=== PATIENT | male | born 1960 | race American Indian/Alaskan Native ===

== ENCOUNTER 2020-09-05 16:24 | Observation (INO) | payer BC ==
--- NOTE | 2020-09-05 17:44 | Event Note ---
ED Screening Note ED Screening Note: SOB, chest tightness, subjective fever, chills, generalized body aches began today no N/V/D, leg swelling no sick contacts no travel works at [employer] PMHx none no allergies to meds on exam rhythm sounds irregular, ordered EKG This initial assessment/diagnostic orders/clinical plan/treatment(s) is/are sub ject to change based on patients health status, clinical progression and re- assessment by fellow clinical providers in the ED. Further treatment and workup at subsequent clinical providers discretion. Patient/guardian urged not to elope from the ED as their condition may be serious if not clinically assessed and managed. Initial orders include: labs, EKG, CXR
[2020-09-05] MEDS ORDERED: HEPARIN 10,000 UNITS/10 ML VIAL IV ONE (18:08)
[2020-09-05] MEDS ORDERED: dilTIAZem 25 MG/5 ML INJ IV ONE (18:08)
[2020-09-05] MEDS ORDERED: HEPARIN 10,000 UNITS/10 ML VIAL IV PRN (18:08)
--- NOTE | 2020-09-05 18:12 | Emergency Department Report ---
HPI - General Chief Complaint: Dyspnea/Respdistress Time Seen by Provider: 09/05/20 17:42 - HPI HPI: Room 43 The patient is a 60-year-old male present with a chief complaint of chest tightness. Patient states he awakened this morning with tightness in his chest and feeling dizzy. Patient states he had shortness of breath associated with his chest tightness and became diaphoretic. Patient denies nausea or vomiting. Patient states for the past couple days he has had a cough has been productive of clear sputum. Patient currently gives his chest tightness a score of 4/10. ED Past Medical Hx - Past Medical History Previous Medical History?: No - Surgical History Past Surgical History?: No - Social History Smoking Status: Never Smoker Substance Use Type: None ED Review of Systems ROS: Stated complaint: COVID SYMPTOMS Other details as noted in HPI Physical Exam - Physical Exam Vital Signs: Vital Signs 09/05/20 17:20 Temperature 98.4 F Pulse Rate 75 Respiratory 20 Rate Blood Pressure 134/101 O2 Sat by Pulse 96 Oximetry ED Course Vital Signs 09/05/20 17:20 Temperature 98.4 F Pulse Rate 75 Respiratory 20 Rate Blood Pressure 134/101 O2 Sat by Pulse 96 Oximetry - Consultations Consultation #1: 09/05/20 17:57 EKG sent to and discussed with Dr. Deleon- recommends calling code STEMI ED Medical Decision Making - Lab Data Result diagrams: 09/05/20 18:16 09/05/20 17:48 - EKG Data -: EKG Interpreted by Me Rate: tachycardia - EKG Data When compared to previous EKG there are: previous EKG unavailable Interpretation: acute MT, other (A. fib with RVR 129 bpm) - Differential Diagnosis ACS, A. fib with RVR, pericarditis, GERD Critical care attestation.: If time is entered above; I have spent that time in minutes in the direct care of this critically ill patient, excluding procedure time. ED Disposition Clinical Impression: STEMI (ST elevation myocardial infarction) Disposition: -09 OP ADMIT IP TO THIS HOSP Is pt being admited?: Yes Does the pt Need Aspirin: Yes Condition: Fair Referrals: PRIMARY CARE, [Primary Care Provider] - 3-5 Days Time of Disposition: 19:02 (Hospitalist notified (Dr. Krishnamurthy))
[2020-09-05] MEDS ORDERED: HEPARIN 10,000 UNITS/10 ML VIAL ONE (18:20)
[2020-09-05] MEDS ORDERED: HEPARIN/NS 5000 UNIT/500ML 1,000 ML IR ONE (18:20)
[2020-09-05] MEDS ORDERED: NITROGLYCERIN SYRINGE 3 ML ONE (18:21)
[2020-09-05] MEDS ORDERED: LIDOCAINE (2%) 20 MG/1 ML VIAL 20 ML MDV INFILTRATI ONE (18:21)
[2020-09-05] MEDS ORDERED: VERAPAMIL 5 MG/2 ML INJ ONE (18:21)
[2020-09-05] MEDS ORDERED: MIDAZOLAM 2 MG/2 ML INJ ONE (18:22)
[2020-09-05 18:25] LABS: Alanine Aminotransferase 32 units/L (7-56); Albumin 4.5 g/dL (3.9-5); BUN/Creatinine Ratio 17; Blood Urea Nitrogen 17 mg/dL (9-20); Calcium 9.6 mg/dL (8.4-10.2); Hemolysis Index 30
[2020-09-05 18:27] LABS: Hematocrit 49.3 % (35.5-45.6); Hemoglobin 16.2 gm/dl (11.8-15.2)
--- NOTE | 2020-09-05 18:28 | XRay Report ---
CHEST 1 VIEW 09/05/2020 5:23 PM INDICATION / CLINICAL INFORMATION: chest tightness. COMPARISON: None available. FINDINGS: SUPPORT DEVICES: None. HEART / MEDIASTINUM: No significant abnormality. LUNGS / PLEURA: No significant pulmonary or pleural abnormality. No pneumothorax. ADDITIONAL FINDINGS: No significant additional findings. IMPRESSION: 1. No acute findings. Signer Name: Alvaro Patel MD Signed: 09/05/2020 6:24 PM Workstation Name: [id number]
[2020-09-05 18:39] LABS: Basophils % (Auto) 0.4 % (0.0-1.8); Eosinophils # (Auto) 0.1 K/mm3 (0.0-0.4); Eosinophils % (Auto) 0.7 % (0.0-4.3); Hematocrit 50.5 % (35.5-45.6); Hemoglobin 16.6 gm/dl (11.8-15.2); Lymphocytes # (Auto) 1.2 K/mm3 (1.2-5.4); Mean Corpuscular HGB Conc 33 % (32-34); Mean Corpuscular Volume 97 fl (84-94); Monocytes # (Auto) 0.6 K/mm3 (0.0-0.8); Monocytes % (Auto) 5.3 % (0.0-7.3); Platelet Count 151 K/mm3 (140-440); Red Blood Count 5.21 M/mm3 (3.65-5.03); Red Cell Distribution Width 14.3 % (13.2-15.2)
[2020-09-05 18:43] LABS: INR 1.07 (0.87-1.13)
[2020-09-05] MEDS ORDERED: SODIUM CHLORIDE 0.9% 500 ML 500 ML ONE (18:43)
[2020-09-05 18:45] LABS: Partial Thromboplastin Time 25.4 Sec. (24.2-36.6)
[2020-09-05 18:49] LABS: INR 1.06 (0.87-1.13)
[2020-09-05 18:50] LABS: Partial Thromboplastin Time 26.5 Sec. (24.2-36.6)
[2020-09-05] MEDS: fentaNYL 100 MCG/2 ML INJ ONE ×2 (18:50→18:52)
[2020-09-05] MEDS ORDERED: HEPARIN/ 0.45% NACL DRIP 25,000 UNIT/500 ML BAG IV SCH (19:00)
[2020-09-05] MEDS ORDERED: ACETAMINOPHEN 325 MG TAB PO PRN (19:36)
[2020-09-05] MEDS ORDERED: ONDANSETRON 4 MG/2 ML INJ IV PRN (19:36)
--- NOTE | 2020-09-05 19:43 | Consultation ---
HISTORY OF PRESENT ILLNESS: The patient is a 60-year-old gentleman who never saw a physician for last 30-40 years, started having anterior chest pain associated with shortness of breath and palpitations since this AM. He was evaluated in the Emergency Room and was noted to have ST elevations, was taken to the catheterization laboratory on an emergency basis and was noted to have normal coronary anatomy with moderate LV dysfunction, ejection fraction 35-40%, diagnosed as dilated cardiomyopathy with new-onset atrial fibrillation. PAST MEDICAL HISTORY: The patient's past medical history is essentially unremarkable and did not see any physician in a long time. MEDICATIONS: He does not take any medications. No history of hypertension or diabetes mellitus, pulmonary, or renal problems. The patient denies any previous hospitalizations or surgeries. SOCIAL HISTORY: He smokes 1 pack in 3-4 days. No history of drug abuse. The patient drinks 4-12 cans of beer a day for a long time. ALLERGIES: None known. 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 No previous cardiac history of chest pain or shortness of breath. No history of irregular heartbeat. No history of strokes or seizures. No history of pulmonary emboli or DVT. No history of unusual headaches. No fever, no coughing. However, he did have shortness of breath, chest pain since this morning. No leg swelling. No change in the bowel habits, no urinary symptoms. Denied any liver problems or pancreas problems in the past. No history of diabetes mellitus or asthma. PHYSICAL EXAMINATION: VITAL SIGNS: Blood pressure is 150/100, pulse of 120, irregular. HEENT: Conjunctivae pink. Sclerae anicteric. NECK: Supple, no JVD. HEART: Irregular, no significant murmurs. LUNGS: Clear. ABDOMEN: Benign. EXTREMITIES: Without edema. NEUROLOGIC: Alert, oriented x 3. FINAL IMPRESSION: 1. Dilated cardiomyopathy, probably related to alcohol use. Presently, ejection fraction 35-40%, newly diagnosed. 2. Atrial fibrillation, new onset with mildly increased ventricular rate, may be related to underlying cardiomyopathy and alcohol use. 3. Probable hypertension noted on present admission. No previous history. At this time, the patient denies any previous medical history or surgeries. Findings were explained to the patient. At this time, I explained to him most likely his problems may be related to alcohol use. Encouraged him to quit smoking. Presently, we will start him on anticoagulation with apixaban in addition to give him beta-dallin to control his blood pressure and heart rate. We will monitor him in telemetry. Presently, the patient is asymptomatic. No untoward complications were noted on cardiac catheterization performed using a radial access. The patient understands. The patient is single, lives by himself. JOB# [id number] CONNOR/DANIELLE BOYLE
[2020-09-05] MEDS ORDERED: HYDROcodone/ACETAMINOPHEN 5-325 MG TAB PO PRN (19:55)
[2020-09-05] MEDS ORDERED: traMADol 50 MG TAB PO PRN (19:55)
--- NOTE | 2020-09-05 19:55 | Cardiac Catherization Report ---
INDICATION FOR PROCEDURE: The patient is a 60-year-old -[place] gentleman who woke up this morning with anterior chest pain and since that time, the pain is not getting better. Subsequently, he had some shortness of breath and palpitations. He was evaluated in the Emergency Room and noted to have atrial fibrillation with rapid ventricular response and ST elevations in the inferior lateral leads consistent with inferior injury. Considering this pain is since this morning, the patient continues to have chest pain, hence was brought to the catheterization laboratory on an emergency basis as a part of the STEMI protocol. DESCRIPTION OF PROCEDURE: The patient was brought to the catheterization laboratory and was prepared in a standard fashion. He was sedated with IV Versed and fentanyl. The right wrist area was thoroughly cleansed with Betadine solution and sterile drapes were applied and local anesthesia was given. The patient subsequently using a 20-gauge needle, the right radial artery access was obtained. A 5-[place]i slender sheath was introduced. This is followed by angiography of the left coronary artery, right coronary artery and left ventriculogram done in PALMER projection using power injector using 6-[place]i multipurpose catheter. At the end of the procedure, catheter and sheath were removed and hemostasis was achieved with application of radial band. The patient tolerated the procedure well. The patient was evaluated for moderate sedation on an emergency basis. The patient was given IV Versed and fentanyl. Subsequently, was monitored throughout the procedure with EKG monitoring, pulse oximetry, and hemodynamic monitoring. The patient tolerated the sedation well. At the end of the procedure, the patient is breathing normally, communicating normally and no focal deficits noted. Patient's moderate sedation started at 18:51 hours and ended at 19:04 hours. The patient was transferred to the recovery area in stable condition. Throughout the procedure, the patient is in atrial fibrillation with controlled rate to mildly increased ventricular rate around 120 beats per minute. EKG at the end of the procedure showed persistent atrial fibrillation at a rate of 83 beats per minute; however, persistent ST elevations in the lateral precordial leads, may represent early repolarization. The patient is not having any chest pain at the end of the procedure. Following findings were noted. HEMODYNAMICS: 1. Opening aortic pressure 154/100. Left ventricular pressure 154/25. No gradient across the aortic valve. Estimated ejection fraction 35-40. 2. Left ventriculogram done in PALMER projection showed mildly dilated left ventricle with mild diffuse hypokinesis. EF was found to be around 35-40%. No significant mitral regurgitation noted. 3. Right coronary artery dominant vessel arises normally from right coronary cusp, but angiographically smooth and normal. 4. Left coronary artery arises normally from left coronary cusp. Left main, which is very short, LAD, which curves around the apex and its branches, circumflex artery and its multiple branches are angiographically smooth and normal. FINAL IMPRESSION: 1. Mildly dilated left ventricle with mild diffuse hypokinesis, ejection fraction in the range of 35-40%. No mitral regurgitation. Elevated end diastolic pressure of 25 mmHg noted. 2. Normal coronary anatomy with RCA being dominant vessel. 3. The patient has underlying atrial fibrillation, which is newly diagnosed. The patient's diagnosis appears to be cardiomyopathy with associated ST-T changes, this ST changes may be representing early repolarization. At this time, the patient will be admitted to the telemetry unit. Will be given IV heparin overnight. He will be started on anticoagulation with Eliquis in addition to adding beta dallin to control of the heart rate. The patient at the end of the procedure is stable without any chest pain, hemodynamically stable. JOB# [id number] CONNOR/DANIELLE BOYLE
--- NOTE | 2020-09-05 22:12 | History and Physical Report ---
History of Present Illness Date of examination: 09/05/20 Date of admission: 09/05/20 19:36 Chief complaint: Chest pain since a.m. History of present illness: The patient is a 60-year-old male present with a chief complaint of chest tightness. Patient states he awakened this morning with tightness in his chest and feeling dizzy. Patient states he had shortness of breath associated with his chest tightness and became diaphoretic. Patient denies nausea or vomiting. Patient states for the past couple days he has had a cough has been productive of clear sputum. Patient currently gives his chest tightness a score of 4/10. Patient is EKG was consistent with STEMI. Code STEMI was called. And patient was taken to [facility]. - Past Medical History Previous Medical History?: No - Surgical History Past Surgical History?: No - Social History Smoking Status: Never Smoker Substance Use Type: None Review of Systems ROS: Constitutional no weight loss or weight gain no fever or chills HEENT no sore throat no post nasal drip no diplopia Neck no neck stiffness no lymph gland enlargement Chest and lungs no shortness of breath cough or wheezing CVS acute onset of chest pain. GI no nausea no vomiting no diarrhea Genitourinary system no dysuria no flank pain Musculoskeletal system no muscle pains no joint pains CATH LAB no syncope no seizures Skin no rash no itching Psychiatric no depression no homicidal or suicidal tendencies Hematologic no lymphedema or bruising Endocrine no polydipsia no polyuria no cold intolerance no heat intolerance Medications and Allergies Allergies Allergy/AdvReac Type Severity Reaction Status Date / Time No Known Allergies Allergy Unverified 09/05/20 18:09 Active Meds: Active Medications Acetaminophen (Acetaminophen 325 Mg Tab) 650 mg PO Q4H PRN PRN Reason: Pain MILD(1-3)/Fever >100.5/VORA Hydrocodone Bitart/Acetaminophen (Hydrocodone/Acetaminophen 5-325 Mg Tab) 1 each PO Q4H PRN PRN Reason: Pain, Moderate (4-6) Apixaban (Apixaban 5 Mg Tab) 5 mg PO Q12HR JENNA; Protocol Heparin Sodium (Porcine) (Heparin 10,000 Units/10 Ml Vial) 3,400 unit 40 unit/kg (3400 unit) IV Q6H PRN PRN Reason: Anti-Xa Assay<0.1 units/ml Heparin Sodium/Sodium Chloride (Heparin/ 0.45% Nacl-25,000 Unit/500 Ml) 25,000 unit in 500 mls @ 20 mls/hr IV TITRATE JENNA; Protocol Metoprolol Tartrate (Metoprolol Tartrate 50 Mg Tab) 50 mg PO BID JENNA Stop: 09/15/20 21:59 Ondansetron HCl (Ondansetron 4 Mg/2 Ml Inj) 4 mg IV Q8H PRN PRN Reason: Nausea And Vomiting Sodium Chloride (Sodium Chloride 0.9% 10 Ml Flush Syringe) 10 ml IV BID JENNA Sodium Chloride (Sodium Chloride 0.9% 10 Ml Flush Syringe) 10 ml IV PRN PRN PRN Reason: LINE FLUSH Tramadol HCl (Tramadol 50 Mg Tab) 50 mg PO Q4H PRN PRN Reason: Pain, Mild (1-3) Exam - Constitutional Vitals: Temp Pulse Resp BP Pulse Ox 97.6 F 75 13 119/83 96 09/05/20 19:15 09/05/20 21:30 09/05/20 21:30 09/05/20 21:30 09/05/20 21:30 General appearance: Present: no acute distress, well-nourished - EENT Eyes: Present: PERRL ENT: hearing intact, clear oral mucosa - Neck Neck: Present: supple, normal ROM - Respiratory Respiratory effort: normal Respiratory: bilateral: CTA - Cardiovascular Heart rate: 78 Rhythm: regular Heart Sounds: Present: S1 & S2. Absent: rub, click - Extremities Extremities: pulses symmetrical, No edema Peripheral Pulses: within normal limits - Abdominal General gastrointestinal: Present: soft, non-tender, non-distended, normal bowel sounds Male genitourinary: Present: normal - Integumentary Integumentary: Present: clear, warm, dry - Musculoskeletal Musculoskeletal: gait normal, strength equal bilaterally - Psychiatric Psychiatric: appropriate mood/affect, intact judgment & insight - Neurologic Neurologic: CNII-XII intact, moves all extremities HEART Score - HEART Score History: Moderately suspicious EKG: Significant ST-depression Age: 45-65 Risk factors: No known risk factors Troponin: Troponin T 0.015 ng/mL (0.00-0.029) 09/05/20 17:48 - Critical Actions Critical Actions: 4-6 pts:12-16.6% risk of adverse cardiac event. Should be admitted Results - Labs CBC & Chem 7: 09/05/20 18:16 09/05/20 17:48 Labs: Laboratory Last Values WBC 11.6 K/mm3 (4.5-11.0) H 09/05/20 17:48 RBC 5.21 M/mm3 (3.65-5.03) H 09/05/20 17:48 Hgb 16.2 gm/dl (11.8-15.2) H 09/05/20 18:16 Hct 49.3 % (35.5-45.6) H 09/05/20 18:16 MCV 97 fl (84-94) H 09/05/20 17:48 MCH 32 pg (28-32) 09/05/20 17:48 MCHC 33 % (32-34) 09/05/20 17:48 RDW 14.3 % (13.2-15.2) 09/05/20 17:48 Plt Count 144 K/mm3 (140-440) 09/05/20 18:16 Lymph % (Auto) 10.0 % (13.4-35.0) L 09/05/20 17:48 Nash % (Auto) 5.3 % (0.0-7.3) 09/05/20 17:48 Eos % (Auto) 0.7 % (0.0-4.3) 09/05/20 17:48 Baso % (Auto) 0.4 % (0.0-1.8) 09/05/20 17:48 Lymph # (Auto) 1.2 K/mm3 (1.2-5.4) 09/05/20 17:48 Nash # (Auto) 0.6 K/mm3 (0.0-0.8) 09/05/20 17:48 Eos # (Auto) 0.1 K/mm3 (0.0-0.4) 09/05/20 17:48 Baso # (Auto) 0.0 K/mm3 (0.0-0.1) 09/05/20 17:48 Seg Neutrophils % 83.6 % (40.0-70.0) H 09/05/20 17:48 Seg Neutrophils # 9.7 K/mm3 (1.8-7.7) H 09/05/20 17:48 PT 13.7 Sec. (12.2-14.9) 09/05/20 18:16 INR 1.07 (0.87-1.13) 09/05/20 18:16 APTT 25.4 Sec. (24.2-36.6) 09/05/20 18:16 Sodium 140 mmol/L (137-145) 09/05/20 17:48 Potassium 4.4 mmol/L (3.6-5.0) 09/05/20 17:48 Chloride 103.3 mmol/L (98-107) 09/05/20 17:48 Carbon Dioxide 25 mmol/L (22-30) 09/05/20 17:48 Anion Gap 16 mmol/L 09/05/20 17:48 BUN 17 mg/dL (9-20) 09/05/20 17:48 Creatinine 1.0 mg/dL (0.8-1.3) 09/05/20 17:48 Estimated GFR > 60 ml/min 09/05/20 17:48 BUN/Creatinine Ratio 17 % 09/05/20 17:48 Glucose 129 mg/dL (75-100) H 09/05/20 17:48 Calcium 9.6 mg/dL (8.4-10.2) 09/05/20 17:48 Total Bilirubin 0.50 mg/dL (0.1-1.2) 09/05/20 17:48 AST 24 units/L (5-40) 09/05/20 17:48 ALT 32 units/L (7-56) 09/05/20 17:48 Alkaline Phosphatase 81 units/L (35-129) 09/05/20 17:48 Troponin T 0.015 ng/mL (0.00-0.029) 09/05/20 17:48 NT-Pro-B Natriuret Pep 629.4 pg/mL (0-900) 09/05/20 17:48 Total Protein 7.0 g/dL (6.3-8.2) 09/05/20 17:48 Albumin 4.5 g/dL (3.9-5) 09/05/20 17:48 Albumin/Globulin Ratio 1.8 % 09/05/20 17:48 Short CBC 09/05/20 09/05/20 Range/Units 17:48 18:16 WBC 11.6 H (4.5-11.0) K/mm3 Hgb 16.6 H 16.2 H (11.8-15.2) gm/dl Hct 50.5 H 49.3 H (35.5-45.6) % Plt Count 151 144 (140-440) K/mm3 BMP 09/05/20 17:48 Sodium 140 Potassium 4.4 Chloride 103.3 Carbon Dioxide 25 BUN 17 Creatinine 1.0 Glucose 129 H Calcium 9.6 Cardiac Enzymes 09/05/20 Range/Units 17:48 Troponin T 0.015 (0.00-0.029) ng/mL Liver Function 09/05/20 Range/Units 17:48 Total Bilirubin 0.50 (0.1-1.2) mg/dL AST 24 (5-40) units/L ALT 32 (7-56) units/L Alkaline Phosphatase 81 (35-129) units/L Albumin 4.5 (3.9-5) g/dL - Imaging and Cardiology EKG: report reviewed (EKG consistent with STEMI.) Pelayo/IV: IV Catheter Type [Right INT / Saline Lock Forearm] IV Catheter Type [Left Forearm Peripheral IV ] Assessment and Plan Advance Directives: Yes (Full code) - Patient Problems (1) STEMI (ST elevation myocardial infarction) Current Visit: Yes Status: Acute Plan to address problem: Patient had cardiac cath which showed normal coronaries. Patient initiated on IV heparin. And heparin. Will defer to cardiology regarding discharge tomorrow. (2) Hyperlipidemia Current Visit: Yes Status: Chronic Qualifiers: Hyperlipidemia type: unspecified Qualified Code(s): E78.5 - Hyperlipidemia, unspecified Plan to address problem: On statins. (3) DVT prophylaxis Current Visit: Yes Status: Acute Plan to address problem: On heparin and GI prophylaxis
[2020-09-05] MEDS: APIXABAN 5 MG TAB PO SCH (22:43)
[2020-09-05] MEDS: METOPROLOL TARTRATE 50 MG TAB PO SCH (22:43)
[2020-09-06] MEDS: METOPROLOL TARTRATE 50 MG TAB PO SCH ×2 (10:42→21:05)
[2020-09-06] MEDS: APIXABAN 5 MG TAB PO SCH ×2 (10:42→21:04)
--- NOTE | 2020-09-06 11:24 | Progress Note ---
Assessment and Plan s/p LHC via RRA overnight which showed normal coronaries, EF 35-40%. Pt feeling better today. tele reviewed - in AFib HR 100s, 5 beat run NSVT noted this AM, pt asymptomatic. Cont lopressor and titrate as tolerated. Cont Eliquis. Initiate losartan. Await tte. Cont to observe overnight with likely d/c in AM. Cessation of ETOH and tobacco use strongly encouraged. The patient has been seen in conjunction with Dr. Deleon who agrees with the assessment and plan of care. - Patient Problems (1) New onset atrial fibrillation Current Visit: Yes Status: Acute (2) Abnormal ECG Current Visit: Yes Status: Acute (3) Nonischemic cardiomyopathy Current Visit: Yes Status: Chronic (4) Normal coronary arteries Current Visit: Yes Status: Chronic (5) HTN (hypertension) Current Visit: Yes Status: Chronic (6) Alcohol abuse Current Visit: Yes Status: Chronic (7) Tobacco use Current Visit: Yes Status: Chronic Subjective Date of service: 09/06/20 Principal diagnosis: AFib RVR Interval history: pt sitting up at bedside, feeling better today. tele reviewed - in AFib HR 100s, 5 beat run NSVT noted this AM, pt asymptomatic. Objective Last Vital Signs Temp 97.4 F L 09/06/20 04:00 Pulse 68 09/06/20 10:32 Resp 18 09/06/20 04:00 BP 123/95 09/06/20 04:00 Pulse Ox 97 09/06/20 04:00 - Physical Examination General: No Apparent Distress HEENT: Positive: PERRL, Normocephaly, Mucus Membranes Moist Neck: Positive: neck supple, trachea midline Cardiac: Positive: irregularly irregular, S1/S2 Lungs: Positive: Decreased Breath Sounds Neuro: Positive: Grossly Intact Abdomen: Negative: Tender Skin: Negative: Rash Incision: Cardiac Cath Site (RRA c/d/i, no bleeding or hematoma) Musculoskeletal: No Pain Extremities: Absent: edema - Labs and Meds Cardiac Enzymes 09/05/20 Range/Units 17:48 AST 24 (5-40) units/L Coagulation 09/05/20 09/05/20 Range/Units 17:48 18:16 PT 13.6 13.7 (12.2-14.9) Sec. INR 1.06 1.07 (0.87-1.13) APTT 26.5 25.4 (24.2-36.6) Sec. CBC 09/05/20 09/05/20 Range/Units 17:48 18:16 WBC 11.6 H (4.5-11.0) K/mm3 RBC 5.21 H (3.65-5.03) M/mm3 Hgb 16.6 H 16.2 H (11.8-15.2) gm/dl Hct 50.5 H 49.3 H (35.5-45.6) % Plt Count 151 144 (140-440) K/mm3 Lymph # (Auto) 1.2 (1.2-5.4) K/mm3 [place] # (Auto) 0.6 (0.0-0.8) K/mm3 Eos # (Auto) 0.1 (0.0-0.4) K/mm3 Baso # (Auto) 0.0 (0.0-0.1) K/mm3 Comprehensive Metabolic Panel 09/05/20 Range/Units 17:48 Sodium 140 (137-145) mmol/L Potassium 4.4 (3.6-5.0) mmol/L Chloride 103.3 (98-107) mmol/L Carbon Dioxide 25 (22-30) mmol/L BUN 17 (9-20) mg/dL Creatinine 1.0 (0.8-1.3) mg/dL Glucose 129 H (75-100) mg/dL Calcium 9.6 (8.4-10.2) mg/dL AST 24 (5-40) units/L ALT 32 (7-56) units/L Alkaline Phosphatase 81 (35-129) units/L Total Protein 7.0 (6.3-8.2) g/dL Albumin 4.5 (3.9-5) g/dL - Imaging and Cardiology EKG: report reviewed, image reviewed Echo: pending Cardiac cath: report reviewed - Telemetry EKG Rhythm: Atrial Fibrillation
[2020-09-06] MEDS: LOSARTAN 25 MG TAB PO SCH (11:47)
--- NOTE | 2020-09-06 14:35 | Progress Note ---
Assessment and Plan Assessment and plan: STEMI -Presented with chest tightness and was taken to the [facility] -Cardiology consulted, appreciate recommendations -09/05 CXR shows no acute findings -09/05 TTE shows global left ventricular systolic function is moderately decreased, estimated ejection fraction 35 to 40%, abnormal left ventricular santos tolic function observed, moderate mitral valve regurgitation, RVSP calculated at 37 mmHg with a mildly dilated right ventricle -09/05 left heart cath shows moderate at the left ventricle with mild diffuse hypokinesis, ejection fraction in the range of 35 to 40%, no mitral valve regurgitation, elevated end-diastolic pressure of 25 mmHg, normal coronary anatomy and underlying atrial fibrillation -09/05 K 4.4 -Patient is having runs of V. tach 09/06 -09/04 heparin drip which has been discontinued -09/05 Eliquis, ARB, BB initiated by cardiology, titrate as needed Hyperlipidemia -Continue home statins DVT prophylaxis -Systolic anticoagulation with Eliquis -GI prophylaxis History Interval history: This is a 52-year-old male with no past medical history who presents to the emergency department on 09/05 with chest tightness, dizziness, diaphoresis and shortness of breath. ECG findings in the ED was consistent with a STEMI and patient was taken to the [facility]. Cardiology has been consulted. Today the patient is s/p LHC and a TTE. Patient noted to be in atrial fibrillation and was on heparin drip at the time my examination. No acute events reported overnight and the patient denies chest pain, difficulty in breathing, dizziness or diaphoresis. Per cardiology possible discharge tomorrow. Hospitalist Physical - Constitutional Vitals: Temp Pulse Resp BP Pulse Ox 97.4 F L 68 18 123/95 97 09/06/20 04:00 09/06/20 10:32 09/06/20 04:00 09/06/20 04:00 09/06/20 04:00 General appearance: Present: no acute distress, well-nourished - EENT Eyes: Present: PERRL, EOM intact ENT: hearing intact, clear oral mucosa, dentition normal - Neck Neck: Present: supple, normal ROM - Respiratory Respiratory effort: normal Respiratory: bilateral: CTA - Cardiovascular Rhythm: regular Heart Sounds: Present: S1 & S2. Absent: systolic murmur, diastolic murmur - Extremities Extremities: no ischemia, pulses intact, pulses symmetrical, No edema (Juvenal called), normal temperature, normal color, Full ROM Peripheral Pulses: within normal limits - Abdominal General gastrointestinal: soft, non-tender, non-distended, normal bowel sounds - Integumentary Integumentary: Present: clear, warm, dry - Psychiatric Psychiatric: appropriate mood/affect, cooperative - Neurologic Neurologic: CNII-XII intact, no focal deficits, moves all extremities - Allied Health Allied health notes reviewed: nursing HEART Score - HEART Score EKG: Significant ST-depression Age: 45-65 Risk factors: No known risk factors Troponin: Troponin T 0.015 ng/mL (0.00-0.029) 09/05/20 17:48 - Critical Actions Critical Actions: 4-6 pts:12-16.6% risk of adverse cardiac event. Should be admitted Results - Labs CBC & Chem 7: 09/05/20 18:16 09/05/20 17:48 Labs: Laboratory Last Values WBC 11.6 K/mm3 (4.5-11.0) H 09/05/20 17:48 RBC 5.21 M/mm3 (3.65-5.03) H 09/05/20 17:48 Hgb 16.2 gm/dl (11.8-15.2) H 09/05/20 18:16 Hct 49.3 % (35.5-45.6) H 09/05/20 18:16 MCV 97 fl (84-94) H 09/05/20 17:48 MCH 32 pg (28-32) 09/05/20 17:48 MCHC 33 % (32-34) 09/05/20 17:48 RDW 14.3 % (13.2-15.2) 09/05/20 17:48 Plt Count 144 K/mm3 (140-440) 09/05/20 18:16 Lymph % (Auto) 10.0 % (13.4-35.0) L 09/05/20 17:48 [place] % (Auto) 5.3 % (0.0-7.3) 09/05/20 17:48 Eos % (Auto) 0.7 % (0.0-4.3) 09/05/20 17:48 Baso % (Auto) 0.4 % (0.0-1.8) 09/05/20 17:48 Lymph # (Auto) 1.2 K/mm3 (1.2-5.4) 09/05/20 17:48 [place] # (Auto) 0.6 K/mm3 (0.0-0.8) 09/05/20 17:48 Eos # (Auto) 0.1 K/mm3 (0.0-0.4) 09/05/20 17:48 Baso # (Auto) 0.0 K/mm3 (0.0-0.1) 09/05/20 17:48 Seg Neutrophils % 83.6 % (40.0-70.0) H 09/05/20 17:48 Seg Neutrophils # 9.7 K/mm3 (1.8-7.7) H 09/05/20 17:48 PT 13.7 Sec. (12.2-14.9) 09/05/20 18:16 INR 1.07 (0.87-1.13) 09/05/20 18:16 APTT 25.4 Sec. (24.2-36.6) 09/05/20 18:16 Heparin Anti-Xa Level 1.30 U.I./ml (0.3-0.7) H 09/06/20 08:00 Sodium 140 mmol/L (137-145) 09/05/20 17:48 Potassium 4.4 mmol/L (3.6-5.0) 09/05/20 17:48 Chloride 103.3 mmol/L (98-107) 09/05/20 17:48 Carbon Dioxide 25 mmol/L (22-30) 09/05/20 17:48 Anion Gap 16 mmol/L 09/05/20 17:48 BUN 17 mg/dL (9-20) 09/05/20 17:48 Creatinine 1.0 mg/dL (0.8-1.3) 09/05/20 17:48 Estimated GFR > 60 ml/min 09/05/20 17:48 BUN/Creatinine Ratio 17 % 09/05/20 17:48 Glucose 129 mg/dL (75-100) H 09/05/20 17:48 Calcium 9.6 mg/dL (8.4-10.2) 09/05/20 17:48 Total Bilirubin 0.50 mg/dL (0.1-1.2) 09/05/20 17:48 AST 24 units/L (5-40) 09/05/20 17:48 ALT 32 units/L (7-56) 09/05/20 17:48 Alkaline Phosphatase 81 units/L (35-129) 09/05/20 17:48 Troponin T 0.015 ng/mL (0.00-0.029) 09/05/20 17:48 NT-Pro-B Natriuret Pep 629.4 pg/mL (0-900) 09/05/20 17:48 Total Protein 7.0 g/dL (6.3-8.2) 09/05/20 17:48 Albumin 4.5 g/dL (3.9-5) 09/05/20 17:48 Albumin/Globulin Ratio 1.8 % 09/05/20 17:48 - Diagnostic Impressions Diagnostic Impressions: Echocardiogram 09/05/20 19:54 Transthoracic Echocardiogram Indication: A-fib BP: 123/95 HR: 66 Conclusions *Global left ventricular systolic function is moderately decreased. *The estimated ejection fraction is 35-40%. *Abnormal left ventricular diastolic function is observed.(Indeterminate) *The left atrial chamber size is normal. *There is moderate mitral regurgitation. *The right ventricular systolic pressure is calculated at 37 mmHg. *The right ventricle is mildly dilated. Findings Left Ventricle: The left ventricular chamber size is normal. Global left ventricular systolic function is moderately decreased. The estimated ejection fraction is 35-40%. Abnormal left ventricular diastolic function is observed.(Indeterminate) Left Atrium: The left atrial chamber size is normal. Right Ventricle: The right ventricle is mildly dilated. The right ventricular global systolic function is mildly reduced. Right Atrium: The right atrium is mildly dilated. Aortic Valve: The aortic valve structure is normal. There is no evidence of aortic regurgitation. Mitral Valve: The mitral valve leaflets are mildly thickened. There is moderate mitral regurgitation. Tricuspid Valve: The tricuspid valve leaflets are normal. There is moderate tricuspid regurgitation. The right ventricular systolic pressure is calculated at 37 mmHg. Pulmonic Valve: The pulmonic valve appears normal. There is trace pulmonic regurgitation. Pericardium: There is no pericardial effusion. Aorta: The aorta appears normal. Venous: The inferior vena cava appears normal. Measurements Chambers 2D Name Value Normal Range IVSd (2D) 0.87 cm (0.6 - 1.1) LVPWd (2D) 0.8 cm (0.6 - 1.1) LVIDd (2D) 5.17 cm (3.7 - 5.6) LVIDs (2D) 4.19 cm (2 - 3.8) LV FS (2D) 18.95 % - Ao root diameter (2D) 3.11 cm (2 - 3.7) Volumes/Mass Name Value Normal Range LA ESV SP 4CH (A/L) 31.52 ml - LA ESV SP 2CH (A/L) 56.52 ml - LA ESV BP (A/L) 43.09 ml - LA ESV BP (A/L) index 20.92 ml/m2 - LA ESV SP 4CH (MOD) 28.12 ml - LA ESV SP 2CH (MOD) 55.75 ml - LA ESV BP (MOD) 40.3 ml - LA ESV BP (MOD) index 19.56 ml/m2 - Diastolic/Systolic Function Name Value Normal Range MV E-wave Vmax 1.04 m/sec - MV deceleration time 155.27 msec - Aortic Valve Name Value Normal Range AV Vmax 0.93 m/sec - AV VTI 14.82 cm - AV peak gradient 3.44 mmHg - AV mean gradient 1.8 mmHg - LVOT diameter 2 cm - LVOT Vmax 0.72 m/sec - LVOT VTI 11.24 cm - LVOT peak gradient 2.69 mmHg - LVOT mean gradient 1.5 mmHg - SV LVOT 35.26 ml - KYLE (continuity Vmax) 2.43 cm2 - KYLE (continuity VTI) 2.38 cm2 - Mitral Valve Name Value Normal Range MR Vmax 4.88 m/sec - MR VTI 139.71 cm - Tricuspid Valve Name Value Normal Range TR Vmax 2.94 m/sec - TR peak gradient 34 mmHg - RAP 3 mmHg - RVSP 37 mmHg - IVC diameter 1.92 cm (1.2 - 2.3) Pulmonic Valve/Qp:Qs Name Value Normal Range ID end-diastolic Vmax 1.44 m/sec - PV acceleration time 95.15 msec - Pelayo/IV: Voiding Method Urinal IV Catheter Type [Right INT / Saline Lock Forearm] IV Catheter Type [Left Forearm Peripheral IV ] Active Medications - Current Medications Current Medications: Generic Name Dose Route Start Last Admin Trade Name Freq PRN Reason Stop Dose Admin Acetaminophen 650 mg 09/05/20 19:36 Acetaminophen 325 Mg Tab PO Q4H PRN Pain MILD(1-3)/Fever >100.5/VORA Hydrocodone Bitart/Acetaminophen 1 each 09/05/20 19:55 Hydrocodone/Acetaminophen 5-325 Mg Tab PO Q4H PRN Pain, Moderate (4-6) Apixaban 5 mg 09/05/20 22:00 09/06/20 10:42 Apixaban 5 Mg Tab PO 5 mg Q12HR JENNA Administration Protocol Losartan Potassium 12.5 mg 09/06/20 12:00 Losartan 25 Mg Tab PO QDAY JENNA Metoprolol Tartrate 50 mg 09/05/20 22:00 09/06/20 10:42 Metoprolol Tartrate 50 Mg Tab PO 09/15/20 21:59 50 mg BID JENNA Administration Ondansetron HCl 4 mg 09/05/20 19:36 Ondansetron 4 Mg/2 Ml Inj IV Q8H PRN Nausea And Vomiting Sodium Chloride 10 ml 09/05/20 22:00 09/06/20 10:43 Sodium Chloride 0.9% 10 Ml Flush Syringe IV 10 ml BID JENNA Administration Sodium Chloride 10 ml 09/05/20 19:36 Sodium Chloride 0.9% 10 Ml Flush Syringe IV PRN PRN LINE FLUSH Tramadol HCl 50 mg 09/05/20 19:55 Tramadol 50 Mg Tab PO Q4H PRN Pain, Mild (1-3)
[2020-09-07 05:48] LABS: Hematocrit 47.3 % (35.5-45.6); Hemoglobin 15.4 gm/dl (11.8-15.2); Mean Corpuscular HGB Conc 33 % (32-34); Mean Corpuscular Volume 98 fl (84-94); Platelet Count 134 K/mm3 (140-440); Red Blood Count 4.85 M/mm3 (3.65-5.03); Red Cell Distribution Width 14.4 % (13.2-15.2)
[2020-09-07 06:03] LABS: BUN/Creatinine Ratio 18; Blood Urea Nitrogen 18 mg/dL (9-20); Calcium 8.1 mg/dL (8.4-10.2); Hemolysis Index 2
[2020-09-07 06:19] LABS: Chol/HDL Ratio 4.32 %; HDL Cholesterol 43 mg/dL (40-59); LDL Cholesterol,Direct 140 mg/dL (50-130)
[2020-09-07] MEDS: METOPROLOL TARTRATE 50 MG TAB PO SCH (10:28)
[2020-09-07] MEDS: LOSARTAN 25 MG TAB PO SCH (10:29)
[2020-09-07] MEDS: APIXABAN 5 MG TAB PO SCH (10:29)
--- NOTE | 2020-09-07 11:14 | Progress Note ---
Assessment and Plan tte reviewed - EF 35-40%, mod MR, mildly dilated RV, RVSP 37mmHg. tele reviewed - in AFib HR 100s, 5-6 beat runs NSVT noted and 2 - 2.6 sec pauses noted overnight, pt asymptomatic. Currently stable cardiac status. Pt may discharge home on present cardiac management, including lopressor, losartan, Eliquis. Cessation of ETOH and tobacco use strongly encouraged. Follow up in our [place] office with Dr. Deleon on 09/21/2020 @ 12:00PM. The patient has been seen in conjunction with Dr. Deleon who agrees with the assessment and plan of care. - Patient Problems (1) New onset atrial fibrillation Status: Acute (2) Abnormal ECG Status: Acute (3) Nonischemic cardiomyopathy Status: Chronic (4) Normal coronary arteries Status: Chronic (5) HTN (hypertension) Status: Chronic (6) Alcohol abuse Status: Chronic (7) Tobacco use Status: Chronic (8) NSVT (nonsustained ventricular tachycardia) Status: Acute Subjective Date of service: 09/07/20 Principal diagnosis: AFib RVR Interval history: pt resting in bed, no current complaints. tele reviewed - in AFib HR 100s, 5-6 beat runs NSVT noted and 2 - 2.6 sec pauses noted overnight, pt asymptomatic. Objective Last Vital Signs Temp 98.2 F 09/07/20 08:40 Pulse 64 09/07/20 08:40 Resp 16 09/07/20 08:40 BP 123/67 09/07/20 08:40 Pulse Ox 94 09/07/20 08:40 - Physical Examination General: No Apparent Distress HEENT: Positive: PERRL, Normocephaly, Mucus Membranes Moist Neck: Positive: neck supple, trachea midline Cardiac: Positive: irregularly irregular, S1/S2 Lungs: Positive: Decreased Breath Sounds Neuro: Positive: Grossly Intact Abdomen: Negative: Tender Skin: Negative: Rash Incision: Cardiac Cath Site (RRA c/d/i, no bleeding or hematoma) Musculoskeletal: No Pain Extremities: Absent: edema - Labs and Meds Lipids 09/07/20 Range/Units 05:24 Triglycerides 114 (2-149) mg/dL Cholesterol 186 (50-199) mg/dL HDL Cholesterol 43 (40-59) mg/dL Cholesterol/HDL Ratio 4.32 % CBC 09/07/20 Range/Units 05:24 WBC 6.3 (4.5-11.0) K/mm3 RBC 4.85 (3.65-5.03) M/mm3 Hgb 15.4 H (11.8-15.2) gm/dl Hct 47.3 H (35.5-45.6) % Plt Count 134 L (140-440) K/mm3 Comprehensive Metabolic Panel 09/07/20 Range/Units 05:24 Sodium 138 (137-145) mmol/L Potassium 4.4 (3.6-5.0) mmol/L Chloride 104.0 (98-107) mmol/L Carbon Dioxide 25 (22-30) mmol/L BUN 18 (9-20) mg/dL Creatinine 1.0 (0.8-1.3) mg/dL Glucose 111 H (75-100) mg/dL Calcium 8.1 L D (8.4-10.2) mg/dL - Imaging and Cardiology EKG: report reviewed, image reviewed Echo: report reviewed Cardiac cath: report reviewed (08/2020: normal coronaries, EF 35-40%) - Telemetry EKG Rhythm: Atrial Fibrillation
[2020-09-07] MEDS ORDERED: MAGNESIUM SULFATE 1 GM in SODIUM CHLORIDE 0.9% 50 ML IV ONE (12:14)
[2020-09-07 12:17] VITALS: BP 120/67
--- NOTE | 2020-09-07 13:34 | Discharge Summary ---
Providers - Providers Date of Admission: 09/05/20 19:36 Date of discharge: 09/07/20 Attending physician: PEDRO LUJAN 09/05/20 19:55 Consult to Cardiac Rehabilitation [CONS] Routine Reason For Exam: Cardiac Rehab Evaluation Primary care physician: [employer] Hospitalization Condition: Stable Hospital course: This is a 52-year-old male with no past medical history who presents to the emergency department on 09/05 with chest tightness, dizziness, diaphoresis and shortness of breath. ECG findings in the ED was consistent with a STEMI and patient was taken to the [facility]. Cardiology has been consulted. While inpatient he received a left heart cath and a transthoracic echocardiogram. Patient noted to be in atrial fibrillatin. Patient will need to continue current cardiac regimen and anticoagulation with Eliquis. Patient will need to follow-up with his primary care physician and cardiology within 1 to 2 weeks of discharge. Nonischemic Cardiomyopathy with normal coronary arteries/STEMI on ECG -Presented with chest tightness and was taken to the [facility] -Cardiology consulted, appreciate recommendations -09/05 CXR shows no acute findings -09/05 TTE shows global left ventricular systolic function is moderately decreased, estimated ejection fraction 35 to 40%, abnormal left ventricular diastolic function observed, moderate mitral valve regurgitation, RVSP calculated at 37 mmHg with a mildly dilated right ventricle -09/05 left heart cath shows moderate at the left ventricle with mild diffuse hypokinesis, ejection fraction in the range of 35 to 40%, no mitral valve regurgitation, elevated end-diastolic pressure of 25 mmHg, normal coronary anatomy and underlying atrial fibrillation -09/05 K 4.4 -Patient had runs of V. tach 09/06 na don 09/07 -S/p heparin drip -Continue current cardiac regimen -Follow-up with cardiology within 1 to 2 weeks of discharge Atrial fibrillation -Continue current rate control medications -Follow-up with cardiology within 1 to 2 weeks of discharge -Continue Eliquis for DVT/CVA prophylaxis Hyperlipidemia -Continue home statins DVT/CVA prophylaxis -Systemic anticoagulation with Eliquis Disposition: DC-01 TO HOME OR SELFCARE Time spent for discharge: 35 Core Measure Documentation - Palliative Care Palliative Care/ Comfort Measures: Not Applicable - Core Measures Any of the following diagnoses?: acute CT - Acute CT Discharge Requirements Aspirin at discharge: No Reason for no aspirin on DC: Patient refusal VLADISLAV/ARB for LVSD if EF <40%: Yes Beta dallin at discharge: Yes Statin for LDL = or >100 mg/dl on DC: Not Applicable Exam - Constitutional Vitals: Temp Pulse Resp BP Pulse Ox 98.0 F 64 18 120/67 96 09/07/20 12:14 09/07/20 12:14 09/07/20 12:14 09/07/20 12:14 09/07/20 12:14 General appearance: Present: no acute distress - EENT Eyes: Present: PERRL, EOM intact ENT: hearing intact, clear oral mucosa - Neck Neck: Present: normal ROM - Respiratory Respiratory effort: normal Respiratory: bilateral: CTA - Cardiovascular Rhythm: regular Heart Sounds: Present: S1 & S2. Absent: systolic murmur, diastolic murmur - Extremities Extremities: no ischemia, pulses intact, pulses symmetrical, No edema, normal temperature, normal color, Full ROM - Abdominal General gastrointestinal: Present: soft, non-tender, non-distended, normal bowel sounds - Integumentary Integumentary: Present: clear, warm, dry - Musculoskeletal Musculoskeletal: strength equal bilaterally - Psychiatric Psychiatric: appropriate mood/affect, cooperative - Neurologic Neurologic: CNII-XII intact, no focal deficits, moves all extremities - Allied Health Allied health notes reviewed: nursing Plan Activity: advance as tolerated Diet: low fat, low cholesterol, low salt Special Instructions: record daily BP diary, smoking cessation Additional Instructions: Present to nearest emergency department or contact your primary care physician next week if you experience worsening symptoms. You will need to follow-up with your primary care physician and community service technician within 1 to 2 weeks of discharge. Follow up with: PHILLIP STOUT MD [Primary Care Provider] - 3-5 Days SANDY HILL MD [Staff Physician] - 7 Days Forms: Work/School Excuse Out Patient, Work/School Release Form Prescriptions: Losartan [Cozaar] 12.5 mg PO QDAY #30 tablet Apixaban [Eliquis] 5 mg PO Q12HR #60 tablet Metoprolol [Lopressor TAB] 50 mg PO BID #60 tablet traMADoL [Ultram 50 MG tab] 50 mg PO Q6HR PRN #14 tablet PRN Reason: Pain, Mild (1-3)
== END 2020-09-07 16:26 | disposition home or self-care (01) ==
LOC: ED 16:24 → 4A 19:36
PROVIDERS: ADMIT Internal Medicine; ATTEND Hospitalist
DX: I21.3 ST elevation (STEMI) myocardial infarction of unspecified site (principal); E78.5 Hyperlipidemia, unspecified; I42.0 Dilated cardiomyopathy; I48.91 Unspecified atrial fibrillation; I42.8 Other cardiomyopathies; I10 Essential (primary) hypertension; R94.31 Abnormal electrocardiogram [ECG] [EKG]; F17.210 Nicotine dependence, cigarettes, uncomplicated
CPT/HCPCS: 36415; 71045; 80048; 80053; 80061; 83735; 83880; 84484; 85014; 85018; 85025; 85027; 85049; 85520; 85610; 85730; 93005; 93306; 93458; 96365; 96366; 96375; 96376; 99285; 99406; C1894; G0378; J1644; J2250; J3010; J7040; Q9967

== ENCOUNTER 2021-12-13 18:55 | Inpatient (IN) | payer BC, OTHER ==
[2021-12-13] MEDS ORDERED: dilTIAZem 25 MG/5 ML INJ IV ONE (23:00)
--- NOTE | 2021-12-13 23:02 | Emergency Department Report ---
ED General Adult HPI - General Chief complaint: Dyspnea/Respdistress Stated complaint: HEART LEGS SWOLLEN Time Seen by Provider: 12/13/21 22:55 Source: patient, RN notes reviewed, old records reviewed Mode of arrival: Ambulatory Limitations: Physical Limitation - History of Present Illness Initial comments: The patient is a 61-year-old gentleman. This patient has a history of nonischemic cardiomyopathy, EF 35 to 40%, A. fib, hyperlipidemia, history of paroxysmal V. tach. The patient presents to the ER today with a complaint of lower extremity swel ling, shortness of breath and heart racing. Symptoms have been going on for about 2 weeks. He reports partial compliance with his outpatient medications. He states that he came to the ER today because family members noticed that his legs were very swollen. He endorses tightness in his legs and abdomen from swelling. He denies bleeding rectally or through emesis. -: Gradual Location: left, right, lower extremity Consistency: constant Improves with: none Worsens with: movement, other (Palpation) - Related Data Previous Rx's Medication Instructions Recorded Last Taken Type Acetaminophen [Acetaminophen TAB] 650 mg PO Q4H PRN tablet 09/07/20 Unknown Rx Apixaban [Eliquis] 5 mg PO Q12HR #60 tablet 09/07/20 Unknown Rx Losartan [Cozaar] 12.5 mg PO QDAY #30 tablet 09/07/20 Unknown Rx Metoprolol [Lopressor TAB] 50 mg PO BID #60 tablet 09/07/20 Unknown Rx traMADoL [Ultram 50 MG tab] 50 mg PO Q6HR PRN #14 tablet 09/07/20 Unknown Rx Allergies Allergy/AdvReac Type Severity Reaction Status Date / Time pollen extracts Allergy Unknown Verified 12/13/21 21:07 ED Review of Systems ROS: Stated complaint: HEART LEGS SWOLLEN Other details as noted in HPI Constitutional: malaise. denies: fever Eyes: denies: eye discharge ENT: congestion Respiratory: shortness of breath, SOB with exertion, SOB at rest Cardiovascular: palpitations, dyspnea on exertion, orthopnea, edema. denies: chest pain Gastrointestinal: denies: nausea, vomiting, hematemesis, melena, hematochezia Musculoskeletal: arthralgia, myalgia Neurological: weakness Hematological/Lymphatic: denies: easy bleeding ED Past Medical Hx - Past Medical History Previous Medical History?: Yes Hx Congestive Heart Failure: Yes Hx Diabetes: No Hx Asthma: No Hx COPD: No Additional medical history: afib - Surgical History Past Surgical History?: No - Social History Smoking Status: Current Every Day Smoker Substance Use Type: None - Medications Home Medications: Home Medications Medication Instructions Recorded Confirmed Last Taken Type Acetaminophen [Acetaminophen TAB] 650 mg PO Q4H PRN tablet 09/07/20 Unknown Rx Apixaban [Eliquis] 5 mg PO Q12HR #60 tablet 09/07/20 Unknown Rx Losartan [Cozaar] 12.5 mg PO QDAY #30 tablet 09/07/20 Unknown Rx Metoprolol [Lopressor TAB] 50 mg PO BID #60 tablet 09/07/20 Unknown Rx traMADoL [Ultram 50 MG tab] 50 mg PO Q6HR PRN #14 tablet 09/07/20 Unknown Rx ED Physical Exam - General Limitations: Physical Limitation General appearance: alert, anxious, in distress, obese - Head Head exam: Present: atraumatic, normocephalic - Eye Eye exam: Present: normal appearance, EOMI. Absent: nystagmus - ENT ENT exam: Present: normal exam, normal orophraynx, mucous membranes moist, normal external ear exam - Neck Neck exam: Present: normal inspection, full ROM. Absent: tenderness - Respiratory Respiratory exam: Present: respiratory distress, rales - Cardiovascular Cardiovascular Exam: Present: tachycardia, irregular rhythm, JVD. Absent: systolic murmur, diastolic murmur, rubs, gallop - GI/Abdominal GI/Abdominal exam: Present: soft. Absent: distended, tenderness, guarding, rebound, rigid, pulsatile mass - Rectal Rectal exam: Present: deferred - Extremities Exam Extremities exam: Present: normal inspection, full ROM, pedal edema (3-4+ edema in the bilateral lower extremities.), other (2+ pulses noted in the bilateral upper and lower extremities. There is no palpable cord. negative Homans sign. Muscular compartments are soft. The pelvis is stable.). Absent: calf tenderness - Back Exam Back exam: Present: normal inspection. Absent: tenderness, CVA tenderness (R), CVA tenderness (L), paraspinal tenderness, vertebral tenderness - Neurological Exam Neurological exam: Present: alert, oriented X3, other (No facial droop. Tongue midline. Extraocular movements intact bilaterally. Facial sensation intact to light touch in V1, V2, V3 distribution bilaterally. 5 and a 5 strength in 4 extremities. Sensation intact to light touch in 4 extremities.). Absent: motor sensory deficit - Psychiatric Psychiatric exam: Present: anxious - Skin Skin exam: Present: warm, dry, intact, normal color. Absent: rash ED Course Vital Signs 12/13/21 12/13/21 12/13/21 21:03 23:43 23:50 Temperature 98.5 F Pulse Rate 53 L 160 H 147 H Respiratory 18 11 L Rate Blood Pressure 136/98 Blood Pressure 87/57 [Left] O2 Sat by Pulse 95 98 Oximetry 12/14/21 12/14/21 00:00 00:22 Temperature Pulse Rate 127 H 128 H Respiratory 23 Rate Blood Pressure Blood Pressure [Left] O2 Sat by Pulse 98 Oximetry - Reevaluation(s) Reevaluation #1: 12/13/21 23:55 Differential diagnosis, including not limited to: A. fib with RVR, decompensated congestive heart failure, electrolyte derangement Assessment and plan: 61-year-old gentleman presenting with physical exam evidence of decompensated congestive heart failure, manifest by JVD, lower extremity edema, crackles and rales, also in A. fib with RVR. 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 Start diltiazem. Initiate Lasix. Obtain appropriate laboratory studies. Chest x-ray consistent with congestive heart failure. Patient requires admission. Patient is agreeable to the plan of care. Reassess after laboratory studies have resulted. If patient requires initiation of diltiazem drip, will require admission to the ICU. Nursing team currently to administer 20 mg of diltiazem. Patient awake, alert, oriented, protecting airway at this time. He is not hy potensive at this time Reevaluation #2: 12/13/21 23:57 Patient received 20 mg of diltiazem, nursing team reports that heart rate went down to 120s, now in the 150s. We will initiate diltiazem drip. We will discussed with critical care to arrange admission to the intensive care unit. Admit to the hospital team once laboratory studies have resulted 12/14/21 01:05 Dr Cedrick Caballero to admit to [facility] Dr Mckinley to follow from critical care ED Medical Decision Making - Lab Data Result diagrams: 12/13/21 23:28 12/13/21 23:28 Vital Signs 12/13/21 12/13/21 21:03 23:43 Temperature 98.5 F Pulse Rate 53 L 160 H Respiratory 18 Rate Blood Pressure 136/98 Blood Pressure 87/57 [Left] O2 Sat by Pulse 95 Oximetry Lab Results 12/13/21 Range/Units 23:28 [place] % (Auto) 10.1 H (0.0-7.3) % Eos % (Auto) 2.7 (0.0-4.3) % [place] # (Auto) 0.9 H (0.0-0.8) K/mm3 Eos # (Auto) 0.2 (0.0-0.4) K/mm3 Baso # (Auto) 0.1 (0.0-0.1) K/mm3 Seg Neutrophils % 71.2 H (40.0-70.0) % Seg Neutrophils # 6.2 (1.8-7.7) K/mm3 Lab Results 12/13/21 12/13/21 12/13/21 Range/Units 23:28 23:28 23:28 WBC 8.7 (4.5-11.0) K/mm3 RBC 4.61 (3.65-5.03) M/mm3 Hgb 13.3 (11.8-15.2) gm/dl Hct 42.8 (35.5-45.6) % MCV 93 (84-94) fl MCH 29 (28-32) pg MCHC 31 L (32-34) % RDW 17.9 H (13.2-15.2) % Plt Count 198 (140-440) K/mm3 Lymph % (Auto) 14.8 (13.4-35.0) % [place] % (Auto) 10.1 H (0.0-7.3) % Eos % (Auto) 2.7 (0.0-4.3) % Baso % (Auto) 1.2 (0.0-1.8) % Lymph # (Auto) 1.3 (1.2-5.4) K/mm3 [place] # (Auto) 0.9 H (0.0-0.8) K/mm3 Eos # (Auto) 0.2 (0.0-0.4) K/mm3 Baso # (Auto) 0.1 (0.0-0.1) K/mm3 Seg Neutrophils % 71.2 H (40.0-70.0) % Seg Neutrophils # 6.2 (1.8-7.7) K/mm3 PT 16.8 H (12.2-14.9) Sec. INR 1.22 H (0.87-1.13) APTT 30.1 (24.2-36.6) Sec. Estimated GFR > 60 ml/min BUN/Creatinine Ratio 20 % Troponin T (0.00-0.029) ng/mL Albumin/Globulin Ratio 1.4 % 12/13/21 Range/Units 23:28 WBC (4.5-11.0) K/mm3 RBC (3.65-5.03) M/mm3 Hgb (11.8-15.2) gm/dl Hct (35.5-45.6) % MCV (84-94) fl MCH (28-32) pg MCHC (32-34) % RDW (13.2-15.2) % Plt Count (140-440) K/mm3 Lymph % (Auto) (13.4-35.0) % [place] % (Auto) (0.0-7.3) % Eos % (Auto) (0.0-4.3) % Baso % (Auto) (0.0-1.8) % Lymph # (Auto) (1.2-5.4) K/mm3 [place] # (Auto) (0.0-0.8) K/mm3 Eos # (Auto) (0.0-0.4) K/mm3 Baso # (Auto) (0.0-0.1) K/mm3 Seg Neutrophils % (40.0-70.0) % Seg Neutrophils # (1.8-7.7) K/mm3 PT (12.2-14.9) Sec. INR (0.87-1.13) APTT (24.2-36.6) Sec. Estimated GFR ml/min BUN/Creatinine Ratio % Troponin T < 0.010 (0.00-0.029) ng/mL Albumin/Globulin Ratio % Lab Results 12/13/21 12/13/21 12/13/21 Range/Units 23:28 23:28 23:28 WBC 8.7 (4.5-11.0) K/mm3 RBC 4.61 (3.65-5.03) M/mm3 Hgb 13.3 (11.8-15.2) gm/dl Hct 42.8 (35.5-45.6) % MCV 93 (84-94) fl MCH 29 (28-32) pg MCHC 31 L (32-34) % RDW 17.9 H (13.2-15.2) % Plt Count 198 (140-440) K/mm3 Lymph % (Auto) 14.8 (13.4-35.0) % [place] % (Auto) 10.1 H (0.0-7.3) % Eos % (Auto) 2.7 (0.0-4.3) % Baso % (Auto) 1.2 (0.0-1.8) % Lymph # (Auto) 1.3 (1.2-5.4) K/mm3 [place] # (Auto) 0.9 H (0.0-0.8) K/mm3 Eos # (Auto) 0.2 (0.0-0.4) K/mm3 Baso # (Auto) 0.1 (0.0-0.1) K/mm3 Seg Neutrophils % 71.2 H (40.0-70.0) % Seg Neutrophils # 6.2 (1.8-7.7) K/mm3 PT (12.2-14.9) Sec. INR (0.87-1.13) APTT (24.2-36.6) Sec. Sodium 140 (137-145) mmol/L Potassium 4.3 (3.6-5.0) mmol/L Chloride 102.0 (98-107) mmol/L Carbon Dioxide 25 (22-30) mmol/L Anion Gap 17 mmol/L BUN 20 (9-20) mg/dL Creatinine 1.0 (0.8-1.3) mg/dL Estimated GFR > 60 ml/min BUN/Creatinine Ratio 20 % Glucose 108 H (75-100) mg/dL Calcium 8.5 (8.4-10.2) mg/dL Magnesium 1.80 (1.7-2.3) mg/dL Total Bilirubin 1.20 (0.1-1.2) mg/dL AST 24 (5-40) units/L ALT 22 (7-56) units/L Alkaline Phosphatase 243 H (35-129) units/L Troponin T (0.00-0.029) ng/mL NT-Pro-B Natriuret Pep 1387 H (0-900) pg/mL Total Protein 6.6 (6.3-8.2) g/dL Albumin 3.8 L (3.9-5) g/dL Albumin/Globulin Ratio 1.4 % TSH 8.070 H (0.270-4.200) mlU/mL 12/13/21 12/13/21 Range/Units 23:28 23:28 WBC (4.5-11.0) K/mm3 RBC (3.65-5.03) M/mm3 Hgb (11.8-15.2) gm/dl Hct (35.5-45.6) % MCV (84-94) fl MCH (28-32) pg MCHC (32-34) % RDW (13.2-15.2) % Plt Count (140-440) K/mm3 Lymph % (Auto) (13.4-35.0) % [place] % (Auto) (0.0-7.3) % Eos % (Auto) (0.0-4.3) % Baso % (Auto) (0.0-1.8) % Lymph # (Auto) (1.2-5.4) K/mm3 [place] # (Auto) (0.0-0.8) K/mm3 Eos # (Auto) (0.0-0.4) K/mm3 Baso # (Auto) (0.0-0.1) K/mm3 Seg Neutrophils % (40.0-70.0) % Seg Neutrophils # (1.8-7.7) K/mm3 PT 16.8 H (12.2-14.9) Sec. INR 1.22 H (0.87-1.13) APTT 30.1 (24.2-36.6) Sec. Sodium (137-145) mmol/L Potassium (3.6-5.0) mmol/L Chloride (98-107) mmol/L Carbon Dioxide (22-30) mmol/L Anion Gap mmol/L BUN (9-20) mg/dL Creatinine (0.8-1.3) mg/dL Estimated GFR ml/min BUN/Creatinine Ratio % Glucose (75-100) mg/dL Calcium (8.4-10.2) mg/dL Magnesium (1.7-2.3) mg/dL Total Bilirubin (0.1-1.2) mg/dL AST (5-40) units/L ALT (7-56) units/L Alkaline Phosphatase (35-129) units/L Troponin T < 0.010 (0.00-0.029) ng/mL NT-Pro-B Natriuret Pep (0-900) pg/mL Total Protein (6.3-8.2) g/dL Albumin (3.9-5) g/dL Albumin/Globulin Ratio % TSH (0.270-4.200) mlU/mL - EKG Data -: EKG Interpreted by Me Rate: tachycardia - EKG Data 12/13/21 23:52 The EKG is interpreted by myself at 23: 25 A. fib, RVR, rate 136 bpm. Normal axis, QTC 4 3 5 ms, motion artifact, Q waves noted in the inferior leads. Left ventricular hypertrophy. Abnormal EKG. Not a STEMI. - Radiology Data Radiology results: pending, report reviewed, image reviewed CHEST 1 VIEW 12/13/2021 11:09 PM INDICATION / CLINICAL INFORMATION: Dyspnea. COMPARISON: One view of the chest from 09/05/2020. FINDINGS: SUPPORT DEVICES: None. HEART / MEDIASTINUM: Normal size of the cardiac silhouette with central vascular congestion. LUNGS / PLEURA: There are generalized bilateral interstitial opacities. No significant pleural effusion. No pneumothorax. ADDITIONAL FINDINGS: No significant additional findings. IMPRESSION: 1. Central vascular congestion with probable bilateral atelectasis/edema. Signer Name: Armando Lim MD Signed: 12/13/2021 10:39 PM Workstation Name: [id number] Critical Care Time: Yes Critical care time in (mins) excluding proc time.: 35 Critical care attestation.: If time is entered above; I have spent that time in minutes in the direct care of this critically ill patient, excluding procedure time. ED Disposition Clinical Impression: Acute CHF, Atrial fibrillation with RVR Disposition: ADMITTED INPATIENT Is pt being admited?: Yes Does the pt Need Aspirin: No Condition: Serious Referrals: PRIMARY CARE, [Primary Care Provider] - 3-5 Days
[2021-12-13 23:41] LABS: Basophils # (Auto) 0.1 K/mm3 (0.0-0.1); Basophils % (Auto) 1.2 % (0.0-1.8); Eosinophils # (Auto) 0.2 K/mm3 (0.0-0.4); Eosinophils % (Auto) 2.7 % (0.0-4.3); Hematocrit 42.8 % (35.5-45.6); Hemoglobin 13.3 gm/dl (11.8-15.2); Lymphocytes # (Auto) 1.3 K/mm3 (1.2-5.4); Lymphocytes % (Auto) 14.8 % (13.4-35.0); Mean Corpuscular HGB Conc 31 % (32-34); Mean Corpuscular Volume 93 fl (84-94); Monocytes # (Auto) 0.9 K/mm3 (0.0-0.8); Monocytes % (Auto) 10.1 % (0.0-7.3); Platelet Count 198 K/mm3 (140-440); Red Blood Count 4.61 M/mm3 (3.65-5.03); Red Cell Distribution Width 17.9 % (13.2-15.2)
--- NOTE | 2021-12-13 23:44 | XRay Report ---
CHEST 1 VIEW 12/13/2021 11:09 PM INDICATION / CLINICAL INFORMATION: Dyspnea. COMPARISON: One view of the chest from 09/05/2020. FINDINGS: SUPPORT DEVICES: None. HEART / MEDIASTINUM: Normal size of the cardiac silhouette with central vascular congestion. LUNGS / PLEURA: There are generalized bilateral interstitial opacities. No significant pleural effusi on. No pneumothorax. ADDITIONAL FINDINGS: No significant additional findings. IMPRESSION: 1. Central vascular congestion with probable bilateral atelectasis/edema. Signer Name: Armando Lim MD Signed: 12/13/2021 11:39 PM Workstation Name: [id number]
[2021-12-13] MEDS ORDERED: FUROSEMIDE 40 MG/4 ML INJ IV ONE (23:51)
[2021-12-13 23:55] LABS: INR 1.22 (0.87-1.13)
[2021-12-13 23:56] LABS: Partial Thromboplastin Time 30.1 Sec. (24.2-36.6)
[2021-12-14 00:07] LABS: Alanine Aminotransferase 22 units/L (7-56); Albumin 3.8 g/dL (3.9-5); BUN/Creatinine Ratio 20; Blood Urea Nitrogen 20 mg/dL (9-20); Calcium 8.5 mg/dL (8.4-10.2); Hemolysis Index 20
[2021-12-14] MEDS: dilTIAZem/D5W 100 MG/100 ML BAG IV SCH ×2 (00:22→08:01)
[2021-12-14] MEDS ORDERED: ONDANSETRON 4 MG/2 ML INJ IV PRN (01:23)
[2021-12-14] MEDS ORDERED: ACETAMINOPHEN 325 MG TAB PO PRN (01:23)
[2021-12-14] MEDS ORDERED: MAGNESIUM HYDROXIDE (MOM) ORAL LIQD UDC PO PRN (01:23)
[2021-12-14] MEDS ORDERED: MORPHINE 4 MG/1 ML INJ IV PRN (01:23)
--- NOTE | 2021-12-14 01:44 | History and Physical Report ---
History of Present Illness Date of examination: 12/14/21 Date of admission: 12/14/2021 Chief complaint: Shortness of Breath Lower extremity swelling History of present illness: 61-year-old male with known history of nonischemic cardiomyopathy with EF of 35 to 40%, atrial fibrillation, dyslipidemia, presenting to the emergency room today complaining of shortness of breath and bilateral lower extremity swelling. Symptoms has been ongoing for the past 2 weeks. Patient admits that he has not been quite compliant with his medications. Denies any chest pain, no nausea or vomiting, no abdominal pain. Denies any headache or dizziness denies any diaphoresis. Patient denies any fever or chills, no hematuria or dysuria. Work-up in the emergency room today, significant findings on the labs that of BNP of 1387. Chest x-ray shows central vascular congestion with probable bilateral atelectasis/edema. EKG shows atrial fibrillation with RVR. Patient has been started on Cardizem drip. Past History Past Medical History: atrial fib, heart failure Social history: smoking (Current daily smoker) Family history: no significant family history Medications and Allergies Allergies Allergy/AdvReac Type Severity Reaction Status Date / Time pollen extracts Allergy Unknown Verified 12/13/21 21:07 Home Medications Medication Instructions Recorded Confirmed Last Taken Type Acetaminophen [Acetaminophen TAB] 650 mg PO Q4H PRN tablet 09/07/20 Unknown Rx Apixaban [Eliquis] 5 mg PO Q12HR #60 tablet 09/07/20 Unknown Rx Losartan [Cozaar] 12.5 mg PO QDAY #30 tablet 09/07/20 Unknown Rx Metoprolol [Lopressor TAB] 50 mg PO BID #60 tablet 09/07/20 Unknown Rx traMADoL [Ultram 50 MG tab] 50 mg PO Q6HR PRN #14 tablet 09/07/20 Unknown Rx Active Meds: Active Medications Acetaminophen (Acetaminophen 325 Mg Tab) 650 mg PO Q6H PRN PRN Reason: Pain MILD(1-3)/Fever >100.5/VORA Furosemide (Furosemide 40 Mg/4 Ml Inj) 40 mg IV BID@0600,1800 JENNA Diltiazem HCl (Cardizem/D5w 100mg/100ml) 100 mg in 100 mls @ 5 mls/hr IV TITR JENNA; Protocol Last Admin: 12/14/21 00:22 Dose: 5 mg/hr, 5 mls/hr Magnesium Hydroxide (Magnesium Hydroxide (Mom) Oral Liqd Udc) 30 ml PO Q4H PRN PRN Reason: Constipation Morphine Sulfate (Morphine 2 Mg/1 Ml Inj) 2 mg IV Q4H PRN PRN Reason: Pain, Moderate (4-6) Morphine Sulfate (Morphine 4 Mg/1 Ml Inj) 4 mg IV Q4H PRN PRN Reason: Pain , Severe (7-10) Ondansetron HCl (Ondansetron 4 Mg/2 Ml Inj) 4 mg IV Q8H PRN PRN Reason: Nausea And Vomiting Sodium Chloride (Sodium Chloride 0.9% 10 Ml Flush Syringe) 10 ml IV BID JENNA Sodium Chloride (Sodium Chloride 0.9% 10 Ml Flush Syringe) 10 ml IV PRN PRN PRN Reason: LINE FLUSH Review of Systems Constitutional: no fever, no chills Ears, nose, mouth and throat: no nasal congestion, no sore throat Cardiovascular: palpitations, rapid/irregular heart beat, edema (Lower extremities), no chest pain, no orthopnea Respiratory: shortness of breath, no cough, no wheezing Gastrointestinal: no abdominal pain, no nausea, no vomiting, no diarrhea Genitourinary Male: no dysuria, no hematuria, no flank pain Musculoskeletal: no neck pain, no low back pain Integumentary: no rash, no pruritis Neurological: no headaches, no confusion Psychiatric: no anxiety, no depression Endocrine: no polyphagia, no polydipsia, no polyuria Exam - Constitutional Vitals: Temp Pulse Resp BP Pulse Ox 98.5 F 128 H 23 136/98 98 12/13/21 21:03 12/14/21 00:22 12/14/21 00:00 12/13/21 23:43 12/14/21 00:00 General appearance: Present: no acute distress, well-nourished - EENT Eyes: Present: PERRL, EOM intact. Absent: scleral icterus, conjunctival injection ENT: hearing intact, clear oral mucosa, dentition normal - Neck Neck: Present: supple, normal ROM - Respiratory Respiratory effort: normal Respiratory: bilateral: rales - Cardiovascular Rhythm: irregularly irregular Heart Sounds: Present: S1 & S2. Absent: gallop, systolic murmur, diastolic murmur, rub, click - Extremities Extremities: no ischemia, pulses intact, pulses symmetrical, normal temperature, normal color, Full ROM Extremity abnormal: edema (3+ bilateral lower extremity edema) Peripheral Pulses: within normal limits - Abdominal General gastrointestinal: Present: soft, non-tender, non-distended, normal bowel sounds. Absent: mass - Integumentary Integumentary: Present: clear, warm, dry, rash (Hyperpigmented rash in the inguinal and scrotal region), normal turgor - Musculoskeletal Musculoskeletal: strength equal bilaterally - Psychiatric Psychiatric: appropriate mood/affect, intact judgment & insight, memory intact, cooperative - Neurologic Neurologic: CNII-XII intact, no focal deficits, moves all extremities HEART Score - HEART Score Troponin: Troponin T < 0.010 ng/mL (0.00-0.029) 12/13/21 23: Results - Labs CBC & Chem 7: 12/13/21 23:28 12/13/21 23: Labs: Abnormal lab results 12/13/21 12/13/21 12/13/21 Range/Units 23:28 23:28 23:28 MCHC 31 L (32-34) % RDW 17.9 H (13.2-15.2) % [place] % (Auto) 10.1 H (0.0-7.3) % [place] # (Auto) 0.9 H (0.0-0.8) K/mm3 Seg Neutrophils % 71.2 H (40.0-70.0) % PT (12.2-14.9) Sec. INR (0.87-1.13) Glucose 108 H (75-100) mg/dL Alkaline Phosphatase 243 H (35-129) units/L NT-Pro-B Natriuret Pep 1387 H (0-900) pg/mL Albumin 3.8 L (3.9-5) g/dL TSH 8.070 H (0.270-4.200) mlU/mL 12/13/21 Range/Units 23:28 MCHC (32-34) % RDW (13.2-15.2) % [place] % (Auto) (0.0-7.3) % [place] # (Auto) (0.0-0.8) K/mm3 Seg Neutrophils % (40.0-70.0) % PT 16.8 H (12.2-14.9) Sec. INR 1.22 H (0.87-1.13) Glucose (75-100) mg/dL Alkaline Phosphatase (35-129) units/L NT-Pro-B Natriuret Pep (0-900) pg/mL Albumin (3.9-5) g/dL TSH (0.270-4.200) mlU/mL Assessment and Plan - Patient Problems (1) Atrial fibrillation with RVR Current Visit: Yes Status: Acute Plan to address problem: Patient has known history of atrial fibrillation. He has not been quite compliant with his medications. Currently placed on Cardizem drip. We will observe closely in the intensive care unit. (2) HTN (hypertension) Current Visit: No Status: Chronic Plan to address problem: We will resume routine home medications and monitor vital signs closely. (3) Hyperlipidemia Current Visit: No Status: Chronic Qualifiers: Hyperlipidemia type: unspecified Qualified Code(s): E78.5 - Hyperlipidemia, unspecified Plan to address problem: Will resume routine home medications and monitor lipid profile. (4) Tobacco use Current Visit: No Status: Chronic Plan to address problem: Counseled on quitting tobacco abuse. Will offer nicotine patch as needed. (5) DVT prophylaxis Current Visit: No Status: Acute Plan to address problem: Patient on anticoagulation with Eliquis. (6) Full code status Current Visit: Yes Status: Acute Plan to address problem: Patient is full code.
[2021-12-14] MEDS: FUROSEMIDE 40 MG/4 ML INJ IV SCH ×2 (06:35→17:15)
[2021-12-14] MEDS ORDERED: MAGNESIUM SULFATE 2 GM/50 ML BAG IV ONE (09:00)
[2021-12-14] MEDS: LOSARTAN 25 MG TAB PO SCH (09:10)
[2021-12-14] MEDS: APIXABAN 5 MG TAB PO SCH ×2 (09:11→21:28)
[2021-12-14] MEDS: PANTOPRAZOLE 40 MG TAB PO SCH (09:11)
[2021-12-14] MEDS ORDERED: METOPROLOL TARTRATE 50 MG TAB PO SCH (10:00)
[2021-12-14] MEDS ORDERED: FAMOTIDINE 20 MG TAB PO SCH (10:00)
[2021-12-14] MEDS ORDERED: NON-FORMULARY EACH (Apixaban 5 MG Tablet) PO SCH (10:00)
--- NOTE | 2021-12-14 12:51 | Consultation ---
History of Present Illness Consult date: 12/14/21 Requesting physician: STEPH MOSES Reason for consult: other (Atrial Fibrillation with RVR) History of present illness: PULMONARY/CCM CONSULT NOTE (Full dictation # [id number]) Please see dictated notes for full details Past History Past Medical History: atrial fib, heart failure Social history: smoking (Current daily smoker) Family history: no significant family history Medications and Allergies Allergies Allergy/AdvReac Type Severity Reaction Status Date / Time pollen extracts Allergy Unknown Verified 12/13/21 21:07 Home Medications Medication Instructions Recorded Confirmed Last Taken Type Apixaban [Eliquis] 5 mg PO Q12HR #60 tablet 09/07/20 12/14/21 12/13/21 Rx Metoprolol [Lopressor TAB] 50 mg PO BID #60 tablet 09/07/20 12/14/21 12/13/21 Rx Furosemide [Lasix] 40 mg PO QDAC 12/14/21 12/14/21 12/13/21 History Losartan Potassium 25 mg PO QDAY 12/14/21 12/14/21 12/13/21 History Metoprolol Xl [Metoprolol 100 mg PO QDAY 12/14/21 12/14/21 12/13/21 History SUCCINATE ER TAB] Pantoprazole Sodium 40 mg PO QDAY 12/14/21 12/14/21 12/13/21 History Active Meds: Active Medications Acetaminophen (Acetaminophen 325 Mg Tab) 650 mg PO Q6H PRN PRN Reason: Pain MILD(1-3)/Fever >100.5/VORA Apixaban (Apixaban 5 Mg Tab) 5 mg PO Q12HR [facility] Last Admin: 12/14/21 09:11 Dose: 5 mg Furosemide (Furosemide 40 Mg/4 Ml Inj) 40 mg IV BID@0600,1800 [facility] Last Admin: 12/14/21 06:35 Dose: 40 mg Diltiazem HCl (Cardizem/D5w 100mg/100ml) 100 mg in 100 mls @ 5 mls/hr IV TITR JENNA; Protocol Last Admin: 12/14/21 08:01 Dose: 15 mg/hr, 15 mls/hr Losartan Potassium (Losartan 25 Mg Tab) 12.5 mg PO QDAY [facility] Last Admin: 12/14/21 09:10 Dose: 12.5 mg Magnesium Hydroxide (Magnesium Hydroxide (Mom) Oral Liqd Udc) 30 ml PO Q4H PRN PRN Reason: Constipation Metoprolol Tartrate (Metoprolol Tartrate 50 Mg Tab) 50 mg PO BID [facility] Last Admin: 12/14/21 09:11 Dose: 50 mg Morphine Sulfate (Morphine 2 Mg/1 Ml Inj) 2 mg IV Q4H PRN PRN Reason: Pain, Moderate (4-6) Morphine Sulfate (Morphine 4 Mg/1 Ml Inj) 4 mg IV Q4H PRN PRN Reason: Pain , Severe (7-10) Last Admin: 12/14/21 03:37 Dose: 4 mg Ondansetron HCl (Ondansetron 4 Mg/2 Ml Inj) 4 mg IV Q8H PRN PRN Reason: Nausea And Vomiting Last Admin: 12/14/21 11:51 Dose: 4 mg Pantoprazole Sodium (Pantoprazole 40 Mg Tab) 40 mg PO QDAC [facility] Last Admin: 12/14/21 09:11 Dose: 40 mg Senna (Sennosides 8.6 Mg Tab) 17.2 mg PO QHS [facility] Sodium Chloride (Sodium Chloride 0.9% 10 Ml Flush Syringe) 10 ml IV BID [facility] Last Admin: 12/14/21 09:11 Dose: 10 ml Sodium Chloride (Sodium Chloride 0.9% 10 Ml Flush Syringe) 10 ml IV PRN PRN PRN Reason: LINE FLUSH Physical Examination Vital signs: Vital Signs Temp Pulse Resp BP Pulse Ox 98.5 F 53 L 18 87/57 95 12/13/21 21:03 12/13/21 21:03 12/13/21 21:03 12/13/21 21:03 12/13/21 21:03 Results - Laboratory Findings CBC and BMP: 12/13/21 23:28 12/13/21 23:28 PT/INR, D-dimer PT 16.8 Sec. (12.2-14.9) H 12/13/21 23:28 INR 1.22 (0.87-1.13) H 12/13/21 23:28 Abnormal lab findings: Abnormal Labs 12/13/21 12/13/21 12/13/21 23:28 23:28 23:28 MCHC 31 L RDW 17.9 H [place] % (Auto) 10.1 H [place] # (Auto) 0.9 H Seg Neutrophils % 71.2 H PT INR Glucose 108 H Alkaline Phosphatase 243 H NT-Pro-B Natriuret Pep 1387 H Albumin 3.8 L TSH 8.070 H 12/13/21 23:28 MCHC RDW [place] % (Auto) [place] # (Auto) Seg Neutrophils % PT 16.8 H INR 1.22 H Glucose Alkaline Phosphatase NT-Pro-B Natriuret Pep Albumin TSH
--- NOTE | 2021-12-14 13:03 | Consultation ---
History of Present Illness Consult date: 12/14/21 Consult reason: atrial fibrillation, congestive heart failure History of present illness: This patient is a 61-year-old man who has a history of chronic atrial fibrillation and a nonischemic cardiomyopathy. Records in this hospital showed that he underwent a cardiac catheterization about a year ago, reported with no significant coronary artery disease, and a moderate severity cardiomyopathy with systolic ejection fraction 35 to 40%. His usual outpatient follow-up is with a manager printing at [facility]. He is apparently on rate control management of his atrial fibrillation with oral anticoagulation on Eliquis. He states that at 1 time several months ago, a DC cardioversion was discussed but was not done. My review of his ECGs from the chart dating back to August 2020 all show a persistent atrial fibrillation. He presents to the hospital at this time with increasing lower extremity edema and shortness of breath. He states that he has been very compliant with his medical therapy, but still add salt to his food. There is no chest pain, no palpitations and no syncope. Work-up so far in the hospital, EKG was atrial fibrillation with rapid rate in the 130s on his presentation. He was placed on Cardizem and rate control today is improved. Chest x-ray showed a mild cardiomegaly, and very mild interstitial edema. Laboratory exam showed negative troponin levels, but mild increase in TSH of 8.2. Past History Past Medical History: atrial fib, heart failure Social history: smoking (Current daily smoker) Family history: no significant family history Medications and Allergies Allergies Allergy/AdvReac Type Severity Reaction Status Date / Time pollen extracts Allergy Unknown Verified 12/13/21 21:07 Home Medications Medication Instructions Recorded Confirmed Last Taken Type Apixaban [Eliquis] 5 mg PO Q12HR #60 tablet 09/07/20 12/14/21 12/13/21 Rx Metoprolol [Lopressor TAB] 50 mg PO BID #60 tablet 09/07/20 12/14/21 12/13/21 Rx Furosemide [Lasix] 40 mg PO QDAC 12/14/21 12/14/21 12/13/21 History Losartan Potassium 25 mg PO QDAY 12/14/21 12/14/21 12/13/21 History Metoprolol Xl [Metoprolol 100 mg PO QDAY 12/14/21 12/14/21 12/13/21 History SUCCINATE ER TAB] Pantoprazole Sodium 40 mg PO QDAY 12/14/21 12/14/21 12/13/21 History Active Meds: Active Medications Acetaminophen (Acetaminophen 325 Mg Tab) 650 mg PO Q6H PRN PRN Reason: Pain MILD(1-3)/Fever >100.5/VORA Apixaban (Apixaban 5 Mg Tab) 5 mg PO Q12HR [facility] Last Admin: 12/14/21 09:11 Dose: 5 mg Furosemide (Furosemide 40 Mg/4 Ml Inj) 40 mg IV BID@0600,1800 [facility] Last Admin: 12/14/21 06:35 Dose: 40 mg Diltiazem HCl (Cardizem/D5w 100mg/100ml) 100 mg in 100 mls @ 5 mls/hr IV TITR [facility]; Protocol Last Admin: 12/14/21 08:01 Dose: 15 mg/hr, 15 mls/hr Losartan Potassium (Losartan 25 Mg Tab) 12.5 mg PO QDAY [facility] Last Admin: 12/14/21 09:10 Dose: 12.5 mg Magnesium Hydroxide (Magnesium Hydroxide (Mom) Oral Liqd Udc) 30 ml PO Q4H PRN PRN Reason: Constipation Metoprolol Tartrate (Metoprolol Tartrate 50 Mg Tab) 50 mg PO BID [facility] Last Admin: 12/14/21 09:11 Dose: 50 mg Morphine Sulfate (Morphine 2 Mg/1 Ml Inj) 2 mg IV Q4H PRN PRN Reason: Pain, Moderate (4-6) Morphine Sulfate (Morphine 4 Mg/1 Ml Inj) 4 mg IV Q4H PRN PRN Reason: Pain , Severe (7-10) Last Admin: 12/14/21 03:37 Dose: 4 mg Ondansetron HCl (Ondansetron 4 Mg/2 Ml Inj) 4 mg IV Q8H PRN PRN Reason: Nausea And Vomiting Last Admin: 12/14/21 11:51 Dose: 4 mg Pantoprazole Sodium (Pantoprazole 40 Mg Tab) 40 mg PO QDAC [facility] Last Admin: 12/14/21 09:11 Dose: 40 mg Senna (Sennosides 8.6 Mg Tab) 17.2 mg PO QHS [facility] Sodium Chloride (Sodium Chloride 0.9% 10 Ml Flush Syringe) 10 ml IV BID [facility] Last Admin: 12/14/21 09:11 Dose: 10 ml Sodium Chloride (Sodium Chloride 0.9% 10 Ml Flush Syringe) 10 ml IV PRN PRN PRN Reason: LINE FLUSH Review of Systems Cardiovascular: orthopnea, palpitations, rapid/irregular heart beat, edema, shortness of breath, no chest pain, no syncope, no lightheadedness Physical Examination Vital Signs Temp Pulse Resp BP Pulse Ox 98.5 F 53 L 18 87/57 95 12/13/21 21:03 12/13/21 21:03 12/13/21 21:03 12/13/21 21:03 12/13/21 21:03 General appearance: no acute distress HEENT: Positive: PERRL Neck: Positive: neck supple Cardiac: Positive: irregularly irregular Lungs: Positive: Decreased Breath Sounds Neuro: Positive: Grossly Intact Abdomen: Positive: Soft Male genitourinary: Positive: deferred Skin: Positive: Clear Extremities: Present: +2 Edema Results 12/13/21 23:28 12/13/21 23:28 Cardiac Enzymes 12/13/21 Range/Units 23:28 AST 24 (5-40) units/L Coagulation 12/13/21 Range/Units 23:28 PT 16.8 H (12.2-14.9) Sec. INR 1.22 H (0.87-1.13) APTT 30.1 (24.2-36.6) Sec. CBC 12/13/21 Range/Units 23:28 WBC 8.7 (4.5-11.0) K/mm3 RBC 4.61 (3.65-5.03) M/mm3 Hgb 13.3 (11.8-15.2) gm/dl Hct 42.8 (35.5-45.6) % Plt Count 198 (140-440) K/mm3 Lymph # (Auto) 1.3 (1.2-5.4) K/mm3 [place] # (Auto) 0.9 H (0.0-0.8) K/mm3 Eos # (Auto) 0.2 (0.0-0.4) K/mm3 Baso # (Auto) 0.1 (0.0-0.1) K/mm3 Comprehensive Metabolic Panel 12/13/21 Range/Units 23:28 Sodium 140 (137-145) mmol/L Potassium 4.3 (3.6-5.0) mmol/L Chloride 102.0 (98-107) mmol/L Carbon Dioxide 25 (22-30) mmol/L BUN 20 (9-20) mg/dL Creatinine 1.0 (0.8-1.3) mg/dL Glucose 108 H (75-100) mg/dL Calcium 8.5 (8.4-10.2) mg/dL AST 24 (5-40) units/L ALT 22 (7-56) units/L Alkaline Phosphatase 243 H (35-129) units/L Total Protein 6.6 (6.3-8.2) g/dL Albumin 3.8 L (3.9-5) g/dL EKG interpretations - Telemetry EKG Rhythm: Atrial Fibrillation (With rapid ventricular rate) Assessment and Plan - Patient Problems (1) Acute on chronic systolic heart failure Current Visit: Yes Status: Acute Plan to address problem: Patient presents with acute on chronic exacerbation of heart failure, manifested by shortness of breath, mild interstitial edema and 2-3+ bilateral lower extremity edema. We will optimize heart failure therapy including intravenous diuretics. An echocardiogram has been ordered for left ventricular function shaw ssessment. (2) Chronic atrial fibrillation Current Visit: Yes Status: Acute Plan to address problem: Patient has chronic atrial fibrillation, on rate control therapy and oral anticoagulation with Eliquis. We will continue rate management while in hospital, and defer to the patient's primary outpatient manager printing for future strategies including possible rhythm control.
--- NOTE | 2021-12-14 14:48 | Event Note ---
Date: 12/14/21 This is a 61-year-old male with known past medical history of HF, nonischemic cardiomyopathy EF of 35 to 40%, paroxysmal atrial fibrillation, and dyslipidemia admitted for CHF exacerbation and Atrial fibrilation with RVR required Cardizem gtt. Patient seen and examined at the bedside. Fully AAO, on 2L NC, still complaining of dyspnea with exertion and bilateral extremity pain. BLE noted with 3+ pitting edema, with palpable pulses, and warm to touch. Will check BLE doppler to r/o DVT. Patient remains in AFib on the monitor, rate improved HR in the 70 to 100s. Cardizem gtt is off. Cardiology is following, appreciate recommendations. Continue IV Lasix, IV dig, BB, and Eliquis. 2D Echo pending. Continue fluid restriction, strick I&Os, and daily weight. Plan of care discussed with patient at the bedside. He verbalized understanding of the info provided and agreed to current plan of care. [facility] is also following, appreciate recommendations. Possible transfer to lamine floor later on today if patient remains stable.
[2021-12-14] MEDS ORDERED: DIGOXIN 0.5 MG/2 ML INJ IV SCH (15:00)
[2021-12-14] MEDS: METOPROLOL TARTRATE 50 MG TAB PO SCH ×2 (15:25→21:05)
--- NOTE | 2021-12-14 16:37 | Vascular Lab Report ---
DUPLEX DOPPLER LOWER EXTREMITY VEINS, BILATERAL INDICATION / CLINICAL INFORMATION: Swelling and pain. TECHNIQUE: Duplex doppler imaging was performed through the veins of both lower extremities using thelma ous compression and other maneuvers. COMPARISON: None available. FINDINGS: RIGHT COMMON FEMORAL VEIN: Negative. RIGHT FEMORAL VEIN: Negative. RIGHT POPLITEAL VEIN: Negative. RIGHT CALF VEINS: Negative. LEFT COMMON FEMORAL VEIN: Negative. LEFT FEMORAL VEIN: Negative. LEFT POPLITEAL VEIN: Negative. LEFT CALF VEINS: Negative. ADDITIONAL FINDINGS: None. IMPRESSION: 1. No sonographic evidence for DVT in either lower extremity. Signer Name: Seymour Boykin MD Signed: 12/14/2021 4:33 PM Workstation Name: [id number]
[2021-12-14] MEDS: MILRINONE-D5W 20 MG/100 ML 20 MG/100 ML BAG IV SCH (18:19)
[2021-12-14] MEDS: SENNOSIDES 8.6 MG TAB PO SCH (21:32)
[2021-12-15] MEDS: MILRINONE-D5W 20 MG/100 ML 20 MG/100 ML BAG IV SCH ×2 (02:50→21:51)
[2021-12-15] MEDS: MORPHINE 2 MG/1 ML INJ IV PRN ×2 (04:56→08:33)
[2021-12-15] MEDS: FUROSEMIDE 40 MG/4 ML INJ IV SCH (05:00)
[2021-12-15 05:09] LABS: Basophils % (Auto) 0.2 % (0.0-1.8); Eosinophils % (Auto) 0.1 % (0.0-4.3); Hematocrit 37.9 % (35.5-45.6); Hemoglobin 12.1 gm/dl (11.8-15.2); Lymphocytes # (Auto) 0.8 K/mm3 (1.2-5.4); Lymphocytes % (Auto) 8.6 % (13.4-35.0); Mean Corpuscular HGB Conc 32 % (32-34); Mean Corpuscular Volume 92 fl (84-94); Platelet Count 196 K/mm3 (140-440); Red Blood Count 4.14 M/mm3 (3.65-5.03); Red Cell Distribution Width 17.4 % (13.2-15.2)
[2021-12-15 05:18] LABS: Calcium 8.7 mg/dL (8.4-10.2)
[2021-12-15] MEDS: METOPROLOL TARTRATE 50 MG TAB PO SCH ×3 (05:32→21:50)
--- NOTE | 2021-12-15 05:57 | Consultation ---
DATE OF CONSULTATION: 12/14/2021 PULMONARY CRITICAL CARE CONSULT NOTE CONSULTING PHYSICIAN: Dr. Harsha Momin. REASON FOR CONSULTATION: Atrial fibrillation with rapid ventricular response. CHIEF COMPLAINT AND HISTORY OF PRESENT ILLNESS: As follows. The patient is a now 61-year-old obese male with past medical history significant for a diagnosis of a nonischemic cardiomyopathy with an ejection fraction of 35-40%, but also atrial fibrillation, who presented to the Emergency Room complaining of shortness of breath and bilateral lower extremity swelling that had been going on for about a couple of weeks. He did admit to noncompliance with his medications at home. He had denied chest pains, nausea, vomiting, abdominal pain at presentation. He denied headache or dizziness in the Emergency Room, but tells me today that he is indeed a little dizzy. He was just getting off the bedside commode at that time. He denied any fevers or chills. He denied palpitations. He denied any cough or expectoration. He denied any gross or streaky hemoptysis. In the Emergency Room, he was found to have an elevated BNP, but also found to be in atrial fibrillation with a rapid ventricular response. He was started on a Cardizem drip and ICU admission was requested. When I stopped by to see him, he was just got back in bed, still a little bit winded, felt a little lightheaded. He denied any syncopal episodes prior to coming to the hospital. He admits to a 10+ pack year tobacco smoking history and continues to smoke. He denies any sick contacts, any recent long distance travel. That really is as much of the history of presentation as I have. PAST MEDICAL HISTORY: Atrial fibrillation, cardiomyopathy. He is obese. History of hyperlipidemia. PAST SURGICAL HISTORY: Unknown. MEDICATIONS: He was on at the time I stopped by to see him, according to the medication administration record included the following: Tylenol 650 mg p.o. q. 6 hours p.r.n. mild pain or fevers, Eliquis 5 mg p.o. q. 12 hours, digoxin 0.25 mg IV q. 6 hours for 2 doses, digoxin 0.125 mg p.o. daily, Lasix 40 mg IV b.i.d., Cozaar 12.5 mg p.o. daily, metoprolol 50 mg p.o. q. 8 hours, morphine sulfate 2 mg IV q. 4 hours p.r.n. moderate pain and 4 mg IV q. 4 hours p.r.n. severe pain, Zofran 4 mg IV q. 8 hours p.r.n. nausea and vomiting, Protonix 40 mg p.o. daily, Senokot 17.2 mg p.o. at bedtime. The patient had been on a Cardizem drip at 15 mg per hour. ALLERGIES: POLLEN EXTRACT. Nature of this allergy is unknown. DIET: Obese gentleman, acute weight loss or gain history is unknown. FAMILY AND SOCIAL HISTORY: Lives in the community, has a 10+ pack year tobacco smoking history, continues to smoke. FAMILY HISTORY: Otherwise, noncontributory. REVIEW OF SYSTEMS: No loss of consciousness. No new onset seizures. No new onset focal weakness. He did have increased shortness of breath. He denied palpitations. Denied gross hematochezia or melena. Denies gross hematuria or dysuria. He denied heat or cold intolerance. Denies polyuria or polydipsia. A complete 13-system review of system was obtained. Pertinent positives and/or negatives as in body of history above, otherwise noncontributory. PHYSICAL EXAMINATION: VITAL SIGNS: Since he has been afebrile, presentation temperature 98.5 degrees Fahrenheit, pulse was 53 and then went up to 160, respiratory rate 18, blood pressure 87/57, O2 sats were 95%, inspired oxygen concentration at that time was not recorded. When I stopped by to see him, O2 sats were 100% on 2 liters nasal cannula. GENERAL: He is a middle-aged obese male. Normocephalic, atraumatic. Talking to me in full sentences, but with mildly increased respiratory effort at rest. HEAD, EYES, EARS, NOSE AND THROAT: Anicteric. No conjunctival erythema. Oropharynx was moist. NECK: No gross jugular venous distention, no thyromegaly. Grossly, there were no palpable lymph nodes in the supraclavicular or submandibular lymph node chains. LUNGS: Auscultation of both lung wells revealed scant right lower lobe rales, otherwise good bilateral air movement. No wheezing. HEART: Sounds 1 and 2 are heard at the time of my evaluation, regular rate and rhythm, rate of around 80 at that time. ABDOMEN: Soft, full, protuberant. Bowel sounds are positive, nontender, no palpable hepatosplenomegaly. EXTREMITIES: Without overt digital clubbing or cyanosis. He has 2+ bipedal pitting edema. Pedal pulses are 2+ bilaterally. NEUROLOGIC: Pupils are equal, round, about 4 mm, reactive to light. Extraocular muscle movements are intact. He moves all 4 extremities spontaneously. SKIN: Normal turgor without overt cellulitis. He had a perineal rash and an upper inner thigh rash that he said he has had for months to maybe years. No overt cellulitis that I could see. Please see the wound care nurses' notes and registered nurse's notes for full description of his skin. PSYCHIATRIC: Mood was normal. Affect was somewhat flat. He did have intact judgment and insight at the time I saw him. LABORATORY DATA: From my review, white cell count 8700, hemoglobin 13.3, hematocrit 42.8, platelet count 198. No manual differential. INR 1.22. Serum sodium 140, potassium 4.3, chloride 102, bicarbonate 25, BUN 20, creatinine 1.0, glucose 108. Liver function tests essentially within normal limits. TSH elevated at 8.07. No microbiology studies to date. Chest x-ray shows gross cardiomegaly with increased interstitial edema consistent with mild pulmonary edema compared to a chest x-ray from 09/05/2020. These changes are worse. ASSESSMENT: 1. Atrial fibrillation with rapid ventricular response. 2. Acute congestive heart failure exacerbation. 3. Acute pulmonary edema. 4. Acute hypoxemic respiratory failure. 5. History of hypertension. 6. Hyperlipidemia. 7. Tobacco use disorder. 8. Medication noncompliance. 9. Obesity. 10. Elevated serum TSH, possible hypothyroidism. PLAN: I do agree with current interventions to include the Cardizem drip that is, however, just about to be stopped. Then, he will be continued on his digoxin, metoprolol, and otherwise, I will defer to the wheel of fortune dealer for rate control. He is also appropriately, fully anticoagulated. I have stressed the importance of medication compliance to him and tobacco use cessation. I do also agree with diuretics. I will keep an eye on the electrolytes and correct as necessary. Supplemental oxygen will be weaned to keep sats greater than or equal to about 90% and should improve as the pulmonary edema improves. Noninvasive ventilation therapy will be offered on a p.r.n. basis for increased work of breathing/shortness of breath and wheezing. He will benefit from an outpatient Sleep Clinic evaluation. Otherwise, he is appropriately on GI prophylaxis. He is fully anticoagulated. Flu and pneumonia vaccination will be addressed per protocol. Again, tobacco abstinence has been strongly counseled. Thank you very much for the consult. We will follow along and make further recommendations as picture progresses/becomes clearer. He is critically ill on this time on life-sustaining interventions including the vasoactive medications/diltiazem drip and at high risk of from cardiopulmonary system decompensation. At this time, I spent about 35-40 minutes of critical care time without overlap and excluding any procedural time that may be necessary. I should mention he needs an endocrinology workup post discharge. TID: [id number] RECEIPT: [id number] FAVIOLA/DIPESH
[2021-12-15] MEDS ORDERED: SODIUM CHLORIDE 0.9% 500 ML 500 ML IV SCH (08:00)
[2021-12-15] MEDS: PANTOPRAZOLE 40 MG TAB PO SCH (08:33)
--- NOTE | 2021-12-15 08:57 | Progress Note ---
Assessment and Plan - Patient Problems (1) Acute on chronic systolic heart failure Current Visit: Yes Status: Acute Plan to address problem: Patient presents with acute on chronic exacerbation of heart failure, manifested by shortness of breath, mild interstitial edema and 2-3+ bilateral lower extremity edema. We will optimize heart failure therapy including intravenous diuretics. Echocardiogram shows a severe cardiomyopathy, left ventricular ejection fraction less than 20%. We have started a trial of intravenous milrinone, and will continue guideline directed oral medical therapy as tolerated. We will order LifeVest predischarge as a bridge to eventual ICD in the outpatient setting. (2) Chronic atrial fibrillation Current Visit: Yes Status: Acute Plan to address problem: Patient has chronic atrial fibrillation, on rate control therapy and oral anticoagulation with Eliquis. Rate control management is complicated by the presence of intermittent pauses, suggesting underlying conduction system disease. We will order LifeVest on this presentation, to be worn in the outpatient as a bridge to eventual ICD. Subjective Date of service: 12/15/21 Principal diagnosis: Congestive heart failure, atrial fibrillation Interval history: Patient feels better today, no new cardiac complaints. On cafeteria monitor, he has atrial fibrillation, suboptimal rate control but intermittently has short AV pauses. Echocardiogram showed a severe cardiomyopathy, with left ventricular ejection fraction less than 20%. Objective Vital Signs Temp Pulse Pulse Pulse Resp Resp BP 12/15/21 07:15 97 H 12 85/65 12/15/21 07:00 132 H 13 88/56 12/15/21 06:45 97 H 11 L 84/54 12/15/21 06:31 129 H 11 L 90/60 12/15/21 06:15 115 H 16 96/61 12/15/21 06:01 110 H 18 92/72 12/15/21 05:45 126 H 12 92/72 12/15/21 05:32 125 H 93/72 12/15/21 05:31 108 H 15 94/64 12/15/21 05:26 14 12/15/21 05:15 118 H 12 94/64 12/15/21 05:01 106 H 17 99/80 12/15/21 04:56 16 12/15/21 04:45 122 H 14 104/86 12/15/21 04:41 94 H 12/15/21 04:31 110 H 15 104/86 12/15/21 04:15 114 H 12 94/68 12/15/21 04:00 124 H 14 94/68 12/15/21 03:45 109 H 15 90/64 12/15/21 03:31 118 H 14 90/64 12/15/21 03:15 110 H 15 86/64 12/15/21 03:10 107 H 12/15/21 03:01 107 H 15 86/64 12/15/21 02:45 111 H 22 84/63 12/15/21 02:31 121 H 11 L 84/63 12/15/21 02:15 100 H 13 104/52 12/15/21 02:00 98 H 20 104/52 12/15/21 01:45 123 H 13 100/64 12/15/21 01:31 93 H 12 100/64 12/15/21 01:15 115 H 15 103/74 12/15/21 01:12 96 H 12/15/21 01:01 96 H 23 103/74 12/15/21 00:45 118 H 21 105/82 12/15/21 00:30 107 H 98 H 12 105/82 12/15/21 00:15 88 14 81/56 12/15/21 00:01 117 H 12 88/47 12/14/21 23:45 89 13 87/63 12/14/21 23:31 117 H 14 87/63 12/14/21 23:15 122 H 13 99/75 12/14/21 23:03 94 H 14 99/75 12/14/21 23:01 93 H 13 99/75 12/14/21 23:00 96.9 F L 93 H 62 14 12/14/21 22:45 73 16 101/59 12/14/21 22:31 68 11 L 101/59 12/14/21 22:15 75 14 75/47 12/14/21 22:01 67 13 88/62 12/14/21 21:45 60 13 88/62 12/14/21 21:31 60 16 81/57 12/14/21 21:15 72 15 81/57 12/14/21 21:05 96.0 F L 61 86/60 12/14/21 21:00 65 17 18 75/49 12/14/21 20:45 62 16 102/85 12/14/21 20:36 64 18 102/85 12/14/21 20:31 68 18 86/56 12/14/21 20:28 62 18 86/56 12/14/21 20:15 59 L 12 53/23 12/14/21 20:05 57 L 18 86/56 12/14/21 20:01 63 19 95/64 12/14/21 19:45 61 12 95/64 12/14/21 19:30 69 17 88/69 12/14/21 19:15 68 14 88/68 12/14/21 19:05 20 12/14/21 19:00 63 65 57 L 12 108/66 12/14/21 18:45 72 14 118/73 12/14/21 18:31 68 15 118/73 12/14/21 18:15 72 12 114/83 12/14/21 18:00 67 17 114/83 12/14/21 17:45 72 17 116/90 12/14/21 17:31 79 12 116/90 12/14/21 17:18 98.2 F 12/14/21 17:15 79 13 119/74 12/14/21 17:01 78 11 L 122/97 12/14/21 16:45 93 H 8 L 115/81 12/14/21 16:31 73 16 112/81 12/14/21 16:15 77 14 112/81 12/14/21 16:01 78 14 112/81 12/14/21 16:00 59 L 65 14 12/14/21 15:45 68 12 105/84 12/14/21 15:30 73 17 105/84 12/14/21 15:25 75 106/64 12/14/21 15:15 68 24 88/60 12/14/21 15:01 69 13 98/65 12/14/21 14:45 85 16 107/85 12/14/21 14:31 87 16 107/85 12/14/21 14:15 90 20 111/87 12/14/21 14:01 80 14 111/87 12/14/21 13:45 81 15 122/77 12/14/21 13:31 75 16 122/77 12/14/21 13:15 85 17 98/75 12/14/21 13:01 79 15 98/75 12/14/21 12:45 94 H 14 104/72 12/14/21 12:30 101 H 13 104/72 12/14/21 12:15 96 H 12 104/86 12/14/21 12:01 101 H 14 74/49 12/14/21 12:00 140 H 12/14/21 11:52 111 H 16 12/14/21 11:49 98.1 F 12/14/21 11:01 82 20 99/81 12/14/21 10:00 108 H 10 L 112/79 12/14/21 09:11 131 H 122/91 12/14/21 09:10 131 H 122/91 12/14/21 09:00 115 H 18 122/91 Pulse Ox 12/15/21 07:15 12/15/21 07:00 12/15/21 06:45 12/15/21 06:31 12/15/21 06:15 12/15/21 06:01 12/15/21 05:45 12/15/21 05:32 12/15/21 05:31 12/15/21 05:26 12/15/21 05:15 12/15/21 05:01 12/15/21 04:56 12/15/21 04:45 12/15/21 04:41 99 12/15/21 04:31 12/15/21 04:15 12/15/21 04:00 12/15/21 03:45 12/15/21 03:31 12/15/21 03:15 12/15/21 03:10 99 12/15/21 03:01 12/15/21 02:45 12/15/21 02:31 12/15/21 02:15 12/15/21 02:00 99 12/15/21 01:45 12/15/21 01:31 12/15/21 01:15 12/15/21 01:12 99 12/15/21 01:01 12/15/21 00:45 12/15/21 00:30 96 12/15/21 00:15 12/15/21 00:01 12/14/21 23:45 12/14/21 23:31 12/14/21 23:15 12/14/21 23:03 12/14/21 23:01 12/14/21 23:00 99 12/14/21 22:45 12/14/21 22:31 12/14/21 22:15 12/14/21 22:01 12/14/21 21:45 12/14/21 21:31 12/14/21 21:15 12/14/21 21:05 12/14/21 21:00 12/14/21 20:45 12/14/21 20:36 99 12/14/21 20:31 12/14/21 20:28 99 12/14/21 20:15 12/14/21 20:05 99 12/14/21 20:01 12/14/21 19:45 12/14/21 19:30 12/14/21 19:15 12/14/21 19:05 12/14/21 19:00 99 12/14/21 18:45 12/14/21 18:31 84 12/14/21 18:15 12/14/21 18:00 75 L 12/14/21 17:45 12/14/21 17:31 37 L 12/14/21 17:18 12/14/21 17:15 12/14/21 17:01 89 12/14/21 16:45 12/14/21 16:31 12/14/21 16:15 12/14/21 16:01 12/14/21 16:00 98 12/14/21 15:45 12/14/21 15:30 96 12/14/21 15:25 12/14/21 15:15 12/14/21 15:01 58 L 12/14/21 14:45 78 L 12/14/21 14:31 83 L 12/14/21 14:15 79 L 12/14/21 14:01 12/14/21 13:45 91 12/14/21 13:31 85 12/14/21 13:15 77 L 12/14/21 13:01 12/14/21 12:45 12/14/21 12:30 12/14/21 12:15 77 L 12/14/21 12:01 89 12/14/21 12:00 12/14/21 11:52 95 12/14/21 11:49 12/14/21 11:01 12/14/21 10:00 94 12/14/21 09:11 12/14/21 09:10 12/14/21 09:00 86 - Physical Examination General: No Apparent Distress HEENT: Positive: PERRL Neck: Positive: neck supple Cardiac: Positive: irregularly irregular Lungs: Positive: Decreased Breath Sounds Neuro: Positive: Grossly Intact Abdomen: Positive: Soft Skin: Positive: Clear Extremities: Present: +2 Edema - Labs and Meds CBC 12/15/21 Range/Units 03:59 WBC 9.9 (4.5-11.0) K/mm3 RBC 4.14 (3.65-5.03) M/mm3 Hgb 12.1 (11.8-15.2) gm/dl Hct 37.9 (35.5-45.6) % Plt Count 196 (140-440) K/mm3 Lymph # (Auto) 0.8 L (1.2-5.4) K/mm3 [place] # (Auto) 1.0 H (0.0-0.8) K/mm3 Eos # (Auto) 0.0 (0.0-0.4) K/mm3 Baso # (Auto) 0.0 (0.0-0.1) K/mm3 Comprehensive Metabolic Panel 12/15/21 Range/Units 03:59 Sodium 135 L (137-145) mmol/L Potassium 4.9 (3.6-5.0) mmol/L Chloride 96.5 L (98-107) mmol/L Carbon Dioxide 24 (22-30) mmol/L BUN 34 H (9-20) mg/dL Creatinine 2.0 H D (0.8-1.3) mg/dL Glucose 126 H (75-100) mg/dL Calcium 8.7 (8.4-10.2) mg/dL
[2021-12-15] MEDS: LOSARTAN 25 MG TAB PO SCH ×2 (09:23→09:30)
[2021-12-15] MEDS: APIXABAN 5 MG TAB PO SCH ×2 (09:26→21:50)
[2021-12-15] MEDS ORDERED: DIGOXIN 0.25 MG TAB PO SCH (10:00)
[2021-12-15] MEDS: SPIRONOLACTONE 25 MG TAB PO SCH (10:04)
--- NOTE | 2021-12-15 10:10 | Progress Note ---
Assessment and Plan Assessment and plan: This is a 61-year-old male with known past medical history of HF, nonischemic cardiomyopathy EF of 35 to 40%, paroxysmal atrial fibrillation, and dyslipidemia admitted for CHF exacerbation and Atrial fibrilation with RVR required Cardizem gtt. Hospital Course to Date: 12/15: Patient seen and examined at the bedside. Fully AAO, on 2L NC, still complaining of dyspnea with exertion and bilateral extremity pain. BLE noted with 3+ pitting edema, with palpable pulses, and warm to touch. Will check BLE doppler to r/o DVT. Patient remains in AFib on the monitor, rate improved HR in the 70 to 100s. Cardizem gtt is off. Cardiology is following, appreciate recommendations. Continue IV Lasix, IV dig, BB, and Eliquis. 2D Echo pending. Continue fluid restriction, strick I&Os, and daily weight. Plan of care discussed with patient at the bedside. He verbalized understanding of the info provided and agreed to current plan of care. [facility] is also following, appreciate recommendations. Possible transfer to [facility] floor later on today if patient remains stable. 12/16: Stable on 2L NC, denied any pain nor any discomfort this am. Patient is Hypotensive and back in Afib with RVR this am, HR in the 110-130s. Patient is now on Milrinone gtt per Cardio. Renal function had also worsen most likely due to IV diuretic, IV lasix discontinued and 500ml of IVF bolus given. Meds adjustment per cardiology and plan to hold milrinone gtt for hypotension. Nephrology was also consulted. Transfer to the floor once a bed is available. Assessment and Plan #Atrial Fibrillation with RVR #CHF Exacerbation - Presented with SOB and BLE edema/swelling - Was found in AFIB with RVR in the ED, s/p Cardizem gtt - Patient admit noncompliance with meds - BNP of 1387 - Chest x-ray shows central vascular congestion with probable bilateral atelectasis/edema - S/p IV Lasix- hold this am due to worsen renal function - Cardiology consulted, appreciated recommendations - 2D echo noted with severe, 4-chambers dilated cardiomyopathy. EF 15 to 20% - Milrinone gtt initiated overnight per Cardio - Patient tachycardic and hypotensived this am - On BB. Plan to hold milrinone gtt, meds adjustment per Cardio - BLE doppler negative for DVT - Continue home Eliquis - Continue O2 supplementation wean as tolerated for SPO2 above 92% - CCM consulted, appreciate recommendations #Acute Kidney Injury(ANA LAURA) Vasomotor Nephropathy - most likely due to IV diuretic - Renal function jump from 1.0-->2.0 - IV Lasix held, 500cc IVF bolus challenge - Nephrology consulted - Strict intake and output - Avoid nephrotoxic medications; Renally dose medications - Monitor and replace electrolytes as needed #HTN (Hypertension) - Hypotensive this am, improved post IVF bolus challenge - Parameters added to current antihypertensives - Continue blood pressure monitor per protocol - Maintain MAP above 65 #Hyperlipidemia - Will resume routine home medications and monitor lipid profile. #Tobacco Dependence - Smoking Cessation education provided, patient verbalized understand of the info provided - Will offer nicotine patch as needed. #GI/DVT prophylaxis - PPI- Protonix - On AC- Eliquis - SCDs to bilateral lower extremities while in bed The high probability of a clinically significant, sudden or life threatening de terioration of the [multiple] system(s) required my full and direct attention, intervention and personal management. The aggregate critical care time was [60] minutes. This time is in addition to time spent performing reported procedures but includes the following: [x] Data Review and interpretation [x] Patient assessment and monitoring of vital signs [x] Documentation [x] Medication orders and management Disposition Plan: Transfer to the floor Total Time Spent with Patient (Minutes): 60 History Interval history: Patient seen and examined at the bedside. Up in the chair this am, remains on 2L NC SPO2 at 99%. Patient voiced that he is feeling a lot better this am, denied any pain nor any discomfort this am, no SOB. Milrinone was initiated overnight per Cardio. Hypotensive and tachycardic this am, AFIb on the monitor, HR ib the 110s-130s. Per RN, plan is to hold milrinone gtt per Cardio. Hospitalist Physical - Constitutional Vitals: Temp Pulse Resp BP Pulse Ox 96.9 F L 104 H 12 91/60 99 12/14/21 23:00 12/15/21 10:04 12/15/21 07:15 12/15/21 10:04 12/15/21 04:41 General appearance: Present: no acute distress, well-nourished, obese - EENT Eyes: Present: PERRL, EOM intact ENT: hearing intact - Neck Neck: Present: normal ROM - Respiratory Respiratory effort: normal Respiratory: bilateral: diminished - Cardiovascular Rhythm: irregularly irregular Heart Sounds: Present: S1 & S2 - Extremities Extremities: no ischemia, pulses intact, pulses symmetrical Extremity abnormal: edema - Peripheral Assessment Bilateral Lower Extremity Edema Type: Pitting Edema Degree: 2+ Capillary Refill: < 3 seconds Skin Temperature: Warm Peripheral Pulses: within normal limits - Abdominal General gastrointestinal: soft, non-distended, normal bowel sounds - Integumentary Integumentary: Present: warm, dry - Psychiatric Psychiatric: appropriate mood/affect, cooperative - Neurologic Neurologic: CNII-XII intact, moves all extremities - Allied Health Allied health notes reviewed: nursing, case management HEART Score - HEART Score Troponin: Troponin T < 0.010 ng/mL (0.00-0.029) 12/13/21 23:28 Results - Labs CBC & Chem 7: 12/15/21 03:59 12/15/21 03:59 Labs: Laboratory Last Values WBC 9.9 K/mm3 (4.5-11.0) 12/15/21 03:59 RBC 4.14 M/mm3 (3.65-5.03) 12/15/21 03:59 Hgb 12.1 gm/dl (11.8-15.2) 12/15/21 03:59 Hct 37.9 % (35.5-45.6) 12/15/21 03:59 MCV 92 fl (84-94) 12/15/21 03:59 MCH 29 pg (28-32) 12/15/21 03:59 MCHC 32 % (32-34) 12/15/21 03:59 RDW 17.4 % (13.2-15.2) H 12/15/21 03:59 Plt Count 196 K/mm3 (140-440) 12/15/21 03:59 Lymph % (Auto) 8.6 % (13.4-35.0) L 12/15/21 03:59 Ballard % (Auto) 10.0 % (0.0-7.3) H 12/15/21 03:59 Eos % (Auto) 0.1 % (0.0-4.3) 12/15/21 03:59 Baso % (Auto) 0.2 % (0.0-1.8) 12/15/21 03:59 Lymph # (Auto) 0.8 K/mm3 (1.2-5.4) L 12/15/21 03:59 Ballard # (Auto) 1.0 K/mm3 (0.0-0.8) H 12/15/21 03:59 Eos # (Auto) 0.0 K/mm3 (0.0-0.4) 12/15/21 03:59 Baso # (Auto) 0.0 K/mm3 (0.0-0.1) 12/15/21 03:59 Seg Neutrophils % 81.1 % (40.0-70.0) H 12/15/21 03:59 Seg Neutrophils # 8.0 K/mm3 (1.8-7.7) H 12/15/21 03:59 PT 16.8 Sec. (12.2-14.9) H 12/13/21 23:28 INR 1.22 (0.87-1.13) H 12/13/21 23:28 APTT 30.1 Sec. (24.2-36.6) 12/13/21 23:28 Sodium 135 mmol/L (137-145) L 12/15/21 03:59 Potassium 4.9 mmol/L (3.6-5.0) 12/15/21 03:59 Chloride 96.5 mmol/L (98-107) L 12/15/21 03:59 Carbon Dioxide 24 mmol/L (22-30) 12/15/21 03:59 Anion Gap 19 mmol/L 12/15/21 03:59 BUN 34 mg/dL (9-20) H 12/15/21 03:59 Creatinine 2.0 mg/dL (0.8-1.3) H D 12/15/21 03:59 Estimated GFR 42 ml/min 12/15/21 03:59 BUN/Creatinine Ratio 17 % 12/15/21 03:59 Glucose 126 mg/dL (75-100) H 12/15/21 03:59 POC Glucose 115 mg/dL (70-105) H 12/14/21 15:34 Calcium 8.7 mg/dL (8.4-10.2) 12/15/21 03:59 Phosphorus 5.30 mg/dL (2.5-4.5) H 12/15/21 03:59 Magnesium 2.30 mg/dL (1.7-2.3) 12/15/21 03:59 Total Bilirubin 1.20 mg/dL (0.1-1.2) 12/13/21 23:28 AST 24 units/L (5-40) 12/13/21 23:28 ALT 22 units/L (7-56) 12/13/21 23:28 Alkaline Phosphatase 243 units/L (35-129) H 12/13/21 23:28 Troponin T < 0.010 ng/mL (0.00-0.029) 12/13/21 23:28 NT-Pro-B Natriuret Pep 1387 pg/mL (0-900) H 12/13/21 23:28 Total Protein 6.6 g/dL (6.3-8.2) 12/13/21 23:28 Albumin 3.8 g/dL (3.9-5) L 12/13/21 23:28 Albumin/Globulin Ratio 1.4 % 12/13/21 23:28 TSH 8.070 mlU/mL (0.270-4.200) H 12/13/21 23:28 Pelayo/IV: Voiding Method Urinal Active Medications - Current Medications Current Medications: Generic Name Dose Route Start Last Admin Trade Name Freq PRN Reason Stop Dose Admin Acetaminophen 650 mg 12/14/21 01:23 Acetaminophen 325 Mg Tab PO Q6H PRN Pain MILD(1-3)/Fever >100.5/VORA Apixaban 5 mg 12/14/21 10:00 12/15/21 09:26 Apixaban 5 Mg Tab PO 5 mg Q12HR JENNA Administration Furosemide 20 mg 12/15/21 18:00 Furosemide 20 Mg/2 Ml Inj IV 0600,1800 JENNA Milrinone Lactate/Dextrose 20 mg in 100 mls @ 11.003 mls/hr 12/14/21 18:00 12/15/21 08:55 Milrinone-D5w 20 Mg/100 Ml IV 12/17/21 17:59 0 mcg/kg/min DIRECT JENNA 0 mls/hr Infusion Protocol 0.375 MCG/KG/MIN Losartan Potassium 12.5 mg 12/14/21 10:00 12/15/21 09:30 Losartan 25 Mg Tab PO Not Given QDAY JENNA Magnesium Hydroxide 30 ml 12/14/21 01:23 Magnesium Hydroxide (Mom) Oral Liqd Udc PO Q4H PRN Constipation Metoprolol Tartrate 50 mg 12/14/21 15:00 12/15/21 05:32 Metoprolol Tartrate 50 Mg Tab PO 50 mg Q8HR JENNA Administration Morphine Sulfate 2 mg 12/14/21 01:23 12/15/21 08:33 Morphine 2 Mg/1 Ml Inj IV 2 mg Q4H PRN Administration Pain, Moderate (4-6) Morphine Sulfate 4 mg 12/14/21 01:23 12/14/21 03:37 Morphine 4 Mg/1 Ml Inj IV 4 mg Q4H PRN Administration Pain , Severe (7-10) Ondansetron HCl 4 mg 12/14/21 01:23 12/14/21 11:51 Ondansetron 4 Mg/2 Ml Inj IV 4 mg Q8H PRN Administration Nausea And Vomiting Pantoprazole Sodium 40 mg 12/14/21 09:00 12/15/21 08:33 Pantoprazole 40 Mg Tab PO 40 mg QDAC JENNA Administration Senna 17.2 mg 12/14/21 22:00 12/14/21 21:32 Sennosides 8.6 Mg Tab PO 17.2 mg QHS JENNA Administration Sodium Chloride 10 ml 12/14/21 10:00 12/15/21 10:08 Sodium Chloride 0.9% 10 Ml Flush Syringe IV 10 ml BID JENNA Administration Sodium Chloride 10 ml 12/14/21 01:23 Sodium Chloride 0.9% 10 Ml Flush Syringe IV PRN PRN LINE FLUSH Spironolactone 25 mg 12/15/21 10:00 12/15/21 10:04 Spironolactone 25 Mg Tab PO 25 mg QDAY JENNA Administration Nutrition/Malnutrition Assess - Dietary Evaluation Nutrition/Malnutrition Findings: Nutrition Notes Start: 12/14/21 11:56 Freq: Status: Active Protocol: Document 12/14/21 11:56 CORNELIO (Rec: 12/14/21 12:16 CORNELIO [id number]) Nutrition Notes Need for Assessment 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 Current Diet Cardiac Diet (since B 12/14). Labs/Tests 12/13: Glu 108. Pertinent Medications 12/14: Nutritionally unremarkable. Height 6 ft 1 in Weight 97.8 kg [place] Body Weight (kg) 83.63 BMI 28.4 Intake Prior to Admission Good Weight change and time frame Pt denies having loss body weight [employer]. Weight Status Overweight Subjective/Other Information RD consult for skin risk assessment and Nutrition Education. No reports available on Pt's PO intake of meals at the time , will assess at F/U. Pt is on Nasal Cannula, O2 saturation @ 95%, according to Physical Assessment History notes. Pt shows no signs of concern for skin risk at the time, according to Physical Assessment History notes. Pt still in critical condition , not a candidate for Nutrition Education at the time, will assess feasibility on F/U. Pt has missing teeth, according to Physical Assessment History notes. Pt presents Bilateral LE Pitting Edema 4+, according to Physical Assessment History notes. Percent of energy/protein needs met: Prescribed Cardiac Diet provides for energy/protein needs (2,230 Kcal/85 g) during LOS. Burn Absent Trauma Absent GI Symptoms Nausea Food Allergy Yes Skin Integrity/Comment Assessment WNL. Minimum of two criteria No #1 Nutrition Diagnosis No nutrition diagnosis at this time Comments: Will assess Pt's PO intake of meals and feasibility for nutrition education at F/U. Is patient on ventilator? No Is Patient Ambulatory and/or Out of Bed Yes REE-([facility]-ambulatory/OOB) [ 2400.944 [id number]] Kcal/Kg value to use for calculation 23 Approximate Energy Requirements Using 2249 kcal/Kg Calculation Used for Recommendations Kcal/kg Additional Notes Protein: 0.8-1 g/Kg IBW; 67-84 g/day. Fluids: 1 ml/Kcal, or as per MD. Nutrition Intervention Change Diet Order: Continue Cardiac Diet. Follow-Up By: 12/21/21 Additional Comments Nutrition education will be provided on F/U, if feasible. Continue monitoring food tolerance, %PO intake of meals , and BM.
--- NOTE | 2021-12-15 12:14 | Consultation ---
History of Present Illness - Reason for Consult Consult date: 12/15/21 acute renal failure - History of Present Illness The patient is a 61 YO male with known history of HTN, HLD, Nonischemic car diomyopathy with EF 35 to 40% and Atrial fibrillation who presented to [facility] ED 12/13/21 with complaining of shortness of breath and bilateral lower extremity swelling for 2 weeks duration. Denies any chest pain, nausea, vomiting, diarreha, abdominal pain, headache, dizziness, diaphoresis, fever, chills, no hematuria or dysuria. Patient admits non-compliant with his medications. Chest x-ray showed central vascular congestion with probable bilateral atelectasis/edema. EKG showed atrial fibrillation with RVR. Patient has been started on Cardizem drip and admitted to ICU. BP has been low. Creatinine level increased to 2. Nephrology consulted for further evaluation and treatment of ANA LAURA. Past History Past Medical History: atrial fib, heart failure, hypertension Social history: smoking (Current daily smoker) Family history: no significant family history Medications and Allergies Allergies Allergy/AdvReac Type Severity Reaction Status Date / Time pollen extracts Allergy Unknown Verified 12/13/21 21:07 Home Medications Medication Instructions Recorded Confirmed Last Taken Type Apixaban [Eliquis] 5 mg PO Q12HR #60 tablet 09/07/20 12/14/21 12/13/21 Rx Metoprolol [Lopressor TAB] 50 mg PO BID #60 tablet 09/07/20 12/14/21 12/13/21 Rx Furosemide [Lasix] 40 mg PO QDAC 12/14/21 12/14/21 12/13/21 History Losartan Potassium 25 mg PO QDAY 12/14/21 12/14/21 12/13/21 History Metoprolol Xl [Metoprolol 100 mg PO QDAY 12/14/21 12/14/21 12/13/21 History SUCCINATE ER TAB] Pantoprazole Sodium 40 mg PO QDAY 12/14/21 12/14/21 12/13/21 History Active Meds: Active Medications Acetaminophen (Acetaminophen 325 Mg Tab) 650 mg PO Q6H PRN PRN Reason: Pain MILD(1-3)/Fever >100.5/VORA Apixaban (Apixaban 5 Mg Tab) 5 mg PO Q12HR JENNA Last Admin: 12/15/21 09:26 Dose: 5 mg Furosemide (Furosemide 20 Mg/2 Ml Inj) 20 mg IV 0600,1800 [facility] Milrinone Lactate/Dextrose (Milrinone-D5w 20 Mg/100 Ml) 20 mg in 100 mls @ 11.003 mls/hr IV DIRECT JENNA; Protocol Stop: 12/17/21 17:59 Last Infusion: 12/15/21 08:55 Dose: 0 mcg/kg/min, 0 mls/hr Losartan Potassium (Losartan 25 Mg Tab) 12.5 mg PO QDAY [facility] Last Admin: 12/15/21 09:30 Dose: Not Given Magnesium Hydroxide (Magnesium Hydroxide (Mom) Oral Liqd Udc) 30 ml PO Q4H PRN PRN Reason: Constipation Metoprolol Tartrate (Metoprolol Tartrate 50 Mg Tab) 50 mg PO Q8HR [facility] Last Admin: 12/15/21 05:32 Dose: 50 mg Morphine Sulfate (Morphine 2 Mg/1 Ml Inj) 2 mg IV Q4H PRN PRN Reason: Pain, Moderate (4-6) Last Admin: 12/15/21 08:33 Dose: 2 mg Morphine Sulfate (Morphine 4 Mg/1 Ml Inj) 4 mg IV Q4H PRN PRN Reason: Pain , Severe (7-10) Last Admin: 12/14/21 03:37 Dose: 4 mg Ondansetron HCl (Ondansetron 4 Mg/2 Ml Inj) 4 mg IV Q8H PRN PRN Reason: Nausea And Vomiting Last Admin: 12/14/21 11:51 Dose: 4 mg Pantoprazole Sodium (Pantoprazole 40 Mg Tab) 40 mg PO QDAC [facility] Last Admin: 12/15/21 08:33 Dose: 40 mg Senna (Sennosides 8.6 Mg Tab) 17.2 mg PO QHS [facility] Last Admin: 12/14/21 21:32 Dose: 17.2 mg Sodium Chloride (Sodium Chloride 0.9% 10 Ml Flush Syringe) 10 ml IV BID [facility] Last Admin: 12/15/21 10:08 Dose: 10 ml Sodium Chloride (Sodium Chloride 0.9% 10 Ml Flush Syringe) 10 ml IV PRN PRN PRN Reason: LINE FLUSH Spironolactone (Spironolactone 25 Mg Tab) 25 mg PO QDAY [facility] Last Admin: 12/15/21 10:04 Dose: 25 mg Review of Systems All systems: negative Exam - Vital Signs Vital signs: Vital Signs Temp Pulse Resp BP Pulse Ox 98.5 F 53 L 18 87/57 95 12/13/21 21:03 12/13/21 21:03 12/13/21 21:03 12/13/21 21:03 12/13/21 21:03 Results - Lab Results 12/15/21 03:59 12/15/21 03:59 Most recent lab results Calcium 8.7 mg/dL (8.4-10.2) 12/15/21 03:59 Phosphorus 5.30 mg/dL (2.5-4.5) H 12/15/21 03:59 Magnesium 2.30 mg/dL (1.7-2.3) 12/15/21 03:59 Assessment and Plan 1. Acute kidney injury: Vasomotor ANA LAURA superimposed on CKD in the setting of decompensated CHF / hypotension / A.fib with RVR. Low FeNa. ATN. Monitor renal function. Avoid nephrotoxic agents. Meds dosage based on GFR. 2. FEN: Volume overload, diuretics as BP allows, monitor. Monitor lytes and volume status. 3. Decompensated HFrEF, POA: EF 10-15%. Beta blockers. Milrinone. Followed by Cards. Monitor. 4. A.fib with RVR: Metoprolol and Eliquis. Continue to monitor. 5. Hypotension: Monitor BP. Need better compliance. Subjective: Patient was seen and examined at the chairside. Examination: General appearance: well-developed, appears stated age, no distress HEENT: atraumatic, NARA Neck: trachea midline Respiratory: ctab Heart: S1S2, irregular, no murmur Abdomen: soft, bowel sounds heard, NT Integumentary: discoloration / rash over both groin area Neurologic: AO, able to move extremities Ext: 2+ LE edema
--- NOTE | 2021-12-15 15:44 | Progress Note ---
Assessment and Plan Atrial fibrillation with rapid ventricular response Acute congestive heart failure exacerbation Acute pulmonary edema Acute hypoxemic respiratory failure Hypertension Hyperlipidemia Tobacco use disorder Medication noncompliance Obesity Elevated serum TSH - hold lasix due to ANA LAURA - low dose Milrinone (0.125 mics/kg/min) - nephrology consult placed - gentle hydration with IVNS @ 75 mls/hr X 500 mls more re: hypotension - conservative volume management thereafter - may need inotropic support re: ? cardiorenal syndrome - repeat BMP in am - continue rate control with metoprolol - aldactone added - continue telemetry monitoring - transfer to [facility] for continued close observation - prn NIV for SOB / increased work of breathing - continue to wean supplemental oxygen to keep O2 sats > 90% - bronchodilators (ODALYS) with pulm hygiene per RT - avoid nephrotoxins, renally dose all medications - mobility protocols to prevent pressure ulcers - PT/OT as tolerated - Wound care per RN/WCT - continue accuchecks with glycemic control per SSI (While critically ill target blood glucose of 140-180 mg/dL; avoid hypoglycemia) - tobacco abstinence counseled at the bedside - home oxygen evaluation at discharge - GI & VTE prophylaxis - Flu & pneumovax per protocol - Pulmonary out patient follow up for PFTs and optimization of respiratory status - continue other care per attending / other consultants - prn analgesia per pain score ... re-evaluate in am & prn CONDITION: CRITICAL PROGNOSIS: GUARDED CODE STATUS: FULL CODE The high probability of a clinically significant, sudden or life-threatening deterioration of the [respiratory, cardiovascular & renal] system(s) required my full and direct attention, intervention and personal management. The aggregate critical care time was [33] minutes without overlap. Time includes spent on; [x] Data Review and interpretation [x] Patient assessment and monitoring of vital signs [x] Documentation [x] Medication orders and management Subjective Date of service: 12/15/21 Principal diagnosis: A-fib with RVR; AE-CHF; Pulm edema; AHRF; HTN; Hyperlipid emia; Obesity Interval history: Patient is seen today for: A-fib with RVR; AE-CHF; Pulm edema; AHRF; HTN; Hyperlipidemia; Obesity Seen and examined at bedside; 24hour events reviewed; nursing and respiratory care staff consulted; no adverse overnight events reported to me; went back into A-fib with RVR overnight; denies chest pains or palpitations now; hypotensive now despite 500 ml's IVNS bolus; now with ANA LAURA; runs of V-tach noted earlier Objective Vital Signs - 12hr 12/15/21 12/15/21 12/15/21 03:45 04:00 04:15 Pulse Rate 109 H 124 H 114 H Pulse Rate [ From Monitor] Respiratory 15 14 12 Rate Blood Pressure 90/64 94/68 94/68 O2 Sat by Pulse Oximetry 12/15/21 12/15/21 12/15/21 04:31 04:41 04:45 Pulse Rate 110 H 94 H 122 H Pulse Rate [ From Monitor] Respiratory 15 14 Rate Blood Pressure 104/86 104/86 O2 Sat by Pulse 99 Oximetry 12/15/21 12/15/21 12/15/21 04:56 05:01 05:15 Pulse Rate 106 H 118 H Pulse Rate [ From Monitor] Respiratory 16 17 12 Rate Blood Pressure 99/80 94/64 O2 Sat by Pulse Oximetry 12/15/21 12/15/21 12/15/21 05:26 05:31 05:32 Pulse Rate 108 H 125 H Pulse Rate [ From Monitor] Respiratory 14 15 Rate Blood Pressure 94/64 93/72 O2 Sat by Pulse Oximetry 12/15/21 12/15/21 12/15/21 05:45 06:01 06:15 Pulse Rate 126 H 110 H 115 H Pulse Rate [ From Monitor] Respiratory 12 18 16 Rate Blood Pressure 92/72 92/72 96/61 O2 Sat by Pulse Oximetry 12/15/21 12/15/21 12/15/21 06:31 06:45 07:00 Pulse Rate 129 H 97 H 132 H Pulse Rate [ From Monitor] Respiratory 11 L 11 L 13 Rate Blood Pressure 90/60 84/54 88/56 O2 Sat by Pulse Oximetry 12/15/21 12/15/21 12/15/21 07:15 07:30 07:46 Pulse Rate 97 H 114 H 110 H Pulse Rate [ From Monitor] Respiratory 12 16 14 Rate Blood Pressure 85/65 85/65 85/65 O2 Sat by Pulse Oximetry 12/15/21 12/15/21 12/15/21 08:00 08:16 08:30 Pulse Rate 125 H 115 H 135 H Pulse Rate [ 125 H From Monitor] Respiratory 11 L 11 L 19 Rate Blood Pressure 104/86 93/66 98/74 O2 Sat by Pulse 99 Oximetry 12/15/21 12/15/21 12/15/21 08:46 09:00 09:16 Pulse Rate 91 H 120 H 96 H Pulse Rate [ From Monitor] Respiratory 19 12 9 L Rate Blood Pressure 89/66 98/60 98/60 O2 Sat by Pulse Oximetry 12/15/21 12/15/21 12/15/21 09:30 09:45 10:00 Pulse Rate 106 H 92 H 133 H Pulse Rate [ From Monitor] Respiratory 10 L 9 L 11 L Rate Blood Pressure 76/51 84/62 91/60 O2 Sat by Pulse Oximetry 12/15/21 10:04 Pulse Rate 104 H Pulse Rate [ From Monitor] Respiratory Rate Blood Pressure 91/60 O2 Sat by Pulse Oximetry Constitutional: no acute distress Eyes: non-icteric ENT: oropharynx moist Neck: supple, no lymphadenopathy, no JVD Effort: mildly labored Ascultation: Bilateral: rhonchi Percussion: Bilateral: not dull Cardiovascular: regular rate and rhythm Gastrointestinal: normoactive bowel sounds, soft, non-tender, non-distended (pr otuberant) Integumentary: normal Extremities: no cyanosis, no edema, pulses normal, no ischemia or petechiae Neurologic: non-focal exam, pupils equal and round, CN II-XII normal, motor strength normal and Psychiatric: mood appropriate, affect normal CBC and BMP: 12/15/21 03:59 12/15/21 03:59 ABG, PT/INR, D-dimer: PT/INR, D-dimer PT 16.8 Sec. (12.2-14.9) H 12/13/21 23:28 INR 1.22 (0.87-1.13) H 12/13/21 23:28 Abnormal lab findings: Abnormal Labs 12/13/21 12/13/21 12/13/21 23:28 23:28 23:28 MCHC 31 L RDW 17.9 H Lymph % (Auto) Gage % (Auto) 10.1 H Lymph # (Auto) Gage # (Auto) 0.9 H Seg Neutrophils % 71.2 H Seg Neutrophils # PT INR Sodium Chloride BUN Creatinine Glucose 108 H POC Glucose Phosphorus Alkaline Phosphatase 243 H NT-Pro-B Natriuret Pep 1387 H Albumin 3.8 L TSH 8.070 H 12/13/21 12/14/21 12/15/21 23:28 15:34 03:59 MCHC RDW 17.4 H Lymph % (Auto) 8.6 L Gage % (Auto) 10.0 H Lymph # (Auto) 0.8 L Gage # (Auto) 1.0 H Seg Neutrophils % 81.1 H Seg Neutrophils # 8.0 H PT 16.8 H INR 1.22 H Sodium Chloride BUN Creatinine Glucose POC Glucose 115 H Phosphorus Alkaline Phosphatase NT-Pro-B Natriuret Pep Albumin TSH 12/15/21 03:59 MCHC RDW Lymph % (Auto) Gage % (Auto) Lymph # (Auto) Gage # (Auto) Seg Neutrophils % Seg Neutrophils # PT INR Sodium 135 L Chloride 96.5 L BUN 34 H Creatinine 2.0 H D Glucose 126 H POC Glucose Phosphorus 5.30 H Alkaline Phosphatase NT-Pro-B Natriuret Pep Albumin TSH Allied health notes reviewed: nursing
[2021-12-15] MEDS ORDERED: SODIUM CHLORIDE 0.9% 1000 ML 500 ML IV SCH (17:00)
--- NOTE | 2021-12-15 17:04 | Electrocardiograph Report ---
[facility] Test Date: 2021-12-13 Test Time: 23:25:46 Pat Name: GIO RODRIGUEZ Department: Room: A266 Gender: M Manager Of Business: Irina MELTON : 1960 Requested By: STEPH MOSES Order Number: [id number] Reading MD: Pipe Ferrell Measurements Intervals [place] Rate: 136 P: 0 VA: 166 QRS: 5 QRSD: 71 T: QT: 290 QTc: 435 Interpretive Statements Rapid atrial fibrillation Consider left ventricular hypertrophy Inferior infarct, old Nonspecific T abnormalities, lateral leads No previous ECG available for comparison Electronically Signed On 12-15-2021 17:03:56 EDT by Pipe Ferrell
[2021-12-15] MEDS ORDERED: FUROSEMIDE 20 MG/2 ML INJ IV SCH (18:00)
[2021-12-15 19:40] LABS: Creatinine,Urine 139.2 mg/dL (0.1-20.0)
[2021-12-15 19:41] LABS: Bilirubin,Urine NEG (Negative); Blood,Urine NEG (Negative); Color,Urine Yellow (Yellow); Hyaline Casts,Urine 9 /LPF; Mucus,Urine FEW /HPF; Protein,Urine <15 mg/dL mg/dL (Negative)
[2021-12-15] MEDS: SENNOSIDES 8.6 MG TAB PO SCH (21:50)
--- NOTE | 2021-12-16 02:12 | Progress Note ---
Assessment and Plan - Patient Problems (1) Atrial fibrillation with RVR Current Visit: Yes Status: Acute Plan to address problem: Patient has known history of atrial fibrillation. He has not been quite compliant with his medications. Currently placed on Cardizem drip. We will observe closely in the intensive care unit. (2) HTN (hypertension) Current Visit: No Status: Chronic Plan to address problem: We will resume routine home medications and monitor vital signs closely. (3) Hyperlipidemia Current Visit: No Status: Chronic Qualifiers: Hyperlipidemia type: unspecified Qualified Code(s): E78.5 - Hyperlipidemia, unspecified Plan to address problem: Will resume routine home medications and monitor lipid profile. (4) Tobacco use Current Visit: No Status: Chronic Plan to address problem: Counseled on quitting tobacco abuse. Will offer nicotine patch as needed. (5) DVT prophylaxis Current Visit: No Status: Acute Plan to address problem: Patient on anticoagulation with Eliquis. (6) Full code status Current Visit: Yes Status: Acute Plan to address problem: Patient is full code. Subjective Date of service: 12/15/21 Principal diagnosis: A-fib with RVR; AE-CHF; Pulm edema; AHRF; HTN; Hyperlipidemia; Obesity Interval history: 61-year-old male with known history of nonischemic cardiomyopathy with EF of 35 to 40%, atrial fibrillation, dyslipidemia, presenting to the emergency room today complaining of shortness of breath and bilateral lower extremity swelling. Symptoms has been ongoing for the past 2 weeks. Patient admits that he has not been quite compliant with his medications. Denies any chest pain, no nausea or vomiting, no abdominal pain. Denies any headache or dizziness denies any diaphoresis. Patient denies any fever or chills, no hematuria or dysuria. Work-up in the emergency room today, significant findings on the labs that of BNP of 1387. Chest x-ray shows central vascular congestion with probable bilateral atelectasis/edema. EKG shows atrial fibrillation with RVR. Patient has been started on Cardizem drip. Objective - Constitutional Vitals: Vital Signs - 12hr 12/15/21 12/15/21 12/15/21 14:16 14:30 14:46 Temperature Pulse Rate 131 H 140 H 114 H Pulse Rate [ From Monitor] Respiratory 21 22 15 Rate Blood Pressure O2 Sat by Pulse 96 94 95 Oximetry 12/15/21 12/15/21 12/15/21 15:00 15:16 15:30 Temperature Pulse Rate 115 H 119 H 140 H Pulse Rate [ From Monitor] Respiratory 15 13 16 Rate Blood Pressure 71/36 71/36 O2 Sat by Pulse 97 96 100 Oximetry 12/15/21 12/15/21 12/15/21 15:46 15:57 16:00 Temperature Pulse Rate 141 H 100 H 133 H Pulse Rate [ 118 H From Monitor] Respiratory 14 11 L Rate Blood Pressure 71/36 88/48 88/68 O2 Sat by Pulse 96 99 Oximetry 12/15/21 12/15/21 12/15/21 16:16 16:30 16:46 Temperature Pulse Rate 124 H 138 H 147 H Pulse Rate [ From Monitor] Respiratory 18 18 22 Rate Blood Pressure 92/68 92/68 92/68 O2 Sat by Pulse 97 100 97 Oximetry 12/15/21 12/15/21 12/15/21 17:00 17:16 17:30 Temperature Pulse Rate 125 H 108 H 129 H Pulse Rate [ From Monitor] Respiratory 31 H 29 H 34 H Rate Blood Pressure 92/68 101/72 101/72 O2 Sat by Pulse 96 99 99 Oximetry 12/15/21 12/15/21 12/15/21 17:46 18:00 18:16 Temperature Pulse Rate 161 H 124 H 139 H Pulse Rate [ From Monitor] Respiratory 34 H 18 18 Rate Blood Pressure 101/72 101/72 88/64 O2 Sat by Pulse 85 97 93 Oximetry 12/15/21 12/15/21 12/15/21 18:30 18:46 19:00 Temperature Pulse Rate 131 H 163 H 127 H Pulse Rate [ From Monitor] Respiratory 19 26 H 18 Rate Blood Pressure 88/64 88/64 100/75 O2 Sat by Pulse 95 94 94 Oximetry 12/15/21 12/15/21 12/15/21 19:16 19:30 19:46 Temperature Pulse Rate 143 H 150 H 118 H Pulse Rate [ From Monitor] Respiratory 30 H 37 H 15 Rate Blood Pressure 100/75 100/75 100/75 O2 Sat by Pulse 98 98 98 Oximetry 12/15/21 12/15/21 12/15/21 20:00 20:16 20:30 Temperature 97.4 F L Pulse Rate 120 H 115 H 111 H Pulse Rate [ 144 H From Monitor] Respiratory 11 L 18 14 Rate Blood Pressure 100/75 106/77 106/77 O2 Sat by Pulse 96 92 Oximetry 12/15/21 12/15/21 12/15/21 20:46 21:00 21:16 Temperature Pulse Rate 136 H 147 H 138 H Pulse Rate [ From Monitor] Respiratory 14 15 15 Rate Blood Pressure 106/77 106/77 114/84 O2 Sat by Pulse 94 96 96 Oximetry 12/15/21 12/15/21 12/15/21 21:30 21:46 21:50 Temperature Pulse Rate 147 H 157 H 140 H Pulse Rate [ From Monitor] Respiratory 45 H 46 H Rate Blood Pressure 114/84 114/84 114/84 O2 Sat by Pulse 98 94 Oximetry 12/15/21 12/15/21 12/15/21 22:00 22:16 22:30 Temperature Pulse Rate 117 H Pulse Rate [ From Monitor] Respiratory 17 11 L Rate Blood Pressure 114/84 101/71 101/71 O2 Sat by Pulse 95 96 99 Oximetry 12/15/21 12/15/21 12/16/21 22:46 23:00 00:00 Temperature 97.2 F L Pulse Rate Pulse Rate [ From Monitor] Respiratory Rate Blood Pressure 101/71 101/71 O2 Sat by Pulse 98 92 Oximetry General appearance: Present: no acute distress, well-nourished - EENT Eyes: PERRL, EOM intact ENT: hearing intact, clear oral mucosa Ears: bilateral: normal - Neck Neck: supple, normal ROM - Respiratory Respiratory effort: normal Respiratory: bilateral: CTA - Breasts Breasts: normal - Cardiovascular Rhythm: regular Heart Sounds: Present: S1 & S2. Absent: gallop, rub Extremities: pulses intact, No edema, normal color, Full ROM - Gastrointestinal General gastrointestinal: Present: soft, non-tender, non-distended, normal bowel sounds - Genitourinary Male genitourinary: normal - Integumentary Integumentary: clear, warm, dry - Musculoskeletal Musculoskeletal: 1, strength equal bilaterally - Neurologic Neurologic: moves all extremities - Psychiatric Psychiatric: memory intact, appropriate mood/affect, intact judgment & insight - Labs CBC & Chem 7: 12/15/21 03:59 12/15/21 03:59 Labs: Abnormal lab results 12/15/21 12/15/21 12/15/21 Range/Units 03:59 03:59 17:03 RDW 17.4 H (13.2-15.2) % Lymph % (Auto) 8.6 L (13.4-35.0) % [place] % (Auto) 10.0 H (0.0-7.3) % Lymph # (Auto) 0.8 L (1.2-5.4) K/mm3 [place] # (Auto) 1.0 H (0.0-0.8) K/mm3 Seg Neutrophils % 81.1 H (40.0-70.0) % Seg Neutrophils # 8.0 H (1.8-7.7) K/mm3 Sodium 135 L (137-145) mmol/L Chloride 96.5 L (98-107) mmol/L BUN 34 H (9-20) mg/dL Creatinine 2.0 H D (0.8-1.3) mg/dL Glucose 126 H (75-100) mg/dL Phosphorus 5.30 H (2.5-4.5) mg/dL Urine Creatinine 139.2 H (0.1-20.0) mg/dL HEART Score - HEART Score Troponin: Troponin T < 0.010 ng/mL (0.00-0.029) 12/13/21 23:28
[2021-12-16] MEDS: METOPROLOL TARTRATE 50 MG TAB PO SCH ×2 (05:31→14:58)
[2021-12-16 06:14] LABS: BUN/Creatinine Ratio 26; Blood Urea Nitrogen 36 mg/dL (9-20); Calcium 8.2 mg/dL (8.4-10.2); Hemolysis Index 6
[2021-12-16] MEDS: PANTOPRAZOLE 40 MG TAB PO SCH (08:36)
[2021-12-16] MEDS: SPIRONOLACTONE 25 MG TAB PO SCH (09:51)
[2021-12-16] MEDS: APIXABAN 5 MG TAB PO SCH ×2 (09:51→21:41)
--- NOTE | 2021-12-16 11:36 | Progress Note ---
Assessment and Plan ANA LAURA - F/u BUN/Cr on diuretics Pulm Edema/CHF - Improving per pt. F/u per Cardiology Hypotension - On Milrinone & Metoprolol, defer Mx to Cardiology Subjective Date of service: 12/16/21 Principal diagnosis: A-fib with RVR; AE-CHF; Pulm edema; AHRF; HTN; Hyperlipidemia; Obesity Objective - Vital Signs Vital signs: Vital Signs - 12hr 12/15/21 12/16/21 12/16/21 23:46 00:00 00:16 Temperature 97.2 F L Pulse Rate 108 H 124 H 131 H Pulse Rate [ 120 H From Monitor] Respiratory 19 19 19 Rate Blood Pressure 114/56 114/56 99/78 O2 Sat by Pulse 98 96 93 Oximetry 12/16/21 12/16/21 12/16/21 00:30 00:46 01:00 Temperature Pulse Rate 125 H Pulse Rate [ From Monitor] Respiratory 14 Rate Blood Pressure 99/78 99/78 110/79 O2 Sat by Pulse 95 95 95 Oximetry 12/16/21 12/16/21 12/16/21 01:16 01:30 01:46 Temperature Pulse Rate 129 H Pulse Rate [ From Monitor] Respiratory 24 Rate Blood Pressure 110/79 110/79 110/79 O2 Sat by Pulse 95 98 99 Oximetry 12/16/21 12/16/21 12/16/21 02:00 02:16 02:30 Temperature Pulse Rate Pulse Rate [ From Monitor] Respiratory Rate Blood Pressure 110/79 90/66 90/66 O2 Sat by Pulse 98 99 96 Oximetry 12/16/21 12/16/21 12/16/21 02:46 03:00 03:16 Temperature Pulse Rate 139 H Pulse Rate [ From Monitor] Respiratory 19 Rate Blood Pressure 90/66 90/66 127/99 O2 Sat by Pulse 96 92 95 Oximetry 12/16/21 12/16/21 12/16/21 03:30 03:46 03:59 Temperature 97.5 F L Pulse Rate 142 H 135 H Pulse Rate [ From Monitor] Respiratory 16 14 Rate Blood Pressure 127/99 127/99 O2 Sat by Pulse 96 96 Oximetry 12/16/21 12/16/21 12/16/21 04:00 04:16 04:30 Temperature Pulse Rate 122 H 126 H 157 H Pulse Rate [ 136 H From Monitor] Respiratory 15 17 14 Rate Blood Pressure 127/99 97/65 97/65 O2 Sat by Pulse 95 95 100 Oximetry 12/16/21 12/16/21 12/16/21 04:46 05:00 05:16 Temperature Pulse Rate 161 H 169 H Pulse Rate [ From Monitor] Respiratory 14 23 Rate Blood Pressure 97/65 97/65 110/69 O2 Sat by Pulse 95 94 94 Oximetry 12/16/21 12/16/21 12/16/21 05:30 05:46 06:00 Temperature Pulse Rate 115 H 132 H 174 H Pulse Rate [ From Monitor] Respiratory 16 9 L 12 Rate Blood Pressure 110/69 110/69 110/69 O2 Sat by Pulse 98 98 95 Oximetry 12/16/21 12/16/21 12/16/21 06:16 06:30 06:46 Temperature Pulse Rate 119 H 162 H 145 H Pulse Rate [ From Monitor] Respiratory 13 16 14 Rate Blood Pressure 110/69 110/69 110/69 O2 Sat by Pulse 94 89 97 Oximetry 12/16/21 12/16/21 12/16/21 07:00 07:16 07:30 Temperature Pulse Rate 131 H 154 H 140 H Pulse Rate [ From Monitor] Respiratory 20 20 19 Rate Blood Pressure 97/67 97/67 97/67 O2 Sat by Pulse 93 96 95 Oximetry 12/16/21 12/16/21 12/16/21 07:46 08:00 08:16 Temperature Pulse Rate 145 H 136 H 139 H Pulse Rate [ 124 H From Monitor] Respiratory 13 17 21 Rate Blood Pressure 97/67 93/73 93/73 O2 Sat by Pulse 96 95 98 Oximetry 12/16/21 12/16/21 12/16/21 08:30 08:46 09:00 Temperature Pulse Rate 156 H 131 H 128 H Pulse Rate [ From Monitor] Respiratory 18 16 12 Rate Blood Pressure 93/73 93/73 93/73 O2 Sat by Pulse 99 97 97 Oximetry 12/16/21 12/16/21 12/16/21 09:16 09:30 09:46 Temperature Pulse Rate 120 H 134 H 152 H Pulse Rate [ From Monitor] Respiratory 15 16 17 Rate Blood Pressure 107/83 107/83 107/83 O2 Sat by Pulse 99 96 99 Oximetry 12/16/21 09:51 Temperature Pulse Rate 127 H Pulse Rate [ From Monitor] Respiratory Rate Blood Pressure 107/83 O2 Sat by Pulse Oximetry - General Appearance General appearance: other (Awake & responsive) EENT: PERRL, mucous membranes moist Neck: supple Respiratory: Present: Rales Cardiology: regular, S1S2, other (Edema LEs) Gastrointestinal: normal Neurologic: no focal deficit - Lab 12/15/21 03:59 12/16/21 05:21 Most recent lab results Calcium 8.2 mg/dL (8.4-10.2) L 12/16/21 05:21 Phosphorus 5.30 mg/dL (2.5-4.5) H 12/15/21 03:59 Magnesium 2.30 mg/dL (1.7-2.3) 12/15/21 03:59 Urine Creatinine 139.2 mg/dL (0.1-20.0) H 12/15/21 17:03 Urine Sodium 44 mmol/L 12/15/21 17:03 Medications & Allergies - Medications Allergies/Adverse Reactions: Allergies pollen extracts Allergy (Verified 12/13/21 21:07) Unknown Home Medications: Home Medications Medication Instructions Recorded Confirmed Last Taken Type Apixaban [Eliquis] 5 mg PO Q12HR #60 tablet 09/07/20 12/14/21 12/13/21 Rx Metoprolol [Lopressor TAB] 50 mg PO BID #60 tablet 09/07/20 12/14/21 12/13/21 Rx Furosemide [Lasix] 40 mg PO QDAC 12/14/21 12/14/21 12/13/21 History Losartan Potassium 25 mg PO QDAY 12/14/21 12/14/21 12/13/21 History Metoprolol Xl [Metoprolol 100 mg PO QDAY 12/14/21 12/14/21 12/13/21 History SUCCINATE ER TAB] Pantoprazole Sodium 40 mg PO QDAY 12/14/21 12/14/21 12/13/21 History Active Medications: Generic Name Dose Route Start Last Admin Trade Name Freq PRN Reason Stop Dose Admin Acetaminophen 650 mg 12/14/21 01:23 Acetaminophen 325 Mg Tab PO Q6H PRN Pain MILD(1-3)/Fever >100.5/VORA Apixaban 5 mg 12/14/21 10:00 12/16/21 09:51 Apixaban 5 Mg Tab PO 5 mg Q12HR JENAN Administration Milrinone Lactate/Dextrose 20 mg in 100 mls @ 3.668 mls/hr 12/14/21 18:00 12/16/21 03:47 Milrinone-D5w 20 Mg/100 Ml IV 12/17/21 17:59 0.125 mcg/kg/min DIRECT JENNA 3.668 mls/hr Infusion Protocol 0.125 MCG/KG/MIN Magnesium Hydroxide 30 ml 12/14/21 01:23 Magnesium Hydroxide (Mom) Oral Liqd Udc PO Q4H PRN Constipation Metoprolol Tartrate 50 mg 12/14/21 15:00 12/16/21 05:31 Metoprolol Tartrate 50 Mg Tab PO Not Given Q8HR JENNA Morphine Sulfate 2 mg 12/14/21 01:23 12/15/21 08:33 Morphine 2 Mg/1 Ml Inj IV 2 mg Q4H PRN Administration Pain, Moderate (4-6) Morphine Sulfate 4 mg 12/14/21 01:23 12/14/21 03:37 Morphine 4 Mg/1 Ml Inj IV 4 mg Q4H PRN Administration Pain , Severe (7-10) Ondansetron HCl 4 mg 12/14/21 01:23 12/14/21 11:51 Ondansetron 4 Mg/2 Ml Inj IV 4 mg Q8H PRN Administration Nausea And Vomiting Pantoprazole Sodium 40 mg 12/14/21 09:00 12/16/21 08:36 Pantoprazole 40 Mg Tab PO 40 mg QDAC JENNA Administration Senna 17.2 mg 12/14/21 22:00 12/15/21 21:50 Sennosides 8.6 Mg Tab PO 17.2 mg QHS JENNA Administration Sodium Chloride 10 ml 12/14/21 10:00 12/16/21 09:52 Sodium Chloride 0.9% 10 Ml Flush Syringe IV 10 ml BID JENNA Administration Sodium Chloride 10 ml 12/14/21 01:23 Sodium Chloride 0.9% 10 Ml Flush Syringe IV PRN PRN LINE FLUSH Spironolactone 25 mg 12/15/21 10:00 12/16/21 09:51 Spironolactone 25 Mg Tab PO 25 mg QDAY JENNA Administration
--- NOTE | 2021-12-16 13:02 | Progress Note ---
Assessment and Plan - Patient Problems (1) Atrial fibrillation with RVR Current Visit: Yes Status: Acute Plan to address problem: Patient has known history of atrial fibrillation. He has not been quite compliant with his medications. Patient transferred to [facility] On metoprolol and Eliquis (2) HTN (hypertension) Current Visit: No Status: Chronic Plan to address problem: We will resume routine home medications and monitor vital signs closely. (3) Acute exacerbation of CHF Current Visit: No Status: Chronic LV ejection fraction of 20% On diuretics and Aldactone Patient initiated on milrinone drip (4) Tobacco use Current Visit: No Status: Chronic Plan to address problem: Counseled on quitting tobacco abuse. Will offer nicotine patch as needed. (5) DVT prophylaxis Current Visit: No Status: Acute Plan to address problem: Patient on anticoagulation with Eliquis. (6) Full code status Current Visit: Yes Status: Acute Plan to address problem: Patient is full code. Subjective Date of service: 12/16/21 Principal diagnosis: A-fib with RVR; AE-CHF; Pulm edema; AHRF; HTN; Hyperlipidemia; Obesity Interval history: 61-year-old male with known history of nonischemic cardiomyopathy with EF of 35 to 40%, atrial fibrillation, dyslipidemia, presenting to the emergency room today complaining of shortness of breath and bilateral lower extremity swelling. Symptoms has been ongoing for the past 2 weeks. Patient admits that he has not been quite compliant with his medications. Denies any chest pain, no nausea or vomiting, no abdominal pain. Denies any headache or dizziness denies any diaphoresis. Patient denies any fever or chills, no hematuria or dysuria. Work-up in the emergency room today, significant findings on the labs that of BNP of 1387. Chest x-ray shows central vascular congestion with probable bilateral atelectasis/edema. EKG shows atrial fibrillation with RVR. 12/15: Patient seen and examined at the bedside. Fully AAO, on 2L NC, still complaining of dyspnea with exertion and bilateral extremity pain. BLE noted with 3+ pitting edema, with palpable pulses, and warm to touch. Will check BLE doppler to r/o DVT. Patient remains in AFib on the monitor, rate improved HR in the 70 to 100s. Cardizem gtt is off. Cardiology is following, appreciate recommendations. Continue IV Lasix, IV dig, BB, and Eliquis. 2D Echo pending. Continue fluid restriction, strick I&Os, and daily weight. Plan of care discussed with patient at the bedside. He verbalized understanding of the info provided and agreed to current plan of care. [facility] is also following, appreciate recommendations. Possible transfer to [facility] floor later on today if patient remains stable. 12/16: Stable on 2L NC, denied any pain nor any discomfort this am. Patient is Hypotensive and back in Afib with RVR this am, HR in the 110-130s. Patient is now on Milrinone gtt per Cardio. Renal function had also worsen most likely due to IV diuretic, IV lasix discontinued and 500ml of IVF bolus given. Meds adjustment per cardiology and milrinone gtt for hypotension. Nephrology was also consulted. Transfer to the floor once a bed is available. Objective - Constitutional Vitals: Vital Signs - 12hr 12/16/21 12/16/21 12/16/21 01:16 01:30 01:46 Temperature Pulse Rate 129 H Pulse Rate [ From Monitor] Respiratory 24 Rate Blood Pressure 110/79 110/79 110/79 O2 Sat by Pulse 95 98 99 Oximetry 12/16/21 12/16/21 12/16/21 02:00 02:16 02:30 Temperature Pulse Rate Pulse Rate [ From Monitor] Respiratory Rate Blood Pressure 110/79 90/66 90/66 O2 Sat by Pulse 98 99 96 Oximetry 12/16/21 12/16/21 12/16/21 02:46 03:00 03:16 Temperature Pulse Rate 139 H Pulse Rate [ From Monitor] Respiratory 19 Rate Blood Pressure 90/66 90/66 127/99 O2 Sat by Pulse 96 92 95 Oximetry 12/16/21 12/16/21 12/16/21 03:30 03:46 03:59 Temperature 97.5 F L Pulse Rate 142 H 135 H Pulse Rate [ From Monitor] Respiratory 16 14 Rate Blood Pressure 127/99 127/99 O2 Sat by Pulse 96 96 Oximetry 12/16/21 12/16/21 12/16/21 04:00 04:16 04:30 Temperature Pulse Rate 122 H 126 H 157 H Pulse Rate [ 136 H From Monitor] Respiratory 15 17 14 Rate Blood Pressure 127/99 97/65 97/65 O2 Sat by Pulse 95 95 100 Oximetry 12/16/21 12/16/21 12/16/21 04:46 05:00 05:16 Temperature Pulse Rate 161 H 169 H Pulse Rate [ From Monitor] Respiratory 14 23 Rate Blood Pressure 97/65 97/65 110/69 O2 Sat by Pulse 95 94 94 Oximetry 12/16/21 12/16/21 12/16/21 05:30 05:46 06:00 Temperature Pulse Rate 115 H 132 H 174 H Pulse Rate [ From Monitor] Respiratory 16 9 L 12 Rate Blood Pressure 110/69 110/69 110/69 O2 Sat by Pulse 98 98 95 Oximetry 12/16/21 12/16/21 12/16/21 06:16 06:30 06:46 Temperature Pulse Rate 119 H 162 H 145 H Pulse Rate [ From Monitor] Respiratory 13 16 14 Rate Blood Pressure 110/69 110/69 110/69 O2 Sat by Pulse 94 89 97 Oximetry 12/16/21 12/16/21 12/16/21 07:00 07:16 07:30 Temperature Pulse Rate 131 H 154 H 140 H Pulse Rate [ From Monitor] Respiratory 20 20 19 Rate Blood Pressure 97/67 97/67 97/67 O2 Sat by Pulse 93 96 95 Oximetry 12/16/21 12/16/21 12/16/21 07:46 08:00 08:16 Temperature Pulse Rate 145 H 136 H 139 H Pulse Rate [ 124 H From Monitor] Respiratory 13 17 21 Rate Blood Pressure 97/67 93/73 93/73 O2 Sat by Pulse 96 95 98 Oximetry 12/16/21 12/16/21 12/16/21 08:30 08:46 09:00 Temperature Pulse Rate 156 H 131 H 128 H Pulse Rate [ From Monitor] Respiratory 18 16 12 Rate Blood Pressure 93/73 93/73 93/73 O2 Sat by Pulse 99 97 97 Oximetry 12/16/21 12/16/21 12/16/21 09:16 09:30 09:46 Temperature Pulse Rate 120 H 134 H 152 H Pulse Rate [ From Monitor] Respiratory 15 16 17 Rate Blood Pressure 107/83 107/83 107/83 O2 Sat by Pulse 99 96 99 Oximetry 12/16/21 09:51 Temperature Pulse Rate 127 H Pulse Rate [ From Monitor] Respiratory Rate Blood Pressure 107/83 O2 Sat by Pulse Oximetry General appearance: Present: no acute distress, well-nourished - EENT Eyes: PERRL, EOM intact ENT: hearing intact, clear oral mucosa Ears: bilateral: normal - Neck Neck: supple, normal ROM - Respiratory Respiratory effort: normal Respiratory: bilateral: CTA, rales (Scattered) - Breasts Breasts: normal - Cardiovascular Heart rate: 80 Rhythm: irregularly irregular Heart Sounds: Present: S1 & S2. Absent: gallop, rub Extremities: pulses intact, No edema, normal color, Full ROM - Gastrointestinal General gastrointestinal: Present: soft, non-tender, non-distended, normal bowel sounds - Genitourinary Male genitourinary: normal - Integumentary Integumentary: clear, warm, dry - Musculoskeletal Musculoskeletal: 1, strength equal bilaterally - Neurologic Neurologic: moves all extremities - Psychiatric Psychiatric: memory intact, appropriate mood/affect, intact judgment & insight - Labs CBC & Chem 7: 12/18/21 04:53 12/18/21 04:53 Labs: Abnormal lab results 12/15/21 12/16/21 Range/Units 17:03 05:21 Sodium 136 L (137-145) mmol/L BUN 36 H (9-20) mg/dL Creatinine 1.4 H (0.8-1.3) mg/dL Glucose 106 H (75-100) mg/dL Calcium 8.2 L (8.4-10.2) mg/dL Urine Creatinine 139.2 H (0.1-20.0) mg/dL HEART Score - HEART Score Troponin: Troponin T < 0.010 ng/mL (0.00-0.029) 12/13/21 23:28
--- NOTE | 2021-12-16 15:32 | Progress Note ---
Assessment and Plan 61-year-old male with known history of nonischemic cardiomyopathy with EF of 35 to 40%, atrial fibrillation, dyslipidemia, presenting to the emergency room today complaining of shortness of breath and bilateral lower extremity swelling. Symptoms has been ongoing for the past 2 weeks. Patient admits that he has not been quite compliant with his medications. Denies any chest pain, no nausea or vomiting, no abdominal pain. Denies any he adache or dizziness denies any diaphoresis. Patient denies any fever or chills, no hematuria or dysuria. Patient has history of smoking. patient is current smoker. Work-up in the emergency room , significant findings on the labs that of BNP of 1387. Chest x-ray shows central vascular congestion with probable bilateral atelectasis/edema. EKG shows atrial fibrillation with RVR. Patient has been started on Cardizem drip. Patient sleeping at this time. Patient is on 2 litres O2. O2 saturation 99%. No acute respiratory distress. Patient afebrile. No leukocytosis. Blood pressure 107/80, Pulse 137/103, pulse 130, respirations 16. Chest xray 12/13/21 reported Central vascular congestion with probable bilateral atelectasis/edema. Venous doppler studies of lower legs 12/14/21 reported No sonographic evidence for DVT in either lower extremity. Patient is presently on Apixaban, Protonix and Milrinone drip,Metoprolol and spiranolactone. Patient was seen in IMCU. I spent critical care time of 40 minutes, reviewing the chart, examine the patient, review chest xray, venous doppler studies of legs, Review labs,talking to nursing and respiratory therapy staff and work up plan of treatment. - Patient Problems (1) Acute on chronic systolic heart failure Current Visit: Yes Status: Acute Plan to address problem: Patient is on Mirinone drip, metaprolol and spiranolactone, Apixaban. Management as per cardiology. (2) Atrial fibrillation with RVR Current Visit: Yes Status: Acute Plan to address problem: Patient is on Apixaban. Management as per cardiology. (3) NSVT (nonsustained ventricular tachycardia) Current Visit: No Status: Acute Plan to address problem: Management as per cardiology. (4) Alcohol abuse Current Visit: No Status: Chronic Plan to address problem: Management as per primary care. (5) HTN (hypertension) Current Visit: No Status: Chronic Plan to address problem: Management as per primary care. (6) Tobacco use Current Visit: No Status: Chronic Plan to address problem: When patient wakes up, when more alert, vocational counselor him to stop smoking. Subjective Date of service: 12/16/21 Principal diagnosis: A-fib with RVR; AE-CHF; Pulm edema; AHRF; HTN; Hyperlipidemia; Obesity Interval history: 61-year-old male with known history of nonischemic cardiomyopathy with EF of 35 to 40%, atrial fibrillation, dyslipidemia, presenting to the emergency room today complaining of shortness of breath and bilateral lower extremity swelling. Symptoms has been ongoing for the past 2 weeks. Patient admits that he has not been quite compliant with his medications. Denies any chest pain, no nausea or vomiting, no abdominal pain. Denies any headache or dizziness denies any diaphoresis. Patient denies any fever or chills, no hematuria or dysuria. Patient has history of smoking. patient is current smoker. Work-up in the emergency room , significant findings on the labs that of BNP of 1387. Chest x-ray shows central vascular congestion with probable bilateral atelectasis/edema. EKG shows atrial fibrillation with RVR. Patient has been started on Cardizem drip. Patient sleeping at this time. Patient is on 2 litres O2. O2 saturation 99%. No acute respiratory distress. Patient afebrile. No leukocytosis. Blood pressure 107/80, Pulse 137/103, pulse 130, respirations 16. Chest xray 12/13/21 reported Central vascular congestion with probable bilateral atelectasis/edema. Venous doppler studies of lower legs 12/14/21 reported No sonographic evidence for DVT in either lower extremity. Patient is presently on Apixaban, Protonix and Milrinone drip,Metoprolol and spiranolactone. Objective Vital Signs - 12hr 12/16/21 12/16/21 12/16/21 03:30 03:46 03:59 Temperature 97.5 F L Pulse Rate 142 H 135 H Pulse Rate [ From Monitor] Respiratory 16 14 Rate Blood Pressure 127/99 127/99 O2 Sat by Pulse 96 96 Oximetry 12/16/21 12/16/21 12/16/21 04:00 04:16 04:30 Temperature Pulse Rate 122 H 126 H 157 H Pulse Rate [ 136 H From Monitor] Respiratory 15 17 14 Rate Blood Pressure 127/99 97/65 97/65 O2 Sat by Pulse 95 95 100 Oximetry 12/16/21 12/16/21 12/16/21 04:46 05:00 05:16 Temperature Pulse Rate 161 H 169 H Pulse Rate [ From Monitor] Respiratory 14 23 Rate Blood Pressure 97/65 97/65 110/69 O2 Sat by Pulse 95 94 94 Oximetry 12/16/21 12/16/21 12/16/21 05:30 05:46 06:00 Temperature Pulse Rate 115 H 132 H 174 H Pulse Rate [ From Monitor] Respiratory 16 9 L 12 Rate Blood Pressure 110/69 110/69 110/69 O2 Sat by Pulse 98 98 95 Oximetry 12/16/21 12/16/21 12/16/21 06:16 06:30 06:46 Temperature Pulse Rate 119 H 162 H 145 H Pulse Rate [ From Monitor] Respiratory 13 16 14 Rate Blood Pressure 110/69 110/69 110/69 O2 Sat by Pulse 94 89 97 Oximetry 12/16/21 12/16/21 12/16/21 07:00 07:16 07:30 Temperature Pulse Rate 131 H 154 H 140 H Pulse Rate [ From Monitor] Respiratory 20 20 19 Rate Blood Pressure 97/67 97/67 97/67 O2 Sat by Pulse 93 96 95 Oximetry 12/16/21 12/16/21 12/16/21 07:46 08:00 08:16 Temperature Pulse Rate 145 H 136 H 139 H Pulse Rate [ 124 H From Monitor] Respiratory 13 17 21 Rate Blood Pressure 97/67 93/73 93/73 O2 Sat by Pulse 96 95 98 Oximetry 12/16/21 12/16/21 12/16/21 08:30 08:46 09:00 Temperature Pulse Rate 156 H 131 H 128 H Pulse Rate [ From Monitor] Respiratory 18 16 12 Rate Blood Pressure 93/73 93/73 93/73 O2 Sat by Pulse 99 97 97 Oximetry 12/16/21 12/16/21 12/16/21 09:16 09:30 09:46 Temperature Pulse Rate 120 H 134 H 152 H Pulse Rate [ From Monitor] Respiratory 15 16 17 Rate Blood Pressure 107/83 107/83 107/83 O2 Sat by Pulse 99 96 99 Oximetry 12/16/21 12/16/21 12/16/21 09:51 12:00 14:58 Temperature Pulse Rate 127 H 143 H 145 H Pulse Rate [ 143 H From Monitor] Respiratory 18 Rate Blood Pressure 107/83 107/80 O2 Sat by Pulse 99 Oximetry Constitutional: no acute distress, asleep Eyes: non-icteric ENT: oropharynx moist Neck: supple, no lymphadenopathy, no JVD Effort: mildly labored Ascultation: Bilateral: rales Percussion: Bilateral: not dull Cardiovascular: irregular rhythm Gastrointestinal: normoactive bowel sounds, soft, non-tender, non-distended (protuberant) Integumentary: normal Extremities: no cyanosis, no edema, no ischemia or petechiae Neurologic: non-focal exam, pupils equal and round, CN II-XII normal Psychiatric: other (Patient sleeping at this time.) CBC and BMP: 12/15/21 03:59 12/16/21 05:21 ABG, PT/INR, D-dimer: PT/INR, D-dimer PT 16.8 Sec. (12.2-14.9) H 12/13/21 23:28 INR 1.22 (0.87-1.13) H 12/13/21 23:28 Abnormal lab findings: Abnormal Labs 12/13/21 12/13/21 12/13/21 23:28 23:28 23:28 MCHC 31 L RDW 17.9 H Lymph % (Auto) Hancock % (Auto) 10.1 H Lymph # (Auto) [place] # (Auto) 0.9 H Seg Neutrophils % 71.2 H Seg Neutrophils # PT INR Sodium Chloride BUN Creatinine Glucose 108 H POC Glucose Calcium Phosphorus Alkaline Phosphatase 243 H NT-Pro-B Natriuret Pep 1387 H Albumin 3.8 L TSH 8.070 H Urine Creatinine 12/13/21 12/14/21 12/15/21 23:28 15:34 03:59 MCHC RDW 17.4 H Lymph % (Auto) 8.6 L Hancock % (Auto) 10.0 H Lymph # (Auto) 0.8 L [place]ancock # (Auto) 1.0 H Seg Neutrophils % 81.1 H Seg Neutrophils # 8.0 H PT 16.8 H INR 1.22 H Sodium Chloride BUN Creatinine Glucose POC Glucose 115 H Calcium Phosphorus Alkaline Phosphatase NT-Pro-B Natriuret Pep Albumin TSH Urine Creatinine 12/15/21 12/15/21 12/16/21 03:59 17:03 05:21 MCHC RDW Lymph % (Auto) Hancock % (Auto) Lymph # (Auto) Hancock # (Auto) Seg Neutrophils % Seg Neutrophils # PT INR Sodium 135 L 136 L Chloride 96.5 L BUN 34 H 36 H Creatinine 2.0 H D 1.4 H Glucose 126 H 106 H POC Glucose Calcium 8.2 L Phosphorus 5.30 H Alkaline Phosphatase NT-Pro-B Natriuret Pep Albumin TSH Urine Creatinine 139.2 H Chest x-ray: report reviewed, image reviewed Prior PFT's, U/S of legs: report reviewed, image reviewed Additional Studies: DUPLEX DOPPLER LOWER EXTREMITY VEINS, BILATERAL 12/14/21 INDICATION / CLINICAL INFORMATION: Swelling and pain. TECHNIQUE: Duplex doppler imaging was performed through the veins of both lower extremities using venous compression and other maneuvers. COMPARISON: None available. FINDINGS: RIGHT COMMON FEMORAL VEIN: Negative. RIGHT FEMORAL VEIN: Negative. RIGHT POPLITEAL VEIN: Negative. RIGHT CALF VEINS: Negative. LEFT COMMON FEMORAL VEIN: Negative. LEFT FEMORAL VEIN: Negative. LEFT POPLITEAL VEIN: Negative. LEFT CALF VEINS: Negative. ADDITIONAL FINDINGS: None. IMPRESSION: 1. No sonographic evidence for DVT in either lower extremity. CHEST 1 VIEW 12/13/2021 11:09 PM INDICATION / CLINICAL INFORMATION: Dyspnea. COMPARISON: One view of the chest from 09/05/2020. FINDINGS: SUPPORT DEVICES: None. HEART / MEDIASTINUM: Normal size of the cardiac silhouette with central vascular congestion. LUNGS / PLEURA: There are generalized bilateral interstitial opacities. No significant pleural effusion. No pneumothorax. ADDITIONAL FINDINGS: No significant additional findings. IMPRESSION: 1. Central vascular congestion with probable bilateral atelectasis/edema. Allied health notes reviewed: nursing
[2021-12-16] MEDS: MILRINONE-D5W 20 MG/100 ML 20 MG/100 ML BAG IV SCH (16:10)
[2021-12-16] MEDS: SENNOSIDES 8.6 MG TAB PO SCH (21:41)
[2021-12-17] MEDS: METOPROLOL TARTRATE 50 MG TAB PO SCH ×4 (01:16→21:20)
--- NOTE | 2021-12-17 06:53 | Progress Note ---
Assessment and Plan - Patient Problems (1) Atrial fibrillation with RVR Current Visit: Yes Status: Acute Plan to address problem: Patient has known history of atrial fibrillation. He has not been quite compliant with his medications. On Eliquis and metoprolol. LifeVest requested For discharge after medications optimized (2) Acute exacerbation of CHF Current Visit: No Status: Chronic Plan to address problem: We will resume routine home medications and monitor vital signs closely LV ejection fraction of 20% Diuresis and Aldactone. GDMT (3) ANA LAURA Nephrology consulted (4) HTN on Metoprolol (5) DVT prophylaxis Current Visit: No Status: Acute Plan to address problem: Patient on anticoagulation with Eliquis. (6) Full code status Current Visit: Yes Status: Acute Plan to address problem: Patient is full code. Subjective Date of service: 12/17/21 Principal diagnosis: A-fib with RVR; AE-CHF; Pulm edema; AHRF; HTN; Hyperlipidemia; Obesity Interval history: 61-year-old male with known history of nonischemic cardiomyopathy with EF of 35 to 40%, atrial fibrillation, dyslipidemia, presenting to the emergency room today complaining of shortness of breath and bilateral lower extremity swelling. Symptoms has been ongoing for the past 2 weeks. Patient admits that he has not been quite compliant with his medications. Denies any chest pain, no nausea or vomiting, no abdominal pain. Denies any headache or dizziness denies any diaphoresis. Patient denies any fever or chills, no hematuria or dysuria. Work-up in the emergency room today, significant findings on the labs that of BNP of 1387. Chest x-ray shows central vascular congestion with probable bilateral atelectasis/edema. EKG shows atrial fibrillation with RVR. Patient has been started on Cardizem drip. 12/15: Patient seen and examined at the bedside. Fully AAO, on 2L NC, still complaining of dyspnea with exertion and bilateral extremity pain. BLE noted with 3+ pitting edema, with palpable pulses, and warm to touch. Will check BLE doppler to r/o DVT. Patient remains in AFib on the monitor, rate improved HR in the 70 to 100s. Cardizem gtt is off. Cardiology is following, appreciate recommendations. Continue IV Lasix, IV dig, BB, and Eliquis. 2D Echo pending. Continue fluid restriction, strick I&Os, and daily weight. Plan of care discussed with patient at the bedside. He verbalized understanding of the info provided and agreed to current plan of care. [facility] is also following, appreciate recommendations. Possible transfer to [facility] floor later on today if patient remains stable. 12/16: Stable on 2L NC, denied any pain nor any discomfort this am. Patient is Hypotensive and back in Afib with RVR this am, HR in the 110-130s. Patient is now on Milrinone gtt per Cardio. Renal function had also worsen most likely due to IV diuretic, IV lasix discontinued and 500ml of IVF bolus given. Meds adjustment per cardiology and milrinone gtt for hypotension. Nephrology was also consulted. Transfer to the floor once a bed is available. 12/17/2021 Patient waiting for LifeVest On milrinone drip Nephrology and cardiology consults appreciated LifeVest. Discharge to eventual ICD placement as outpatient Left ventricular ejection fraction of 20% Objective - Constitutional Vitals: Vital Signs - 12hr 12/16/21 12/16/21 12/16/21 19:00 19:16 19:30 Temperature Pulse Rate 148 H 137 H 116 H Pulse Rate [ From Monitor] Respiratory 17 13 13 Rate Blood Pressure 180/157 116/82 116/82 O2 Sat by Pulse 97 97 97 Oximetry 12/16/21 12/16/21 12/16/21 19:35 19:46 20:00 Temperature Pulse Rate 125 H 133 H 141 H Pulse Rate [ 118 H From Monitor] Respiratory 20 29 H Rate Blood Pressure 116/82 116/82 O2 Sat by Pulse 96 98 Oximetry 12/16/21 12/16/21 12/16/21 20:16 20:30 20:46 Temperature Pulse Rate 123 H 155 H 126 H Pulse Rate [ From Monitor] Respiratory 15 20 13 Rate Blood Pressure 92/65 92/65 92/65 O2 Sat by Pulse 85 97 95 Oximetry 12/16/21 12/16/21 12/16/21 21:00 21:16 21:30 Temperature Pulse Rate 148 H 120 H 130 H Pulse Rate [ From Monitor] Respiratory 16 22 16 Rate Blood Pressure 92/65 95/57 95/57 O2 Sat by Pulse 100 94 97 Oximetry 12/16/21 12/16/21 12/16/21 21:46 22:00 22:16 Temperature Pulse Rate 138 H 172 H 147 H Pulse Rate [ From Monitor] Respiratory 14 15 29 H Rate Blood Pressure 95/57 95/57 105/77 O2 Sat by Pulse 98 99 84 Oximetry 12/16/21 12/16/21 12/16/21 22:30 22:46 23:00 Temperature Pulse Rate 131 H 153 H 108 H Pulse Rate [ From Monitor] Respiratory 14 13 12 Rate Blood Pressure 105/77 105/77 105/77 O2 Sat by Pulse 98 99 97 Oximetry 12/16/21 12/16/21 12/16/21 23:16 23:30 23:36 Temperature Pulse Rate 120 H 139 H 149 H Pulse Rate [ From Monitor] Respiratory 19 17 17 Rate Blood Pressure 77/60 89/60 89/60 O2 Sat by Pulse 94 96 96 Oximetry 12/16/21 12/17/21 12/17/21 23:46 00:00 00:16 Temperature 98.6 F Pulse Rate 121 H 147 H 158 H Pulse Rate [ 118 H From Monitor] Respiratory 18 17 14 Rate Blood Pressure 89/60 106/86 106/86 O2 Sat by Pulse 96 97 89 Oximetry 12/17/21 12/17/21 12/17/21 00:30 00:46 01:00 Temperature Pulse Rate 143 H Pulse Rate [ From Monitor] Respiratory 12 Rate Blood Pressure 106/86 106/86 113/89 O2 Sat by Pulse 93 100 100 Oximetry 12/17/21 12/17/21 12/17/21 01:16 01:30 01:46 Temperature Pulse Rate 143 H 157 H 141 H Pulse Rate [ From Monitor] Respiratory 19 14 16 Rate Blood Pressure 113/89 113/89 113/89 O2 Sat by Pulse 94 98 98 Oximetry 12/17/21 12/17/21 12/17/21 02:00 02:16 02:30 Temperature Pulse Rate 143 H 161 H 150 H Pulse Rate [ From Monitor] Respiratory 19 13 22 Rate Blood Pressure 113/89 113/89 105/80 O2 Sat by Pulse 97 98 99 Oximetry 12/17/21 12/17/21 12/17/21 02:46 03:00 03:16 Temperature Pulse Rate 136 H 134 H 134 H Pulse Rate [ From Monitor] Respiratory 15 22 11 L Rate Blood Pressure 105/80 105/80 105/80 O2 Sat by Pulse 96 100 94 Oximetry 12/17/21 12/17/21 12/17/21 03:30 03:46 04:00 Temperature 97.8 F Pulse Rate 149 H 124 H 132 H Pulse Rate [ 114 H From Monitor] Respiratory 17 9 L 17 Rate Blood Pressure 109/85 109/85 109/85 O2 Sat by Pulse 86 95 96 Oximetry 12/17/21 12/17/21 12/17/21 04:16 04:30 04:46 Temperature Pulse Rate 121 H 127 H 126 H Pulse Rate [ From Monitor] Respiratory 11 L 17 17 Rate Blood Pressure 108/87 108/87 108/87 O2 Sat by Pulse 91 98 92 Oximetry 12/17/21 12/17/21 12/17/21 05:00 05:16 05:30 Temperature Pulse Rate 157 H 156 H Pulse Rate [ From Monitor] Respiratory 17 15 23 Rate Blood Pressure 108/87 98/77 98/77 O2 Sat by Pulse 91 83 L Oximetry 12/17/21 12/17/21 12/17/21 05:41 05:46 06:00 Temperature Pulse Rate 130 H 124 H 127 H Pulse Rate [ From Monitor] Respiratory 21 13 Rate Blood Pressure 98/77 98/77 98/77 O2 Sat by Pulse 95 98 Oximetry 12/17/21 12/17/21 06:16 06:30 Temperature Pulse Rate 143 H 126 H Pulse Rate [ From Monitor] Respiratory 13 11 L Rate Blood Pressure 139/108 139/108 O2 Sat by Pulse 99 96 Oximetry General appearance: Present: no acute distress, well-nourished - EENT Eyes: PERRL, EOM intact ENT: hearing intact, clear oral mucosa Ears: bilateral: normal - Neck Neck: supple, normal ROM - Respiratory Respiratory effort: normal Respiratory: bilateral: CTA - Breasts Breasts: normal - Cardiovascular Heart rate: 78 Rhythm: regular Heart Sounds: Present: S1 & S2. Absent: gallop, rub Extremities: pulses intact, No edema, normal color, Full ROM - Gastrointestinal General gastrointestinal: Present: soft, non-tender, non-distended, normal bowel sounds - Genitourinary Male genitourinary: normal - Integumentary Integumentary: clear, warm, dry - Musculoskeletal Musculoskeletal: 1, strength equal bilaterally - Neurologic Neurologic: moves all extremities - Psychiatric Psychiatric: memory intact, appropriate mood/affect, intact judgment & insight - Labs CBC & Chem 7: 12/18/21 04:53 12/18/21 04:53 HEART Score - HEART Score Troponin: Troponin T < 0.010 ng/mL (0.00-0.029) 12/13/21 23:28
[2021-12-17] MEDS: PANTOPRAZOLE 40 MG TAB PO SCH (08:43)
[2021-12-17] MEDS: APIXABAN 5 MG TAB PO SCH ×2 (09:53→21:20)
[2021-12-17] MEDS: SPIRONOLACTONE 25 MG TAB PO SCH (09:53)
--- NOTE | 2021-12-17 12:46 | Progress Note ---
Assessment and Plan ANA LAURA - F/u BUN/Cr, am labs pending Pulm Edema/CHF - Clinically improved. Diuretics as BP allows Hypotension - On Milrinone & Metoprolol, defer Mx to Cardiology Subjective Date of service: 12/17/21 Principal diagnosis: A-fib with RVR; AE-CHF; Pulm edema; AHRF; HTN; Hyperlipidemia; Obesity Objective - Vital Signs Vital signs: Vital Signs - 12hr 12/17/21 12/17/21 12/17/21 00:46 01:00 01:16 Temperature Pulse Rate 143 H 143 H Pulse Rate [ From Monitor] Respiratory 12 19 Rate Blood Pressure 106/86 113/89 113/89 O2 Sat by Pulse 100 100 94 Oximetry 12/17/21 12/17/21 12/17/21 01:30 01:46 02:00 Temperature Pulse Rate 157 H 141 H 143 H Pulse Rate [ From Monitor] Respiratory 14 16 19 Rate Blood Pressure 113/89 113/89 113/89 O2 Sat by Pulse 98 98 97 Oximetry 12/17/21 12/17/21 12/17/21 02:16 02:30 02:46 Temperature Pulse Rate 161 H 150 H 136 H Pulse Rate [ From Monitor] Respiratory 13 22 15 Rate Blood Pressure 113/89 105/80 105/80 O2 Sat by Pulse 98 99 96 Oximetry 12/17/21 12/17/21 12/17/21 03:00 03:16 03:30 Temperature Pulse Rate 134 H 134 H 149 H Pulse Rate [ From Monitor] Respiratory 22 11 L 17 Rate Blood Pressure 105/80 105/80 109/85 O2 Sat by Pulse 100 94 86 Oximetry 12/17/21 12/17/21 12/17/21 03:46 04:00 04:16 Temperature 97.8 F Pulse Rate 124 H 132 H 121 H Pulse Rate [ 114 H From Monitor] Respiratory 9 L 17 11 L Rate Blood Pressure 109/85 109/85 108/87 O2 Sat by Pulse 95 96 91 Oximetry 12/17/21 12/17/21 12/17/21 04:30 04:46 05:00 Temperature Pulse Rate 127 H 126 H 157 H Pulse Rate [ From Monitor] Respiratory 17 17 17 Rate Blood Pressure 108/87 108/87 108/87 O2 Sat by Pulse 98 92 91 Oximetry 12/17/21 12/17/21 12/17/21 05:16 05:30 05:41 Temperature Pulse Rate 156 H 130 H Pulse Rate [ From Monitor] Respiratory 15 23 Rate Blood Pressure 98/77 98/77 98/77 O2 Sat by Pulse 83 L Oximetry 12/17/21 12/17/21 12/17/21 05:46 06:00 06:16 Temperature Pulse Rate 124 H 127 H 143 H Pulse Rate [ From Monitor] Respiratory 21 13 13 Rate Blood Pressure 98/77 98/77 139/108 O2 Sat by Pulse 95 98 99 Oximetry 12/17/21 12/17/21 12/17/21 06:30 06:46 07:00 Temperature Pulse Rate 126 H 133 H 135 H Pulse Rate [ From Monitor] Respiratory 11 L 12 16 Rate Blood Pressure 139/108 139/108 139/108 O2 Sat by Pulse 96 97 90 Oximetry 12/17/21 12/17/21 12/17/21 07:15 07:16 07:30 Temperature 97.6 F Pulse Rate 98 H 96 H Pulse Rate [ From Monitor] Respiratory 16 11 L Rate Blood Pressure 130/83 130/83 O2 Sat by Pulse 94 99 Oximetry 12/17/21 12/17/21 12/17/21 07:46 08:00 08:16 Temperature Pulse Rate 110 H 113 H 147 H Pulse Rate [ 112 H From Monitor] Respiratory 18 Rate Blood Pressure 130/83 126/78 126/78 O2 Sat by Pulse 99 99 91 Oximetry 12/17/21 12/17/21 12/17/21 08:30 08:46 09:00 Temperature Pulse Rate 126 H 126 H 136 H Pulse Rate [ From Monitor] Respiratory Rate Blood Pressure 126/78 126/78 126/78 O2 Sat by Pulse 90 89 100 Oximetry 12/17/21 12/17/21 12/17/21 09:16 09:30 09:46 Temperature Pulse Rate 162 H 122 H 125 H Pulse Rate [ From Monitor] Respiratory Rate Blood Pressure 126/78 126/78 126/78 O2 Sat by Pulse 89 95 98 Oximetry 12/17/21 12/17/21 12/17/21 09:53 10:00 10:16 Temperature Pulse Rate 142 H 149 H 132 H Pulse Rate [ From Monitor] Respiratory Rate Blood Pressure 126/78 126/78 126/78 O2 Sat by Pulse Oximetry 12/17/21 11:41 Temperature 98.3 F Pulse Rate Pulse Rate [ From Monitor] Respiratory Rate Blood Pressure O2 Sat by Pulse Oximetry - General Appearance General appearance: other (Awake & responsive) EENT: PERRL Neck: supple Respiratory: Present: Other (Good air entry) Cardiology: regular, S1S2, other (+LE Edema) Gastrointestinal: normal Neurologic: alert and oriented x3 - Lab 12/15/21 03:59 12/16/21 05:21 Most recent lab results Calcium 8.2 mg/dL (8.4-10.2) L 12/16/21 05:21 Phosphorus 5.30 mg/dL (2.5-4.5) H 12/15/21 03:59 Magnesium 2.30 mg/dL (1.7-2.3) 12/15/21 03:59 Urine Creatinine 139.2 mg/dL (0.1-20.0) H 12/15/21 17:03 Urine Sodium 44 mmol/L 12/15/21 17:03 Medications & Allergies - Medications Allergies/Adverse Reactions: Allergies pollen extracts Allergy (Verified 12/13/21 21:07) Unknown Home Medications: Home Medications Medication Instructions Recorded Confirmed Last Taken Type Apixaban [Eliquis] 5 mg PO Q12HR #60 tablet 09/07/20 12/14/21 12/13/21 Rx Metoprolol [Lopressor TAB] 50 mg PO BID #60 tablet 09/07/20 12/14/21 12/13/21 Rx Furosemide [Lasix] 40 mg PO QDAC 12/14/21 12/14/21 12/13/21 History Losartan Potassium 25 mg PO QDAY 12/14/21 12/14/21 12/13/21 History Metoprolol Xl [Metoprolol 100 mg PO QDAY 12/14/21 12/14/21 12/13/21 History SUCCINATE ER TAB] Pantoprazole Sodium 40 mg PO QDAY 12/14/21 12/14/21 12/13/21 History Active Medications: Generic Name Dose Route Start Last Admin Trade Name Freq PRN Reason Stop Dose Admin Acetaminophen 650 mg 12/14/21 01:23 Acetaminophen 325 Mg Tab PO Q6H PRN Pain MILD(1-3)/Fever >100.5/VORA Apixaban 5 mg 12/14/21 10:00 12/17/21 09:53 Apixaban 5 Mg Tab PO 5 mg Q12HR JENNA Administration Milrinone Lactate/Dextrose 20 mg in 100 mls @ 3.668 mls/hr 12/14/21 18:00 12/16/21 16:10 Milrinone-D5w 20 Mg/100 Ml IV 12/17/21 17:59 0.125 mcg/kg/min DIRECT JENNA 3.668 mls/hr Administration Protocol 0.125 MCG/KG/MIN Magnesium Hydroxide 30 ml 12/14/21 01:23 Magnesium Hydroxide (Mom) Oral Liqd Udc PO Q4H PRN Constipation Metoprolol Tartrate 50 mg 12/14/21 15:00 12/17/21 05:41 Metoprolol Tartrate 50 Mg Tab PO 50 mg Q8HR JENNA Administration Morphine Sulfate 2 mg 12/14/21 01:23 12/15/21 08:33 Morphine 2 Mg/1 Ml Inj IV 2 mg Q4H PRN Administration Pain, Moderate (4-6) Morphine Sulfate 4 mg 12/14/21 01:23 12/14/21 03:37 Morphine 4 Mg/1 Ml Inj IV 4 mg Q4H PRN Administration Pain , Severe (7-10) Ondansetron HCl 4 mg 12/14/21 01:23 12/14/21 11:51 Ondansetron 4 Mg/2 Ml Inj IV 4 mg Q8H PRN Administration Nausea And Vomiting Pantoprazole Sodium 40 mg 12/14/21 09:00 12/17/21 08:43 Pantoprazole 40 Mg Tab PO 40 mg QDAC JENNA Administration Senna 17.2 mg 12/14/21 22:00 12/16/21 21:41 Sennosides 8.6 Mg Tab PO 17.2 mg QHS JENNA Administration Sodium Chloride 10 ml 12/14/21 10:00 12/17/21 09:53 Sodium Chloride 0.9% 10 Ml Flush Syringe IV 10 ml BID JENNA Administration Sodium Chloride 10 ml 12/14/21 01:23 Sodium Chloride 0.9% 10 Ml Flush Syringe IV PRN PRN LINE FLUSH Spironolactone 25 mg 12/15/21 10:00 12/17/21 09:53 Spironolactone 25 Mg Tab PO 25 mg QDAY JENNA Administration
--- NOTE | 2021-12-17 14:49 | Progress Note ---
Assessment and Plan 61-year-old male with known history of nonischemic cardiomyopathy with EF of 35 to 40%, atrial fibrillation, dyslipidemia, presenting to the emergency room today complaining of shortness of breath and bilateral lower extremity swelling. Symptoms has been ongoing for the past 2 weeks. Patient admits that he has not been quite compliant with his medications. Denies any chest pain, no nausea or vomiting, no abdominal pain. Denies any he adache or dizziness denies any diaphoresis. Patient denies any fever or chills, no hematuria or dysuria. Patient has history of smoking. patient is current smoker. Work-up in the emergency room , significant findings on the labs that of BNP of 1387. Chest x-ray shows central vascular congestion with probable bilateral atelectasis/edema. EKG shows atrial fibrillation with RVR. Patient has been started on Cardizem drip. Patient awake. Patient is on room air. O2 saturation 99%. No acute respiratory distress. Denies chest pain, shortness of breath or cough. Patient afebrile. No leukocytosis. Blood pressure 107/80, Pulse 126/78, pulse 134, respirations 13. Chest xray 12/13/21 reported Central vascular congestion with probable bilateral atelectasis/edema. Venous doppler studies of lower legs 12/14/21 reported No sonographic evidence for DVT in either lower extremity. Patient is presently on Apixaban, Protonix,Metoprolol and spiranolactone. Patient was seen in IMCU. I spent critical care time of 35 minutes, reviewing the chart, examine the patient, review chest xray, venous doppler studies of legs, Review labs,talking to nursing and respiratory therapy staff and work up plan of treatment. - Patient Problems (1) Acute on chronic systolic heart failure Current Visit: Yes Status: Acute Plan to address problem: Patient is on metaprolol and spiranolactone, Apixaban. Management as per cardiology. (2) Atrial fibrillation with RVR Current Visit: Yes Status: Acute Plan to address problem: Patient is on Apixaban. Management as per cardiology. (3) NSVT (nonsustained ventricular tachycardia) Current Visit: No Status: Acute Plan to address problem: Management as per cardiology. (4) Alcohol abuse Current Visit: No Status: Chronic Plan to address problem: Management as per primary care. (5) HTN (hypertension) Current Visit: No Status: Chronic Plan to address problem: Management as per primary care. (6) Tobacco use Current Visit: No Status: Chronic Plan to address problem: counseled to stop smoking. Subjective Date of service: 12/17/21 Principal diagnosis: A-fib with RVR; AE-CHF; Pulm edema; AHRF; HTN; Hyperlipide jem; Obesity Interval history: 61-year-old male with known history of nonischemic cardiomyopathy with EF of 35 to 40%, atrial fibrillation, dyslipidemia, presenting to the emergency room today complaining of shortness of breath and bilateral lower extremity swelling. Symptoms has been ongoing for the past 2 weeks. Patient admits that he has not been quite compliant with his medications. Denies any chest pain, no nausea or vomiting, no abdominal pain. Denies any headache or dizziness denies any diaphoresis. Patient denies any fever or chills, no hematuria or dysuria. Patient has history of smoking. patient is current smoker. Work-up in the emergency room , significant findings on the labs that of BNP of 1387. Chest x-ray shows central vascular congestion with probable bilateral atelectasis/edema. EKG shows atrial fibrillation with RVR. Patient has been started on Cardizem drip. Patient awake. Patient is on room air. O2 saturation 99%. No acute respiratory distress. Denies chest pain, shortness of breath or cough. Patient afebrile. No leukocytosis. Blood pressure 107/80, Pulse 126/78, pulse 134, respirations 13. Chest xray 12/13/21 reported Central vascular congestion with probable bilateral atelectasis/edema. Venous doppler studies of lower legs 12/14/21 reported No sonographic evidence for DVT in either lower extremity. Patient is presently on Apixaban, Protonix,Metoprolol and spiranolactone. Objective Vital Signs - 12hr 12/17/21 12/17/21 12/17/21 03:00 03:16 03:30 Temperature Pulse Rate 134 H 134 H 149 H Pulse Rate [ From Monitor] Respiratory 22 11 L 17 Rate Blood Pressure 105/80 105/80 109/85 O2 Sat by Pulse 100 94 86 Oximetry 12/17/21 12/17/21 12/17/21 03:46 04:00 04:16 Temperature 97.8 F Pulse Rate 124 H 132 H 121 H Pulse Rate [ 114 H From Monitor] Respiratory 9 L 17 11 L Rate Blood Pressure 109/85 109/85 108/87 O2 Sat by Pulse 95 96 91 Oximetry 12/17/21 12/17/21 12/17/21 04:30 04:46 05:00 Temperature Pulse Rate 127 H 126 H 157 H Pulse Rate [ From Monitor] Respiratory 17 17 17 Rate Blood Pressure 108/87 108/87 108/87 O2 Sat by Pulse 98 92 91 Oximetry 12/17/21 12/17/21 12/17/21 05:16 05:30 05:41 Temperature Pulse Rate 156 H 130 H Pulse Rate [ From Monitor] Respiratory 15 23 Rate Blood Pressure 98/77 98/77 98/77 O2 Sat by Pulse 83 L Oximetry 12/17/21 12/17/21 12/17/21 05:46 06:00 06:16 Temperature Pulse Rate 124 H 127 H 143 H Pulse Rate [ From Monitor] Respiratory 21 13 13 Rate Blood Pressure 98/77 98/77 139/108 O2 Sat by Pulse 95 98 99 Oximetry 12/17/21 12/17/21 12/17/21 06:30 06:46 07:00 Temperature Pulse Rate 126 H 133 H 135 H Pulse Rate [ From Monitor] Respiratory 11 L 12 16 Rate Blood Pressure 139/108 139/108 139/108 O2 Sat by Pulse 96 97 90 Oximetry 12/17/21 12/17/21 12/17/21 07:15 07:16 07:30 Temperature 97.6 F Pulse Rate 98 H 96 H Pulse Rate [ From Monitor] Respiratory 16 11 L Rate Blood Pressure 130/83 130/83 O2 Sat by Pulse 94 99 Oximetry 12/17/21 12/17/21 12/17/21 07:46 08:00 08:16 Temperature Pulse Rate 110 H 113 H 147 H Pulse Rate [ 112 H From Monitor] Respiratory 18 Rate Blood Pressure 130/83 126/78 126/78 O2 Sat by Pulse 99 99 91 Oximetry 12/17/21 12/17/21 12/17/21 08:30 08:46 09:00 Temperature Pulse Rate 126 H 126 H 136 H Pulse Rate [ From Monitor] Respiratory Rate Blood Pressure 126/78 126/78 126/78 O2 Sat by Pulse 90 89 100 Oximetry 12/17/21 12/17/21 12/17/21 09:16 09:30 09:46 Temperature Pulse Rate 162 H 122 H 125 H Pulse Rate [ From Monitor] Respiratory Rate Blood Pressure 126/78 126/78 126/78 O2 Sat by Pulse 89 95 98 Oximetry 12/17/21 12/17/21 12/17/21 09:53 10:00 10:16 Temperature Pulse Rate 142 H 149 H 132 H Pulse Rate [ From Monitor] Respiratory Rate Blood Pressure 126/78 126/78 126/78 O2 Sat by Pulse Oximetry 12/17/21 11:41 Temperature 98.3 F Pulse Rate Pulse Rate [ From Monitor] Respiratory Rate Blood Pressure O2 Sat by Pulse Oximetry Constitutional: no acute distress, asleep Eyes: non-icteric ENT: oropharynx moist Neck: supple, no lymphadenopathy, no JVD Effort: mildly labored Ascultation: Bilateral: rales, rhonchi Percussion: Bilateral: not dull Cardiovascular: irregular rhythm Gastrointestinal: normoactive bowel sounds, soft, non-tender, non-distended (protuberant) Integumentary: normal Extremities: no cyanosis, no edema, no ischemia or petechiae Neurologic: non-focal exam, pupils equal and round, CN II-XII normal Psychiatric: other (Patient sleeping at this time.) CBC and BMP: 12/15/21 03:59 12/16/21 05:21 ABG, PT/INR, D-dimer: PT/INR, D-dimer PT 16.8 Sec. (12.2-14.9) H 12/13/21 23:28 INR 1.22 (0.87-1.13) H 12/13/21 23:28 Abnormal lab findings: Abnormal Labs 12/13/21 12/13/21 12/13/21 23:28 23:28 23:28 MCHC 31 L RDW 17.9 H Lymph % (Auto) [place] % (Auto) 10.1 H Lymph # (Auto) [place] # (Auto) 0.9 H Seg Neutrophils % 71.2 H Seg Neutrophils # PT INR Sodium Chloride BUN Creatinine Glucose 108 H POC Glucose Calcium Phosphorus Alkaline Phosphatase 243 H NT-Pro-B Natriuret Pep 1387 H Albumin 3.8 L TSH 8.070 H Urine Creatinine 12/13/21 12/14/21 12/15/21 23:28 15:34 03:59 MCHC RDW 17.4 H Lymph % (Auto) 8.6 L [place] % (Auto) 10.0 H Lymph # (Auto) 0.8 L [place] # (Auto) 1.0 H Seg Neutrophils % 81.1 H Seg Neutrophils # 8.0 H PT 16.8 H INR 1.22 H Sodium Chloride BUN Creatinine Glucose POC Glucose 115 H Calcium Phosphorus Alkaline Phosphatase NT-Pro-B Natriuret Pep Albumin TSH Urine Creatinine 12/15/21 12/15/21 12/16/21 03:59 17:03 05:21 MCHC RDW Lymph % (Auto) [place] % (Auto) Lymph # (Auto) [place] # (Auto) Seg Neutrophils % Seg Neutrophils # PT INR Sodium 135 L 136 L Chloride 96.5 L BUN 34 H 36 H Creatinine 2.0 H D 1.4 H Glucose 126 H 106 H POC Glucose Calcium 8.2 L Phosphorus 5.30 H Alkaline Phosphatase NT-Pro-B Natriuret Pep Albumin TSH Urine Creatinine 139.2 H Allied health notes reviewed: nursing
[2021-12-17] MEDS: SENNOSIDES 8.6 MG TAB PO SCH (21:20)
[2021-12-17] MEDS: MORPHINE 2 MG/1 ML INJ IV PRN (21:20)
[2021-12-18] MEDS: MORPHINE 2 MG/1 ML INJ IV PRN (01:30)
[2021-12-18 05:19] LABS: Basophils # (Auto) 0.1 K/mm3 (0.0-0.1); Basophils % (Auto) 1.3 % (0.0-1.8); Eosinophils # (Auto) 0.1 K/mm3 (0.0-0.4); Eosinophils % (Auto) 1.3 % (0.0-4.3); Hemoglobin 13.8 gm/dl (11.8-15.2); Lymphocytes # (Auto) 1.2 K/mm3 (1.2-5.4); Mean Corpuscular HGB Conc 31 % (32-34); Mean Corpuscular Volume 93 fl (84-94); Monocytes # (Auto) 1.1 K/mm3 (0.0-0.8); Monocytes % (Auto) 11.5 % (0.0-7.3); Platelet Count 206 K/mm3 (140-440); Red Blood Count 4.76 M/mm3 (3.65-5.03); Red Cell Distribution Width 17.7 % (13.2-15.2)
[2021-12-18 05:20] LABS: Hematocrit 44.3 % (35.5-45.6)
[2021-12-18 05:35] LABS: Alanine Aminotransferase 28 units/L (7-56); Albumin 4.1 g/dL (3.9-5); BUN/Creatinine Ratio 21; Blood Urea Nitrogen 25 mg/dL (9-20); Hemolysis Index 7
[2021-12-18] MEDS: METOPROLOL TARTRATE 50 MG TAB PO SCH (06:15)
[2021-12-18] MEDS ORDERED: MILRINONE-D5W 20 MG/100 ML 20 MG/100 ML BAG IV SCH (08:00)
[2021-12-18] MEDS: PANTOPRAZOLE 40 MG TAB PO SCH (08:25)
--- NOTE | 2021-12-18 09:00 | Progress Note ---
Assessment and Plan Assessment and plan: HPI: 61-year-old male with known history of nonischemic cardiomyopathy with EF of 35 to 40%, atrial fibrillation, dyslipidemia, presenting to the emergency room today complaining of shortness of breath and bilateral lower extremity swelling. Symptoms has been ongoing for the past 2 weeks. Patient admits that he has not been quite compliant with his medications. Denies any chest pain, no nausea or vomiting, no abdominal pain. Denies any headache or dizziness denies any diaphoresis. Patient denies any fever or chills, no hematuria or dysuria. Work-up in the emergency room today, significant findings on the labs that of BNP of 1387. Chest x-ray shows central vascular congestion with probable bilateral atelectasis/edema. EKG shows atrial fibrillation with RVR. Patient has been started on Cardizem drip. Hospital Course: 12/15: Patient seen and examined at the bedside. Fully AAO, on 2L NC, still complaining of dyspnea with exertion and bilateral extremity pain. BLE noted with 3+ pitting edema, with palpable pulses, and warm to touch. Will check BLE doppler to r/o DVT. Patient remains in AFib on the monitor, rate improved HR in the 70 to 100s. Cardizem gtt is off. Cardiology is following, appreciate recommendations. Continue IV Lasix, IV dig, BB, and Eliquis. 2D Echo pending. Continue fluid restriction, strick I&Os, and daily weight. Plan of care discussed with patient at the bedside. He verbalized understanding of the info provided and agreed to current plan of care. [facility] is also following, appreciate recommendations. [facility] on today if patient remains stable. 12/16: Stable on 2L NC, denied any pain nor any discomfort this am. Patient is Hypotensive and back in Afib with RVR this am, HR in the 110-130s. Patient is now on Milrinone gtt per Cardio. Renal function had also worsen most likely due to IV diuretic, IV lasix discontinued and 500ml of IVF bolus given. Meds adjustment per cardiology and milrinone gtt for hypotension. Nephrology was also consulted. Transfer to the floor once a bed is available. 12/17/2021 Patient waiting for LifeVest On milrinone drip Nephrology and cardiology consults appreciated LifeVest. Discharge to eventual ICD placement as outpatient Left ventricular ejection fraction of 20% 12/18: Assessment and Plan: (1) Atrial fibrillation with RVR Current Visit: Yes Status: Acute Plan to address problem: Patient has known history of atrial fibrillation. He has not been quite compliant with his medications. On Eliquis and metoprolol. LifeVest requested For discharge after medications optimized (2) Acute on chronic systolic CHF Current Visit: No Status: Chronic Plan to address problem: We will resume routine home medications and monitor vital signs closely LV ejection fraction of 20% Diuresis and Aldactone. GDMT Cardiology consulted Will need Lifevest on d/c to bridge to aicd therapy. (3) Acute kidney injury due to vasomotor nephropathy Nephrology consulted (4) HTN on Metoprolol (5) DVT prophylaxis Current Visit: No Status: Acute Plan to address problem: Patient on anticoagulation with Eliquis. (6) Full code status Current Visit: Yes Status: Acute Plan to address problem: Patient is full code. The high probability of a clinically significant, sudden or life threatening deterioration of the [cardiac,nephro] system(s) required my full and direct attention, intervention and personal management. The aggregate critical care time was [60] minutes. This time is in addition to time spent performing reported procedures but includes the following: [x] Data Review and interpretation [x] Patient assessment and monitoring of vital signs [x] Documentation [x] Medication orders and management Hospitalist Physical - Physical exam Narrative exam: Physical Exam: VITAL SIGNS: Reviewed. GENERAL: The patient appears normally developed, Vital signs as documented. HEAD: No signs of head trauma. EYES: Pupils are equal. Extraocular motions intact. EARS: Hearing grossly intact. MOUTH: Oropharynx is normal. NECK: No adenopathy, no JVD. CHEST: Chest with clear breath sounds bilaterally. No wheezes, rales, or rhonchi. CARDIAC: Regular rate and rhythm. S1 and S2, without murmurs, gallops, or rubs. VASCULAR: No Edema. Peripheral pulses normal and equal in all extremities. ABDOMEN: Soft, non tender and non distended. No rebound or guarding, and no masses palpated. Bowel Sounds normal. MUSCULOSKELETAL: Good range of motion of all major joints. Extremities without clubbing, cyanosis or edema. NEUROLOGIC EXAM: Alert and oriented x 4. no focal sensory or strength deficits. PSYCHIATRIC: Mood normal. SKIN: detail exam as documented in skin assessment - Constitutional Vitals: Temp Pulse Resp BP Pulse Ox 98.4 F 111 H 14 134/100 100 12/18/21 03:43 12/18/21 06:15 12/18/21 06:15 12/18/21 06:15 12/18/21 06:15 General appearance: Present: no acute distress, well-nourished HEART Score - HEART Score Troponin: Troponin T < 0.010 ng/mL (0.00-0.029) 12/13/21 23:28 Results - Labs CBC & Chem 7: 12/18/21 04:53 12/18/21 04:53 Labs: Laboratory Last Values WBC 9.4 K/mm3 (4.5-11.0) 12/18/21 04:53 RBC 4.76 M/mm3 (3.65-5.03) 12/18/21 04:53 Hgb 13.8 gm/dl (11.8-15.2) 12/18/21 04:53 Hct 44.3 % (35.5-45.6) 12/18/21 04:53 MCV 93 fl (84-94) 12/18/21 04:53 MCH 29 pg (28-32) 12/18/21 04:53 MCHC 31 % (32-34) L 12/18/21 04:53 RDW 17.7 % (13.2-15.2) H 12/18/21 04:53 Plt Count 206 K/mm3 (140-440) 12/18/21 04:53 Lymph % (Auto) 13.0 % (13.4-35.0) L 12/18/21 04:53 [place] % (Auto) 11.5 % (0.0-7.3) H 12/18/21 04:53 Eos % (Auto) 1.3 % (0.0-4.3) 12/18/21 04:53 Baso % (Auto) 1.3 % (0.0-1.8) 12/18/21 04:53 Lymph # (Auto) 1.2 K/mm3 (1.2-5.4) 12/18/21 04:53 [place] # (Auto) 1.1 K/mm3 (0.0-0.8) H 12/18/21 04:53 Eos # (Auto) 0.1 K/mm3 (0.0-0.4) 12/18/21 04:53 Baso # (Auto) 0.1 K/mm3 (0.0-0.1) 12/18/21 04:53 Seg Neutrophils % 72.9 % (40.0-70.0) H 12/18/21 04:53 Seg Neutrophils # 6.9 K/mm3 (1.8-7.7) 12/18/21 04:53 PT 16.8 Sec. (12.2-14.9) H 12/13/21 23:28 INR 1.22 (0.87-1.13) H 12/13/21 23:28 APTT 30.1 Sec. (24.2-36.6) 12/13/21 23:28 Sodium 137 mmol/L (137-145) 12/18/21 04:53 Potassium 5.2 mmol/L (3.6-5.0) H D 12/18/21 04:53 Chloride 99.9 mmol/L (98-107) 12/18/21 04:53 Carbon Dioxide 22 mmol/L (22-30) 12/18/21 04:53 Anion Gap 20 mmol/L 12/18/21 04:53 BUN 25 mg/dL (9-20) H 12/18/21 04:53 Creatinine 1.2 mg/dL (0.8-1.3) 12/18/21 04:53 Estimated GFR > 60 ml/min 12/18/21 04:53 BUN/Creatinine Ratio 21 % 12/18/21 04:53 Glucose 152 mg/dL (75-100) H 12/18/21 04:53 POC Glucose 115 mg/dL (70-105) H 12/14/21 15:34 Calcium 9.0 mg/dL (8.4-10.2) 12/18/21 04:53 Phosphorus 3.50 mg/dL (2.5-4.5) 12/18/21 04:53 Magnesium 2.30 mg/dL (1.7-2.3) 12/18/21 04:53 Total Bilirubin 1.20 mg/dL (0.1-1.2) 12/18/21 04:53 AST 25 units/L (5-40) 12/18/21 04:53 ALT 28 units/L (7-56) 12/18/21 04:53 Alkaline Phosphatase 264 units/L (35-129) H 12/18/21 04:53 Troponin T < 0.010 ng/mL (0.00-0.029) 12/13/21 23:28 NT-Pro-B Natriuret Pep 1387 pg/mL (0-900) H 12/13/21 23:28 Total Protein 6.9 g/dL (6.3-8.2) 12/18/21 04:53 Albumin 4.1 g/dL (3.9-5) 12/18/21 04:53 Albumin/Globulin Ratio 1.5 % 12/18/21 04:53 TSH 8.070 mlU/mL (0.270-4.200) H 12/13/21 23:28 Free T4 1.00 ng/dL (0.76-1.46) 12/16/21 05:21 Urine Color Yellow (Yellow) 12/15/21 17:03 Urine Turbidity Clear (Clear) 12/15/21 17:03 Urine pH 5.0 (5.0-7.0) 12/15/21 17:03 Ur Specific [place] 1.013 (1.003-1.030) 12/15/21 17:03 Urine Protein <15 mg/dl mg/dL (Negative) 12/15/21 17:03 Urine Glucose (UA) Neg mg/dL (Negative) 12/15/21 17:03 Urine Ketones Neg mg/dL (Negative) 12/15/21 17:03 Urine Blood Neg (Negative) 12/15/21 17:03 Urine Nitrite Neg (Negative) 12/15/21 17:03 Urine Bilirubin Neg (Negative) 12/15/21 17:03 Urine Urobilinogen 2.0 mg/dL (<2.0) 12/15/21 17:03 Ur Leukocyte Esterase Neg (Negative) 12/15/21 17:03 Urine WBC (Auto) 1.0 /HPF (0.0-6.0) 12/15/21 17:03 Urine RBC (Auto) 2.0 /HPF (0.0-6.0) 12/15/21 17:03 U Epithel Cells (Auto) < 1.0 /HPF (0-13.0) 12/15/21 17:03 Hyaline Casts 9 /LPF 12/15/21 17:03 Urine Mucus Few /HPF 12/15/21 17:03 Urine Creatinine 139.2 mg/dL (0.1-20.0) H 12/15/21 17:03 Urine Sodium 44 mmol/L 12/15/21 17:03 [place]/IV: Voiding Method Urinal Active Medications - Current Medications Current Medications: Generic Name Dose Route Start Last Admin Trade Name Freq PRN Reason Stop Dose Admin Acetaminophen 650 mg 12/14/21 01:23 Acetaminophen 325 Mg Tab PO Q6H PRN Pain MILD(1-3)/Fever >100.5/VORA Apixaban 5 mg 12/14/21 10:00 12/17/21 21:20 Apixaban 5 Mg Tab PO 5 mg Q12HR JENNA Administration Milrinone Lactate/Dextrose 20 mg in 100 mls @ 11.003 mls/hr 12/18/21 08:00 Milrinone-D5w 20 Mg/100 Ml IV DIRECT JENNA Protocol 0.375 MCG/KG/MIN Magnesium Hydroxide 30 ml 12/14/21 01:23 Magnesium Hydroxide (Mom) Oral Liqd Udc PO Q4H PRN Constipation Metoprolol Tartrate 50 mg 12/14/21 15:00 12/18/21 06:15 Metoprolol Tartrate 50 Mg Tab PO 50 mg Q8HR JENNA Administration Morphine Sulfate 2 mg 12/14/21 01:23 12/18/21 01:30 Morphine 2 Mg/1 Ml Inj IV 2 mg Q4H PRN Administration Pain, Moderate (4-6) Morphine Sulfate 4 mg 12/14/21 01:23 12/14/21 03:37 Morphine 4 Mg/1 Ml Inj IV 4 mg Q4H PRN Administration Pain , Severe (7-10) Ondansetron HCl 4 mg 12/14/21 01:23 12/14/21 11:51 Ondansetron 4 Mg/2 Ml Inj IV 4 mg Q8H PRN Administration Nausea And Vomiting Pantoprazole Sodium 40 mg 12/14/21 09:00 12/18/21 08:25 Pantoprazole 40 Mg Tab PO 40 mg QDAC JENNA Administration Senna 17.2 mg 12/14/21 22:00 12/17/21 21:20 Sennosides 8.6 Mg Tab PO 17.2 mg QHS JENNA Administration Sodium Chloride 10 ml 12/14/21 10:00 12/17/21 21:20 Sodium Chloride 0.9% 10 Ml Flush Syringe IV 10 ml BID JENNA Administration Sodium Chloride 10 ml 12/14/21 01:23 Sodium Chloride 0.9% 10 Ml Flush Syringe IV PRN PRN LINE FLUSH Spironolactone 25 mg 12/15/21 10:00 12/17/21 09:53 Spironolactone 25 Mg Tab PO 25 mg QDAY JENNA Administration Nutrition/Malnutrition Assess - Dietary Evaluation Nutrition/Malnutrition Findings: Nutrition Notes Start: 12/14/21 11:56 Freq: Status: Active Protocol: Document 12/14/21 11:56 CORNELIO (Rec: 12/14/21 12:16 CORNELIO [id number]) Nutrition Notes Need for Assessment generated from: MD Order,paper latcher,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 Current Diet Cardiac Diet (since B 12/14). Labs/Tests 12/13: Glu 108. Pertinent Medications 12/14: Nutritionally unremarkable. 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 Weight Status Overweight Subjective/Other Information RD consult for skin risk assessment and Nutrition Education. No reports available on Pt's PO intake of meals at the time , will assess at F/U. Pt is on Nasal Cannula, O2 saturation @ 95%, according to Physical Assessment History notes. Pt shows no signs of concern for skin risk at the time, according to Physical Assessment History notes. Pt still in critical condition , not a candidate for Nutrition Education at the time, will assess feasibility on F/U. Pt has missing teeth, according to Physical Assessment History notes. Pt presents Bilateral LE Pitting Edema 4+, according to Physical Assessment History notes. Percent of energy/protein needs met: Prescribed Cardiac Diet provides for energy/protein needs (2,230 Kcal/85 g) during LOS. Burn Absent Trauma Absent GI Symptoms Nausea Food Allergy Yes Skin Integrity/Comment Assessment WNL. Minimum of two criteria No #1 Nutrition Diagnosis No nutrition diagnosis at this time Comments: Will assess Pt's PO intake of meals and feasibility for nutrition education at F/U. Is patient on ventilator? No Is Patient Ambulatory and/or Out of Bed Yes REE-([place]-St. Jeor-ambulatory/OOB) [ 9946.134 [id number]] Kcal/Kg value to use for calculation 23 Approximate Energy Requirements Using 2249 kcal/Kg Calculation Used for Recommendations Kcal/kg Additional Notes Protein: 0.8-1 g/Kg IBW; 67-84 g/day. Fluids: 1 ml/Kcal, or as per MD. Nutrition Intervention Change Diet Order: Continue Cardiac Diet. Follow-Up By: 12/21/21 Additional Comments Nutrition education will be provided on F/U, if feasible. Continue monitoring food tolerance, %PO intake of meals , and BM.
--- NOTE | 2021-12-18 10:27 | Discharge Summary ---
Providers - Providers Date of Admission: 12/14/21 01:23 Date of discharge: 12/18/21 Attending physician: CLARISSA GALLEGOS MD 12/13/21 23:57 Consult to Physician [CONS] Urgent Comment: Dr. Momin contacted Dr. Martinez @ 0023 Consulting Provider: YADI MARTINEZ Physician Instructions: Reason For Exam: A. fib with RVR, CHF, diltiazem drip 12/14/21 01:23 Consult to Dietitian/Nutrition [CONS] Routine Physician Instructions: Reason For Exam: Reason for Consult: Diet education Consult to Physician [CONS] Routine Comment: Consulting Provider: MINNIE ADAMS Physician Instructions: SPOKE WITH SORAYA IN OFFICE Reason For Exam: Afib with RVR 12/15/21 10:10 Consult to Physician [CONS] Routine Comment: Consulting Provider: JIMBO BARRON Physician Instructions: spoke with membership secretary Reason For Exam: ANA LAURA Primary care physician: KEY ENTRY OPERATOR Hospitalization Reason for admission: shortness of breath Condition: Serious Hospital course: HPI: 61-year-old male with known history of nonischemic cardiomyopathy with EF of 35 to 40%, atrial fibrillation, dyslipidemia, presenting to the emergency room today complaining of shortness of breath and bilateral lower extremity swelling. Symptoms has been ongoing for the past 2 weeks. Patient admits that he has not been quite compliant with his medications. Denies any chest pain, no nausea or vomiting, no abdominal pain. Denies any headache or dizziness denies any diaphoresis. Patient denies any fever or chills, no hematuria or dysuria. Work-up in the emergency room today, significant findings on the labs that of BNP of 1387. Chest x-ray shows central vascular congestion with probable bilateral atelectasis/edema. EKG shows atrial fibrillation with RVR. Patient has been started on Cardizem drip. Hospital Course: 12/15: Patient seen and examined at the bedside. Fully AAO, on 2L NC, still complaining of dyspnea with exertion and bilateral extremity pain. BLE noted with 3+ pitting edema, with palpable pulses, and warm to touch. Will check BLE doppler to r/o DVT. Patient remains in AFib on the monitor, rate improved HR in the 70 to 100s. Cardizem gtt is off. Cardiology is following, appreciate recommendations. Continue IV Lasix, IV dig, BB, and Eliquis. 2D Echo pending. Continue fluid restriction, strick I&Os, and daily weight. Plan of care discussed with patient at the bedside. He verbalized understanding of the info provided and agreed to current plan of care. [facility] is also following, appreciate recommendations. Possible transfer to [facility] floor later on today if patient remains stable. 12/16: Stable on 2L NC, denied any pain nor any discomfort this am. Patient is Hypotensive and back in Afib with RVR this am, HR in the 110-130s. Patient is now on Milrinone gtt per Cardio. Renal function had also worsen most likely due to IV diuretic, IV lasix discontinued and 500ml of IVF bolus given. Meds adjustment per cardiology and milrinone gtt for hypotension. Nephrology was also consulted. Transfer to the floor once a bed is available. 12/17/2021 Patient waiting for LifeVest On milrinone drip Nephrology and cardiology consults appreciated LifeVest. Discharge to eventual ICD placement as outpatient Left ventricular ejection fraction of 20% 12/18: D/w Dr. Adams. Patient has OP lifevest set up underway with OP dental financial coordinator. Ok to discharge from cardiology standpoint. Patient advised to follow up latonya with his OP dental financial coordinator. Assessment and Plan: (1) Atrial fibrillation with RVR Current Visit: Yes Status: Acute Plan to address problem: Patient has known history of atrial fibrillation. He has not been quite compliant with his medications. On Eliquis and metoprolol. LifeVest requested For discharge after medications optimized (2) Acute on chronic systolic CHF Current Visit: No Status: Chronic Plan to address problem: We will resume routine home medications and monitor vital signs closely LV ejection fraction of 20% Diuresis and Aldactone. GDMT Cardiology consulted Will need Lifevest on d/c to bridge to aicd therapy. (3) Acute kidney injury due to vasomotor nephropathy Nephrology consulted (4) HTN on Metoprolol (5) DVT prophylaxis Current Visit: No Status: Acute Plan to address problem: Patient on anticoagulation with Eliquis. (6) Full code status Current Visit: Yes Status: Acute Plan to address problem: Patient is full code. Disposition: HOME / SELF CARE / HOMELESS Final Discharge Diagnosis (Prints w/discharge instructions): acute decompensated heart failure, HFrEF Time spent for discharge: 35 Core Measure Documentation - Palliative Care Palliative Care/ Comfort Measures: Not Applicable - Core Measures Any of the following diagnoses?: heart failure, none - Heart Failure Discharge Requirements VLADISLAV/ARB for LVSD if EF <40%: Yes Beta dallin at discharge: Yes Exam - Physical Exam Narrative exam: Physical Exam: VITAL SIGNS: Reviewed. GENERAL: The patient appears normally developed, Vital signs as documented. HEAD: No signs of head trauma. EYES: Pupils are equal. Extraocular motions intact. EARS: Hearing grossly intact. MOUTH: Oropharynx is normal. NECK: No adenopathy, no JVD. CHEST: Chest with clear breath sounds bilaterally. No wheezes, rales, or rhonchi. CARDIAC: Regular rate and rhythm. S1 and S2, without murmurs, gallops, or rubs. VASCULAR: No Edema. Peripheral pulses normal and equal in all extremities. ABDOMEN: Soft, non tender and non distended. No rebound or guarding, and no masses palpated. Bowel Sounds normal. MUSCULOSKELETAL: Good range of motion of all major joints. Extremities without clubbing, cyanosis or edema. NEUROLOGIC EXAM: Alert and oriented x 4. no focal sensory or strength deficits. PSYCHIATRIC: Mood normal. SKIN: detail exam as documented in skin assessment - Constitutional Vitals: Temp Pulse Resp BP Pulse Ox 98.4 F 111 H 14 134/100 100 12/18/21 03:43 12/18/21 06:15 12/18/21 06:15 12/18/21 06:15 12/18/21 06:15 Plan Follow up with: PRIMARY CARE, [Primary Care Provider] - 3-5 Days Prescriptions: Spironolactone [Aldactone] 25 mg PO QDAY 30 Days #30 tablet Losartan [Cozaar] 25 mg PO QDAY 30 Days #30 tablet Apixaban [Eliquis] 5 mg PO Q12HR 30 Days #60 tablet Furosemide [Lasix] 40 mg PO QDAC 30 Days #30 tab Metoprolol Xl [Metoprolol SUCCINATE ER TAB] 100 mg PO QDAY 30 Days #30 tab Pantoprazole [Protonix TAB] 40 mg PO QDAC 30 Days #30 tablet
[2021-12-18 11:03] VITALS: BP 113/91
== END 2021-12-18 11:07 | disposition home or self-care (01) | DRG 291 ==
LOC: ED 18:55 → CC1 12-14 01:23 → IMCU 12-15 11:20
PROVIDERS: ADMIT Internal Medicine Geriatric Medicine; ATTEND Internal Medicine
DX: I11.0 Hypertensive heart disease with heart failure (principal); I50.23 Acute on chronic systolic (congestive) heart failure; N17.0 Acute kidney failure with tubular necrosis; J96.01 Acute respiratory failure with hypoxia; I48.21 Permanent atrial fibrillation; I48.20 Chronic atrial fibrillation, unspecified; I42.8 Other cardiomyopathies; Z79.01 Long term (current) use of anticoagulants; E78.5 Hyperlipidemia, unspecified; F17.200 Nicotine dependence, unspecified, uncomplicated; Z79.899 Other long term (current) drug therapy; I95.9 Hypotension, unspecified; E66.9 Obesity, unspecified; Z91.19 Patient's noncompliance with other medical treatment and regimen
CPT/HCPCS: 36415; 71045; 80048; 80053; 81001; 82570; 82962; 83735; 83880; 84100; 84300; 84439; 84443; 84484; 85025; 85610; 85730; 93005; 93306; 93970; 96374; 96375; 99291; G0378; J3490; C8929; J1940; J2260; J2270; J2405; J3475; J7030; J7040

== ENCOUNTER 2021-12-24 17:43 | Inpatient (IN) | payer BC, OTHER ==
[2021-12-24] MEDS ORDERED: ASPIRIN 325 MG TAB PO ONE (20:48)
--- NOTE | 2021-12-24 21:23 | XRay Report ---
CHEST 1 VIEW 12/24/2021 8:16 PM INDICATION / CLINICAL INFORMATION: dyspnea, CHF. COMPARISON: 12/13/2021 FINDINGS: SUPPORT DEVICES: None. HEART / MEDIASTINUM: No significant abnormality. LUNGS / PLEURA: No significant pulmonary or pleural abnormality. No pneumothorax. ADDITIONAL FINDINGS: No significant additional findings. IMPRESSION: 1. No acute findings. Signer Name: Neeraj Marshall MD Signed: 12/24/2021 9:18 PM Workstation Name: [id number]
[2021-12-24 21:34] LABS: Eosinophils % (Auto) 0.9 % (0.0-4.3); Hemoglobin 13.9 gm/dl (11.8-15.2); Mean Corpuscular HGB Conc 32 % (32-34); Mean Corpuscular Volume 91 fl (84-94); Monocytes # (Auto) 0.7 K/mm3 (0.0-0.8); Monocytes % (Auto) 8.2 % (0.0-7.3); Platelet Count 205 K/mm3 (140-440); Red Blood Count 4.86 M/mm3 (3.65-5.03); Red Cell Distribution Width 17.7 % (13.2-15.2)
[2021-12-24] MEDS ORDERED: LOSARTAN 25 MG TAB PO STA (21:37)
[2021-12-24] MEDS ORDERED: METOPROLOL SUCCINATE XL 100 MG TAB PO STA (21:37)
[2021-12-24] MEDS ORDERED: NITROGLYCERIN 0.4 MG TAB SUBL SL PRN ×2 (21:37→22:05)
[2021-12-24] MEDS ORDERED: NON-FORMULARY EACH (Apixaban 5 MG Tablet) PO STA (21:37)
[2021-12-24] MEDS ORDERED: PANTOPRAZOLE 40 MG TAB PO STA (21:37)
[2021-12-24] MEDS ORDERED: SPIRONOLACTONE 25 MG TAB PO STA (21:37)
[2021-12-24] MEDS ORDERED: ACETAMINOPHEN 325 MG TAB PO ONE (21:37)
[2021-12-24] MEDS ORDERED: ASPIRIN 81 MG TAB CHEW PO ONE (21:37)
[2021-12-24] MEDS ORDERED: ONDANSETRON 4 MG/2 ML INJ IV ONE (21:37)
[2021-12-24] MEDS ORDERED: FUROSEMIDE 40 MG/4 ML INJ IV ONE (21:38)
[2021-12-24 21:39] LABS: Alanine Aminotransferase 33 units/L (7-56); Albumin 3.9 g/dL (3.9-5); BUN/Creatinine Ratio 17; Blood Urea Nitrogen 43 mg/dL (9-20); Calcium 8.3 mg/dL (8.4-10.2); Hemolysis Index 17
[2021-12-24] MEDS ORDERED: APIXABAN 5 MG TAB PO STA (21:45)
--- NOTE | 2021-12-24 21:47 | Emergency Department Report ---
ED General Adult HPI - General Chief complaint: Extremity Injury, Lower Stated complaint: LEG PAIN PUI?: No Time Seen by Provider: 12/24/21 21:28 Source: patient, EMS ( EMS documentation not available at time of chart dic tation ), RN notes reviewed, old records reviewed Mode of arrival: Stretcher Limitations: No Limitations - History of Present Illness Initial comments: The patient is a 61-year-old gentleman. I have recently evaluated this patient. His past medical history is complex, including A. fib, on Eliquis, chronic anticoagulation, CHF with cardiomyopathy, EF of 20%, awaiting LifeVest, and ICD placement, hypertension, acute kidney injury, presenting to the ER today with complaint of bilateral lower extremity swelling. He also endorses a few days of central, nonradiating, nonexertional chest pain which is constant, and does not radiate anywhere, and reports an episode of unprovoked loss of consciousness yesterday. He endorses compliance with his Eliquis. He reports that he needs a refill on his "water pills." He also endorses lower extremity pain and swelling, although improved when compared to his recent hospitalization and admission. He had an outpatient lower extremity DVT study last month which was negative for DVT. He denies new/different shortness of breath, and denies hematemesis, bright red blood per rectum, and black stool. Of note, this patient had a cardiac catheterization in 2020, which suggested a nonischemic cardiomyopathy, and demonstrated angiographically normal coronary a rteries -: days(s) Location: chest, left, right Consistency: constant Improves with: none Worsens with: none - Related Data Previous Rx's Medication Instructions Recorded Last Taken Type Apixaban [Eliquis] 5 mg PO Q12HR 30 Days #60 tablet 12/18/21 Unknown Rx Furosemide [Lasix] 40 mg PO QDAC 30 Days #30 tab 12/18/21 Unknown Rx Losartan [Cozaar] 25 mg PO QDAY 30 Days #30 tablet 12/18/21 Unknown Rx Metoprolol Xl [Metoprolol 100 mg PO QDAY 30 Days #30 tab 12/18/21 Unknown Rx SUCCINATE ER TAB] Pantoprazole [Protonix TAB] 40 mg PO QDAC 30 Days #30 tablet 12/18/21 Unknown Rx Spironolactone [Aldactone] 25 mg PO QDAY 30 Days #30 tablet 12/18/21 Unknown Rx Allergies Allergy/AdvReac Type Severity Reaction Status Date / Time mushroom Allergy Rash Verified 12/24/21 22:07 pollen extracts Allergy Unknown Verified 12/24/21 17:47 watermelon Allergy Rash Verified 12/24/21 22:06 ED Review of Systems ROS: Stated complaint: LEG PAIN Other details as noted in HPI Constitutional: denies: fever Eyes: denies: eye discharge ENT: denies: epistaxis Respiratory: denies: cough, wheezing Cardiovascular: chest pain, edema, syncope Gastrointestinal: denies: hematemesis, melena, hematochezia Musculoskeletal: denies: back pain Neurological: denies: weakness Hematological/Lymphatic: denies: easy bleeding ED Past Medical Hx - Past Medical History Hx Congestive Heart Failure: Yes Hx Diabetes: No Hx Asthma: No Hx COPD: No Hx HIV: No Additional medical history: afib - Social History Smoking Status: Current Every Day Smoker - Medications Home Medications: Home Medications Medication Instructions Recorded Confirmed Last Taken Type Apixaban [Eliquis] 5 mg PO Q12HR 30 Days #60 tablet 12/18/21 Unknown Rx Furosemide [Lasix] 40 mg PO QDAC 30 Days #30 tab 12/18/21 Unknown Rx Losartan [Cozaar] 25 mg PO QDAY 30 Days #30 tablet 12/18/21 Unknown Rx Metoprolol Xl [Metoprolol 100 mg PO QDAY 30 Days #30 tab 12/18/21 Unknown Rx SUCCINATE ER TAB] Pantoprazole [Protonix TAB] 40 mg PO QDAC 30 Days #30 tablet 12/18/21 Unknown Rx Spironolactone [Aldactone] 25 mg PO QDAY 30 Days #30 tablet 12/18/21 Unknown Rx ED Physical Exam - General Limitations: No Limitations General appearance: alert, in no apparent distress - Head Head exam: Present: atraumatic, normocephalic - Eye Eye exam: Present: normal appearance, EOMI. Absent: nystagmus - ENT ENT exam: Present: normal exam, normal orophraynx, mucous membranes moist, normal external ear exam - Neck Neck exam: Present: normal inspection, full ROM. Absent: tenderness, meningismus - Respiratory Respiratory exam: Present: normal lung sounds bilaterally. Absent: respiratory distress, wheezes, rales, rhonchi, stridor, decreased breath sounds - Cardiovascular Cardiovascular Exam: Present: irregular rhythm, normal heart sounds. Absent: bradycardia, tachycardia, systolic murmur, diastolic murmur, rubs, gallop - GI/Abdominal GI/Abdominal exam: Present: soft. Absent: distended, tenderness, guarding, rebound, rigid, pulsatile mass - Rectal Rectal exam: Present: deferred - Extremities Exam Extremities exam: Present: normal inspection, full ROM, pedal edema (2-3+ edema in the bilateral lower extremity), other (2+ pulses noted in the bilateral upper and lower extremities. There is no palpable cord. negative Homans sign. Muscular compartments are soft. The pelvis is stable.). Absent: calf tenderness - Back Exam Back exam: Present: normal inspection. Absent: tenderness, CVA tenderness (R), CVA tenderness (L), paraspinal tenderness, vertebral tenderness - Neurological Exam Neurological exam: Present: alert, oriented X3, normal gait, other (No facial droop. Tongue midline. Extraocular movements intact bilaterally. Facial sensation intact to light touch in V1, V2, V3 distribution bilaterally. 5 and a 5 strength in 4 extremities. Sensation intact to light touch in 4 extremities.). Absent: motor sensory deficit - Psychiatric Psychiatric exam: Present: normal affect, normal mood - Skin Skin exam: Present: warm, dry, intact, normal color. Absent: rash ED Course Vital Signs 12/24/21 12/24/21 17:43 22:04 Temperature 97.7 F Pulse Rate 88 94 H Respiratory 16 Rate Blood Pressure 148/72 141/122 [Left] O2 Sat by Pulse 99 100 Oximetry - Reevaluation(s) Reevaluation #1: 12/24/21 21:48 Differential diagnosis, including but not limited to: Arrhythmia, electrolyte derangement, right-sided congestive heart failure, syncope, acute coronary syndrome Assessment and plan: 61-year-old gentleman, who is not currently tachycardic, tachypneic or hypoxic, who is currently compliant with eliquis therapy, clear lungs, not tachypneic, chest x-ray clear, with lower extremity swelling, ambulatory, chronically in A. fib, with a complaint of lower extremity swelling, nonspecific chest pain for a few days, and unprovoked syncope approximately 24 to 36 hours ago. In terms of this patient's chest pain, his cardiovascular risk factor profile is reviewed and appreciated, however, his cardiac catheterization from August 2020 is reviewed and appreciated. He is very unlikely to have significant coronary artery disease. His EKG is unchanged from prior. He has been having days of chest pain. We will send troponin x1, presuming negative, acute myocardial infarction is ruled out. PE/DVT unlikely, as the patient is not tachypneic, or hypoxic or tachycardic, he is compliant with Eliquis, and he recently had a negative lower extremity DVT study. In terms of the patient's syncope, he does have a known history of ventricular arrhythmia, as per review of his old medical records in 2020, he does not have access to a LifeVest at this time he does not have an ICD in place. Therefore, we will medicate him appropriately, discussed with cardiology on-call to determine appropriate plan of care. Awaiting callback from cardiology. 12/24/21 21:50 12/24/21 21:56 Laboratory studies demonstrate recurrent renal insufficiency. I suspect d ecompensated cardiorenal syndrome. Contacted [facility] cardiology on-call, Dr. Wilson. I discussed the patient's history, physical, laboratory studies imaging studies and clinical impression. Given history of ventricular arrhythmia, evidence of decompensated congestive heart failure/cardiorenal syndrome, history of syncope, without ICD or LifeVest in place, we agree that admission is advisable and recommended. [facility] cardiology will follow in consultation. Hospital physician, Dr. De Luna to admit to [facility] 12/24/21 22:00 Discussed all findings with the patient. The patient is agreeable to admission hospitalization ED Medical Decision Making - Lab Data Result diagrams: 12/24/21 21:01 12/24/21 21:01 Vital Signs 12/24/21 17:43 Pulse Rate 88 Blood Pressure 148/72 [Left] O2 Sat by Pulse 99 Oximetry - EKG Data -: EKG Interpreted by Tn - EKG Data 12/24/21 21:45 The EKG is interpreted at 21: 40 A. fib, rate 81 bpm. Normal axis, PVCs, QTC 45 ms. Motion artifact. This is an abnormal EKG. This is not a STEMI. When compared to prior EKG from December 13, 2021, appears to be unchanged, with the exception of resolution of tachycardia. - Radiology Data Radiology results: pending, report reviewed, image reviewed CHEST 1 VIEW 12/24/2021 8:16 PM INDICATION / CLINICAL INFORMATION: dyspnea, CHF. COMPARISON: 12/13/2021 FINDINGS: SUPPORT DEVICES: None. HEART / MEDIASTINUM: No significant abnormality. LUNGS / PLEURA: No significant pulmonary or pleural abnormality. No pneumothorax. ADDITIONAL FINDINGS: No significant additional findings. IMPRESSION: 1. No acute findings. Signer Name: Neeraj Marshall MD Signed: 12/24/2021 8:18 PM Workstation Name: [id number] DUPLEX DOPPLER LOWER EXTREMITY VEINS, BILATERAL INDICATION / CLINICAL INFORMATION: Swelling and pain. TECHNIQUE: Duplex doppler imaging was performed through the veins of both lower extremities using venous compression and other maneuvers. COMPARISON: None available. FINDINGS: RIGHT COMMON FEMORAL VEIN: Negative. RIGHT FEMORAL VEIN: Negative. RIGHT POPLITEAL VEIN: Negative. RIGHT CALF VEINS: Negative. LEFT COMMON FEMORAL VEIN: Negative. LEFT FEMORAL VEIN: Negative. LEFT POPLITEAL VEIN: Negative. LEFT CALF VEINS: Negative. ADDITIONAL FINDINGS: None. IMPRESSION: 1. No sonographic evidence for DVT in either lower extremity. Signer Name: Seymour Boykin MD Signed: 12/14/2021 3:33 PM Critical Care Time: Yes Critical care time in (mins) excluding proc time.: 35 Critical care attestation.: If time is entered above; I have spent that time in minutes in the direct care of this critically ill patient, excluding procedure time. ED Disposition Clinical Impression: Cardiorenal syndrome with renal failure, Syncope, Nonischemic cardiomyopathy, Chronic atrial fibrillation, Lower extremity edema, Nonspecific chest pain Disposition: 09 ADMITTED INPATIENT Is pt being admited?: Yes Does the pt Need Aspirin: No Condition: Good Heart Score - HEART Score History: Slightly suspicious EKG: Non-specific Age: 45-65 Risk factors: > 3 risk factors or hx of atherosclerotic disease Troponin: < normal limit HEART Score: 4 - EKG Read Time Time EKG Completed: 21:40 EKG Read Time: 21:40 - Critical Actions Critical Actions: 4-6 pts:12-16.6% risk of adverse cardiac event. Should be admitted
[2021-12-24 21:48] LABS: Basophils # (Auto) 0.1 K/mm3 (0.0-0.1); Basophils % (Auto) 1.3 % (0.0-1.8); Eosinophils # (Auto) 0.1 K/mm3 (0.0-0.4); Lymphocytes # (Auto) 1.1 K/mm3 (1.2-5.4)
[2021-12-24] MEDS ORDERED: ALBUTEROL 2.5 MG/3 ML NEBU IH PRN (22:05)
[2021-12-24] MEDS ORDERED: ONDANSETRON 4 MG/2 ML INJ IV PRN (22:05)
[2021-12-24] MEDS ORDERED: MORPHINE 2 MG/1 ML INJ IV PRN (22:05)
[2021-12-24] MEDS ORDERED: HYDROmorphone 1 MG/1 ML INJ IV PRN (22:05)
[2021-12-24] MEDS ORDERED: ACETAMINOPHEN 325 MG TAB PO PRN (22:05)
[2021-12-24 22:14] LABS: INR 1.27 (0.87-1.13)
--- NOTE | 2021-12-24 22:14 | History and Physical Report ---
History of Present Illness Date of examination: 12/24/21 Date of admission: 12/24/21 Chief complaint: Syncope Bilateral leg swelling History of present illness: 61-year-old male with past medical history of A. fib, on Eliquis, chronic anticoagulation, CHF with cardiomyopathy, EF of 20%, awaiting LifeVest, and ICD placement, hypertension, acute kidney injury was brought to the emergency room because of bilateral lower extremity swelling. He also endorses a few days of central, nonradiating, nonexertional chest pain which is constant, and does not radiate anywhere, and reports an episode of unprovoked loss of consciousness yesterday. He endorses compliance with his Eliquis. He reports that he needs a refill on his "water pills." He also endorses lower extremity pain and swelling, although improved when compared to his recent hospitalization and admission. He had an outpatient lower extremity DVT study last month which was negative for DVT. In the emergency room patient BNP is 1911, BUN 43 creatinine 2.6, chest x-ray shows no acute finding. We are going to admit the patient and put the patient on CHF pathway. Will consult cardiology for evaluation also order Past History Past Medical History: atrial fib, heart failure Past Surgical History: No surgical history Social history: smoking Family history: hypertension Medications and Allergies Allergies Allergy/AdvReac Type Severity Reaction Status Date / Time mushroom Allergy Rash Verified 12/24/21 22:07 pollen extracts Allergy Unknown Verified 12/24/21 17:47 watermelon Allergy Rash Verified 12/24/21 22:06 Home Medications Medication Instructions Recorded Confirmed Last Taken Type Apixaban [Eliquis] 5 mg PO Q12HR 30 Days #60 tablet 12/18/21 Unknown Rx Furosemide [Lasix] 40 mg PO QDAC 30 Days #30 tab 12/18/21 Unknown Rx Losartan [Cozaar] 25 mg PO QDAY 30 Days #30 tablet 12/18/21 Unknown Rx Metoprolol Xl [Metoprolol 100 mg PO QDAY 30 Days #30 tab 12/18/21 Unknown Rx SUCCINATE ER TAB] Pantoprazole [Protonix TAB] 40 mg PO QDAC 30 Days #30 tablet 12/18/21 Unknown Rx Spironolactone [Aldactone] 25 mg PO QDAY 30 Days #30 tablet 12/18/21 Unknown Rx Active Meds: Active Medications Nitroglycerin (Nitroglycerin 0.4 Mg Tab Subl) 0.4 mg SL .Q5MIN PRN PRN Reason: Chest Pain Review of Systems All systems: negative Constitutional: other (Bilateral leg pain and swelling, syncope, chest pain, edema) Exam - Constitutional Vitals: Temp Pulse Resp BP Pulse Ox 97.7 F 94 H 16 141/122 100 12/24/21 22:04 12/24/21 22:04 12/24/21 22:04 12/24/21 22:04 12/24/21 22:04 General appearance: Present: no acute distress, well-nourished - EENT Eyes: Present: PERRL ENT: hearing intact, clear oral mucosa - Neck Neck: Present: supple, normal ROM - Respiratory Respiratory effort: normal Respiratory: bilateral: rales - Cardiovascular Heart Sounds: Present: S1 & S2. Absent: rub, click - Extremities Extremities: pulses symmetrical Extremity abnormal: edema Peripheral Pulses: within normal limits - Abdominal General gastrointestinal: Present: soft, non-tender, non-distended, normal bowel sounds Male genitourinary: Present: normal - Integumentary Integumentary: Present: clear, warm, dry - Musculoskeletal Musculoskeletal: gait normal, strength equal bilaterally - Psychiatric Psychiatric: appropriate mood/affect, intact judgment & insight - Neurologic Neurologic: CNII-XII intact, moves all extremities HEART Score - HEART Score EKG: Non-specific Age: 45-65 Risk factors: > 3 risk factors or hx of atherosclerotic disease Troponin: Troponin T < 0.010 ng/mL (0.00-0.029) 12/24/21 21:01 Troponin: < normal limit - Critical Actions Critical Actions: 4-6 pts:12-16.6% risk of adverse cardiac event. Should be admitted Results - Labs CBC & Chem 7: 12/24/21 21:01 12/24/21 21:01 Labs: Laboratory Last Values WBC 9.1 K/mm3 (4.5-11.0) 12/24/21 21:01 RBC 4.86 M/mm3 (3.65-5.03) 12/24/21 21:01 Hgb 13.9 gm/dl (11.8-15.2) 12/24/21 21:01 Hct 44.0 % (35.5-45.6) 12/24/21 21:01 MCV 91 fl (84-94) 12/24/21 21:01 MCH 29 pg (28-32) 12/24/21 21:01 MCHC 32 % (32-34) 12/24/21 21:01 RDW 17.7 % (13.2-15.2) H 12/24/21 21:01 Plt Count 205 K/mm3 (140-440) 12/24/21 21:01 Lymph % (Auto) 12.0 % (13.4-35.0) L 12/24/21 21:01 [place] % (Auto) 8.2 % (0.0-7.3) H 12/24/21 21:01 Eos % (Auto) 0.9 % (0.0-4.3) 12/24/21 21: Baso % (Auto) 1.3 % (0.0-1.8) 12/24/21 21:01 Lymph # (Auto) 1.1 K/mm3 (1.2-5.4) L 12/24/21 21:01 [place] # (Auto) 0.7 K/mm3 (0.0-0.8) 12/24/21 21:01 Eos # (Auto) 0.1 K/mm3 (0.0-0.4) 12/24/21 21:01 Baso # (Auto) 0.1 K/mm3 (0.0-0.1) 12/24/21 21:01 Seg Neutrophils % 77.6 % (40.0-70.0) H 12/24/21 21: Seg Neutrophils # 7.1 K/mm3 (1.8-7.7) 12/24/21 21:01 Sodium 134 mmol/L (137-145) L 12/24/21 21:01 Potassium 4.8 mmol/L (3.6-5.0) 12/24/21 21:01 Chloride 93.6 mmol/L (98-107) L 12/24/21 21:01 Carbon Dioxide 23 mmol/L (22-30) 12/24/21 21:01 Anion Gap 22 mmol/L 12/24/21 21:01 BUN 43 mg/dL (9-20) H 12/24/21 21:01 Creatinine 2.6 mg/dL (0.8-1.3) H 12/24/21 21:01 Estimated GFR 31 ml/min 12/24/21 21:01 BUN/Creatinine Ratio 17 % 12/24/21 21:01 Glucose 158 mg/dL (75-100) H 12/24/21 21:01 Calcium 8.3 mg/dL (8.4-10.2) L 12/24/21 21:01 Total Bilirubin 1.30 mg/dL (0.1-1.2) H 12/24/21 21:01 AST 21 units/L (5-40) 12/24/21 21:01 ALT 33 units/L (7-56) 12/24/21 21:01 Alkaline Phosphatase 224 units/L (35-129) H 12/24/21 21:01 Troponin T < 0.010 ng/mL (0.00-0.029) 12/24/21 21:01 NT-Pro-B Natriuret Pep 1911 pg/mL (0-900) H 12/24/21 21:01 Total Protein 6.3 g/dL (6.3-8.2) 12/24/21 21:01 Albumin 3.9 g/dL (3.9-5) 12/24/21 21:01 Albumin/Globulin Ratio 1.6 % 12/24/21 21:01 - Imaging and Cardiology Chest x-ray: report reviewed Assessment and Plan VTE prophylaxis?: Chemical Plan of care discussed with patient/family: Yes - Patient Problems (1) Acute on chronic systolic heart failure Status: Acute Plan to address problem: Admit the patient to the medical floor. Avoid fluid overload. Maintain input output. Daily weight. Echocardiogram. Lasix 40 mg IV daily. Cardiology evaluation (2) Cardiorenal syndrome with renal failure Status: Acute Plan to address problem: Echocardiogram. Lasix 40 mg IV daily. Cardiology evaluation (3) Chronic atrial fibrillation Status: Acute Plan to address problem: Patient is on Eliquis 5 mg p.o. every 12 hours metoprolol XL 100 mg p.o. daily. Echocardiogram. Cardiology evaluation (4) Syncope Status: Acute Plan to address problem: Echocardiogram. Serial cardiac enzymes. Cardiology evaluation (5) HTN (hypertension) Status: Chronic Plan to address problem: Metoprolol XL 100 mg p.o. daily. Losartan 25 mg p.o. daily. Spironolactone 25 mg p.o. daily (6) Hyperlipidemia Status: Chronic Qualifiers: Hyperlipidemia type: unspecified Qualified Code(s): E78.5 - Hyperlipidemia, unspecified Plan to address problem: Lipitor 40 mg p.o. daily. We will recheck the lipid panel (7) Tobacco use Status: Chronic Plan to address problem: We counseled the patient regarding quitting smoking. If needed we put the patient on nicotine patch (8) ANA LAURA (acute kidney injury) Status: Acute Plan to address problem: Avoid nephrotoxic drug. Renally dose medication. Nephrology consult. BMP in the morning (9) DVT prophylaxis Status: Acute Plan to address problem: Eliquis 5 mg p.o. twice daily for DVT prophylaxis. Pepcid 20 mg p.o. twice daily for GI prophylaxis. Patient is a full code
[2021-12-25 07:17] LABS: Basophils # (Auto) 0.1 K/mm3 (0.0-0.1); Eosinophils # (Auto) 0.2 K/mm3 (0.0-0.4); Eosinophils % (Auto) 2.6 % (0.0-4.3); Hematocrit 41.7 % (35.5-45.6); Hemoglobin 13.3 gm/dl (11.8-15.2); Lymphocytes # (Auto) 1.2 K/mm3 (1.2-5.4); Lymphocytes % (Auto) 19.6 % (13.4-35.0); Mean Corpuscular HGB Conc 32 % (32-34); Mean Corpuscular Volume 90 fl (84-94); Monocytes # (Auto) 0.7 K/mm3 (0.0-0.8); Monocytes % (Auto) 10.2 % (0.0-7.3); Platelet Count 205 K/mm3 (140-440); Red Blood Count 4.63 M/mm3 (3.65-5.03); Red Cell Distribution Width 17.5 % (13.2-15.2)
[2021-12-25] MEDS: IPRATROPIUM/ALBUTEROL SULFATE 3 ML AMPUL.NEB IH SCH ×4 (08:29→22:36)
[2021-12-25 08:37] LABS: Calcium 8.5 mg/dL (8.4-10.2)
[2021-12-25] MEDS ORDERED: ASPIRIN 325 MG TAB PO SCH (10:00)
[2021-12-25] MEDS ORDERED: FAMOTIDINE 20 MG TAB PO SCH (10:00)
[2021-12-25] MEDS: ASPIRIN 81 MG TAB CHEW PO SCH (10:31)
[2021-12-25] MEDS: HEPARIN 5,000 UNIT/1 ML VIAL SUB-Q SCH ×2 (10:31→21:00)
[2021-12-25] MEDS: FUROSEMIDE 40 MG/4 ML INJ IV SCH (10:32)
[2021-12-25] MEDS: FAMOTIDINE 10 MG TAB PO SCH ×2 (10:32→21:00)
--- NOTE | 2021-12-25 11:18 | Consultation ---
History of Present Illness Consult date: 12/25/21 Consult reason: atrial fibrillation, congestive heart failure, syncope History of present illness: The patient is a 61-year-old man with longstanding, nonischemic cardiomyopathy and chronic atrial fibrillation. A cardiac catheterization a little over a year ago showed no significant coronary disease. Over months and years, there has been progressive worsening of a four-chamber dilated cardiomyopathy. He was in this hospital just 2 weeks ago, where a follow-up echocardiogram showed left ventricular ejection fraction of 15 to 20%. At that time he was recommended for LifeVest monitor as a bridge to eventual ICD, but he has not yet been fitted with a LifeVest as recommended. For his chronic atrial fibrillation, he is on r ate control management and oral anticoagulation with Eliquis. He presents to the hospital at this time, with complaints of worsening, bilateral lower extremity swelling and pain. There was also fatigue and increasing dyspnea and orthopnea. Also notably, there was a report of some nonspecific transient loss in consciousness on the day prior to his presentation, but reports no palpitations, and no anginal type chest pain. The patient admits to noncompliance with medical therapy over several days including his diuretic therapy, because he ran out and has not received a resupply from his pharmacy. Work-up so far in the hospital, EKG shows atrial fibrillation with well- controlled ventricular rate in the 80s, no acute ischemic changes. Chest x-ray showed mild to moderate cardiomegaly but no significant interstitial edema. On physical exam he has 2-3+ bilateral lower extremity edema. Past History Past Medical History: atrial fib, heart failure Past Surgical History: No surgical history Social history: smoking Family history: hypertension Medications and Allergies Allergies Allergy/AdvReac Type Severity Reaction Status Date / Time mushroom Allergy Rash Verified 12/24/21 22:07 pollen extracts Allergy Unknown Verified 12/24/21 17:47 watermelon Allergy Rash Verified 12/24/21 22:06 Home Medications Medication Instructions Recorded Confirmed Last Taken Type Apixaban [Eliquis] 5 mg PO Q12HR 30 Days #60 tablet 12/18/21 Unknown Rx Furosemide [Lasix] 40 mg PO QDAC 30 Days #30 tab 12/18/21 Unknown Rx Losartan [Cozaar] 25 mg PO QDAY 30 Days #30 tablet 12/18/21 Unknown Rx Metoprolol Xl [Metoprolol 100 mg PO QDAY 30 Days #30 tab 12/18/21 Unknown Rx SUCCINATE ER TAB] Pantoprazole [Protonix TAB] 40 mg PO QDAC 30 Days #30 tablet 12/18/21 Unknown Rx Spironolactone [Aldactone] 25 mg PO QDAY 30 Days #30 tablet 12/18/21 Unknown Rx Active Meds: Active Medications Acetaminophen (Acetaminophen 325 Mg Tab) 650 mg PO Q4H PRN PRN Reason: Pain MILD(1-3)/Fever >100.5/VORA Albuterol (Albuterol 2.5 Mg/3 Ml Nebu) 2.5 mg IH Q3HRT PRN PRN Reason: Shortness Of Breath Albuterol/Ipratropium (Ipratropium/Albuterol Sulfate 3 Ml Ampul.Neb) 1 ampul IH Q6HRT [facility] Last Admin: 12/25/21 08:39 Dose: 1 ampul Aspirin (Aspirin 81 Mg Tab Chew) 81 mg PO QDAY [facility] Last Admin: 12/25/21 10:31 Dose: 81 mg Famotidine (Famotidine 10 Mg Tab) 10 mg PO BID [facility] Last Admin: 12/25/21 10:32 Dose: 10 mg Furosemide (Furosemide 40 Mg/4 Ml Inj) 40 mg IV QDAY [facility] Last Admin: 12/25/21 10:32 Dose: 40 mg Heparin Sodium (Porcine) (Heparin 5,000 Unit/1 Ml Vial) 5,000 unit SUB-Q Q12HR [facility] Last Admin: 12/25/21 10:31 Dose: 5,000 unit Hydromorphone HCl (Hydromorphone 1 Mg/1 Ml Inj) 0.5 mg IV Q3H PRN PRN Reason: Pain , Severe (7-10) Levothyroxine Sodium (Levothyroxine 150 Mcg Tab) 150 mcg PO DAILY@0600 [facility] Morphine Sulfate (Morphine 2 Mg/1 Ml Inj) 2 mg IV Q4H PRN PRN Reason: Pain, Moderate (4-6) Nitroglycerin (Nitroglycerin 0.4 Mg Tab Subl) 0.4 mg SL .Q5MIN PRN PRN Reason: Chest Pain Ondansetron HCl (Ondansetron 4 Mg/2 Ml Inj) 4 mg IV Q8H PRN PRN Reason: Nausea And Vomiting Sodium Chloride (Sodium Chloride 0.9% 10 Ml Flush Syringe) 10 ml IV BID [facility] Last Admin: 12/25/21 10:32 Dose: 10 ml Sodium Chloride (Sodium Chloride 0.9% 10 Ml Flush Syringe) 10 ml IV PRN PRN PRN Reason: LINE FLUSH Review of Systems Cardiovascular: orthopnea, edema, syncope, shortness of breath, no chest pain, no palpitations, no rapid/irregular heart beat, no lightheadedness Physical Examination Vital Signs Pulse BP Pulse Ox 88 148/72 99 12/24/21 17:43 12/24/21 17:43 12/24/21 17:43 General appearance: no acute distress HEENT: Positive: PERRL Neck: Positive: neck supple Cardiac: Positive: irregularly irregular Neuro: Positive: Grossly Intact Abdomen: Positive: Soft Male genitourinary: Positive: deferred Skin: Positive: Clear Extremities: Present: +2 Edema, +3 Edema Results 12/25/21 06:47 12/25/21 06:47 Cardiac Enzymes 12/24/21 Range/Units 21:01 AST 21 (5-40) units/L Coagulation 12/24/21 Range/Units 21:53 PT 17.4 H (12.2-14.9) Sec. INR 1.27 H (0.87-1.13) CBC 12/24/21 12/25/21 Range/Units 21:01 06:47 WBC 9.1 6.4 (4.5-11.0) K/mm3 RBC 4.86 4.63 (3.65-5.03) M/mm3 Hgb 13.9 13.3 (11.8-15.2) gm/dl Hct 44.0 41.7 (35.5-45.6) % Plt Count 205 205 (140-440) K/mm3 Lymph # (Auto) 1.1 L 1.2 (1.2-5.4) K/mm3 [place] # (Auto) 0.7 0.7 (0.0-0.8) K/mm3 Eos # (Auto) 0.1 0.2 (0.0-0.4) K/mm3 Baso # (Auto) 0.1 0.1 (0.0-0.1) K/mm3 Comprehensive Metabolic Panel 12/24/21 12/25/21 Range/Units 21:01 06:47 Sodium 134 L 136 L (137-145) mmol/L Potassium 4.8 4.9 (3.6-5.0) mmol/L Chloride 93.6 L 95.1 L (98-107) mmol/L Carbon Dioxide 23 25 (22-30) mmol/L BUN 43 H 48 H (9-20) mg/dL Creatinine 2.6 H 2.3 H (0.8-1.3) mg/dL Glucose 158 H 107 H (75-100) mg/dL Calcium 8.3 L 8.5 (8.4-10.2) mg/dL AST 21 (5-40) units/L ALT 33 (7-56) units/L Alkaline Phosphatase 224 H (35-129) units/L Total Protein 6.3 (6.3-8.2) g/dL Albumin 3.9 (3.9-5) g/dL EKG interpretations - Telemetry EKG Rhythm: Atrial Fibrillation (With well-controlled ventricular response, no acute ischemic changes) Assessment and Plan 61-year-old man with longstanding, dilated nonischemic cardiomyopathy and chronic atrial fibrillation. He presents with symptoms of acute exacerbation of chronic systolic heart failure, partially due to noncompliant with his medical therapy including his home diuretic therapy. In addition to resumption of oral guideline directed medical therapy, we will treat him with intravenous diuretics and a course of intravenous milrinone.
--- NOTE | 2021-12-25 11:21 | Progress Note ---
Assessment and Plan Assessment and plan: #Acute on chronic systolic heart failure #Syncope - Continue CHF exacerbation protocol: Telemetry, Strict I/O, monitor urine output every shift, daily weights, afterload reduction, low-sodium diet, and fluid restriction of approximately 1.5 mL/day, IV Lasix 40 mg daily - Supplemental oxygen: None - ProBNP on admission: 1910 - Cardiology consulted; pending recs - Pending TTE to evaluate cardiac function. Chest x-ray unremarkable. Negative troponin x1. - Continue to monitor #ANA LAURA on CKD stage III #Possible cardiorenal syndrome Creatinine 2.6 (baseline 1.0 as of October 2021) Renally dose medications and avoid nephrotoxic drugs. Holding home losartan in the setting of ANA LAURA. Continue to trend with daily BMP. Nephrology consulted; pending recs #Hyperlipidemia #Hypertension - home medications: Atorvastatin 40 mg daily, metoprolol succinate 50 mg daily, losartan 25 mg daily - current medications: Atorvastatin 40 mg daily, metoprolol succinate 50 mg daily - SBP goal <160 and DBP goal <90 while inpatient - continue to monitor #Elevated transaminases #Hyperbilirubinemia Total bilirubin 1.3, alkaline phosphatase 224 Ordering right upper quadrant ultrasound to evaluate for possible obstruction #Hypothyroidism TSH 8.07 Pending free T4. Starting levothyroxine 150 mcg tomorrow a.m. #Chronic atrial fibrillation Continue home metoprolol succinate 50 mg daily and Eliquis 5 mg every 12 hours #Tobacco dependence #Tobacco/Smoking cessation counseling - Counseled patient about the importance of smoking cessation and the possible sequelae as a result of continued tobacco consumption. The patient expresses understanding. -Time: +15 mins #Advanced care planning -Disease education conducted, care plan discussed, diagnoses discussed, prognosis discussed, and patient acknowledges understanding with care plan -Time: +30 min Disposition Plan: Continue medical management Total Time Spent with Patient (Minutes): 45 minutes History Interval history: No acute events overnight. Hospitalist Physical - Constitutional Vitals: Temp Pulse Resp BP Pulse Ox 98.4 F 60 18 117/93 98 12/25/21 07:21 12/25/21 08:39 12/25/21 08:39 12/25/21 07:21 12/25/21 05:11 General appearance: Present: no acute distress, well-nourished - EENT Eyes: Present: PERRL, EOM intact ENT: hearing intact, clear oral mucosa - Neck Neck: Present: supple, normal ROM - Respiratory Respiratory effort: normal Respiratory: bilateral: CTA - Cardiovascular Rhythm: regular Heart Sounds: Present: S1 & S2 - Extremities Extremities: no ischemia, pulses intact, pulses symmetrical, normal temperature, normal color, Full ROM Extremity abnormal: edema (1+ pitting edema bilateral lower extremities) Peripheral Pulses: within normal limits - Abdominal General gastrointestinal: soft, non-tender, non-distended, normal bowel sounds - Integumentary Integumentary: Present: clear, warm, dry - Psychiatric Psychiatric: appropriate mood/affect, intact judgment & insight, memory intact, cooperative - Neurologic Neurologic: CNII-XII intact, moves all extremities - Allied Health Allied health notes reviewed: nursing HEART Score - HEART Score EKG: Non-specific Age: 45-65 Risk factors: > 3 risk factors or hx of atherosclerotic disease Troponin: Troponin T < 0.010 ng/mL (0.00-0.029) 12/24/21 21:01 Troponin: < normal limit - Critical Actions Critical Actions: 4-6 pts:12-16.6% risk of adverse cardiac event. Should be admitted Results - Labs CBC & Chem 7: 12/25/21 06:47 12/25/21 06:47 Labs: Laboratory Last Values WBC 6.4 K/mm3 (4.5-11.0) 12/25/21 06:47 RBC 4.63 M/mm3 (3.65-5.03) 12/25/21 06:47 Hgb 13.3 gm/dl (11.8-15.2) 12/25/21 06:47 Hct 41.7 % (35.5-45.6) 12/25/21 06:47 MCV 90 fl (84-94) 12/25/21 06:47 MCH 29 pg (28-32) 12/25/21 06:47 MCHC 32 % (32-34) 12/25/21 06:47 RDW 17.5 % (13.2-15.2) H 12/25/21 06:47 Plt Count 205 K/mm3 (140-440) 12/25/21 06:47 Lymph % (Auto) 19.6 % (13.4-35.0) 12/25/21 06:47 [place] % (Auto) 10.2 % (0.0-7.3) H 12/25/21 06:47 Eos % (Auto) 2.6 % (0.0-4.3) 12/25/21 06:47 Baso % (Auto) 1.0 % (0.0-1.8) 12/25/21 06:47 Lymph # (Auto) 1.2 K/mm3 (1.2-5.4) 12/25/21 06:47 [place] # (Auto) 0.7 K/mm3 (0.0-0.8) 12/25/21 06:47 Eos # (Auto) 0.2 K/mm3 (0.0-0.4) 12/25/21 06:47 Baso # (Auto) 0.1 K/mm3 (0.0-0.1) 12/25/21 06:47 Seg Neutrophils % 66.6 % (40.0-70.0) 12/25/21 06:47 Seg Neutrophils # 4.2 K/mm3 (1.8-7.7) 12/25/21 06:47 PT 17.4 Sec. (12.2-14.9) H 12/24/21 21:53 INR 1.27 (0.87-1.13) H 12/24/21 21:53 Sodium 136 mmol/L (137-145) L 12/25/21 06:47 Potassium 4.9 mmol/L (3.6-5.0) 12/25/21 06:47 Chloride 95.1 mmol/L (98-107) L 12/25/21 06:47 Carbon Dioxide 25 mmol/L (22-30) 12/25/21 06:47 Anion Gap 21 mmol/L 12/25/21 06:47 BUN 48 mg/dL (9-20) H 12/25/21 06:47 Creatinine 2.3 mg/dL (0.8-1.3) H 12/25/21 06:47 Estimated GFR 35 ml/min 12/25/21 06:47 BUN/Creatinine Ratio 21 % 12/25/21 06:47 Glucose 107 mg/dL (75-100) H 12/25/21 06:47 Calcium 8.5 mg/dL (8.4-10.2) 12/25/21 06:47 Magnesium 1.90 mg/dL (1.7-2.3) 12/24/21 21:53 Total Bilirubin 1.30 mg/dL (0.1-1.2) H 12/24/21 21:01 AST 21 units/L (5-40) 12/24/21 21:01 ALT 33 units/L (7-56) 12/24/21 21:01 Alkaline Phosphatase 224 units/L (35-129) H 12/24/21 21:01 Troponin T < 0.010 ng/mL (0.00-0.029) 12/24/21 21:01 NT-Pro-B Natriuret Pep 1911 pg/mL (0-900) H 12/24/21 21:01 Total Protein 6.3 g/dL (6.3-8.2) 12/24/21 21:01 Albumin 3.9 g/dL (3.9-5) 12/24/21 21:01 Albumin/Globulin Ratio 1.6 % 12/24/21 21:01 TSH 8.070 mlU/mL (0.270-4.200) H 12/24/21 21:53 [place]/IV: Voiding Method Urinal Active Medications - Current Medications Current Medications: Generic Name Dose Route Start Last Admin Trade Name Freq PRN Reason Stop Dose Admin Acetaminophen 650 mg 12/24/21 22:05 Acetaminophen 325 Mg Tab PO Q4H PRN Pain MILD(1-3)/Fever >100.5/VORA Albuterol 2.5 mg 12/24/21 22:05 Albuterol 2.5 Mg/3 Ml Nebu IH Q3HRT PRN Shortness Of Breath Albuterol/Ipratropium 1 ampul 12/25/21 02:00 12/25/21 08:39 Ipratropium/Albuterol Sulfate 3 Ml Ampul.Neb IH 1 ampul Q6HRT JENNA Administration Aspirin 81 mg 12/25/21 10:00 12/25/21 10:31 Aspirin 81 Mg Tab Chew PO 81 mg QDAY JENNA Administration Famotidine 10 mg 12/25/21 10:00 12/25/21 10:32 Famotidine 10 Mg Tab PO 10 mg BID JENNA Administration Furosemide 40 mg 12/25/21 10:00 12/25/21 10:32 Furosemide 40 Mg/4 Ml Inj IV 40 mg QDAY JENNA Administration Heparin Sodium (Porcine) 5,000 unit 12/25/21 10:00 12/25/21 10:31 Heparin 5,000 Unit/1 Ml Vial SUB-Q 5,000 unit Q12HR JENNA Administration Hydromorphone HCl 0.5 mg 12/24/21 22:05 Hydromorphone 1 Mg/1 Ml Inj IV Q3H PRN Pain , Severe (7-10) Levothyroxine Sodium 150 mcg 12/26/21 06:00 Levothyroxine 150 Mcg Tab PO DAILY@0600 JENNA Morphine Sulfate 2 mg 12/24/21 22:05 Morphine 2 Mg/1 Ml Inj IV Q4H PRN Pain, Moderate (4-6) Nitroglycerin 0.4 mg 12/24/21 22:05 Nitroglycerin 0.4 Mg Tab Subl SL .Q5MIN PRN Chest Pain Ondansetron HCl 4 mg 12/24/21 22:05 Ondansetron 4 Mg/2 Ml Inj IV Q8H PRN Nausea And Vomiting Sodium Chloride 10 ml 12/25/21 10:00 12/25/21 10:32 Sodium Chloride 0.9% 10 Ml Flush Syringe IV 10 ml BID JENNA Administration Sodium Chloride 10 ml 12/24/21 22:05 Sodium Chloride 0.9% 10 Ml Flush Syringe IV PRN PRN LINE FLUSH
--- NOTE | 2021-12-25 11:23 | Electrocardiograph Report ---
[facility] Test Date: 2021-12-24 Test Time: 21:40:30 Pat Name: GIO RODRIGUEZ Department: [address] [place] [address] Room: A452 1 Gender: M Certified Coding Specialist: SARAH : [id number] Requested By: CARMEL GROSSMAN Order Number: [id number] Reading MD: Asim Ag Measurements Intervals [place] Rate: 81 P: [place]: QRS: 10 QRSD: 75 T: QT: 374 QTc: 435 Interpretive Statements Atrial fibrillation Paired ventricular premature complexes Nonspecific T abnormalities, lateral leads Compared to ECG 12/13/2021 23:25:46 Ventricular premature complex(es) now present T-wave abnormality still present Electronically Signed On 12-25-2021 11:23:22 EDT by Asim Ag
--- NOTE | 2021-12-25 16:32 | Event Note ---
Date: 12/25/21 Patient was just seen by Dr Newberry, nephrology, for ANA LAURA/CKD in setting of volume overload, ~ one week ago. Similar issues at this time. Have contacted Dr Newberry and made him aware. Will send consult to him and he will follow up with patient. Thank you.
[2021-12-25] MEDS: MILRINONE-D5W 20 MG/100 ML 20 MG/100 ML BAG IV SCH (19:25)
[2021-12-26] MEDS: IPRATROPIUM/ALBUTEROL SULFATE 3 ML AMPUL.NEB IH SCH ×4 (02:11→20:46)
[2021-12-26] MEDS: LEVOTHYROXINE 150 MCG TAB PO SCH (06:38)
[2021-12-26] MEDS: MILRINONE-D5W 20 MG/100 ML 20 MG/100 ML BAG IV SCH ×2 (06:39→21:01)
--- NOTE | 2021-12-26 07:13 | Progress Note ---
Assessment and Plan Assessment and plan: #Acute on chronic systolic heart failure #nonischemic dialated cardiomyopathy #Syncope - Continue CHF exacerbation protocol: Telemetry, Strict I/O, monitor urine output every shift, daily weights, afterload reduction, low-sodium diet, and fluid restriction of approximately 1.5 mL/day, IV Lasix 40 mg daily - losartan held due to ANA LAURA - Supplemental oxygen: None - ProBNP on admission: 1910 - Cardiology consulted; will continue milrinone drip for 72hrs (last day 12/28) - Echocardiogram last admission revealed: EF 15-20% - Chest x-ray unremarkable. Negative troponin x1. #ANA LAURA on CKD stage III-stable #Possible cardiorenal syndrome Creatinine 2.3 (baseline 1.0 as of October 2021) Renally dose medications and avoid nephrotoxic drugs. Holding home losartan in the setting of ANA LAURA. Nephrology consulted; assistance appreciated #Hyperlipidemia #Hypertension - home medications: Atorvastatin 40 mg daily, metoprolol succinate 50 mg daily, losartan 25 mg daily - current medications: Atorvastatin 40 mg daily, metoprolol succinate 50 mg daily - SBP goal <160 and DBP goal <90 while inpatient - continue to monitor #Elevated transaminases #Hyperbilirubinemia-stable - will order CMP for tomorrow - if upper quadrant pain + increasing bilirubin, will order abdominal US - likely secondary to CHF exacerbation #Hypothyroidism TSH 8.07, free T4 WNL - continue synthroid - will require endocrinology follow up outpatient #Atrial fibrillation with RVR - continue AC with eliquis 5mg q12h - given a dose of digoxin, amiodarone - will continue with amiodarone 200mg BID - home metoprolol dose not restarted, will defer to Cardiology - continue telemetry #Tobacco dependence #Tobacco/Smoking cessation counseling - Counseled patient about the importance of smoking cessation and the possible sequelae as a result of continued tobacco consumption. The patient expresses understanding. -Time: +15 mins #Advanced care planning -Disease education conducted, care plan discussed, diagnoses discussed, progno sis discussed, and patient acknowledges understanding with care plan -Time: +30 min History Interval history: No acute events overnight. Patient denies chest pain, palpitations and shortness of breath. Patient found to be in A. fib with RVR. He received d igoxin and loaded with amiodarone. Cardiology made aware. Hospitalist Physical - Physical exam Narrative exam: GENERAL: Well-developed well-nourished. In no acute distress. HEENT: Poor dentition NECK: Supple. CHEST/LUNGS: CTAB on room air HEART/CARDIOVASCULAR: Irregularly irregular rhythm. No murmur, rubs or gallops appreciated. ABDOMEN: +BS. NT/ND. SKIN: No rashes noted. NEURO: No focal motor deficit. Follows all commands. MUSCULOSKELETAL: No joint effusion EXTREMITIES: No cyanosis, clubbing. 1+edema. PSYCH: Cooperative. - Constitutional Vitals: Temp Pulse Resp BP Pulse Ox 98.6 F 58 L 16 96/48 98 12/26/21 07:09 12/26/21 07:09 12/26/21 07:09 12/26/21 07:09 12/26/21 07:09 General appearance: Present: no acute distress HEART Score - HEART Score EKG: Non-specific Age: 45-65 Risk factors: > 3 risk factors or hx of atherosclerotic disease Troponin: Troponin T < 0.010 ng/mL (0.00-0.029) 12/24/21 21:01 Troponin: < normal limit - Critical Actions Critical Actions: 4-6 pts:12-16.6% risk of adverse cardiac event. Should be admitted Results - Labs CBC & Chem 7: 12/26/21 13:17 12/25/21 06:47 Labs: Laboratory Last Values WBC 6.4 K/mm3 (4.5-11.0) 12/25/21 06:47 RBC 4.63 M/mm3 (3.65-5.03) 12/25/21 06:47 Hgb 13.3 gm/dl (11.8-15.2) 12/25/21 06:47 Hct 41.7 % (35.5-45.6) 12/25/21 06:47 MCV 90 fl (84-94) 12/25/21 06:47 MCH 29 pg (28-32) 12/25/21 06:47 MCHC 32 % (32-34) 12/25/21 06:47 RDW 17.5 % (13.2-15.2) H 12/25/21 06:47 Plt Count 205 K/mm3 (140-440) 12/25/21 06:47 Lymph % (Auto) 19.6 % (13.4-35.0) 12/25/21 06:47 [place] % (Auto) 10.2 % (0.0-7.3) H 12/25/21 06:47 Eos % (Auto) 2.6 % (0.0-4.3) 12/25/21 06:47 Baso % (Auto) 1.0 % (0.0-1.8) 12/25/21 06:47 Lymph # (Auto) 1.2 K/mm3 (1.2-5.4) 12/25/21 06:47 [place] # (Auto) 0.7 K/mm3 (0.0-0.8) 12/25/21 06:47 Eos # (Auto) 0.2 K/mm3 (0.0-0.4) 12/25/21 06:47 Baso # (Auto) 0.1 K/mm3 (0.0-0.1) 12/25/21 06:47 Seg Neutrophils % 66.6 % (40.0-70.0) 12/25/21 06:47 Seg Neutrophils # 4.2 K/mm3 (1.8-7.7) 12/25/21 06:47 PT 17.4 Sec. (12.2-14.9) H 12/24/21 21:53 INR 1.27 (0.87-1.13) H 12/24/21 21:53 Sodium 136 mmol/L (137-145) L 12/25/21 06:47 Potassium 4.9 mmol/L (3.6-5.0) 12/25/21 06:47 Chloride 95.1 mmol/L (98-107) L 12/25/21 06:47 Carbon Dioxide 25 mmol/L (22-30) 12/25/21 06:47 Anion Gap 21 mmol/L 12/25/21 06:47 BUN 48 mg/dL (9-20) H 12/25/21 06:47 Creatinine 2.3 mg/dL (0.8-1.3) H 12/25/21 06:47 Estimated GFR 35 ml/min 12/25/21 06:47 BUN/Creatinine Ratio 21 % 12/25/21 06:47 Glucose 107 mg/dL (75-100) H 12/25/21 06:47 Calcium 8.5 mg/dL (8.4-10.2) 12/25/21 06:47 Magnesium 1.90 mg/dL (1.7-2.3) 12/24/21 21:53 Total Bilirubin 1.30 mg/dL (0.1-1.2) H 12/24/21 21:01 AST 21 units/L (5-40) 12/24/21 21:01 ALT 33 units/L (7-56) 12/24/21 21:01 Alkaline Phosphatase 224 units/L (35-129) H 12/24/21 21:01 Troponin T < 0.010 ng/mL (0.00-0.029) 12/24/21 21:01 NT-Pro-B Natriuret Pep 1911 pg/mL (0-900) H 12/24/21 21:01 Total Protein 6.3 g/dL (6.3-8.2) 12/24/21 21:01 Albumin 3.9 g/dL (3.9-5) 12/24/21 21:01 Albumin/Globulin Ratio 1.6 % 12/24/21 21:01 TSH 8.070 mlU/mL (0.270-4.200) H 12/24/21 21:53 Free T4 1.24 ng/dL (0.76-1.46) 12/25/21 06:47 Pelayo/IV: Voiding Method Urinal Active Medications - Current Medications Current Medications: Generic Name Dose Route Start Last Admin Trade Name Freq PRN Reason Stop Dose Admin Acetaminophen 650 mg 12/24/21 22:05 Acetaminophen 325 Mg Tab PO Q4H PRN Pain MILD(1-3)/Fever >100.5/VORA Albuterol 2.5 mg 12/24/21 22:05 Albuterol 2.5 Mg/3 Ml Nebu IH Q3HRT PRN Shortness Of Breath Albuterol/Ipratropium 1 ampul 12/25/21 02:00 12/26/21 02:11 Ipratropium/Albuterol Sulfate 3 Ml Ampul.Neb IH Not Given Q6HRT JENNA Aspirin 81 mg 12/25/21 10:00 12/25/21 10:31 Aspirin 81 Mg Tab Chew PO 81 mg QDAY JENNA Administration Famotidine 10 mg 12/25/21 10:00 12/25/21 21:00 Famotidine 10 Mg Tab PO 10 mg BID JENNA Administration Furosemide 40 mg 12/25/21 10:00 12/25/21 10:32 Furosemide 40 Mg/4 Ml Inj IV 40 mg QDAY JENNA Administration Heparin Sodium (Porcine) 5,000 unit 12/25/21 10:00 12/25/21 21:00 Heparin 5,000 Unit/1 Ml Vial SUB-Q 5,000 unit Q12HR JENNA Administration Hydromorphone HCl 0.5 mg 12/24/21 22:05 Hydromorphone 1 Mg/1 Ml Inj IV Q3H PRN Pain , Severe (7-10) Milrinone Lactate/Dextrose 20 mg in 100 mls @ 6.803 mls/hr 12/25/21 12:00 12/26/21 06:39 Milrinone-D5w 20 Mg/100 Ml IV 12/28/21 11:59 0.25 mcg/kg/min DIRECT JENNA 6.803 mls/hr Administration Protocol 0.25 MCG/KG/MIN Levothyroxine Sodium 150 mcg 12/26/21 06:00 12/26/21 06:38 Levothyroxine 150 Mcg Tab PO 150 mcg DAILY@0600 JENNA Administration Morphine Sulfate 2 mg 12/24/21 22:05 Morphine 2 Mg/1 Ml Inj IV Q4H PRN Pain, Moderate (4-6) Nitroglycerin 0.4 mg 12/24/21 22:05 Nitroglycerin 0.4 Mg Tab Subl SL .Q5MIN PRN Chest Pain Ondansetron HCl 4 mg 12/24/21 22:05 Ondansetron 4 Mg/2 Ml Inj IV Q8H PRN Nausea And Vomiting Sodium Chloride 10 ml 12/25/21 10:00 12/25/21 21:03 Sodium Chloride 0.9% 10 Ml Flush Syringe IV 10 ml BID JENNA Administration Sodium Chloride 10 ml 12/24/21 22:05 Sodium Chloride 0.9% 10 Ml Flush Syringe IV PRN PRN LINE FLUSH
--- NOTE | 2021-12-26 08:07 | Consultation ---
History of Present Illness - Reason for Consult Consult date: 12/26/21 acute renal failure - History of Present Illness The patient is a 61 YO male with known history of HTN, HLD, Nonischemic car diomyopathy with EF 15 to 2% and Atrial fibrillation who presented to [facility] ED 12/24/21 with complaining of bilateral lower extremity swelling. He also reports central, nonradiating, nonexertional chest pain which is constant, and does not radiate anywhere, and reports an episode of unprovoked loss of consciousness. He endorses compliance with his Eliquis. He was recently hospitalized with similar presentation. Labs notable for BNP 1911, BUN 43 and Creatinine 2.6. Chest X-ray shows no acute finding. Nephrology consulted for further evaluation and treatment of ANA LAURA. Past History Past Medical History: atrial fib, heart failure Past Surgical History: No surgical history Social history: smoking Family history: hypertension Medications and Allergies Allergies Allergy/AdvReac Type Severity Reaction Status Date / Time cantaloupe Allergy Severe Anaphylaxis Verified 12/25/21 14:51 melon Allergy Severe Anaphylaxis Verified 12/25/21 14:52 mushroom Allergy Severe Anaphylaxis Verified 12/25/21 14:51 watermelon Allergy Severe Anaphylaxis Verified 12/25/21 14:51 pollen extracts Allergy Unknown Verified 12/25/21 14:52 Home Medications Medication Instructions Recorded Confirmed Last Taken Type Apixaban [Eliquis] 5 mg PO Q12HR 30 Days #60 tablet 12/18/21 12/26/21 12/23/21 Rx Furosemide [Lasix] 40 mg PO QDAC 30 Days #30 tab 12/18/21 12/26/21 1 Week Ago Rx ~12/19/21 Losartan [Cozaar] 25 mg PO QDAY 30 Days #30 tablet 12/18/21 12/26/21 12/23/21 Rx Metoprolol Xl [Metoprolol 100 mg PO QDAY 30 Days #30 tab 12/18/21 12/26/21 12/23/21 Rx SUCCINATE ER TAB] Pantoprazole [Protonix TAB] 40 mg PO QDAC 30 Days #30 tablet 12/18/21 12/26/21 12/23/21 Rx Spironolactone [Aldactone] 25 mg PO QDAY 30 Days #30 tablet 12/18/21 12/26/21 Unknown Rx AtorvaSTATin [Lipitor] 20 mg PO QHS PRN 12/26/21 12/26/21 Unknown History Sacubitril/Valsartan [Entresto 24 1 each PO QDAY PRN 12/26/21 12/26/21 Unknown History - 26 mg] Active Meds: Active Medications Acetaminophen (Acetaminophen 325 Mg Tab) 650 mg PO Q4H PRN PRN Reason: Pain MILD(1-3)/Fever >100.5/VORA Albuterol (Albuterol 2.5 Mg/3 Ml Nebu) 2.5 mg IH Q3HRT PRN PRN Reason: Shortness Of Breath Albuterol/Ipratropium (Ipratropium/Albuterol Sulfate 3 Ml Ampul.Neb) 1 ampul IH Q6HRT [facility] Last Admin: 12/26/21 02:11 Dose: Not Given Aspirin (Aspirin 81 Mg Tab Chew) 81 mg PO QDAY [facility] Last Admin: 12/25/21 10:31 Dose: 81 mg Famotidine (Famotidine 10 Mg Tab) 10 mg PO BID [facility] Last Admin: 12/25/21 21:00 Dose: 10 mg Furosemide (Furosemide 40 Mg/4 Ml Inj) 40 mg IV QDAY [facility] Last Admin: 12/25/21 10:32 Dose: 40 mg Heparin Sodium (Porcine) (Heparin 5,000 Unit/1 Ml Vial) 5,000 unit SUB-Q Q12HR [facility] Last Admin: 12/25/21 21:00 Dose: 5,000 unit Hydromorphone HCl (Hydromorphone 1 Mg/1 Ml Inj) 0.5 mg IV Q3H PRN PRN Reason: Pain , Severe (7-10) Milrinone Lactate/Dextrose (Milrinone-D5w 20 Mg/100 Ml) 20 mg in 100 mls @ 6.803 mls/hr IV DIRECT JENNA; Protocol Stop: 12/28/21 11:59 Last Admin: 12/26/21 06:39 Dose: 0.25 mcg/kg/min, 6.803 mls/hr Levothyroxine Sodium (Levothyroxine 150 Mcg Tab) 150 mcg PO DAILY@0600 [facility] Last Admin: 12/26/21 06:38 Dose: 150 mcg Morphine Sulfate (Morphine 2 Mg/1 Ml Inj) 2 mg IV Q4H PRN PRN Reason: Pain, Moderate (4-6) Nitroglycerin (Nitroglycerin 0.4 Mg Tab Subl) 0.4 mg SL .Q5MIN PRN PRN Reason: Chest Pain Ondansetron HCl (Ondansetron 4 Mg/2 Ml Inj) 4 mg IV Q8H PRN PRN Reason: Nausea And Vomiting Sodium Chloride (Sodium Chloride 0.9% 10 Ml Flush Syringe) 10 ml IV BID JENNA Last Admin: 12/25/21 21:03 Dose: 10 ml Sodium Chloride (Sodium Chloride 0.9% 10 Ml Flush Syringe) 10 ml IV PRN PRN PRN Reason: LINE FLUSH Review of Systems All systems: negative Exam - Vital Signs Vital signs: Vital Signs Pulse BP Pulse Ox 88 148/72 99 12/24/21 17:43 12/24/21 17:43 12/24/21 17:43 Results - Lab Results 12/26/21 13:17 12/27/21 03:17 Most recent lab results Calcium 8.5 mg/dL (8.4-10.2) 12/25/21 06:47 Magnesium 1.90 mg/dL (1.7-2.3) 12/24/21 21:53 Assessment and Plan 1. Acute kidney injury: Vasomotor ANA LAURA superimposed on CKD in the setting of decompensated CHF and hypotension. ATN. Monitor renal function. Creatinine level is improving. Avoid nephrotoxic agents. Meds dosage based on GFR. 2. FEN: Volume overload, diuretics as BP allows, monitor. Monitor lytes and volume status. 3. Decompensated HFrEF, POA: EF 10-15%. Beta blockers. Milrinone. Followed by Cards. Monitor. 4. A.fib: Amio. Rate controlled. Continue to monitor. 5. Hypotension: Monitor BP. Subjective: Patient was seen and examined at the chairside. Examination: General appearance: well-developed, appears stated age, no distress HEENT: atraumatic, NARA Neck: trachea midline Respiratory: ctab Heart: S1S2, irregular, no murmur Abdomen: soft, bowel sounds heard, NT Integumentary: discoloration / rash over both groin area Neurologic: AO, able to move extremities Ext: 1+ LE edema
[2021-12-26] MEDS: FAMOTIDINE 10 MG TAB PO SCH ×2 (09:56→21:11)
[2021-12-26] MEDS: HEPARIN 5,000 UNIT/1 ML VIAL SUB-Q SCH ×2 (09:56→21:11)
[2021-12-26] MEDS: ASPIRIN 81 MG TAB CHEW PO SCH (09:56)
[2021-12-26] MEDS: FUROSEMIDE 40 MG/4 ML INJ IV SCH (09:56)
--- NOTE | 2021-12-26 10:47 | Progress Note ---
Assessment and Plan 61-year-old man with longstanding, dilated nonischemic cardiomyopathy and chronic atrial fibrillation. He presents with symptoms of acute exacerbation of chronic systolic heart failure, partially due to noncompliant with his medical therapy including his home diuretic therapy. In addition to resumption of oral guideline directed medical therapy, we will treat him with intravenous diuretics and a course of intravenous milrinone. Additional AV shawn blockers for atrial fibrillation rate control. Unfortunately due to his low blood pressures, his AV shawn blocking drugs were held, at this time I will use digitalis and amiodarone. Subjective Date of service: 12/26/21 Principal diagnosis: Systolic heart failure Interval history: Patient is comfortable, no acute distress. On desk monitor today, there is an increase in ventricular rate of his atrial fibrillation. Objective Vital Signs Temp Pulse Pulse Resp Resp BP Pulse Ox 12/26/21 09:29 68 18 12/26/21 09:27 100 12/26/21 08:50 98 12/26/21 07:09 98.6 F 58 L 16 96/48 98 12/26/21 07:00 98 12/26/21 05:01 96.6 F L 56 L 16 107/83 93 12/25/21 23:57 97.0 F L 65 16 113/87 95 12/25/21 22:36 60 15 12/25/21 20:04 98.0 F 62 16 141/95 97 12/25/21 19:41 98 12/25/21 15:35 97.9 F 48 L 18 111/91 100 12/25/21 14:39 58 L 18 12/25/21 14:00 97 12/25/21 11:34 97.9 F 51 L 18 103/79 99 - Physical Examination General: No Apparent Distress HEENT: Positive: PERRL Neck: Positive: neck supple Cardiac: Positive: irregularly irregular Lungs: Positive: Decreased Breath Sounds Neuro: Positive: Grossly Intact Abdomen: Positive: Soft Skin: Positive: Clear Extremities: Present: +2 Edema, +3 Edema
[2021-12-26] MEDS ORDERED: guaiFENesin 100 MG/5 ML ORAL LIQD PO PRN (11:00)
[2021-12-26] MEDS: AMIODARONE 200 MG TAB PO SCH ×2 (11:25→21:11)
[2021-12-26] MEDS: DIGOXIN 0.5 MG/2 ML INJ IV SCH ×2 (11:25→17:04)
[2021-12-26] MEDS ORDERED: AMIODARONE 300 MG in DEXTROSE 5% IN WATER 100 ML IV NR (11:30)
[2021-12-26 13:48] LABS: Basophils # (Auto) 0.1 K/mm3 (0.0-0.1); Basophils % (Auto) 0.7 % (0.0-1.8); Eosinophils # (Auto) 0.2 K/mm3 (0.0-0.4); Eosinophils % (Auto) 1.8 % (0.0-4.3); Hematocrit 40.4 % (35.5-45.6); Hemoglobin 12.8 gm/dl (11.8-15.2); Lymphocytes # (Auto) 0.7 K/mm3 (1.2-5.4); Lymphocytes % (Auto) 7.6 % (13.4-35.0); Mean Corpuscular HGB Conc 32 % (32-34); Mean Corpuscular Volume 91 fl (84-94); Monocytes # (Auto) 0.9 K/mm3 (0.0-0.8); Monocytes % (Auto) 9.9 % (0.0-7.3); Platelet Count 197 K/mm3 (140-440); Red Blood Count 4.45 M/mm3 (3.65-5.03); Red Cell Distribution Width 17.6 % (13.2-15.2)
[2021-12-26 15:20] LABS: Alanine Aminotransferase 27 units/L (7-56); Albumin 3.7 g/dL (3.9-5); BUN/Creatinine Ratio 30; Blood Urea Nitrogen 42 mg/dL (9-20); Calcium 9.2 mg/dL (8.4-10.2); Hemolysis Index 0
[2021-12-27] MEDS: IPRATROPIUM/ALBUTEROL SULFATE 3 ML AMPUL.NEB IH SCH ×4 (03:06→20:30)
[2021-12-27 05:22] LABS: BUN/Creatinine Ratio 26; Blood Urea Nitrogen 31 mg/dL (9-20); Hemolysis Index 0
[2021-12-27] MEDS: LEVOTHYROXINE 150 MCG TAB PO SCH (05:24)
--- NOTE | 2021-12-27 07:57 | Progress Note ---
Assessment and Plan Assessment and plan: #Acute on chronic systolic heart failure #nonischemic dialated cardiomyopathy #Syncope - Continue CHF exacerbation protocol: Telemetry, Strict I/O, monitor urine output every shift, daily weights, afterload reduction, low-sodium diet, and fluid restriction of approximately 1.5 mL/day, IV Lasix 40 mg daily - losartan held due to ANA LAURA - Supplemental oxygen: None - ProBNP on admission: 1910 - Cardiology consulted; will continue milrinone drip for 72hrs (last day 12/28) - Echocardiogram last admission revealed: EF 15-20% - Chest x-ray unremarkable. Negative troponin x1. #ANA LAURA on CKD stage III-improving #Possible cardiorenal syndrome Creatinine improved to 1.3 (baseline 1.0 as of October 2021) Renally dose medications and avoid nephrotoxic drugs. Holding home losartan in the setting of ANA LAURA. Nephrology consulted; assistance appreciated #Hyperlipidemia #Hypertension - home medications: Atorvastatin 40 mg daily, metoprolol succinate 50 mg daily, losartan 25 mg daily - current medications: Atorvastatin 40 mg daily, metoprolol succinate 50 mg daily - SBP goal <160 and DBP goal <90 while inpatient - continue to monitor #Elevated transaminases-resolved #Hyperbilirubinemia-resolved - if upper quadrant pain + increasing bilirubin, will order abdominal US - likely secondary to CHF exacerbation/edema #Hypothyroidism TSH 8.07, free T4 WNL - continue synthroid - will require endocrinology follow up outpatient #Atrial fibrillation with RVR - continue AC with eliquis 5mg q12h - given a dose of digoxin - will continue with amiodarone 200mg BID - home metoprolol dose not restarted, will defer to Cardiology - continue telemetry #Tobacco dependence #Tobacco/Smoking cessation counseling - Counseled patient about the importance of smoking cessation and the possible sequelae as a result of continued tobacco consumption. The patient expresses understanding. -Time: +15 mins #Advanced care planning -Disease education conducted, care plan discussed, diagnoses discussed, prognosis discussed, and patient acknowledges understanding with care plan -Time: +30 min History Interval history: No acute events overnight. Patient denies chest pain, palpitations and shortness of breath. Reports feeling much better today. He has also noticed marked improvement in his lower extremity swelling. Hospitalist Physical - Physical exam Narrative exam: GENERAL: Well-developed well-nourished. In no acute distress. HEENT: Poor dentition NECK: Supple. CHEST/LUNGS: CTAB on room air HEART/CARDIOVASCULAR: Irregularly irregular rhythm. No murmur, rubs or gallops appreciated. ABDOMEN: +BS. NT/ND. NEURO: No focal motor deficit. Follows all commands. EXTREMITIES: No cyanosis, clubbing. 1+edema. PSYCH: Cooperative. - Constitutional Vitals: Temp Pulse Resp BP Pulse Ox 98.1 F 46 L 18 129/73 98 12/27/21 07:44 12/27/21 07:44 12/27/21 07:44 12/27/21 07:44 12/27/21 07:44 General appearance: Present: no acute distress HEART Score - HEART Score EKG: Non-specific Age: 45-65 Risk factors: > 3 risk factors or hx of atherosclerotic disease Troponin: Troponin T < 0.010 ng/mL (0.00-0.029) 12/24/21 21:01 Troponin: < normal limit - Critical Actions Critical Actions: 4-6 pts:12-16.6% risk of adverse cardiac event. Should be admitted Results - Labs CBC & Chem 7: 12/26/21 13:17 12/27/21 03:17 Labs: Laboratory Last Values WBC 8.6 K/mm3 (4.5-11.0) 12/26/21 13:17 RBC 4.45 M/mm3 (3.65-5.03) 12/26/21 13:17 Hgb 12.8 gm/dl (11.8-15.2) 12/26/21 13:17 Hct 40.4 % (35.5-45.6) 12/26/21 13:17 MCV 91 fl (84-94) 12/26/21 13:17 MCH 29 pg (28-32) 12/26/21 13:17 MCHC 32 % (32-34) 12/26/21 13:17 RDW 17.6 % (13.2-15.2) H 12/26/21 13:17 Plt Count 197 K/mm3 (140-440) 12/26/21 13:17 Lymph % (Auto) 7.6 % (13.4-35.0) L 12/26/21 13:17 [place] % (Auto) 9.9 % (0.0-7.3) H 12/26/21 13:17 Eos % (Auto) 1.8 % (0.0-4.3) 12/26/21 13:17 Baso % (Auto) 0.7 % (0.0-1.8) 12/26/21 13:17 Lymph # (Auto) 0.7 K/mm3 (1.2-5.4) L 12/26/21 13:17 [place] # (Auto) 0.9 K/mm3 (0.0-0.8) H 12/26/21 13:17 Eos # (Auto) 0.2 K/mm3 (0.0-0.4) 12/26/21 13:17 Baso # (Auto) 0.1 K/mm3 (0.0-0.1) 12/26/21 13:17 Seg Neutrophils % 80.0 % (40.0-70.0) H 12/26/21 13:17 Seg Neutrophils # 6.9 K/mm3 (1.8-7.7) 12/26/21 13:17 PT 17.4 Sec. (12.2-14.9) H 12/24/21 21:53 INR 1.27 (0.87-1.13) H 12/24/21 21:53 Sodium 143 mmol/L (137-145) 12/27/21 03:17 Potassium 4.3 mmol/L (3.6-5.0) 12/27/21 03:17 Chloride 102.9 mmol/L (98-107) 12/27/21 03:17 Carbon Dioxide 26 mmol/L (22-30) 12/27/21 03:17 Anion Gap 18 mmol/L 12/27/21 03:17 BUN 31 mg/dL (9-20) H 12/27/21 03:17 Creatinine 1.2 mg/dL (0.8-1.3) 12/27/21 03:17 Estimated GFR > 60 ml/min 12/27/21 03:17 BUN/Creatinine Ratio 26 % 12/27/21 03:17 Glucose 179 mg/dL (75-100) H 12/27/21 03:17 Calcium 8.0 mg/dL (8.4-10.2) L 12/27/21 03:17 Magnesium 1.90 mg/dL (1.7-2.3) 05/08/22 21:53 Total Bilirubin 1.00 mg/dL (0.1-1.2) 12/26/21 13:17 AST 17 units/L (5-40) 12/26/21 13:17 ALT 27 units/L (7-56) 12/26/21 13:17 Alkaline Phosphatase 217 units/L (35-129) H 12/26/21 13:17 Troponin T < 0.010 ng/mL (0.00-0.029) 12/24/21 21:01 NT-Pro-B Natriuret Pep 1911 pg/mL (0-900) H 12/24/21 21:01 Total Protein 7.1 g/dL (6.3-8.2) 12/26/21 13:17 Albumin 3.7 g/dL (3.9-5) L 12/26/21 13:17 Albumin/Globulin Ratio 1.1 % 12/26/21 13:17 TSH 8.070 mlU/mL (0.270-4.200) H 12/24/21 21:53 Free T4 1.24 ng/dL (0.76-1.46) 12/25/21 06:47 Pelayo/IV: Voiding Method Urinal Active Medications - Current Medications Current Medications: Generic Name Dose Route Start Last Admin Trade Name Freq PRN Reason Stop Dose Admin Acetaminophen 650 mg 12/24/21 22:05 Acetaminophen 325 Mg Tab PO Q4H PRN Pain MILD(1-3)/Fever >100.5/VORA Albuterol 2.5 mg 12/24/21 22:05 Albuterol 2.5 Mg/3 Ml Nebu IH Q3HRT PRN Shortness Of Breath Albuterol/Ipratropium 1 ampul 12/25/21 02:00 12/27/21 03:06 Ipratropium/Albuterol Sulfate 3 Ml Ampul.Neb IH Not Given Q6HRT JENNA Amiodarone HCl 200 mg 12/26/21 11:30 12/26/21 21:11 Amiodarone 200 Mg Tab PO 200 mg BID JENNA Administration Aspirin 81 mg 12/25/21 10:00 12/26/21 09:56 Aspirin 81 Mg Tab Chew PO 81 mg QDAY JENNA Administration Famotidine 10 mg 12/25/21 10:00 12/26/21 21:11 Famotidine 10 Mg Tab PO 10 mg BID JENNA Administration Furosemide 40 mg 12/25/21 10:00 12/26/21 09:56 Furosemide 40 Mg/4 Ml Inj IV 40 mg QDAY JENNA Administration Guaifenesin 200 mg 12/26/21 11:00 Guaifenesin 100 Mg/5 Ml Oral Liqd PO Q4H PRN Cough Heparin Sodium (Porcine) 5,000 unit 12/25/21 10:00 12/26/21 21:11 Heparin 5,000 Unit/1 Ml Vial SUB-Q 5,000 unit Q12HR JENNA Administration Hydromorphone HCl 0.5 mg 12/24/21 22:05 Hydromorphone 1 Mg/1 Ml Inj IV Q3H PRN Pain , Severe (7-10) Milrinone Lactate/Dextrose 20 mg in 100 mls @ 6.803 mls/hr 12/25/21 12:00 12/26/21 21:01 Milrinone-D5w 20 Mg/100 Ml IV 12/28/21 11:59 0.25 mcg/kg/min DIRECT JENNA 6.803 mls/hr Administration Protocol 0.25 MCG/KG/MIN Levothyroxine Sodium 150 mcg 12/26/21 06:00 12/27/21 05:24 Levothyroxine 150 Mcg Tab PO 150 mcg DAILY@0600 [facility] Administration Morphine Sulfate 2 mg 12/24/21 22:05 Morphine 2 Mg/1 Ml Inj IV Q4H PRN Pain, Moderate (4-6) Nitroglycerin 0.4 mg 12/24/21 22:05 Nitroglycerin 0.4 Mg Tab Subl SL .Q5MIN PRN Chest Pain Ondansetron HCl 4 mg 12/24/21 22:05 Ondansetron 4 Mg/2 Ml Inj IV Q8H PRN Nausea And Vomiting Sodium Chloride 10 ml 12/25/21 10:00 12/26/21 21:11 Sodium Chloride 0.9% 10 Ml Flush Syringe IV 10 ml BID JENNA Administration Sodium Chloride 10 ml 12/24/21 22:05 Sodium Chloride 0.9% 10 Ml Flush Syringe IV PRN PRN LINE FLUSH
[2021-12-27] MEDS: FUROSEMIDE 40 MG/4 ML INJ IV SCH (09:17)
[2021-12-27] MEDS: HEPARIN 5,000 UNIT/1 ML VIAL SUB-Q SCH ×2 (09:17→21:43)
[2021-12-27] MEDS: FAMOTIDINE 10 MG TAB PO SCH ×2 (09:17→21:44)
[2021-12-27] MEDS: AMIODARONE 200 MG TAB PO SCH ×2 (09:17→21:44)
[2021-12-27] MEDS: ASPIRIN 81 MG TAB CHEW PO SCH (09:17)
[2021-12-27] MEDS ORDERED: AMIODARONE 150 MG in DEXTROSE 5% IN WATER 100 ML IV ONE (11:00)
[2021-12-27] MEDS: MILRINONE-D5W 20 MG/100 ML 20 MG/100 ML BAG IV SCH (11:01)
--- NOTE | 2021-12-27 11:40 | Progress Note ---
Assessment and Plan 1. Acute kidney injury: Vasomotor ANA LAURA superimposed on CKD in the setting of decompensated CHF and hypotension. ATN. Monitor renal function. Creatinine level is better. Avoid nephrotoxic agents. Meds dosage based on GFR. 2. FEN: Volume overload, diuretics as BP allows, monitor. Monitor lytes and volume status. 3. Decompensated HFrEF, POA: EF 10-15%. Beta blockers. Milrinone. Followed by Cards. Monitor. 4. A.fib: Amio. Digoxin. Continue to monitor. 5. Hypotension: BP is better. Will sign off. Subjective: Patient was seen and examined at the bedside. Examination: General appearance: well-developed, appears stated age, no distress HEENT: atraumatic, NARA Neck: trachea midline Respiratory: ctab Heart: S1S2, irregular, no murmur Abdomen: soft, bowel sounds heard, NT Integumentary: discoloration / rash over both groin area Neurologic: AO, able to move extremities Ext: 1+ LE edema Subjective Date of service: 12/27/21 Principal diagnosis: Systolic heart failure Objective - Vital Signs Vital signs: Vital Signs - 12hr 12/27/21 12/27/21 12/27/21 05:01 07:44 09:42 Temperature 97.9 F 98.1 F Pulse Rate 70 46 L Pulse Rate [ 80 Bilateral Throughout] Respiratory 16 18 Rate Respiratory 18 Rate [Bilateral Throughout] Blood Pressure 128/80 129/73 [Left] O2 Sat by Pulse 97 98 Oximetry 12/27/21 12/27/21 09:44 10:00 Temperature Pulse Rate 160 H Pulse Rate [ Bilateral Throughout] Respiratory Rate Respiratory Rate [Bilateral Throughout] Blood Pressure [Left] O2 Sat by Pulse 99 Oximetry - Lab 12/26/21 13:17 12/27/21 03:17 Most recent lab results Calcium 8.0 mg/dL (8.4-10.2) L 12/27/21 03:17 Magnesium 1.90 mg/dL (1.7-2.3) 12/24/21 21:53 Medications & Allergies - Medications Allergies/Adverse Reactions: Allergies cantaloupe Allergy (Severe, Verified 12/25/21 14:51) Anaphylaxis melon Allergy (Severe, Verified 12/25/21 14:52) Anaphylaxis ALLERGIC TO ALL MELON mushroom Allergy (Severe, Verified 12/25/21 14:51) Anaphylaxis watermelon Allergy (Severe, Verified 12/25/21 14:51) Anaphylaxis pollen extracts Allergy (Verified 12/25/21 14:52) Unknown Home Medications: Home Medications Medication Instructions Recorded Confirmed Last Taken Type Apixaban [Eliquis] 5 mg PO Q12HR 30 Days #60 tablet 12/18/21 12/26/21 12/23/21 Rx Furosemide [Lasix] 40 mg PO QDAC 30 Days #30 tab 12/18/21 12/26/21 1 Week Ago Rx ~12/19/21 Losartan [Cozaar] 25 mg PO QDAY 30 Days #30 tablet 12/18/21 12/26/21 12/23/21 Rx Metoprolol Xl [Metoprolol 100 mg PO QDAY 30 Days #30 tab 12/18/21 12/26/21 12/23/21 Rx SUCCINATE ER TAB] Pantoprazole [Protonix TAB] 40 mg PO QDAC 30 Days #30 tablet 12/18/21 12/26/21 12/23/21 Rx Spironolactone [Aldactone] 25 mg PO QDAY 30 Days #30 tablet 12/18/21 12/26/21 Unknown Rx AtorvaSTATin [Lipitor] 20 mg PO QHS PRN 12/26/21 12/26/21 Unknown History Sacubitril/Valsartan [Entresto 24 1 each PO QDAY PRN 12/26/21 12/26/21 Unknown History - 26 mg] Active Medications: Generic Name Dose Route Start Last Admin Trade Name Freq PRN Reason Stop Dose Admin Acetaminophen 650 mg 12/24/21 22:05 Acetaminophen 325 Mg Tab PO Q4H PRN Pain MILD(1-3)/Fever >100.5/VORA Albuterol 2.5 mg 12/24/21 22:05 Albuterol 2.5 Mg/3 Ml Nebu IH Q3HRT PRN Shortness Of Breath Albuterol/Ipratropium 1 ampul 12/25/21 02:00 12/27/21 09:42 Ipratropium/Albuterol Sulfate 3 Ml Ampul.Neb IH 1 ampul Q6HRT JENNA Administration Amiodarone HCl 200 mg 12/26/21 11:30 12/27/21 09:17 Amiodarone 200 Mg Tab PO 200 mg BID JENNA Administration Aspirin 81 mg 12/25/21 10:00 12/27/21 09:17 Aspirin 81 Mg Tab Chew PO 81 mg QDAY JENNA Administration Famotidine 10 mg 12/25/21 10:00 12/27/21 09:17 Famotidine 10 Mg Tab PO 10 mg BID JENNA Administration Furosemide 40 mg 12/25/21 10:00 12/27/21 09:17 Furosemide 40 Mg/4 Ml Inj IV 40 mg QDAY JENNA Administration Guaifenesin 200 mg 12/26/21 11:00 Guaifenesin 100 Mg/5 Ml Oral Liqd PO Q4H PRN Cough Heparin Sodium (Porcine) 5,000 unit 12/25/21 10:00 12/27/21 09:17 Heparin 5,000 Unit/1 Ml Vial SUB-Q 5,000 unit Q12HR JENNA Administration Hydromorphone HCl 0.5 mg 12/24/21 22:05 Hydromorphone 1 Mg/1 Ml Inj IV Q3H PRN Pain , Severe (7-10) Milrinone Lactate/Dextrose 20 mg in 100 mls @ 6.803 mls/hr 12/25/21 12:00 12/27/21 11:01 Milrinone-D5w 20 Mg/100 Ml IV 12/28/21 11:59 0.25 mcg/kg/min DIRECT JENNA 6.803 mls/hr Administration Protocol 0.25 MCG/KG/MIN Levothyroxine Sodium 150 mcg 12/26/21 06:00 12/27/21 05:24 Levothyroxine 150 Mcg Tab PO 150 mcg DAILY@0600 JENNA Administration Morphine Sulfate 2 mg 12/24/21 22:05 Morphine 2 Mg/1 Ml Inj IV Q4H PRN Pain, Moderate (4-6) Nitroglycerin 0.4 mg 12/24/21 22:05 Nitroglycerin 0.4 Mg Tab Subl SL .Q5MIN PRN Chest Pain Ondansetron HCl 4 mg 12/24/21 22:05 Ondansetron 4 Mg/2 Ml Inj IV Q8H PRN Nausea And Vomiting Sodium Chloride 10 ml 12/25/21 10:00 12/27/21 09:18 Sodium Chloride 0.9% 10 Ml Flush Syringe IV 10 ml BID JENNA Administration Sodium Chloride 10 ml 12/24/21 22:05 Sodium Chloride 0.9% 10 Ml Flush Syringe IV PRN PRN LINE FLUSH
--- NOTE | 2021-12-27 13:16 | Progress Note ---
Assessment and Plan 61-year-old man with longstanding, dilated nonischemic cardiomyopathy and chronic atrial fibrillation. He presents with symptoms of acute exacerbation of chronic systolic heart failure, partially due to noncompliant with his medical therapy including his home diuretic therapy. Continue guideline directed medical therapy as tolerated. Awaiting fitting of LifeVest prior to discharge. Atrial fibrillation rate control is optimal today. Subjective Date of service: 12/27/21 Principal diagnosis: Systolic heart failure Interval history: Patient is comfortable, no new cardiac complaints, awaiting LifeVest fitting. Atrial fibrillation rate control is optimal today with addition of digoxin and amiodarone. Objective Vital Signs Temp Pulse Pulse Resp Resp BP BP 12/27/21 10:00 160 H 12/27/21 09:44 12/27/21 09:42 80 18 12/27/21 08:00 18 12/27/21 07:44 98.1 F 46 L 18 129/73 12/27/21 05:01 97.9 F 70 16 128/80 12/26/21 23:33 98.9 F 64 16 130/82 12/26/21 20:49 12/26/21 20:47 66 18 12/26/21 20:45 12/26/21 20:34 99.0 F 76 18 117/77 12/26/21 19:59 116 H 12/26/21 17:10 56 L 18 12/26/21 15:59 98.6 F 71 18 116/76 Pulse Ox 12/27/21 10:00 12/27/21 09:44 99 12/27/21 09:42 12/27/21 08:00 98 12/27/21 07:44 98 12/27/21 05:01 97 12/26/21 23:33 98 12/26/21 20:49 98 12/26/21 20:47 12/26/21 20:45 98 12/26/21 20:34 93 12/26/21 19:59 12/26/21 17:10 12/26/21 15:59 96 - Physical Examination General: No Apparent Distress HEENT: Positive: PERRL Neck: Positive: neck supple Cardiac: Positive: Reg Rate and Rhythm Lungs: Positive: Decreased Breath Sounds Neuro: Positive: Grossly Intact Abdomen: Positive: Soft Skin: Positive: Clear Extremities: Present: +1 Edema, +2 Edema - Labs and Meds Cardiac Enzymes 12/26/21 Range/Units 13:17 AST 17 (5-40) units/L CBC 12/26/21 Range/Units 13:17 WBC 8.6 (4.5-11.0) K/mm3 RBC 4.45 (3.65-5.03) M/mm3 Hgb 12.8 (11.8-15.2) gm/dl Hct 40.4 (35.5-45.6) % Plt Count 197 (140-440) K/mm3 Lymph # (Auto) 0.7 L (1.2-5.4) K/mm3 [place] # (Auto) 0.9 H (0.0-0.8) K/mm3 Eos # (Auto) 0.2 (0.0-0.4) K/mm3 Baso # (Auto) 0.1 (0.0-0.1) K/mm3 Comprehensive Metabolic Panel 12/26/21 12/27/21 Range/Units 13:17 03:17 Sodium 139 143 (137-145) mmol/L Potassium 3.8 D 4.3 (3.6-5.0) mmol/L Chloride 97.0 L 102.9 (98-107) mmol/L Carbon Dioxide 28 26 (22-30) mmol/L BUN 42 H 31 H (9-20) mg/dL Creatinine 1.4 H 1.2 (0.8-1.3) mg/dL Glucose 204 H 179 H (75-100) mg/dL Calcium 9.2 8.0 L (8.4-10.2) mg/dL AST 17 (5-40) units/L ALT 27 (7-56) units/L Alkaline Phosphatase 217 H (35-129) units/L Total Protein 7.1 (6.3-8.2) g/dL Albumin 3.7 L (3.9-5) g/dL
[2021-12-27] MEDS ORDERED: METOPROLOL TARTRATE 5 MG/5 ML INJ IV NR (14:03)
[2021-12-27] MEDS ORDERED: DIGOXIN 0.5 MG/2 ML INJ IV NR (14:04)
[2021-12-27] MEDS ORDERED: METOPROLOL TARTRATE 5 MG/5 ML INJ IV PRN (14:30)
[2021-12-27] MEDS ORDERED: DIGOXIN 0.25 MG TAB PO SCH (17:00)
[2021-12-27] MEDS ORDERED: DIGOXIN 0.125 MG TAB PO SCH (17:00)
[2021-12-27] MEDS ORDERED: METOPROLOL TARTRATE 25 MG TAB PO ONE (18:00)
[2021-12-28] MEDS: IPRATROPIUM/ALBUTEROL SULFATE 3 ML AMPUL.NEB IH SCH ×3 (02:15→14:02)
[2021-12-28] MEDS: MILRINONE-D5W 20 MG/100 ML 20 MG/100 ML BAG IV SCH (03:30)
[2021-12-28] MEDS: LEVOTHYROXINE 150 MCG TAB PO SCH (06:39)
[2021-12-28 08:17] LABS: BUN/Creatinine Ratio 20; Blood Urea Nitrogen 22 mg/dL (9-20); Calcium 8.7 mg/dL (8.4-10.2); Hemolysis Index 9
[2021-12-28 08:32] VITALS: BP 132/93
[2021-12-28] MEDS: FAMOTIDINE 10 MG TAB PO SCH (09:00)
[2021-12-28] MEDS: HEPARIN 5,000 UNIT/1 ML VIAL SUB-Q SCH (09:00)
[2021-12-28] MEDS: ASPIRIN 81 MG TAB CHEW PO SCH (09:00)
[2021-12-28] MEDS: FUROSEMIDE 40 MG/4 ML INJ IV SCH (09:00)
[2021-12-28] MEDS: AMIODARONE 200 MG TAB PO SCH (09:00)
--- NOTE | 2021-12-28 11:52 | Progress Note ---
Assessment and Plan 61-year-old man with longstanding, dilated nonischemic cardiomyopathy and chronic atrial fibrillation. He presented with symptoms of acute exacerbation of chronic systolic heart failure, partially due to noncompliant with his medical therapy including his home diuretic therapy. Okay to discharge home on current guideline directed medical therapy, and plans for LifeVest. Patient is also directed to follow-up in our cardiology office in 7 days. Subjective Date of service: 12/28/21 Principal diagnosis: Systolic heart failure Interval history: Patient looks and feels better, his edema is markedly improved, shortness of breath is resolved. He wants to go home today. His LifeVest has been set up to be fitted either before discharge or as soon as he gets home. Objective Vital Signs Temp Pulse Pulse Resp Resp BP BP 12/28/21 08:00 138 H 12/28/21 07:53 12/28/21 07:38 97.2 F L 48 L 18 132/93 12/28/21 03:59 98.2 F 89 18 130/89 12/27/21 22:59 98.8 F 90 18 129/98 12/27/21 22:00 128 H 12/27/21 21:00 12/27/21 20:30 87 18 12/27/21 20:00 18 12/27/21 19:37 98.2 F 60 16 128/100 12/27/21 17:19 98.4 F 56 L 18 143/97 12/27/21 15:15 80 18 12/27/21 14:29 160 H 122/75 12/27/21 14:28 161 H 122/75 12/27/21 14:07 98.9 F 54 L 16 122/75 Pulse Ox 12/28/21 08:00 12/28/21 07:53 98 12/28/21 07:38 93 12/28/21 03:59 94 12/27/21 22:59 89 12/27/21 22:00 12/27/21 21:00 99 12/27/21 20:30 12/27/21 20:00 98 12/27/21 19:37 94 12/27/21 17:19 96 12/27/21 15:15 12/27/21 14:29 12/27/21 14:28 12/27/21 14:07 96 - Physical Examination General: No Apparent Distress HEENT: Positive: PERRL Neck: Positive: neck supple Cardiac: Positive: Reg Rate and Rhythm Lungs: Positive: clear to auscultation Neuro: Positive: Grossly Intact Abdomen: Positive: Soft Skin: Positive: Clear Extremities: Present: edema (Trace) - Labs and Meds Comprehensive Metabolic Panel 12/28/21 Range/Units 07:24 Sodium 140 (137-145) mmol/L Potassium 4.4 (3.6-5.0) mmol/L Chloride 101.5 (98-107) mmol/L Carbon Dioxide 27 (22-30) mmol/L BUN 22 H (9-20) mg/dL Creatinine 1.1 (0.8-1.3) mg/dL Glucose 118 H (75-100) mg/dL Calcium 8.7 (8.4-10.2) mg/dL
--- NOTE | 2021-12-28 12:45 | Discharge Summary ---
Providers - Providers Date of Admission: 12/25/21 00:43 Date of discharge: 12/28/21 Attending physician: JENNIFER JAMES MD 12/24/21 21:44 Consult to Physician [CONS] Urgent Comment: Dr. Momin spoke with Dr. Wilson @ 1119 Consulting Provider: CORBIN NEAL Physician Instructions: Reason For Exam: cp syncope 12/24/21 22:18 Consult to Physician [CONS] Routine Comment: Consulting Provider: CEDRIC JONES Physician Instructions: Reason For Exam: ana laura 12/25/21 16:32 Consult to Physician [CONS] Routine Comment: Consulting Provider: HENRY DANIELSON Physician Instructions: Reason For Exam: ANA LAURA on CKD, fluid overload Primary care physician: MOHIT DONALDSON Hospitalization Reason for admission: Syncope, CHF exacerbation Condition: Good Hospital course: 61-year-old male with history of atrial fibrillation on Eliquis, heart failure with reduced ejection fraction and ICD placement, and CKD presented with complaints of syncope and bilateral leg swelling. He was admitted for CHF exacerbation. Chest x-ray showed no acute findings. He was found to have ANA LAURA and nephrology was consulted. He was started on milrinone drip which lasted for 72 hours. His atrial fibrillation was controlled he was started on amiodarone and digoxin. His kidney function improved as well as his symptoms. His lower extremity swelling resolved prior to discharge. LifeVest was delivered to bedside and patient was discharged once stable. Disposition: 01 HOME / SELF CARE / HOMELESS Final Discharge Diagnosis (Prints w/discharge instructions): Cardiogenic syncope. Acute on chronic systolic heart failure. Nonischemic dilated cardiomyopathy. Acute kidney injury on CKD stage III, secondary to cardiorenal syndrome. Hyperlipidemia. Hypertension. Hypothyroidism. Atrial fibrillation with RVR. Tobacco dependence Time spent for discharge: 40 minutes Core Measure Documentation - Palliative Care Palliative Care/ Comfort Measures: Not Applicable - Core Measures Any of the following diagnoses?: heart failure - Heart Failure Discharge Requirements VLADISLAV/ARB for LVSD if EF <40%: Yes Beta dallin at discharge: No Reason for no beta dallin on DC: Hypotension Exam - Physical Exam Narrative exam: GENERAL: Well-developed well-nourished. In no acute distress. HEENT: Poor dentition NECK: Supple. CHEST/LUNGS: CTAB on room air HEART/CARDIOVASCULAR: Irregularly irregular rhythm. No murmur, rubs or gallops appreciated. ABDOMEN: +BS. NT/ND. NEURO: No focal motor deficit. Follows all commands. EXTREMITIES: No cyanosis, clubbing. Improved lower extremity edema. PSYCH: Cooperative. - Constitutional Vitals: Temp Pulse Resp BP Pulse Ox 97.2 F L 170 H 18 132/93 98 12/28/21 07:38 12/28/21 12:14 12/28/21 07:38 12/28/21 07:38 12/28/21 07:53 Plan Care Plan Goals: Please follow-up with your primary care provider. Our labs indicate that you have hypothyroidism and we have started you on replacement therapy. Please have them to evaluate further. Please follow-up with your banking officer within the next week. Please start taking the most up-to-date medications as prescribed to you from this hospital stay. When you receive the LifeVest, please make sure you can wear this at all times. Make sure that she request medical records to be sent to your banking officer prior to your visit. Follow up with: MOHIT DONALDSON MD [Primary Care Provider] - 7 Days Prescriptions: AtorvaSTATin [Lipitor] 20 mg PO QHS 30 Days #30 tab Aspirin [Aspirin BABY CHEW TAB] 81 mg PO QDAY 30 Days #30 tab.chew Amiodarone [Cordarone 200 MG TAB] 200 mg PO BID 30 Days #60 tablet Digoxin [Lanoxin] 0.125 mg PO DAILY@1700 30 Days #30 tablet Furosemide [Lasix] 40 mg PO QDAC 30 Days #30 tab Levothyroxine [Synthroid] 150 mcg PO DAILY@0600 30 Days #30 tablet
== END 2021-12-28 15:30 | disposition home or self-care (01) | DRG 291 ==
LOC: ED 17:43 → 4A 12-25 00:43
PROVIDERS: ADMIT Hospitalist; ATTEND Student in an Organized Health Care Education/Training Program
DX: I13.0 Hypertensive heart and chronic kidney disease with heart failure and stage 1 through stage 4 chronic kidney disease, or unspecified chronic kidney disease (principal); I50.23 Acute on chronic systolic (congestive) heart failure; N17.0 Acute kidney failure with tubular necrosis; I48.21 Permanent atrial fibrillation; I48.20 Chronic atrial fibrillation, unspecified; N18.9 Chronic kidney disease, unspecified; R55 Syncope and collapse; I42.8 Other cardiomyopathies; E78.5 Hyperlipidemia, unspecified; N18.30 Chronic kidney disease, stage 3 unspecified; E03.9 Hypothyroidism, unspecified; Z79.01 Long term (current) use of anticoagulants; Z82.49 Family history of ischemic heart disease and other diseases of the circulatory system; Z88.8 Allergy status to other drugs, medicaments and biological substances; I95.9 Hypotension, unspecified
CPT/HCPCS: 36415; 71045; 80048; 80053; 83735; 83880; 84439; 84443; 84484; 85025; 85610; 93005; 94640; 96374; 99291; G0378; J7060; J0282; J1160; J1644; J1940; J2260

== ENCOUNTER 2022-02-19 00:09 | Inpatient (IN) | payer OTHER ==
[2022-02-19] MEDS ORDERED: FUROSEMIDE 40 MG/4 ML INJ IV ONE (00:42)
[2022-02-19] MEDS ORDERED: dilTIAZem 25 MG/5 ML INJ IV ONE (00:46)
--- NOTE | 2022-02-19 00:46 | Emergency Department Report ---
ED Shortness of Breath HPI - General Chief Complaint: Dyspnea/Respdistress Stated Complaint: SOB Time Seen by Provider: 02/19/22 00:39 Source: patient Mode of arrival: Ambulatory Limitations: No Limitations - History of Present Illness Initial Comments: Patient is a 62-year-old male with history of hypertension and CHF brought in by EMS from home with complaint of shortness of breath that woke him from sleep. States the dyspnea worsened as he tried to walk to the bathroom. States he has been out of his Lasix for 30 days and has also been trying to wean himself off of it. He denies any chest pain, fever or chills. Also notes increased swelling in his legs and abdomen. - Related Data Previous Rx's Medication Instructions Recorded Last Taken Type Apixaban [Eliquis] 5 mg PO Q12HR 30 Days #60 tablet 12/18/21 12/23/21 Rx Pantoprazole [Protonix TAB] 40 mg PO QDAC 30 Days #30 tablet 12/18/21 12/23/21 Rx Spironolactone [Aldactone] 25 mg PO QDAY 30 Days #30 tablet 12/18/21 Unknown Rx Amiodarone [Cordarone 200 MG TAB] 200 mg PO BID 30 Days #60 tablet 12/28/21 Unknown Rx Aspirin [Aspirin BABY CHEW TAB] 81 mg PO QDAY 30 Days #30 tab.chew 12/28/21 Unknown Rx AtorvaSTATin [Lipitor] 20 mg PO QHS 30 Days #30 tab 12/28/21 Unknown Rx Digoxin [Lanoxin] 0.125 mg PO DAILY@1700 30 Days #30 12/28/21 Unknown Rx tablet Furosemide [Lasix] 40 mg PO QDAC 30 Days #30 tab 12/28/21 Unknown Rx Levothyroxine [Synthroid] 150 mcg PO DAILY@0600 30 Days #30 12/28/21 Unknown Rx tablet Sacubitril/Valsartan [Entresto 24 1 each PO QDAY 30 Days #30 tab 12/28/21 Unknown Rx - 26 mg] Allergies Allergy/AdvReac Type Severity Reaction Status Date / Time cantaloupe Allergy Severe Anaphylaxis Verified 02/19/22 01:44 melon Allergy Severe Anaphylaxis Verified 02/19/22 01:44 mushroom Allergy Severe Anaphylaxis Verified 02/19/22 01:44 watermelon Allergy Severe Anaphylaxis Verified 02/19/22 01:44 pollen extracts Allergy Unknown Verified 02/19/22 01:44 ED Review of Systems ROS: Stated complaint: SOB Other details as noted in HPI Constitutional: denies: chills, fever Respiratory: shortness of breath Cardiovascular: edema. denies: chest pain, palpitations Gastrointestinal: denies: abdominal pain, nausea, diarrhea Genitourinary: denies: urgency, dysuria Skin: denies: rash, lesions Neurological: denies: headache, weakness, paresthesias Psychiatric: denies: anxiety, depression ED Past Medical Hx - Past Medical History Previous Medical History?: Yes Hx Hypertension: Yes Hx Heart Attack/AMI: Yes Hx Congestive Heart Failure: Yes Hx Diabetes: No Hx Asthma: No Hx COPD: No Hx HIV: No Additional medical history: afib - Surgical History Past Surgical History?: No - Social History Smoking Status: Current Every Day Smoker Substance Use Type: None - Medications Home Medications: Home Medications Medication Instructions Recorded Confirmed Last Taken Type Apixaban [Eliquis] 5 mg PO Q12HR 30 Days #60 tablet 12/18/21 12/26/21 12/23/21 Rx Pantoprazole [Protonix TAB] 40 mg PO QDAC 30 Days #30 tablet 12/18/21 12/26/21 12/23/21 Rx Spironolactone [Aldactone] 25 mg PO QDAY 30 Days #30 tablet 12/18/21 12/26/21 Unknown Rx Amiodarone [Cordarone 200 MG TAB] 200 mg PO BID 30 Days #60 tablet 12/28/21 Unknown Rx Aspirin [Aspirin BABY CHEW TAB] 81 mg PO QDAY 30 Days #30 tab.chew 12/28/21 Unknown Rx AtorvaSTATin [Lipitor] 20 mg PO QHS 30 Days #30 tab 12/28/21 Unknown Rx Digoxin [Lanoxin] 0.125 mg PO DAILY@1700 30 Days #30 12/28/21 Unknown Rx tablet Furosemide [Lasix] 40 mg PO QDAC 30 Days #30 tab 12/28/21 Unknown Rx Levothyroxine [Synthroid] 150 mcg PO DAILY@0600 30 Days #30 12/28/21 Unknown Rx tablet Sacubitril/Valsartan [Entresto 24 1 each PO QDAY 30 Days #30 tab 12/28/21 12/26/21 Unknown Rx - 26 mg] ED Physical Exam - General Limitations: No Limitations General appearance: alert, in no apparent distress - Head Head exam: Present: atraumatic, normocephalic - Neck Neck exam: Present: normal inspection. Absent: tenderness - Respiratory Respiratory exam: Present: respiratory distress (Mild), decreased breath sounds - Cardiovascular Cardiovascular Exam: Present: tachycardia, irregular rhythm - GI/Abdominal GI/Abdominal exam: Present: distended. Absent: tenderness, guarding, rebound - Rectal Rectal exam: Present: deferred - Extremities Exam Extremities exam: Present: pedal edema (Pitting edema bilaterally up to the knees). Absent: tenderness - Neurological Exam Neurological exam: Present: alert, oriented X3 - Psychiatric Psychiatric exam: Present: normal affect, normal mood - Skin Skin exam: Present: warm, dry, intact, normal color ED Course Vital Signs 02/19/22 02/19/22 02/19/22 00:10 00:48 01:00 Temperature 98.3 F Pulse Rate 120 H 175 H Respiratory 20 18 Rate Blood Pressure 153/100 138/101 O2 Sat by Pulse 100 85 100 Oximetry 02/19/22 02/19/22 01:16 01:20 Temperature Pulse Rate 178 H 170 H Respiratory 17 Rate Blood Pressure 138/101 O2 Sat by Pulse 100 Oximetry ED Medical Decision Making - Lab Data Result diagrams: 02/19/22 00:59 02/19/22 00:59 - Medical Decision Making EKG shows A. fib with RVR with a rate of 159 bpm. Chest x-ray shows pulmonary edema consistent with CHF exacerbation. He was given IV Lasix along with 10 mg of IV diltiazem. He was later started on a diltiazem infusion for refractory tachycardia. He is otherwise hemodynamically stable however will admit to ICU for further management. Discussed with Dr. Thomas and Dr. Krishnamurthy. Critical Care Time: Yes Critical care time in (mins) excluding proc time.: 45 Critical care attestation.: If time is entered above; I have spent that time in minutes in the direct care of this critically ill patient, excluding procedure time. ED Disposition Clinical Impression: Atrial fibrillation with RVR, Acute exacerbation of CHF (congestive heart failure) Disposition: ADMITTED INPATIENT Is pt being admited?: Yes Condition: Stable
--- NOTE | 2022-02-19 01:16 | XRay Report ---
XR chest 1V ap INDICATION / CLINICAL INFORMATION: Dyspnea. COMPARISON: 12/24/2021 FINDINGS: SUPPORT DEVICES: None. HEART /PULMONARY VASCULATURE: Cardiomegaly with pulmonary vasculature congestion. LUNGS / PLEURA: Diffuse increased interstitial prominence. No focal airspace consolidation. No sizabl e pleural effusion. No pneumothorax. ADDITIONAL FINDINGS: No significant additional findings. IMPRESSION: Findings indicative of CHF with pulmonary edema. Signer Name: Tito Arroyo MD Signed: 02/19/2022 1:12 AM Workstation Name: [id number]
[2022-02-19 01:37] LABS: Basophils % (Auto) 0.6 % (0.0-1.8); Eosinophils # (Auto) 0.1 K/mm3 (0.0-0.4); Eosinophils % (Auto) 1.5 % (0.0-4.3); Hematocrit 42.5 % (35.5-45.6); Hemoglobin 13.3 gm/dl (11.8-15.2); Lymphocytes # (Auto) 1.1 K/mm3 (1.2-5.4); Lymphocytes % (Auto) 13.6 % (13.4-35.0); Mean Corpuscular HGB Conc 31 % (32-34); Mean Corpuscular Volume 90 fl (84-94); Monocytes # (Auto) 0.9 K/mm3 (0.0-0.8); Monocytes % (Auto) 10.2 % (0.0-7.3); Platelet Count 177 K/mm3 (140-440); Red Blood Count 4.71 M/mm3 (3.65-5.03)
[2022-02-19 01:39] LABS: Red Cell Distribution Width 20.9 % (13.2-15.2)
[2022-02-19 01:51] LABS: Alanine Aminotransferase 86 units/L (7-56); Albumin 3.4 g/dL (3.9-5); BUN/Creatinine Ratio 25; Blood Urea Nitrogen 27 mg/dL (9-20); Calcium 8.7 mg/dL (8.4-10.2); Hemolysis Index 1
[2022-02-19] MEDS ORDERED: dilTIAZem/D5W 100 MG/100 ML BAG IV SCH (02:00)
[2022-02-19] MEDS ORDERED: METOPROLOL TARTRATE 5 MG/5 ML INJ IV SCH (04:00)
[2022-02-19] MEDS ORDERED: METOPROLOL TARTRATE 5 MG/5 ML INJ IV ONE (04:13)
[2022-02-19] MEDS ORDERED: MORPHINE 4 MG/1 ML INJ IV PRN (04:45)
[2022-02-19] MEDS ORDERED: NITROGLYCERIN 0.4 MG TAB SUBL SL PRN (04:45)
[2022-02-19] MEDS ORDERED: ACETAMINOPHEN 325 MG TAB PO PRN (04:45)
--- NOTE | 2022-02-19 04:55 | History and Physical Report ---
History of Present Illness Date of examination: 02/19/22 Date of admission: 02/19/22 Chief complaint: Dyspnea Respiratory distress History of present illness: 62-year-old male with history of hypertension and CHF was brought to the emergency room because of shortness of breath that woke him from sleep. States the dyspnea worsened as he tried to walk to the bathroom. States he has been out of his Lasix for 30 days and has also been trying to wean himself off of it. He denies any chest pain, fever or chills. Also notes increased swelling in his legs and abdomen. In the emergency room initial cardiac enzyme is negative troponin is 0.010. EKG shows A. fib with RVR with a rate of 159 bpm. Chest x-ray shows pulmonary edema consistent with CHF exacerbation. He was given IV Lasix along with 10 mg of IV diltiazem. He was later started on a diltiazem infusion for refractory tachycardia. He is otherwise hemodynamically stable however will admit to ICU for further management. Discussed with Dr. Thomas Past History Past Medical History: acute [facility], atrial fib, heart failure, hypertension Past Surgical History: No surgical history Social history: smoking Family history: hypertension Medications and Allergies Allergies Allergy/AdvReac Type Severity Reaction Status Date / Time cantaloupe Allergy Severe Anaphylaxis Verified 02/19/22 01:44 melon Allergy Severe Anaphylaxis Verified 02/19/22 01:44 mushroom Allergy Severe Anaphylaxis Verified 02/19/22 01:44 watermelon Allergy Severe Anaphylaxis Verified 02/19/22 01:44 pollen extracts Allergy Unknown Verified 02/19/22 01:44 Home Medications Medication Instructions Recorded Confirmed Last Taken Type Apixaban [Eliquis] 5 mg PO Q12HR 30 Days #60 tablet 12/18/21 12/26/21 12/23/21 Rx Pantoprazole [Protonix TAB] 40 mg PO QDAC 30 Days #30 tablet 12/18/21 12/26/21 12/23/21 Rx Spironolactone [Aldactone] 25 mg PO QDAY 30 Days #30 tablet 12/18/21 12/26/21 Unknown Rx Amiodarone [Cordarone 200 MG TAB] 200 mg PO BID 30 Days #60 tablet 12/28/21 Unknown Rx Aspirin [Aspirin BABY CHEW TAB] 81 mg PO QDAY 30 Days #30 tab.chew 12/28/21 Unknown Rx AtorvaSTATin [Lipitor] 20 mg PO QHS 30 Days #30 tab 12/28/21 Unknown Rx Digoxin [Lanoxin] 0.125 mg PO DAILY@1700 30 Days #30 12/28/21 Unknown Rx tablet Furosemide [Lasix] 40 mg PO QDAC 30 Days #30 tab 12/28/21 Unknown Rx Levothyroxine [Synthroid] 150 mcg PO DAILY@0600 30 Days #30 12/28/21 Unknown Rx tablet Sacubitril/Valsartan [Entresto 24 1 each PO QDAY 30 Days #30 tab 12/28/21 12/26/21 Unknown Rx - 26 mg] Active Meds: Active Medications Diltiazem HCl (Cardizem/D5w 100mg/100ml) 100 mg in 100 mls @ 5 mls/hr IV TITR JENNA; Protocol Last Titration: 02/19/22 03:50 Dose: 15 mg/hr, 15 mls/hr Metoprolol Tartrate (Metoprolol Tartrate 5 Mg/5 Ml Inj) 5 mg IV Q4H JENNA Last Admin: 02/19/22 04:00 Dose: 5 mg Review of Systems All systems: negative Cardiovascular: palpitations, rapid/irregular heart beat, edema, shortness of breath, dyspnea on exertion Respiratory: shortness of breath, dyspnea on exertion Exam - Constitutional Vitals: Temp Pulse Resp BP Pulse Ox 98.3 F 165 H 17 138/101 100 02/19/22 00:10 02/19/22 04:00 02/19/22 01:16 02/19/22 01:16 02/19/22 01:16 General appearance: Present: no acute distress, well-nourished - EENT Eyes: Present: PERRL ENT: hearing intact, clear oral mucosa - Neck Neck: Present: supple, normal ROM - Respiratory Respiratory effort: normal Respiratory: bilateral: rales - Cardiovascular Rhythm: irregularly irregular Heart Sounds: Present: S1 & S2. Absent: rub, click - Extremities Extremities: pulses symmetrical, No edema Peripheral Pulses: within normal limits - Abdominal General gastrointestinal: Present: soft, non-tender, non-distended, normal bowel sounds Male genitourinary: Present: normal - Integumentary Integumentary: Present: clear, warm, dry - Musculoskeletal Musculoskeletal: gait normal, strength equal bilaterally - Psychiatric Psychiatric: appropriate mood/affect, intact judgment & insight - Neurologic Neurologic: CNII-XII intact, moves all extremities HEART Score - HEART Score Troponin: Troponin T < 0.010 ng/mL (0.00-0.029) 02/19/22 00:59 Results - Labs CBC & Chem 7: 07 00:59 07 00:59 Labs: Laboratory Last Values WBC 8.4 K/mm3 (4.5-11.0) 02/19/22 00:59 RBC 4.71 M/mm3 (3.65-5.03) 02/19/22 00:59 Hgb 13.3 gm/dl (11.8-15.2) 02/19/22 00:59 Hct 42.5 % (35.5-45.6) 02/19/22 00:59 MCV 90 fl (84-94) 02/19/22 00:59 MCH 28 pg (28-32) 02/19/22 00:59 MCHC 31 % (32-34) L 02/19/22 00:59 RDW 20.9 % (13.2-15.2) H 02/19/22 00:59 Plt Count 177 K/mm3 (140-440) 02/19/22 00:59 Lymph % (Auto) 13.6 % (13.4-35.0) 02/19/22 00:59 [place] % (Auto) 10.2 % (0.0-7.3) H 02/19/22 00:59 Eos % (Auto) 1.5 % (0.0-4.3) 02/19/22 00:59 Baso % (Auto) 0.6 % (0.0-1.8) 02/19/22 00:59 Lymph # (Auto) 1.1 K/mm3 (1.2-5.4) L 02/19/22 00:59 [place] # (Auto) 0.9 K/mm3 (0.0-0.8) H 02/19/22 00:59 Eos # (Auto) 0.1 K/mm3 (0.0-0.4) 02/19/22 00:59 Baso # (Auto) 0.0 K/mm3 (0.0-0.1) 02/19/22 00:59 Seg Neutrophils % 74.1 % (40.0-70.0) H 02/19/22 00:59 Seg Neutrophils # 6.3 K/mm3 (1.8-7.7) 02/19/22 00:59 Sodium 134 mmol/L (137-145) L 02/19/22 00:59 Potassium 4.6 mmol/L (3.6-5.0) 02/19/22 00:59 Chloride 102.4 mmol/L (98-107) 02/19/22 00:59 Carbon Dioxide 19 mmol/L (22-30) L 02/19/22 00:59 Anion Gap 17 mmol/L 02/19/22 00:59 BUN 27 mg/dL (9-20) H 02/19/22 00:59 Creatinine 1.1 mg/dL (0.8-1.3) 02/19/22 00:59 Estimated GFR > 60 ml/min 02/19/22 00:59 BUN/Creatinine Ratio 25 % 02/19/22 00:59 Glucose 142 mg/dL (75-100) H 02/19/22 00:59 Calcium 8.7 mg/dL (8.4-10.2) 02/19/22 00:59 Total Bilirubin 2.30 mg/dL (0.1-1.2) H 02/19/22 00:59 AST 105 units/L (5-40) H 02/19/22 00:59 ALT 86 units/L (7-56) H 02/19/22 00:59 Alkaline Phosphatase 298 units/L (35-129) H 02/19/22 00:59 Troponin T < 0.010 ng/mL (0.00-0.029) 02/19/22 00:59 Total Protein 6.7 g/dL (6.3-8.2) 02/19/22 00:59 Albumin 3.4 g/dL (3.9-5) L 02/19/22 00:59 Albumin/Globulin Ratio 1.0 % 02/19/22 00:59 - Imaging and Cardiology Chest x-ray: report reviewed Assessment and Plan VTE prophylaxis?: Chemical Plan of care discussed with patient/family: Yes - Patient Problems (1) Acute exacerbation of CHF (congestive heart failure) Status: Acute Plan to address problem: Admit the patient to the ICU. Oxygen by nasal cannula oil treater pulmonate. Fluid restriction. Maintain input output. Daily weight. Lasix 40 mg IV every 12 hours. Echocardiogram. Cardiology consult and critical care evaluation (2) Atrial fibrillation with RVR Status: Acute Plan to address problem: We will put the patient on Cardizem drip. Eliquis 5 mg p.o. twice daily. Amiodarone 200 mg p.o. twice daily. Echocardiogram. Cardiology evaluation (3) Alcohol abuse Status: Chronic Plan to address problem: We counseled the patient for quit drinking. Outpatient follow-up with alcohol Anonymous group (4) HTN (hypertension) Status: Chronic Plan to address problem: Amiodarone 200 mg p.o. twice daily. Aldactone 25 mg p.o. daily. Digoxin 0.125 mg p.o. daily. We will monitor the blood pressure close (5) Hyperlipidemia Status: Chronic Qualifiers: Plan to address problem: Lipitor 40 mg p.o. daily. We will recheck the lipid panel (6) Nonischemic cardiomyopathy Status: Chronic Plan to address problem: Aspirin 81 mg p.o. daily. Lipitor 40 mg p.o. daily. Eliquis 5 mg p.o. every 12 hours. Amiodarone 200 mg p.o. twice daily. Echocardiogram. Cardiology evaluation (7) Tobacco use Status: Chronic Plan to address problem: We counseled the patient regarding quitting smoking. We put the patient on nicotine patch if needed (8) DVT prophylaxis Status: Acute Plan to address problem: Heparin 5000 units subcu every 12 hours for DVT prophylaxis. Protonix 40 mg p .o. daily for GI prophylaxis. Patient is a full code
[2022-02-19] MEDS: FUROSEMIDE 40 MG/4 ML INJ IV SCH ×2 (06:42→17:00)
[2022-02-19] MEDS: LEVOTHYROXINE 150 MCG TAB PO SCH (06:42)
[2022-02-19] MEDS ORDERED: AMIODARONE 150 MG in DEXTROSE 5% IN WATER 97 ML IV ONE (08:49)
[2022-02-19] MEDS: PANTOPRAZOLE 40 MG TAB PO SCH (08:54)
[2022-02-19] MEDS: ALPRAZolam 0.5 MG TAB PO PRN ×2 (08:54→16:30)
--- NOTE | 2022-02-19 09:33 | Progress Note ---
Assessment and Plan Assessment and plan: #Atrial fibrillation with RVR - continue AC with eliquis 5mg q12h - digoxin, metoprolol restarted - hypotensive on cardizem, changed to amio infusion - will continue with amiodarone 200mg BID once amio IV complete. - cardiology consultation - continue telemetry #Acute on chronic systolic heart failure #nonischemic dialated cardiomyopathy - Continue CHF exacerbation protocol: Telemetry, Strict I/O, monitor urine output every shift, daily weights, afterload reduction, low-sodium diet, and fluid restriction of approximately 1.5 mL/day, IV Lasix 40 mg bid (reassess daily) - ProBNP pending - Cardiology consulted - Echocardiogram last admission revealed: EF 15-20% -GDMT: metoprolol succinate 50 mg daily, entresto, adactone, Lasix 40 mg IV twice daily #Hyperlipidemia #Hypertension - home medications: Atorvastatin 40 mg daily, metoprolol succinate 50 mg daily, entresto, adactone - current medications: Atorvastatin 40 mg daily, metoprolol succinate 50 mg daily - SBP goal <140 and DBP goal <90 while inpatient - continue to monitor #Elevated transaminases #Hyperbilirubinemia - likely secondary to hepatic congestion in the setting of CHF exacerbation/edema -monitor on serial hepatic panel #Hypothyroidism TSH 8.07, free T4 WNL on prior admit - continue synthroid 15 mcg daily - will require endocrinology follow up outpatient #Tobacco dependence #Tobacco/Smoking cessation counseling - Counseled patient about the importance of smoking cessation and the possible s equelae as a result of continued tobacco consumption. The patient expresses understanding. -Time: +15 mins The high probability of a clinically significant, sudden or life threatening d eterioration of the [multi] system(s) required my full and direct attention, intervention and personal management. The aggregate critical care time was [60] minutes. This time is in addition to time spent performing reported procedures but includes the following: [x] Data Review and interpretation [x] Patient assessment and monitoring of vital signs [x] Documentation [x] Medication orders and management History Interval history: NO acute complaints on encounter. Sleeping. not participating on exam. Hospitalist Physical - Physical exam Narrative exam: GENERAL: Well-developed well-nourished. In no acute distress. nonparticipatory on exam. HEENT: Poor dentition NECK: Supple. CHEST/LUNGS: CTAB on room air HEART/CARDIOVASCULAR: Irregularly irregular rhythm. No murmur, rubs or gallops appreciated. ABDOMEN: +BS. NT/ND. NEURO: No focal motor deficit. Follows all commands. EXTREMITIES: No cyanosis, clubbing. BL lower extremity edema. PSYCH: Cooperative. - Constitutional Vitals: Temp Pulse Resp BP Pulse Ox 98.3 F 133 H 21 137/97 80 L 02/19/22 00:10 02/19/22 08:30 02/19/22 08:30 02/19/22 08:30 02/19/22 08:16 General appearance: Present: no acute distress, well-nourished HEART Score - HEART Score Troponin: Troponin T < 0.010 ng/mL (0.00-0.029) 02/19/22 00:59 Results - Labs CBC & Chem 7: 02/19/22 10:03 02/19/22 10:03 Labs: Laboratory Last Values WBC 8.4 K/mm3 (4.5-11.0) 02/19/22 00:59 RBC 4.71 M/mm3 (3.65-5.03) 02/19/22 00:59 Hgb 13.3 gm/dl (11.8-15.2) 02/19/22 00:59 Hct 42.5 % (35.5-45.6) 02/19/22 00:59 MCV 90 fl (84-94) 02/19/22 00:59 MCH 28 pg (28-32) 02/19/22 00:59 MCHC 31 % (32-34) L 02/19/22 00:59 RDW 20.9 % (13.2-15.2) H 02/19/22 00:59 Plt Count 177 K/mm3 (140-440) 02/19/22 00:59 Lymph % (Auto) 13.6 % (13.4-35.0) 02/19/22 00:59 [place] % (Auto) 10.2 % (0.0-7.3) H 02/19/22 00:59 Eos % (Auto) 1.5 % (0.0-4.3) 02/19/22 00:59 Baso % (Auto) 0.6 % (0.0-1.8) 02/19/22 00:59 Lymph # (Auto) 1.1 K/mm3 (1.2-5.4) L 02/19/22 00:59 [place] # (Auto) 0.9 K/mm3 (0.0-0.8) H 02/19/22 00:59 Eos # (Auto) 0.1 K/mm3 (0.0-0.4) 02/19/22 00:59 Baso # (Auto) 0.0 K/mm3 (0.0-0.1) 02/19/22 00:59 Seg Neutrophils % 74.1 % (40.0-70.0) H 02/19/22 00:59 Seg Neutrophils # 6.3 K/mm3 (1.8-7.7) 02/19/22 00:59 Sodium 134 mmol/L (137-145) L 02/19/22 00:59 Potassium 4.6 mmol/L (3.6-5.0) 02/19/22 00:59 Chloride 102.4 mmol/L (98-107) 02/19/22 00:59 Carbon Dioxide 19 mmol/L (22-30) L 02/19/22 00:59 Anion Gap 17 mmol/L 02/19/22 00:59 BUN 27 mg/dL (9-20) H 02/19/22 00:59 Creatinine 1.1 mg/dL (0.8-1.3) 02/19/22 00:59 Estimated GFR > 60 ml/min 02/19/22 00:59 BUN/Creatinine Ratio 25 % 02/19/22 00:59 Glucose 142 mg/dL (75-100) H 02/19/22 00:59 Calcium 8.7 mg/dL (8.4-10.2) 02/19/22 00:59 Total Bilirubin 2.30 mg/dL (0.1-1.2) H 02/19/22 00:59 AST 105 units/L (5-40) H 02/19/22 00:59 ALT 86 units/L (7-56) H 02/19/22 00:59 Alkaline Phosphatase 298 units/L (35-129) H 02/19/22 00:59 Troponin T < 0.010 ng/mL (0.00-0.029) 02/19/22 00:59 Total Protein 6.7 g/dL (6.3-8.2) 02/19/22 00:59 Albumin 3.4 g/dL (3.9-5) L 02/19/22 00:59 Albumin/Globulin Ratio 1.0 % 02/19/22 00:59 Active Medications - Current Medications Current Medications: Generic Name Dose Route Start Last Admin Trade Name Freq PRN Reason Stop Dose Admin Acetaminophen 650 mg 02/19/22 04:45 Acetaminophen 325 Mg Tab PO Q6H PRN Pain, Mild (1-3) Alprazolam 0.5 mg 02/19/22 09:00 02/19/22 08:54 Alprazolam 0.5 Mg Tab PO 0.5 mg Q8H PRN Administration Anxiety Apixaban 5 mg 02/19/22 10:00 Apixaban 5 Mg Tab PO Q12HR JENNA Aspirin 81 mg 02/19/22 10:00 Aspirin 81 Mg Tab Chew PO QDAY JENNA Atorvastatin Calcium 40 mg 02/19/22 22:00 Atorvastatin 40 Mg Tab PO QHS JENNA Digoxin 0.125 mg 02/19/22 17:00 Digoxin 0.125 Mg Tab PO DAILY@1700 REPLACED BY [facility] Furosemide 40 mg 02/19/22 06:00 02/19/22 06:42 Furosemide 40 Mg/4 Ml Inj IV 40 mg BID@0600,1800 JENNA Administration Amiodarone HCl 900 mg/ 500 mls @ 33.333 mls/hr 02/19/22 09:00 Dextrose IV DIRECT JENNA Protocol 1 MG/MIN Levothyroxine Sodium 150 mcg 02/19/22 06:00 02/19/22 06:42 Levothyroxine 150 Mcg Tab PO 150 mcg DAILY@0600 JENNA Administration Metoprolol Tartrate 5 mg 02/19/22 04:00 02/19/22 04:00 Metoprolol Tartrate 5 Mg/5 Ml Inj IV 5 mg Q4H JENNA Administration Morphine Sulfate 2 mg 02/19/22 04:45 Morphine 4 Mg/1 Ml Inj IV Q5MIN PRN Chest Pain unrelieved by NTG Nitroglycerin 0.4 mg 02/19/22 04:45 Nitroglycerin 0.4 Mg Tab Subl SL Q5M PRN Chest Pain Pantoprazole Sodium 40 mg 02/19/22 07:30 02/19/22 08:54 Pantoprazole 40 Mg Tab PO 40 mg QDAC JENNA Administration Sacubitril/Valsartan 1 each 02/19/22 10:00 Sacubitril/Valsartan 24-26 Mg Tab PO QDAY JENNA Sodium Chloride 10 ml 02/19/22 04:45 Sodium Chloride 0.9% 10 Ml Flush Syringe IV PRN PRN LINE FLUSH Spironolactone 25 mg 02/19/22 10:00 Spironolactone 25 Mg Tab PO QDAY JENAN Tramadol HCl 50 mg 02/19/22 04:45 Tramadol 50 Mg Tab PO Q6H PRN Pain, Moderate (4-6)
[2022-02-19] MEDS ORDERED: AMIODARONE 200 MG TAB PO SCH (10:00)
[2022-02-19] MEDS ORDERED: LOSARTAN 25 MG TAB PO SCH (10:00)
[2022-02-19] MEDS ORDERED: NON-FORMULARY EACH (Apixaban 5 MG Tablet) PO SCH (10:00)
[2022-02-19] MEDS ORDERED: PANTOPRAZOLE 40 MG TAB PO SCH (10:00)
[2022-02-19] MEDS: AMIODARONE 900 MG in DEXTROSE 5% IN WATER 482 ML IV SCH (10:19)
[2022-02-19 10:20] LABS: Basophils # (Auto) 0.1 K/mm3 (0.0-0.1); Basophils % (Auto) 0.5 % (0.0-1.8); Eosinophils % (Auto) 0.3 % (0.0-4.3); Hematocrit 42.2 % (35.5-45.6); Hemoglobin 13.5 gm/dl (11.8-15.2); Lymphocytes # (Auto) 0.8 K/mm3 (1.2-5.4); Mean Corpuscular HGB Conc 32 % (32-34); Mean Corpuscular Volume 89 fl (84-94); Monocytes # (Auto) 0.9 K/mm3 (0.0-0.8); Monocytes % (Auto) 8.5 % (0.0-7.3); Platelet Count 173 K/mm3 (140-440); Red Blood Count 4.74 M/mm3 (3.65-5.03)
[2022-02-19] MEDS: ASPIRIN 81 MG TAB CHEW PO SCH (10:27)
[2022-02-19] MEDS: APIXABAN 5 MG TAB PO SCH ×2 (10:27→21:56)
[2022-02-19] MEDS: SPIRONOLACTONE 25 MG TAB PO SCH (10:27)
--- NOTE | 2022-02-19 10:28 | Consultation ---
History of Present Illness Consult date: 02/19/22 Consult reason: atrial fibrillation, congestive heart failure History of present illness: This patient is a 62-year-old man with a long history of dilated nonischemic cardiomyopathy, left ventricular systolic ejection fraction historically at 15 to 20%, and chronic atrial fibrillation. He has been prescribed standard guideline directed medical therapy for systolic heart failure, and on Eliquis and rate control strategy for his chronic atrial fibrillation. He states that he receives his outpatient cardiac care at [facility]. The patient has had multiple admissions to this hospital in the past several months, most recently a month ago. Each time, he presents with decompensated heart failure largely due to noncompliance with medical therapy and noncompliance with recommended dietary salt restrictions. At his last visit, we also fitted him with a LifeVest for cardiac monitoring as a bridge to eventual I CD. He presents to the hospital at this time with increasing shortness of breath, increasing lower extremity edema and fatigue. He states that he was laying in bed, when he developed sudden worsening of his shortness of breath, went to the bathroom and decided to pour cold water on his face, and thereafter reports that he had a brief syncope. He soon regained consciousness per his account and was able to call dance coach to his house. He reports that he has been intermittently compliant with his LifeVest monitor, but was not wearing the LifeVest at the time of the syncopal event. In the emergency room, he was evaluated and admitted for decompensated heart failure. His ECG is atrial fibrillation with ventricular rate in the 100s. Chest x-ray showed moderate to severe cardiomegaly and mild interstitial heart failure. He also has 2-3+ bilateral lower extremity edema. With regards to the etiology, the patient admits to again to poor compliance with medical therapy including his diuretics which she has not taken for several days, and also reports failure of outpatient follow-up with his [facility] doctors since his last admission here. Past History Past Medical History: atrial fib, heart failure, hypertension Past Surgical History: No surgical history Social history: smoking Family history: hypertension Medications and Allergies Allergies Allergy/AdvReac Type Severity Reaction Status Date / Time cantaloupe Allergy Severe Anaphylaxis Verified 02/19/22 01:44 melon Allergy Severe Anaphylaxis Verified 02/19/22 01:44 mushroom Allergy Severe Anaphylaxis Verified 02/19/22 01:44 watermelon Allergy Severe Anaphylaxis Verified 02/19/22 01:44 pollen extracts Allergy Unknown Verified 02/19/22 01:44 Home Medications Medication Instructions Recorded Confirmed Last Taken Type Apixaban [Eliquis] 5 mg PO Q12HR 30 Days #60 tablet 12/18/21 12/26/21 12/23/21 Rx Pantoprazole [Protonix TAB] 40 mg PO QDAC 30 Days #30 tablet 12/18/21 12/26/21 12/23/21 Rx Spironolactone [Aldactone] 25 mg PO QDAY 30 Days #30 tablet 12/18/21 12/26/21 Unknown Rx Amiodarone [Cordarone 200 MG TAB] 200 mg PO BID 30 Days #60 tablet 12/28/21 Unknown Rx Aspirin [Aspirin BABY CHEW TAB] 81 mg PO QDAY 30 Days #30 tab.chew 12/28/21 Unknown Rx AtorvaSTATin [Lipitor] 20 mg PO QHS 30 Days #30 tab 12/28/21 Unknown Rx Digoxin [Lanoxin] 0.125 mg PO DAILY@1700 30 Days #30 12/28/21 Unknown Rx tablet Furosemide [Lasix] 40 mg PO QDAC 30 Days #30 tab 12/28/21 Unknown Rx Levothyroxine [Synthroid] 150 mcg PO DAILY@0600 30 Days #30 12/28/21 Unknown Rx tablet Sacubitril/Valsartan [Entresto 24 1 each PO QDAY 30 Days #30 tab 12/28/21 12/26/21 Unknown Rx - 26 mg] Active Meds: Active Medications Acetaminophen (Acetaminophen 325 Mg Tab) 650 mg PO Q6H PRN PRN Reason: Pain, Mild (1-3) Alprazolam (Alprazolam 0.5 Mg Tab) 0.5 mg PO Q8H PRN PRN Reason: Anxiety Last Admin: 02/19/22 08:54 Dose: 0.5 mg Apixaban (Apixaban 5 Mg Tab) 5 mg PO Q12HR JENNA Aspirin (Aspirin 81 Mg Tab Chew) 81 mg PO QDAY JENNA Atorvastatin Calcium (Atorvastatin 40 Mg Tab) 40 mg PO QHS JENNA Digoxin (Digoxin 0.125 Mg Tab) 0.125 mg PO DAILY@1700 JENNA Furosemide (Furosemide 40 Mg/4 Ml Inj) 40 mg IV BID@0600,1800 JENNA Last Admin: 02/19/22 06:42 Dose: 40 mg Amiodarone HCl 900 mg/ (Dextrose) 500 mls @ 33.333 mls/hr IV DIRECT JENNA; Protocol Last Admin: 02/19/22 10:19 Dose: 1 mg/min, 33.333 mls/hr Levothyroxine Sodium (Levothyroxine 150 Mcg Tab) 150 mcg PO DAILY@0600 [facility] Last Admin: 02/19/22 06:42 Dose: 150 mcg Metoprolol Succinate (Metoprolol Succinate Xl 50 Mg Tab) 50 mg PO QDAY JENNA Morphine Sulfate (Morphine 4 Mg/1 Ml Inj) 2 mg IV Q5MIN PRN PRN Reason: Chest Pain unrelieved by NTG Nitroglycerin (Nitroglycerin 0.4 Mg Tab Subl) 0.4 mg SL Q5M PRN PRN Reason: Chest Pain Pantoprazole Sodium (Pantoprazole 40 Mg Tab) [address] [facility] Last Admin: 02/19/22 08:54 Dose: 40 mg Sacubitril/Valsartan (Sacubitril/Valsartan 24-26 Mg Tab) [address] [facility] Sodium Chloride (Sodium Chloride 0.9% 10 Ml Flush Syringe) 10 ml IV PRN PRN PRN Reason: LINE FLUSH Spironolactone (Spironolactone 25 Mg Tab) 25 mg PO QDAY JENNA Tramadol HCl (Tramadol 50 Mg Tab) 50 mg PO Q6H PRN PRN Reason: Pain, Moderate (4-6) Review of Systems Cardiovascular: orthopnea, palpitations, rapid/irregular heart beat, edema, syncope, lightheadedness, shortness of breath, no chest pain Physical Examination Vital Signs Temp Pulse Resp BP Pulse Ox 98.3 F 120 H 20 153/100 100 02/19/22 00:10 02/19/22 00:10 02/19/22 00:10 02/19/22 00:10 02/19/22 00:10 General appearance: mild distress HEENT: Positive: PERRL Neck: Positive: neck supple Cardiac: Positive: irregularly irregular Lungs: Positive: Decreased Breath Sounds Neuro: Positive: Grossly Intact Abdomen: Positive: Soft Male genitourinary: Positive: deferred Skin: Positive: Clear Extremities: Present: +2 Edema Results 02/20/22 09:08 02/20/22 05:45 Cardiac Enzymes 02/19/22 Range/Units 00:59 AST 105 H (5-40) units/L CBC 02/19/22 02/19/22 Range/Units 00:59 10:03 WBC 8.4 (4.5-11.0) K/mm3 RBC 4.71 (3.65-5.03) M/mm3 Hgb 13.3 (11.8-15.2) gm/dl Hct 42.5 (35.5-45.6) % Plt Count 177 (140-440) K/mm3 Lymph # (Auto) 1.1 L (1.2-5.4) K/mm3 [place] # (Auto) 0.9 H 0.9 H (0.0-0.8) K/mm3 Eos # (Auto) 0.1 0.0 (0.0-0.4) K/mm3 Baso # (Auto) 0.0 0.1 (0.0-0.1) K/mm3 Comprehensive Metabolic Panel 02/19/22 Range/Units 00:59 Sodium 134 L (137-145) mmol/L Potassium 4.6 (3.6-5.0) mmol/L Chloride 102.4 (98-107) mmol/L Carbon Dioxide 19 L (22-30) mmol/L BUN 27 H (9-20) mg/dL Creatinine 1.1 (0.8-1.3) mg/dL Glucose 142 H (75-100) mg/dL Calcium 8.7 (8.4-10.2) mg/dL AST 105 H (5-40) units/L ALT 86 H (7-56) units/L Alkaline Phosphatase 298 H (35-129) units/L Total Protein 6.7 (6.3-8.2) g/dL Albumin 3.4 L (3.9-5) g/dL EKG interpretations - Telemetry EKG Rhythm: Atrial Fibrillation (With ventricular rate in the 100s, no acute is chemic changes) Assessment and Plan - Patient Problems (1) Acute on chronic systolic heart failure Current Visit: Yes Status: Acute Plan to address problem: Patient presents with acute on chronic systolic heart failure, largely due to noncompliance with recommended medical therapy, noncompliant with recommended outpatient cardiology follow-ups, and noncompliance with recommended dietary salt restriction. We will resume optimal medical therapy including intravenous diuretics and a trial of intravenous milrinone. (2) Chronic atrial fibrillation Current Visit: No Status: Acute Plan to address problem: Continue rate control strategy of chronic atrial fibrillation management, and Eliquis for oral anticoagulation.
[2022-02-19 10:30] LABS: BUN/Creatinine Ratio 19; Blood Urea Nitrogen 27 mg/dL (9-20); Calcium 8.6 mg/dL (8.4-10.2); Hemolysis Index 2
[2022-02-19 10:41] LABS: Red Cell Distribution Width 21.3 % (13.2-15.2)
--- NOTE | 2022-02-19 11:12 | XRay Report ---
CHEST 1 VIEW 02/19/2022 10:43 AM INDICATION / CLINICAL INFORMATION: Respiratory distress. COMPARISON: Earlier today. FINDINGS: SUPPORT DEVICES: None. HEART / MEDIASTINUM: Enlarged, unchanged. LUNGS / PLEURA: Bilateral pulmonary opacities are slightly worsened. No significant effusion, no pneu mothorax. No pneumothorax. ADDITIONAL FINDINGS: No significant additional findings. IMPRESSION: 1. Bilateral pulmonary opacities are slightly worsened, otherwise no significant change. Signer Name: Sanjiv Emerson MD Signed: 02/19/2022 11:08 AM Workstation Name: [id number]
[2022-02-19] MEDS: METOPROLOL SUCCINATE XL 50 MG TAB PO SCH (11:19)
--- NOTE | 2022-02-19 13:49 | Consultation ---
History of Present Illness - Reason for Consult Consult date: 02/19/22 Afib with RVR, CHF exacerbation - History of Present Illness 62 y/o male with known CHF and known noncompliance admitted with shortness of breath and found to be in afib and fluid overloaded. Patient also suffers from anxiety. Past History Past Medical History: acute PR, atrial fib, heart failure, hypertension Past Surgical History: No surgical history Social history: smoking Family history: hypertension Medications and Allergies Allergies Allergy/AdvReac Type Severity Reaction Status Date / Time cantaloupe Allergy Severe Anaphylaxis Verified 02/19/22 01:44 melon Allergy Severe Anaphylaxis Verified 02/19/22 01:44 mushroom Allergy Severe Anaphylaxis Verified 02/19/22 01:44 watermelon Allergy Severe Anaphylaxis Verified 02/19/22 01:44 pollen extracts Allergy Unknown Verified 02/19/22 01:44 Home Medications Medication Instructions Recorded Confirmed Last Taken Type Apixaban [Eliquis] 5 mg PO Q12HR 30 Days #60 tablet 12/18/21 12/26/21 12/23/21 Rx Pantoprazole [Protonix TAB] 40 mg PO QDAC 30 Days #30 tablet 12/18/21 12/26/21 12/23/21 Rx Spironolactone [Aldactone] 25 mg PO QDAY 30 Days #30 tablet 12/18/21 12/26/21 Unknown Rx Amiodarone [Cordarone 200 MG TAB] 200 mg PO BID 30 Days #60 tablet 12/28/21 Unknown Rx Aspirin [Aspirin BABY CHEW TAB] 81 mg PO QDAY 30 Days #30 tab.chew 12/28/21 Unknown Rx AtorvaSTATin [Lipitor] 20 mg PO QHS 30 Days #30 tab 12/28/21 Unknown Rx Digoxin [Lanoxin] 0.125 mg PO DAILY@1700 30 Days #30 12/28/21 Unknown Rx tablet Furosemide [Lasix] 40 mg PO QDAC 30 Days #30 tab 12/28/21 Unknown Rx Levothyroxine [Synthroid] 150 mcg PO DAILY@0600 30 Days #30 12/28/21 Unknown Rx tablet Sacubitril/Valsartan [Entresto 24 1 each PO QDAY 30 Days #30 tab 12/28/21 12/26/21 Unknown Rx - 26 mg] Active Meds: Active Medications Acetaminophen (Acetaminophen 325 Mg Tab) 650 mg PO Q6H PRN PRN Reason: Pain, Mild (1-3) Alprazolam (Alprazolam 0.5 Mg Tab) 0.5 mg PO Q8H PRN PRN Reason: Anxiety Last Admin: 02/19/22 08:54 Dose: 0.5 mg Apixaban (Apixaban 5 Mg Tab) 5 mg PO Q12HR [facility] Last Admin: 02/19/22 10:27 Dose: 5 mg Aspirin (Aspirin 81 Mg Tab Chew) 81 mg PO QDAY [facility] Last Admin: 02/19/22 10:27 Dose: 81 mg Atorvastatin Calcium (Atorvastatin 40 Mg Tab) 40 mg PO QHS [facility] Digoxin (Digoxin 0.125 Mg Tab) 0.125 mg PO DAILY@1700 [facility] Furosemide (Furosemide 40 Mg/4 Ml Inj) 40 mg IV BID@0600,1800 [facility] Last Admin: 02/19/22 06:42 Dose: 40 mg Amiodarone HCl 900 mg/ (Dextrose) 500 mls @ 33.333 mls/hr IV DIRECT JENNA; Protocol Last Admin: 02/19/22 10:19 Dose: 1 mg/min, 33.333 mls/hr Levothyroxine Sodium (Levothyroxine 150 Mcg Tab) 150 mcg PO DAILY@0600 [facility] Last Admin: 02/19/22 06:42 Dose: 150 mcg Metoprolol Succinate (Metoprolol Succinate Xl 50 Mg Tab) 50 mg PO QDAY [facility] Last Admin: 02/19/22 11:19 Dose: 50 mg Morphine Sulfate (Morphine 4 Mg/1 Ml Inj) 2 mg IV Q5MIN PRN PRN Reason: Chest Pain unrelieved by NTG Nitroglycerin (Nitroglycerin 0.4 Mg Tab Subl) 0.4 mg SL Q5M PRN PRN Reason: Chest Pain Pantoprazole Sodium (Pantoprazole 40 Mg Tab) 40 mg PO QDAC [facility] Last Admin: 02/19/22 08:54 Dose: 40 mg Sacubitril/Valsartan (Sacubitril/Valsartan 24-26 Mg Tab) 1 each PO QDAY [facility] Sodium Chloride (Sodium Chloride 0.9% 10 Ml Flush Syringe) 10 ml IV PRN PRN PRN Reason: LINE FLUSH Spironolactone (Spironolactone 25 Mg Tab) 25 mg PO QDAY [facility] Last Admin: 02/19/22 10:27 Dose: 25 mg Tramadol HCl (Tramadol 50 Mg Tab) 50 mg PO Q6H PRN PRN Reason: Pain, Moderate (4-6) Review of Systems All systems: negative Exam - Constitutional Vitals: Temp Pulse Resp BP Pulse Ox 98.3 F 125 H 28 H 151/104 100 02/19/22 00:10 02/19/22 12:30 02/19/22 12:30 02/19/22 12:30 02/19/22 12:16 General appearance: Present: well-nourished, obese - EENT Eyes: Present: PERRL, EOM intact ENT: hearing intact - Neck Neck: Present: supple, normal ROM - Respiratory Respiratory effort: labored Respiratory: bilateral: rales - Cardiovascular Rhythm: irregularly irregular - Extremities Extremity abnormal: edema - Abdominal General gastrointestinal: Present: soft, non-tender, distended Results - Labs CBC & Chem 7: 02/19/22 10:03 02/19/22 10:03 Labs: Abnormal lab results 02/19/22 02/19/22 02/19/22 Range/Units 00:59 00:59 10:03 MCHC 31 L (32-34) % RDW 20.9 H 21.3 H (13.2-15.2) % Lymph % (Auto) 8.0 L (13.4-35.0) % [place] % (Auto) 10.2 H 8.5 H (0.0-7.3) % Lymph # (Auto) 1.1 L 0.8 L (1.2-5.4) K/mm3 [place] # (Auto) 0.9 H 0.9 H (0.0-0.8) K/mm3 Seg Neutrophils % 74.1 H 82.7 H (40.0-70.0) % Seg Neutrophils # 8.5 H (1.8-7.7) K/mm3 Sodium 134 L (137-145) mmol/L Potassium (3.6-5.0) mmol/L Carbon Dioxide 19 L (22-30) mmol/L BUN 27 H (9-20) mg/dL Creatinine (0.8-1.3) mg/dL Glucose 142 H (75-100) mg/dL Total Bilirubin 2.30 H (0.1-1.2) mg/dL AST 105 H (5-40) units/L ALT 86 H (7-56) units/L Alkaline Phosphatase 298 H (35-129) units/L NT-Pro-B Natriuret Pep (0-900) pg/mL Albumin 3.4 L (3.9-5) g/dL 02/19/22 02/19/22 Range/Units 10:03 10:03 MCHC (32-34) % RDW (13.2-15.2) % Lymph % (Auto) (13.4-35.0) % [place] % (Auto) (0.0-7.3) % Lymph # (Auto) (1.2-5.4) K/mm3 [place] # (Auto) (0.0-0.8) K/mm3 Seg Neutrophils % (40.0-70.0) % Seg Neutrophils # (1.8-7.7) K/mm3 Sodium 132 L (137-145) mmol/L Potassium 5.2 H (3.6-5.0) mmol/L Carbon Dioxide 19 L (22-30) mmol/L BUN 27 H (9-20) mg/dL Creatinine 1.4 H (0.8-1.3) mg/dL Glucose 142 H (75-100) mg/dL Total Bilirubin (0.1-1.2) mg/dL AST (5-40) units/L ALT (7-56) units/L Alkaline Phosphatase (35-129) units/L NT-Pro-B Natriuret Pep 956.8 H (0-900) pg/mL Albumin (3.9-5) g/dL - Imaging and Cardiology Chest x-ray: image reviewed Assessment and Plan 62 y/o male with afib with RVR and CHF exacerbation. 1. Volume removal 2. Rate control 3. COVID negative 4. anticoagulation 5. Anxiety Control
[2022-02-19] MEDS: SACUBITRIL/VALSARTAN 24-26 MG TAB PO SCH (13:51)
[2022-02-19] MEDS: DIGOXIN 0.125 MG TAB PO SCH (16:29)
[2022-02-19] MEDS: traMADol 50 MG TAB PO PRN (16:29)
[2022-02-19] MEDS ORDERED: NORepinephrine/NS 8 MG-250 ML 8 MG/250 ML INFUS..BTL IV ONE (20:20)
[2022-02-19 20:57] LABS: ABG Base Excess -16.7 mmol/L (-2.0-3.0); ABG HCO3 7.9 mmol/L (20.0-26.0); ABG Methemoglobin 0.4 % (0.0-1.5); ABG Oxygen Saturation 98.6 % (95.0-99.0); ABG PCO2 17.9 mm Hg; ABG PH 7.261 pH Units (7.350-7.450); ABG PO2 139.1 mm Hg (80.0-90.0)
[2022-02-19] MEDS ORDERED: NORepinephrine/NS 8 MG-250 ML 8 MG/250 ML INFUS..BTL IV SCH (21:00)
[2022-02-19 22:02] LABS: Calcium 9.6 mg/dL (8.4-10.2)
[2022-02-19] MEDS ORDERED: SODIUM BICARB 8.4% 50 MEQ/50 ML SYRINGE IV STA (23:02)
[2022-02-19] MEDS ORDERED: SODIUM BICARBONATE 150 MEQ in DEXTROSE 5% IN WATER 1,000 ML IV SCH (23:45)
[2022-02-20] MEDS: LEVOTHYROXINE 150 MCG TAB PO SCH (05:47)
[2022-02-20] MEDS: FUROSEMIDE 40 MG/4 ML INJ IV SCH (05:48)
[2022-02-20 06:24] LABS: Calcium 8.3 mg/dL (8.4-10.2)
[2022-02-20] MEDS: SPIRONOLACTONE 25 MG TAB PO SCH (09:38)
[2022-02-20] MEDS: ASPIRIN 81 MG TAB CHEW PO SCH (09:39)
[2022-02-20] MEDS: APIXABAN 5 MG TAB PO SCH ×2 (09:39→21:15)
[2022-02-20] MEDS: PANTOPRAZOLE 40 MG TAB PO SCH (09:39)
[2022-02-20] MEDS: METOPROLOL SUCCINATE XL 50 MG TAB PO SCH (09:39)
[2022-02-20 10:03] LABS: Basophils % (Auto) 0.3 % (0.0-1.8); Hematocrit 40.1 % (35.5-45.6); Hemoglobin 12.8 gm/dl (11.8-15.2); Lymphocytes # (Auto) 0.8 K/mm3 (1.2-5.4); Lymphocytes % (Auto) 6.5 % (13.4-35.0); Mean Corpuscular HGB Conc 32 % (32-34); Mean Corpuscular Volume 89 fl (84-94); Monocytes # (Auto) 1.2 K/mm3 (0.0-0.8); Monocytes % (Auto) 9.7 % (0.0-7.3); Platelet Count 161 K/mm3 (140-440); Red Blood Count 4.51 M/mm3 (3.65-5.03)
[2022-02-20 10:05] LABS: Red Cell Distribution Width 20.3 % (13.2-15.2)
[2022-02-20] MEDS: SACUBITRIL/VALSARTAN 24-26 MG TAB PO SCH (10:31)
--- NOTE | 2022-02-20 11:25 | Progress Note ---
Assessment and Plan 62 y/o male with afib with RVR and CHF exacerbation. 02/20/22: Follow up cardiology recs. Wonder if patient would benefit from inotropic therapy. Feel that lactic acidosis is a perfusion issue. Along with worsening renal function being related to perfusion as well. COntinue anxiety control. Ok with patient eating. Continue ICU monitoring for now. Per patient is a vet, could [facility] feels [facility]. 1. Volume removal 2. Rate control 3. COVID negative 4. anticoagulation 5. Anxiety Control Subjective Date of service: 02/20/22 Interval history: Called about hypotension last night. Readings did not make sense as patient was awake and alert. Levophed was started and repeat BP was very elevated so weaned off. Cuff was changed and pressure readings were better. Lactic acid was elevated and patient had severe metabolic acidosis. Started on bicarb drip given this. This am stable. LActic acid better this am. Objective - Constitutional Vitals: Vital Signs - 12hr 02/19/22 02/19/22 02/20/22 23:30 23:46 00:00 Temperature 97.2 F L Pulse Rate 79 100 H 83 Pulse Rate [ 91 H From Monitor] Respiratory 17 13 16 Rate Blood Pressure 93/74 87/20 121/102 O2 Sat by Pulse 99 100 100 Oximetry 02/20/22 02/20/22 02/20/22 00:02 00:16 00:30 Temperature Pulse Rate 87 75 84 Pulse Rate [ From Monitor] Respiratory 21 20 16 Rate Blood Pressure 121/102 115/80 115/80 O2 Sat by Pulse 100 99 100 Oximetry 02/20/22 02/20/22 02/20/22 01:00 01:16 01:30 Temperature Pulse Rate 90 89 94 H Pulse Rate [ From Monitor] Respiratory 19 21 19 Rate Blood Pressure 76/40 99/56 99/56 O2 Sat by Pulse 100 100 98 Oximetry 02/20/22 02/20/22 02/20/22 01:46 02:00 02:15 Temperature Pulse Rate 84 117 H 109 H Pulse Rate [ From Monitor] Respiratory 21 26 H 16 Rate Blood Pressure 109/68 109/68 123/77 O2 Sat by Pulse 100 100 96 Oximetry 02/20/22 02/20/22 02/20/22 02:30 02:45 03:00 Temperature Pulse Rate 107 H 108 H 96 H Pulse Rate [ From Monitor] Respiratory 17 16 15 Rate Blood Pressure 103/72 103/72 O2 Sat by Pulse 98 96 97 Oximetry 02/20/22 02/20/22 02/20/22 03:08 03:16 03:30 Temperature Pulse Rate 91 H 102 H Pulse Rate [ From Monitor] Respiratory 15 15 Rate Blood Pressure 105/81 102/64 117/61 O2 Sat by Pulse 97 97 Oximetry 02/20/22 02/20/22 02/20/22 03:46 04:00 04:15 Temperature 97 F L Pulse Rate 96 H 99 H 106 H Pulse Rate [ 103 H From Monitor] Respiratory 16 14 14 Rate Blood Pressure 115/56 115/56 92/65 O2 Sat by Pulse 98 98 98 Oximetry 02/20/22 02/20/22 02/20/22 04:30 04:45 05:00 Temperature Pulse Rate 102 H 85 102 H Pulse Rate [ From Monitor] Respiratory 16 16 14 Rate Blood Pressure 92/65 101/75 101/75 O2 Sat by Pulse 98 98 98 Oximetry 02/20/22 02/20/22 02/20/22 05:16 05:30 05:46 Temperature Pulse Rate 102 H 93 H 108 H Pulse Rate [ From Monitor] Respiratory 15 13 16 Rate Blood Pressure 92/70 92/70 101/64 O2 Sat by Pulse 98 96 95 Oximetry 02/20/22 02/20/22 02/20/22 06:00 06:15 06:30 Temperature Pulse Rate 95 H 124 H 106 H Pulse Rate [ From Monitor] Respiratory 15 15 15 Rate Blood Pressure 101/64 108/63 113/72 O2 Sat by Pulse 95 96 96 Oximetry 02/20/22 02/20/22 02/20/22 06:45 07:00 07:13 Temperature 97.6 F Pulse Rate 102 H 102 H Pulse Rate [ From Monitor] Respiratory 15 14 Rate Blood Pressure 109/83 109/83 O2 Sat by Pulse 96 96 Oximetry 02/20/22 02/20/22 02/20/22 07:16 07:30 07:46 Temperature Pulse Rate 116 H 83 106 H Pulse Rate [ From Monitor] Respiratory 15 14 14 Rate Blood Pressure 102/66 89/68 105/72 O2 Sat by Pulse 96 96 96 Oximetry 02/20/22 02/20/22 02/20/22 08:00 08:15 08:30 Temperature Pulse Rate 99 H 104 H 98 H Pulse Rate [ From Monitor] Respiratory 14 12 13 Rate Blood Pressure 105/72 98/68 108/61 O2 Sat by Pulse 95 95 96 Oximetry 02/20/22 02/20/22 02/20/22 08:45 09:00 09:15 Temperature Pulse Rate 91 H 100 H 102 H Pulse Rate [ From Monitor] Respiratory 13 13 13 Rate Blood Pressure 96/69 82/62 93/52 O2 Sat by Pulse 95 95 96 Oximetry 02/20/22 02/20/22 02/20/22 09:30 09:38 09:39 Temperature Pulse Rate 110 H 104 H 108 H Pulse Rate [ From Monitor] Respiratory 15 Rate Blood Pressure 82/62 101/68 101/68 O2 Sat by Pulse 96 Oximetry 02/20/22 02/20/22 09:46 10:00 Temperature Pulse Rate 122 H 109 H Pulse Rate [ From Monitor] Respiratory 18 17 Rate Blood Pressure 101/68 106/73 O2 Sat by Pulse 97 98 Oximetry - Labs CBC & Chem 7: 02/20/22 09:08 02/20/22 05:45 Labs: Abnormal lab results 02/19/22 02/19/22 02/20/22 Range/Units 20:40 21:22 00:07 WBC (4.5-11.0) K/mm3 RDW (13.2-15.2) % Lymph % (Auto) (13.4-35.0) % [place] % (Auto) (0.0-7.3) % Lymph # (Auto) (1.2-5.4) K/mm3 [place] # (Auto) (0.0-0.8) K/mm3 Seg Neutrophils % (40.0-70.0) % Seg Neutrophils # (1.8-7.7) K/mm3 ABG pH 7.261 L (7.350-7.450) pH Units ABG pO2 139.1 H (80.0-90.0) mm Hg ABG HCO3 7.9 L (20.0-26.0) mmol/L ABG Base Excess -16.7 L (-2.0-3.0) mmol/L Sodium 131 L (137-145) mmol/L Potassium 6.5 H* D (3.6-5.0) mmol/L Chloride 94.1 L (98-107) mmol/L Carbon Dioxide 8 L* D (22-30) mmol/L BUN 30 H (9-20) mg/dL Creatinine 1.5 H (0.8-1.3) mg/dL Glucose 44 L (75-100) mg/dL Lactic Acid 12.00 H* (0.7-2.0) mmol/L Calcium (8.4-10.2) mg/dL 02/20/22 02/20/22 02/20/22 Range/Units 05:45 05:45 06:16 WBC (4.5-11.0) K/mm3 RDW (13.2-15.2) % Lymph % (Auto) (13.4-35.0) % [place] % (Auto) (0.0-7.3) % Lymph # (Auto) (1.2-5.4) K/mm3 [place] # (Auto) (0.0-0.8) K/mm3 Seg Neutrophils % (40.0-70.0) % Seg Neutrophils # (1.8-7.7) K/mm3 ABG pH (7.350-7.450) pH Units ABG pO2 (80.0-90.0) mm Hg ABG HCO3 (20.0-26.0) mmol/L ABG Base Excess (-2.0-3.0) mmol/L Sodium 134 L (137-145) mmol/L Potassium (3.6-5.0) mmol/L Chloride 96.4 L (98-107) mmol/L Carbon Dioxide 21 L D (22-30) mmol/L BUN 38 H (9-20) mg/dL Creatinine 2.0 H (0.8-1.3) mg/dL Glucose 217 H (75-100) mg/dL Lactic Acid 3.30 H* 3.50 H* (0.7-2.0) mmol/L Calcium 8.3 L (8.4-10.2) mg/dL 02/20/22 02/20/22 Range/Units 09:08 09:08 WBC 12.7 H (4.5-11.0) K/mm3 RDW 20.3 H (13.2-15.2) % Lymph % (Auto) 6.5 L (13.4-35.0) % [place] % (Auto) 9.7 H (0.0-7.3) % Lymph # (Auto) 0.8 L (1.2-5.4) K/mm3 [place] # (Auto) 1.2 H (0.0-0.8) K/mm3 Seg Neutrophils % 83.5 H (40.0-70.0) % Seg Neutrophils # 10.6 H (1.8-7.7) K/mm3 ABG pH (7.350-7.450) pH Units ABG pO2 (80.0-90.0) mm Hg ABG HCO3 (20.0-26.0) mmol/L ABG Base Excess (-2.0-3.0) mmol/L Sodium (137-145) mmol/L Potassium (3.6-5.0) mmol/L Chloride (98-107) mmol/L Carbon Dioxide (22-30) mmol/L BUN (9-20) mg/dL Creatinine (0.8-1.3) mg/dL Glucose (75-100) mg/dL Lactic Acid 2.80 H* (0.7-2.0) mmol/L Calcium (8.4-10.2) mg/dL Medications & Allergies - Medications Allergies/Adverse Reactions: Allergies cantaloupe Allergy (Severe, Verified 02/19/22 01:44) Anaphylaxis melon Allergy (Severe, Verified 02/19/22 01:44) Anaphylaxis ALLERGIC TO ALL MELON mushroom Allergy (Severe, Verified 02/19/22 01:44) Anaphylaxis watermelon Allergy (Severe, Verified 02/19/22 01:44) Anaphylaxis pollen extracts Allergy (Verified 02/19/22 01:44) Unknown Home Medications: Home Medications Medication Instructions Recorded Confirmed Last Taken Type Apixaban [Eliquis] 5 mg PO Q12HR 30 Days #60 tablet 12/18/21 12/26/21 12/23/21 Rx Pantoprazole [Protonix TAB] 40 mg PO QDAC 30 Days #30 tablet 12/18/21 12/26/21 12/23/21 Rx Spironolactone [Aldactone] 25 mg PO QDAY 30 Days #30 tablet 12/18/21 12/26/21 Unknown Rx Amiodarone [Cordarone 200 MG TAB] 200 mg PO BID 30 Days #60 tablet 12/28/21 Unknown Rx Aspirin [Aspirin BABY CHEW TAB] 81 mg PO QDAY 30 Days #30 tab.chew 12/28/21 Unknown Rx AtorvaSTATin [Lipitor] 20 mg PO QHS 30 Days #30 tab 12/28/21 Unknown Rx Digoxin [Lanoxin] 0.125 mg PO DAILY@1700 30 Days #30 12/28/21 Unknown Rx tablet Furosemide [Lasix] 40 mg PO QDAC 30 Days #30 tab 12/28/21 Unknown Rx Levothyroxine [Synthroid] 150 mcg PO DAILY@0600 30 Days #30 12/28/21 Unknown Rx tablet Sacubitril/Valsartan [Entresto 24 1 each PO QDAY 30 Days #30 tab 12/28/21 12/26/21 Unknown Rx - 26 mg] Active Medications: Generic Name Dose Route Start Last Admin Trade Name Freq PRN Reason Stop Dose Admin Acetaminophen 650 mg 02/19/22 04:45 Acetaminophen 325 Mg Tab PO Q6H PRN Pain, Mild (1-3) Alprazolam 0.5 mg 02/19/22 09:00 02/19/22 16:30 Alprazolam 0.5 Mg Tab PO 0.5 mg Q8H PRN Administration Anxiety Apixaban 5 mg 02/19/22 10:00 02/20/22 09:39 Apixaban 5 Mg Tab PO 5 mg Q12HR JENNA Administration Aspirin 81 mg 02/19/22 10:00 02/20/22 09:39 Aspirin 81 Mg Tab Chew PO 81 mg QDAY JENNA Administration Atorvastatin Calcium 40 mg 02/19/22 22:00 02/19/22 21:56 Atorvastatin 40 Mg Tab PO 40 mg QHS JENNA Administration Digoxin 0.125 mg 02/19/22 17:00 02/19/22 16:29 Digoxin 0.125 Mg Tab PO 0.125 mg DAILY@1700 JENNA Administration Amiodarone HCl 900 mg/ 500 mls @ 33.333 mls/hr 02/19/22 09:00 02/19/22 20:18 Dextrose IV 0 mg/min DIRECT JENNA 0 mls/hr Infusion Protocol 1 MG/MIN NORepinephrine/NS 8 MG-250 ML 8 mg in 250 mls @ 3.75 mls/hr 02/19/22 21:00 02/20/22 02:18 Norepinephrine/Ns 8 Mg-250 Ml (Double Conc) IV 0 mcg/min TITRATE JENNA 0 mls/hr Titration Protocol 2 MCG/MIN Levothyroxine Sodium 150 mcg 02/19/22 06:00 02/20/22 05:47 Levothyroxine 150 Mcg Tab PO 150 mcg DAILY@0600 JENNA Administration Metoprolol Succinate 50 mg 02/19/22 10:00 02/20/22 09:39 Metoprolol Succinate Xl 50 Mg Tab PO 50 mg QDAY JENNA Administration Morphine Sulfate 2 mg 02/19/22 04:45 Morphine 4 Mg/1 Ml Inj IV Q5MIN PRN Chest Pain unrelieved by NTG Nitroglycerin 0.4 mg 02/19/22 04:45 Nitroglycerin 0.4 Mg Tab Subl SL Q5M PRN Chest Pain Pantoprazole Sodium 40 mg 02/19/22 07:30 02/20/22 09:39 Pantoprazole 40 Mg Tab PO 40 mg QDAC JENNA Administration Sodium Chloride 10 ml 02/19/22 04:45 02/20/22 09:38 Sodium Chloride 0.9% 10 Ml Flush Syringe IV 10 ml PRN PRN Administration LINE FLUSH Tramadol HCl 50 mg 02/19/22 04:45 02/19/22 16:29 Tramadol 50 Mg Tab PO 50 mg Q6H PRN Administration Pain, Moderate (4-6) HEART Score - HEART Score Troponin: Troponin T < 0.010 ng/mL (0.00-0.029) 02/19/22 10:03
--- NOTE | 2022-02-20 12:59 | Progress Note ---
<JIMI PANDEY - Last Filed: 02/20/22 20:37> Assessment and Plan Assessment and plan: This is a 62-year-old male with known past medical history of HFrEF, HTN, hypothyroidism, paroxysmal Afib on Eliquis at home, and noncompliant with medications admitted for atrial fibrillation with RVR and acute on chronic CHF exacerbation Hospital Course to Date: 02/21: Hypotension with metabolic acidosis overnight required pressor and now on Bcarb. Pressor is off this am, remains Afib on the monitor HR 90 to 100s. Amio gtt held due to hypotension. Per CCM, patient might be benefit from an inotrope gtt given severe acidosis and now with ANA LAURA, most likely due to hypoperfusion. Will discussed with cardiology. Will hold IV lasix for now, and nephrology is consulted. Continue BB and PO dig for now. Will hold antihypertensive agents for now due to low BP. Assessment and Plan #Acute on chronic systolic heart failure #Atrial fibrillation with RVR #Nonischemic Dilated Cardiomyopathy #HTN, HLD - Presented with SOB, dypnea - EKG reveal AFib with RVR - s/p Amiodarone gtt, held overnight due to hypotension - Remains in Afib on the monitor, HR 90 to 100s - off pressor this am, now on Bicarb gtt - Continue stating, BB, and PO dig for now - continue AC with eliquis 5mg q12h - Echocardiogram last admission revealed: EF 15-20% - Cardiology on consult, appreciate recommendations - Continue blood pressure monitor per protocol - Maintain MAP above 65 - Will hold antihypertensive agents for now due to low BP - Strict intake and output and daily weight #Acute Kidney Injury(ANA LAURA) most likely ATN #Metabolic Acidosis - most likely due to hypoperfusion/hypotension - Now on Bcarb gtt - IV Lasxi on hold - Nephrology on consult, appreciated recommendation - Strict intake and output - Avoid nephrotoxic medications - Monitor and replace electrolytes as needed #Elevated transaminases #Hyperbilirubinemia - likely secondary to hepatic congestion in the setting of CHF exacerbation/edema -monitor on serial hepatic panel #Hypothyroidism TSH 8.07, free T4 WNL on prior admit - continue synthroid 15 mcg daily - will require endocrinology follow up outpatient #Tobacco dependence #Tobacco/Smoking cessation counseling - Counseled patient about the importance of smoking cessation and the possible sequelae as a result of continued tobacco consumption. The patient expresses understanding. #GI/DVT Prophylaxis - PPI- Protonix - On Eliquis - SCDs to bilateral lower extremities while in bed #Advance Care Planning - Disease education data, care plan, diagnoses, and prognosis were discussed with patient at the bedside. Patient is full code. Patient acknowledged understanding and agreement with current care plan. The high probability of a clinically significant, sudden or life threatening deterioration of the [multiple] system(s) required my full and direct attention, intervention and personal management. The aggregate critical care time was [60] minutes. This time is in addition to time spent performing reported procedures but includes the following: [x] Data Review and interpretation [x] Patient assessment and monitoring of vital signs [x] Documentation [x] Medication orders and management Disposition Plan: ICU Total Time Spent with Patient (Minutes): 60 History Interval history: Patient seen and examined at the bedside. Fully AAO, on RA, complaining of being hungry. Denied any pain nor any discomfort at this time. Severe hypotension and metabolic acidosis required short dueration of pressor overnight and now on bcarb gtt. Remains in Afib HR in the 90 to 100s. Amiodarone gtt was held due to hypotesion. VSS this am, patient is off pressors. Hospitalist Physical - Constitutional Vitals: Temp Pulse Resp BP Pulse Ox 97.6 F 91 H 19 129/81 97 02/20/22 07:13 02/20/22 12:16 02/20/22 12:16 02/20/22 12:16 02/20/22 12:16 General appearance: Present: no acute distress, well-nourished, obese - EENT Eyes: Present: PERRL, EOM intact ENT: hearing intact - Neck Neck: Present: supple - Respiratory Respiratory effort: normal Respiratory: bilateral: diminished - Cardiovascular Rhythm: regular Heart Sounds: Present: S1 & S2 - Extremities Extremities: no ischemia, pulses intact, pulses symmetrical Extremity abnormal: edema - Peripheral Assessment Generalized Edema Type: Non-pitting Edema Degree: 2+ Capillary Refill: < 3 seconds Skin Temperature: Warm Peripheral Pulses: within normal limits - Abdominal General gastrointestinal: soft, non-distended, normal bowel sounds - Integumentary Integumentary: Present: warm, dry - Psychiatric Psychiatric: appropriate mood/affect, cooperative - Neurologic Neurologic: CNII-XII intact, moves all extremities - Allied Health Allied health notes reviewed: nursing, case management HEART Score - HEART Score Troponin: Troponin T < 0.010 ng/mL (0.00-0.029) 02/19/22 10:03 Results - Labs CBC & Chem 7: 02/20/22 09:08 02/20/22 05:45 Labs: Laboratory Last Values WBC 12.7 K/mm3 (4.5-11.0) H 02/20/22 09:08 RBC 4.51 M/mm3 (3.65-5.03) 02/20/22 09:08 Hgb 12.8 gm/dl (11.8-15.2) 02/20/22 09:08 Hct 40.1 % (35.5-45.6) 02/20/22 09:08 MCV 89 fl (84-94) 02/20/22 09:08 MCH 28 pg (28-32) 02/20/22 09:08 MCHC 32 % (32-34) 02/20/22 09:08 RDW 20.3 % (13.2-15.2) H 02/20/22 09:08 Plt Count 161 K/mm3 (140-440) 02/20/22 09:08 Lymph % (Auto) 6.5 % (13.4-35.0) L 02/20/22 09:08 [place] % (Auto) 9.7 % (0.0-7.3) H 02/20/22 09:08 Eos % (Auto) 0.0 % (0.0-4.3) 02/20/22 09:08 Baso % (Auto) 0.3 % (0.0-1.8) 02/20/22 09:08 Lymph # (Auto) 0.8 K/mm3 (1.2-5.4) L 02/20/22 09:08 [place] # (Auto) 1.2 K/mm3 (0.0-0.8) H 02/20/22 09:08 Eos # (Auto) 0.0 K/mm3 (0.0-0.4) 02/20/22 09:08 Baso # (Auto) 0.0 K/mm3 (0.0-0.1) 02/20/22 09:08 Seg Neutrophils % 83.5 % (40.0-70.0) H 02/20/22 09:08 Seg Neutrophils # 10.6 K/mm3 (1.8-7.7) H 02/20/22 09:08 ABG pH 7.261 pH Units (7.350-7.450) L 02/19/22 20:40 ABG pCO2 17.9 mm Hg 02/19/22 20:40 ABG pO2 139.1 mm Hg (80.0-90.0) H 02/19/22 20:40 ABG HCO3 7.9 mmol/L (20.0-26.0) L 02/19/22 20:40 ABG O2 Saturation 98.6 % (95.0-99.0) 02/19/22 20:40 ABG O2 Content 19.4 (0.0-44) 02/19/22 20:40 ABG Base Excess -16.7 mmol/L (-2.0-3.0) L 02/19/22 20:40 ABG Hemoglobin 14.1 gm/dl (14.0-18.0) 02/19/22 20:40 ABG Carboxyhemoglobin 1.9 % (0.0-5.0) 02/19/22 20:40 ABG Methemoglobin 0.4 % (0.0-1.5) 02/19/22 20:40 Oxyhemoglobin 96.2 % (95.0-99.0) 02/19/22 20:40 FiO2 28 % 02/19/22 20:40 Sodium 134 mmol/L (137-145) L 02/20/22 05:45 Potassium 4.8 mmol/L (3.6-5.0) D 02/20/22 05:45 Chloride 96.4 mmol/L (98-107) L 02/20/22 05:45 Carbon Dioxide 21 mmol/L (22-30) L D 02/20/22 05:45 Anion Gap 21 mmol/L 02/20/22 05:45 BUN 38 mg/dL (9-20) H 02/20/22 05:45 Creatinine 2.0 mg/dL (0.8-1.3) H 02/20/22 05:45 Estimated GFR 41 ml/min 02/20/22 05:45 BUN/Creatinine Ratio 19 % 02/20/22 05:45 Glucose 217 mg/dL (75-100) H 02/20/22 05:45 Lactic Acid 2.80 mmol/L (0.7-2.0) H* 02/20/22 09:08 Calcium 8.3 mg/dL (8.4-10.2) L 02/20/22 05:45 Total Bilirubin 2.30 mg/dL (0.1-1.2) H 02/19/22 00:59 AST 105 units/L (5-40) H 02/19/22 00:59 ALT 86 units/L (7-56) H 02/19/22 00:59 Alkaline Phosphatase 298 units/L (35-129) H 02/19/22 00:59 Troponin T < 0.010 ng/mL (0.00-0.029) 02/19/22 10:03 NT-Pro-B Natriuret Pep 956.8 pg/mL (0-900) H 02/19/22 10:03 Total Protein 6.7 g/dL (6.3-8.2) 02/19/22 00:59 Albumin 3.4 g/dL (3.9-5) L 02/19/22 00:59 Albumin/Globulin Ratio 1.0 % 02/19/22 00:59 SARS-CoV-2 (PCR) Negative (Negative) 02/19/22 11:45 Pelayo/IV: Voiding Method Urinal Active Medications - Current Medications Current Medications: Generic Name Dose Route Start Last Admin Trade Name Freq PRN Reason Stop Dose Admin Acetaminophen 650 mg 02/19/22 04:45 Acetaminophen 325 Mg Tab PO Q6H PRN Pain, Mild (1-3) Alprazolam 0.5 mg 02/19/22 09:00 02/19/22 16:30 Alprazolam 0.5 Mg Tab PO 0.5 mg Q8H PRN Administration Anxiety Apixaban 5 mg 02/19/22 10:00 02/20/22 09:39 Apixaban 5 Mg Tab PO 5 mg Q12HR JENNA Administration Aspirin 81 mg 02/19/22 10:00 02/20/22 09:39 Aspirin 81 Mg Tab Chew PO 81 mg QDAY JENNA Administration Atorvastatin Calcium 40 mg 02/19/22 22:00 02/19/22 21:56 Atorvastatin 40 Mg Tab PO 40 mg QHS JENNA Administration Digoxin 0.125 mg 02/19/22 17:00 02/19/22 16:29 Digoxin 0.125 Mg Tab PO 0.125 mg DAILY@1700 JENNA Administration Amiodarone HCl 900 mg/ 500 mls @ 33.333 mls/hr 02/19/22 09:00 02/19/22 20:18 Dextrose IV 0 mg/min DIRECT JENNA 0 mls/hr Infusion Protocol 1 MG/MIN NORepinephrine/NS 8 MG-250 ML 8 mg in 250 mls @ 3.75 mls/hr 02/19/22 21:00 02/20/22 02:18 Norepinephrine/Ns 8 Mg-250 Ml (Double Conc) IV 0 mcg/min TITRATE JENNA 0 mls/hr Titration Protocol 2 MCG/MIN Levothyroxine Sodium 150 mcg 02/19/22 06:00 02/20/22 05:47 Levothyroxine 150 Mcg Tab PO 150 mcg DAILY@0600 JENNA Administration Metoprolol Succinate 50 mg 02/19/22 10:00 02/20/22 09:39 Metoprolol Succinate Xl 50 Mg Tab PO 50 mg QDAY JENNA Administration Morphine Sulfate 2 mg 02/19/22 04:45 Morphine 4 Mg/1 Ml Inj IV Q5MIN PRN Chest Pain unrelieved by NTG Nitroglycerin 0.4 mg 02/19/22 04:45 Nitroglycerin 0.4 Mg Tab Subl SL Q5M PRN Chest Pain Pantoprazole Sodium 40 mg 02/19/22 07:30 02/20/22 09:39 Pantoprazole 40 Mg Tab PO 40 mg QDAC JENNA Administration Sodium Chloride 10 ml 02/19/22 04:45 02/20/22 09:38 Sodium Chloride 0.9% 10 Ml Flush Syringe IV 10 ml PRN PRN Administration LINE FLUSH Tramadol HCl 50 mg 02/19/22 04:45 02/19/22 16:29 Tramadol 50 Mg Tab PO 50 mg Q6H PRN Administration Pain, Moderate (4-6) <REZA MENJIVAR - Last Filed: 02/21/22 07:14> Assessment and Plan Assessment and plan: I saw and evaluated the patient. I agree with the findings and the plan of care as documented in the Nurse Practitioner's~note, with the following corrections and additions. Hospitalist Physical - Constitutional Vitals: Temp Pulse Resp BP Pulse Ox 97 F L 117 H 23 93/74 98 07/06/22 05:03 02/21/22 06:01 02/21/22 06:01 02/21/22 06:01 02/21/22 06:01 HEART Score - HEART Score Troponin: Troponin T < 0.010 ng/mL (0.00-0.029) 02/19/22 10:03 Results - Labs CBC & Chem 7: 02/21/22 04:52 02/21/22 04:52 Labs: Laboratory Last Values WBC 18.7 K/mm3 (4.5-11.0) H 02/21/22 04:52 RBC 4.48 M/mm3 (3.65-5.03) 02/21/22 04:52 Hgb 12.5 gm/dl (11.8-15.2) 02/21/22 04:52 Hct 39.4 % (35.5-45.6) 02/21/22 04:52 MCV 88 fl (84-94) 02/21/22 04:52 MCH 28 pg (28-32) 02/21/22 04:52 MCHC 32 % (32-34) 02/21/22 04:52 RDW 20.1 % (13.2-15.2) H 02/21/22 04:52 Plt Count 170 K/mm3 (140-440) 02/21/22 04:52 Lymph % (Auto) 6.5 % (13.4-35.0) L 02/20/22 09:08 [place] % (Auto) 9.7 % (0.0-7.3) H 02/20/22 09:08 Eos % (Auto) 0.0 % (0.0-4.3) 02/20/22 09:08 Baso % (Auto) 0.3 % (0.0-1.8) 02/20/22 09:08 Lymph # (Auto) 0.8 K/mm3 (1.2-5.4) L 02/20/22 09:08 [place] # (Auto) 1.2 K/mm3 (0.0-0.8) H 02/20/22 09:08 Eos # (Auto) 0.0 K/mm3 (0.0-0.4) 02/20/22 09:08 Baso # (Auto) 0.0 K/mm3 (0.0-0.1) 02/20/22 09:08 Seg Neutrophils % 83.5 % (40.0-70.0) H 02/20/22 09:08 Seg Neutrophils # 10.6 K/mm3 (1.8-7.7) H 02/20/22 09:08 ABG pH 7.261 pH Units (7.350-7.450) L 02/19/22 20:40 ABG pCO2 17.9 mm Hg 02/19/22 20:40 ABG pO2 139.1 mm Hg (80.0-90.0) H 02/19/22 20:40 ABG HCO3 7.9 mmol/L (20.0-26.0) L 02/19/22 20:40 ABG O2 Saturation 98.6 % (95.0-99.0) 02/19/22 20:40 ABG O2 Content 19.4 (0.0-44) 02/19/22 20:40 ABG Base Excess -16.7 mmol/L (-2.0-3.0) L 02/19/22 20:40 ABG Hemoglobin 14.1 gm/dl (14.0-18.0) 02/19/22 20:40 ABG Carboxyhemoglobin 1.9 % (0.0-5.0) 02/19/22 20:40 ABG Methemoglobin 0.4 % (0.0-1.5) 02/19/22 20:40 Oxyhemoglobin 96.2 % (95.0-99.0) 02/19/22 20:40 FiO2 28 % 02/19/22 20:40 Sodium 131 mmol/L (137-145) L 02/21/22 04:52 Potassium 4.1 mmol/L (3.6-5.0) 02/21/22 04:52 Chloride 96.5 mmol/L (98-107) L 02/21/22 04:52 Carbon Dioxide 24 mmol/L (22-30) 02/21/22 04:52 Anion Gap 15 mmol/L 02/21/22 04:52 BUN 44 mg/dL (9-20) H 02/21/22 04:52 Creatinine 1.7 mg/dL (0.8-1.3) H 02/21/22 04:52 Estimated GFR 50 ml/min 02/21/22 04:52 BUN/Creatinine Ratio 26 % 02/21/22 04:52 Glucose 194 mg/dL (75-100) H 02/21/22 04:52 Lactic Acid 2.80 mmol/L (0.7-2.0) H* 02/20/22 09:08 Calcium 7.7 mg/dL (8.4-10.2) L 02/21/22 04:52 Total Bilirubin 2.30 mg/dL (0.1-1.2) H 02/19/22 00:59 AST 105 units/L (5-40) H 02/19/22 00:59 ALT 86 units/L (7-56) H 02/19/22 00:59 Alkaline Phosphatase 298 units/L (35-129) H 02/19/22 00:59 Troponin T < 0.010 ng/mL (0.00-0.029) 02/19/22 10:03 NT-Pro-B Natriuret Pep 956.8 pg/mL (0-900) H 02/19/22 10:03 Total Protein 6.7 g/dL (6.3-8.2) 02/19/22 00:59 Albumin 3.4 g/dL (3.9-5) L 02/19/22 00:59 Albumin/Globulin Ratio 1.0 % 02/19/22 00:59 Urine Color Straw (Yellow) 02/20/22 Unknown Urine Turbidity Hazy (Clear) 02/20/22 Unknown Urine pH 5.0 (5.0-7.0) 02/20/22 Unknown Ur Specific [place] 1.015 (1.003-1.030) 02/20/22 Unknown Urine Protein 30 mg/dl mg/dL (Negative) 02/20/22 Unknown Urine Glucose (UA) Negative mg/dL (Negative) 02/20/22 Unknown Urine Ketones Trace mg/dL (Negative) 02/20/22 Unknown Urine Blood 1+ (Negative) 02/20/22 Unknown Urine Nitrite Negative (Negative) 02/20/22 Unknown Ur Reducing Substances Not Reportable 02/20/22 Unknown Urine Bilirubin Negative (Negative) 02/20/22 Unknown Urine Ictotest Not Reportable 02/20/22 Unknown Urine Urobilinogen < 2.0 mg/dL (<2.0) 02/20/22 Unknown Ur Leukocyte Esterase Large (Negative) 02/20/22 Unknown Urine WBC (Auto) 74.0 /HPF (0.0-6.0) H 02/20/22 Unknown Urine RBC (Auto) 8.0 /HPF (0.0-6.0) 02/20/22 Unknown U Epithel Cells (Auto) 2.0 /HPF (0-13.0) 02/20/22 Unknown Urine Bacteria (Auto) 1+ /HPF (Negative) 02/20/22 Unknown Urine WBC Clumps 2+ /HPF 02/20/22 Unknown Hyaline Casts 46 /LPF 02/20/22 Unknown Urine Mucus 1+ /HPF 02/20/22 Unknown Urine Creatinine 49.4 mg/dL (0.1-20.0) H 02/20/22 Unknown Urine Sodium 75 mmol/L 02/20/22 Unknown SARS-CoV-2 (PCR) Negative (Negative) 02/19/22 11:45 Pelayo/IV: Voiding Method Urinal Active Medications - Current Medications Current Medications: Generic Name Dose Route Start Last Admin Trade Name Freq PRN Reason Stop Dose Admin Acetaminophen 650 mg 02/19/22 04:45 Acetaminophen 325 Mg Tab PO Q6H PRN Pain, Mild (1-3) Alprazolam 0.5 mg 02/19/22 09:00 02/20/22 16:58 Alprazolam 0.5 Mg Tab PO 0.5 mg Q8H PRN Administration Anxiety Apixaban 5 mg 02/19/22 10:00 02/20/22 21:15 Apixaban 5 Mg Tab PO 5 mg Q12HR JENNA Administration Aspirin 81 mg 02/19/22 10:00 02/20/22 09:39 Aspirin 81 Mg Tab Chew PO 81 mg QDAY JENNA Administration Atorvastatin Calcium 40 mg 02/19/22 22:00 02/20/22 21:15 Atorvastatin 40 Mg Tab PO 40 mg QHS JENNA Administration Digoxin 0.125 mg 02/19/22 17:00 02/20/22 16:59 Digoxin 0.125 Mg Tab PO 0.125 mg DAILY@1700 JENNA Administration Amiodarone HCl 900 mg/ 500 mls @ 33.333 mls/hr 02/19/22 09:00 02/20/22 23:30 Dextrose IV 1 mg/min DIRECT JENNA 33.333 mls/hr Infusion Protocol 1 MG/MIN NORepinephrine/NS 8 MG-250 ML 8 mg in 250 mls @ 3.75 mls/hr 02/19/22 21:00 02/20/22 02:18 Norepinephrine/Ns 8 Mg-250 Ml (Double Conc) IV 0 mcg/min TITRATE JENNA 0 mls/hr Titration Protocol 2 MCG/MIN Milrinone Lactate/Dextrose 20 mg in 100 mls @ 3.487 mls/hr 02/20/22 15:00 02/20/22 16:00 Milrinone-D5w 20 Mg/100 Ml IV 0.125 mcg/kg/min DIRECT JENNA 3.487 mls/hr Administration Protocol 0.125 MCG/KG/MIN Levothyroxine Sodium 150 mcg 02/19/22 06:00 02/21/22 05:29 Levothyroxine 150 Mcg Tab PO 150 mcg DAILY@0600 JENNA Administration Metoprolol Succinate 50 mg 02/19/22 10:00 02/20/22 09:39 Metoprolol Succinate Xl 50 Mg Tab PO 50 mg QDAY JENNA Administration Morphine Sulfate 2 mg 02/19/22 04:45 Morphine 4 Mg/1 Ml Inj IV Q5MIN PRN Chest Pain unrelieved by NTG Nitroglycerin 0.4 mg 02/19/22 04:45 Nitroglycerin 0.4 Mg Tab Subl SL Q5M PRN Chest Pain Pantoprazole Sodium 40 mg 02/19/22 07:30 02/20/22 09:39 Pantoprazole 40 Mg Tab PO 40 mg QDAC JENNA Administration Sodium Chloride 10 ml 02/19/22 04:45 02/20/22 09:38 Sodium Chloride 0.9% 10 Ml Flush Syringe IV 10 ml PRN PRN Administration LINE FLUSH Tramadol HCl 50 mg 02/19/22 04:45 02/19/22 16:29 Tramadol 50 Mg Tab PO 50 mg Q6H PRN Administration Pain, Moderate (4-6)
--- NOTE | 2022-02-20 14:06 | Consultation ---
History of Present Illness - Reason for Consult Consult date: 02/20/22 acute renal failure - History of Present Illness The patient is a 62 YO male with known history of HTN, HLD, Nonischemic car diomyopathy with EF 15 to 2% and Atrial fibrillation who presented to [facility] ED 02/19/22 with complaining of sob. He also reports orthopnea, [place], bilateral LE edema and increase in abdominal girth. He denies any chest pain, fever or chills. EKG showed A. fib with RVR. Chest x-ray showed pulmonary edema consistent with CHF exacerbation. He was given IV Lasix and started on Diltiazem infusion. Labs notable Creatinine 2. Nephrology consulted for further evaluation and treatment of ANA LAURA. Past History Past Medical History: acute [place], atrial fib, heart failure, hypertension Past Surgical History: No surgical history Social history: smoking Family history: hypertension Medications and Allergies Allergies Allergy/AdvReac Type Severity Reaction Status Date / Time cantaloupe Allergy Severe Anaphylaxis Verified 02/19/22 01:44 melon Allergy Severe Anaphylaxis Verified 02/19/22 01:44 mushroom Allergy Severe Anaphylaxis Verified 02/19/22 01:44 watermelon Allergy Severe Anaphylaxis Verified 02/19/22 01:44 pollen extracts Allergy Unknown Verified 02/19/22 01:44 Home Medications Medication Instructions Recorded Confirmed Last Taken Type Apixaban [Eliquis] 5 mg PO Q12HR 30 Days #60 tablet 12/18/21 12/26/21 12/23/21 Rx Pantoprazole [Protonix TAB] 40 mg PO QDAC 30 Days #30 tablet 12/18/21 12/26/21 12/23/21 Rx Spironolactone [Aldactone] 25 mg PO QDAY 30 Days #30 tablet 12/18/21 12/26/21 Unknown Rx Amiodarone [Cordarone 200 MG TAB] 200 mg PO BID 30 Days #60 tablet 12/28/21 Unknown Rx Aspirin [Aspirin BABY CHEW TAB] 81 mg PO QDAY 30 Days #30 tab.chew 12/28/21 Unknown Rx AtorvaSTATin [Lipitor] 20 mg PO QHS 30 Days #30 tab 12/28/21 Unknown Rx Digoxin [Lanoxin] 0.125 mg PO DAILY@1700 30 Days #30 12/28/21 Unknown Rx tablet Furosemide [Lasix] 40 mg PO QDAC 30 Days #30 tab 12/28/21 Unknown Rx Levothyroxine [Synthroid] 150 mcg PO DAILY@0600 30 Days #30 12/28/21 Unknown Rx tablet Sacubitril/Valsartan [Entresto 24 1 each PO QDAY 30 Days #30 tab 12/28/21 12/26/21 Unknown Rx - 26 mg] Active Meds: Active Medications Acetaminophen (Acetaminophen 325 Mg Tab) 650 mg PO Q6H PRN PRN Reason: Pain, Mild (1-3) Alprazolam (Alprazolam 0.5 Mg Tab) 0.5 mg PO Q8H PRN PRN Reason: Anxiety Last Admin: 02/19/22 16:30 Dose: 0.5 mg Apixaban (Apixaban 5 Mg Tab) 5 mg PO Q12HR [facility] Last Admin: 02/20/22 09:39 Dose: 5 mg Aspirin (Aspirin 81 Mg Tab Chew) 81 mg PO QDAY [facility] Last Admin: 02/20/22 09:39 Dose: 81 mg Atorvastatin Calcium (Atorvastatin 40 Mg Tab) 40 mg PO QHS [facility] Last Admin: 02/19/22 21:56 Dose: 40 mg Digoxin (Digoxin 0.125 Mg Tab) 0.125 mg PO DAILY@1700 [facility] Last Admin: 02/19/22 16:29 Dose: 0.125 mg Amiodarone HCl 900 mg/ (Dextrose) 500 mls @ 33.333 mls/hr IV DIRECT JENNA; Protocol Last Infusion: 02/19/22 20:18 Dose: 0 mg/min, 0 mls/hr NORepinephrine/NS 8 MG-250 ML (Norepinephrine/Ns 8 Mg-250 Ml (Double Conc)) 8 mg in 250 mls @ 3.75 mls/hr IV TITRATE JENNA; Protocol Last Titration: 02/20/22 02:18 Dose: 0 mcg/min, 0 mls/hr Levothyroxine Sodium (Levothyroxine 150 Mcg Tab) 150 mcg PO DAILY@0600 [facility] Last Admin: 02/20/22 05:47 Dose: 150 mcg Metoprolol Succinate (Metoprolol Succinate Xl 50 Mg Tab) 50 mg PO QDAY [facility] Last Admin: 02/20/22 09:39 Dose: 50 mg Morphine Sulfate (Morphine 4 Mg/1 Ml Inj) 2 mg IV Q5MIN PRN PRN Reason: Chest Pain unrelieved by NTG Nitroglycerin (Nitroglycerin 0.4 Mg Tab Subl) 0.4 mg SL Q5M PRN PRN Reason: Chest Pain Pantoprazole Sodium (Pantoprazole 40 Mg Tab) 40 mg PO QDAC JENNA Last Admin: 02/20/22 09:39 Dose: 40 mg Sodium Chloride (Sodium Chloride 0.9% 10 Ml Flush Syringe) 10 ml IV PRN PRN PRN Reason: LINE FLUSH Last Admin: 02/20/22 09:38 Dose: 10 ml Tramadol HCl (Tramadol 50 Mg Tab) 50 mg PO Q6H PRN PRN Reason: Pain, Moderate (4-6) Last Admin: 02/19/22 16:29 Dose: 50 mg Review of Systems All systems: negative Exam - Vital Signs Vital signs: Vital Signs Temp Pulse Resp BP Pulse Ox 98.3 F 120 H 20 153/100 100 02/19/22 00:10 02/19/22 00:10 02/19/22 00:10 02/19/22 00:10 02/19/22 00:10 Results - Lab Results 02/21/22 04:52 02/21/22 04:52 Most recent lab results ABG pH 7.261 pH Units (7.350-7.450) L 02/19/22 20:40 ABG pCO2 17.9 mm Hg 02/19/22 20:40 ABG pO2 139.1 mm Hg (80.0-90.0) H 02/19/22 20:40 ABG HCO3 7.9 mmol/L (20.0-26.0) L 02/19/22 20:40 ABG O2 Saturation 98.6 % (95.0-99.0) 02/19/22 20:40 Calcium 8.3 mg/dL (8.4-10.2) L 02/20/22 05:45 Assessment and Plan 1. Acute kidney injury: Vasomotor ANA LAURA superimposed on CKD in the setting of decompensated CHF and hypotension. ATN. Urien studies and Renal US ordered. Monitor renal function. Creatinine level increasing. Avoid nephrotoxic agents. Meds dosage based on GFR. 2. FEN: Volume overload, diuretics as BP allows, monitor. Hyponatremia, monitor. Monitor lytes and volume status. 3. Decompensated HFrEF, POA: Followed by Cards. Monitor. 4. A.fib with RVR: Amio drip. Continue to monitor. 5. Hypotension: Levophed. Subjective: Patient was seen and examined at the bedside. Examination: General appearance: well-developed, appears stated age, no distress HEENT: atraumatic, [place] Neck: trachea midline Respiratory: diminished breath sounds bilaterally Heart: S1S2, irregular, no murmur Abdomen: soft, bowel sounds heard, NT Integumentary: LE stasis changes noted Neurologic: AO, able to move extremities Ext: 1+ LE and dependent edema
--- NOTE | 2022-02-20 14:16 | Progress Note ---
Assessment and Plan - Patient Problems (1) Acute on chronic systolic heart failure Current Visit: Yes Status: Acute Plan to address problem: Patient presents with acute on chronic systolic heart failure, largely due to noncompliance with recommended medical therapy, noncompliant with recommended outpatient cardiology follow-ups, and noncompliance with recommended dietary salt restriction. We will resume optimal medical therapy including intravenous diuretics and a trial of intravenous milrinone. (2) Chronic atrial fibrillation Current Visit: No Status: Acute Plan to address problem: Continue rate control strategy of chronic atrial fibrillation management, and Eliquis for oral anticoagulation. Given worsening renal failure, will be judicious with digitalis therapy, patient is currently on 0.125 mg daily, recommended check of dig level in 48 hours. Subjective Date of service: 02/20/22 Principal diagnosis: Acute on chronic systolic heart failure Interval history: Patient is comfortable in no acute distress, no new cardiac complaints. On network director has atrial fibrillation with ventricular rate in the 100s. Objective Vital Signs Temp Pulse Pulse Pulse Pulse Resp BP 02/20/22 12:16 91 H 19 129/81 02/20/22 12:00 107 H 16 98/78 02/20/22 11:46 114 H 18 98/78 02/20/22 11:30 117 H 13 98/78 02/20/22 11:15 112 H 17 104/68 02/20/22 11:00 109 H 16 107/78 02/20/22 10:46 109 H 18 99/66 02/20/22 10:30 99 H 15 106/73 02/20/22 10:15 118 H 17 102/75 02/20/22 10:00 109 H 17 106/73 02/20/22 09:46 122 H 18 101/68 02/20/22 09:39 108 H 101/68 02/20/22 09:38 104 H 101/68 02/20/22 09:30 110 H 15 82/62 02/20/22 09:15 102 H 13 93/52 02/20/22 09:00 100 H 13 82/62 02/20/22 08:45 91 H 13 96/69 02/20/22 08:30 98 H 13 108/61 02/20/22 08:15 104 H 12 98/68 02/20/22 08:00 99 H 14 105/72 07/05/22 07:46 106 H 14 105/72 02/20/22 07:30 83 14 89/68 02/20/22 07:16 116 H 15 102/66 02/20/22 07:13 97.6 F 02/20/22 07:00 102 H 14 109/83 02/20/22 06:45 102 H 15 109/83 02/20/22 06:30 106 H 15 113/72 02/20/22 06:15 124 H 15 108/63 02/20/22 06:00 95 H 15 101/64 02/20/22 05:46 108 H 16 101/64 02/20/22 05:30 93 H 13 92/70 02/20/22 05:16 102 H 15 92/70 02/20/22 05:00 102 H 14 101/75 02/20/22 04:45 85 16 101/75 02/20/22 04:30 102 H 16 92/65 02/20/22 04:15 106 H 14 92/65 02/20/22 04:00 97 F L 99 H 103 H 14 115/56 02/20/22 03:46 96 H 16 115/56 02/20/22 03:30 102 H 15 117/61 02/20/22 03:16 91 H 15 102/64 02/20/22 03:08 105/81 02/20/22 03:00 96 H 15 02/20/22 02:45 108 H 16 103/72 02/20/22 02:30 107 H 17 103/72 02/20/22 02:15 109 H 16 123/77 02/20/22 02:00 117 H 26 H 109/68 02/20/22 01:46 84 21 109/68 02/20/22 01:30 94 H 19 99/56 02/20/22 01:16 89 21 99/56 02/20/22 01:00 90 19 76/40 02/20/22 00:30 84 16 115/80 02/20/22 00:16 75 20 115/80 02/20/22 00:02 87 21 121/102 02/20/22 00:00 97.2 F L 83 91 H 16 121/102 02/19/22 23:46 100 H 13 87/20 02/19/22 23:30 79 17 93/74 02/19/22 23:16 89 20 93/74 07/04/22 23:00 71 17 109/56 02/19/22 22:46 67 16 99/67 02/19/22 22:30 75 19 100/76 02/19/22 22:16 82 22 111/87 02/19/22 22:00 77 26 H 156/135 02/19/22 21:46 82 23 156/135 02/19/22 21:30 71 18 103/76 02/19/22 21:24 75 02/19/22 21:16 76 20 103/76 02/19/22 21:00 80 17 142/113 02/19/22 20:46 75 19 122/89 02/19/22 20:30 87 21 149/115 02/19/22 20:28 77 17 149/115 02/19/22 20:26 81 15 41/23 02/19/22 20:24 82 17 41/23 02/19/22 20:22 75 21 41/23 02/19/22 20:20 92 H 20 41/23 02/19/22 20:18 82 25 H 72/39 02/19/22 20:16 78 12 72/39 02/19/22 20:14 74 20 48/22 02/19/22 20:12 79 20 74/47 02/19/22 20:10 71 14 74/47 02/19/22 20:08 82 21 74/47 02/19/22 20:06 84 26 H 74/47 02/19/22 20:04 82 15 74/47 02/19/22 20:02 81 23 74/47 02/19/22 20:00 73 75 20 95/71 02/19/22 19:58 77 21 95/71 02/19/22 19:56 80 19 95/71 02/19/22 19:54 78 23 95/71 02/19/22 19:52 69 22 95/71 02/19/22 19:50 80 21 95/71 02/19/22 19:48 90 21 95/71 02/19/22 19:47 96.4 F L 02/19/22 19:46 78 21 96/69 02/19/22 19:30 84 19 96/69 02/19/22 19:25 02/19/22 19:00 87 22 126/84 02/19/22 18:46 97 H 21 122/104 02/19/22 18:30 74 22 104/69 02/19/22 18:16 87 20 104/69 02/19/22 18:00 97.2 F L 85 14 108/70 02/19/22 17:46 81 15 108/70 02/19/22 17:30 82 24 108/70 02/19/22 17:29 22 02/19/22 17:16 80 17 99/63 02/19/22 17:00 89 24 115/82 02/19/22 16:46 94 H 23 103/73 02/19/22 16:30 82 16 120/100 02/19/22 16:29 80 24 120/100 02/19/22 16:16 85 14 120/100 02/19/22 16:00 91 H 99 H 99 H 23 150/126 02/19/22 15:46 98 H 16 150/126 02/19/22 15:30 88 15 150/126 02/19/22 15:00 101 H 10 L 150/126 02/19/22 14:30 87 12 105/44 Pulse Ox 02/20/22 12:16 97 02/20/22 12:00 97 02/20/22 11:46 97 02/20/22 11:30 97 02/20/22 11:15 96 02/20/22 11:00 97 02/20/22 10:46 97 02/20/22 10:30 96 02/20/22 10:15 97 02/20/22 10:00 98 02/20/22 09:46 97 02/20/22 09:39 02/20/22 09:38 02/20/22 09:30 96 02/20/22 09:15 96 02/20/22 09:00 95 02/20/22 08:45 95 02/20/22 08:30 96 02/20/22 08:15 95 02/20/22 08:00 95 02/20/22 07:46 96 02/20/22 07:30 96 02/20/22 07:16 96 02/20/22 07:13 02/20/22 07:00 96 02/20/22 06:45 96 02/20/22 06:30 96 02/20/22 06:15 96 02/20/22 06:00 95 02/20/22 05:46 95 02/20/22 05:30 96 02/20/22 05:16 98 02/20/22 05:00 98 02/20/22 04:45 98 02/20/22 04:30 98 02/20/22 04:15 98 02/20/22 04:00 98 02/20/22 03:46 98 02/20/22 03:30 97 02/20/22 03:16 97 02/20/22 03:08 02/20/22 03:00 97 02/20/22 02:45 96 02/20/22 02:30 98 02/20/22 02:15 96 02/20/22 02:00 100 02/20/22 01:46 100 02/20/22 01:30 98 02/20/22 01:16 100 02/20/22 01:00 100 02/20/22 00:30 100 02/20/22 00:16 99 02/20/22 00:02 100 02/20/22 00:00 100 02/19/22 23:46 100 02/19/22 23:30 99 02/19/22 23:16 93 02/19/22 23:00 100 02/19/22 22:46 100 02/19/22 22:30 02/19/22 22:16 100 02/19/22 22:00 91 02/19/22 21:46 02/19/22 21:30 02/19/22 21:24 02/19/22 21:16 82 L 02/19/22 21:00 02/19/22 20:46 02/19/22 20:30 02/19/22 20:28 02/19/22 20:26 02/19/22 20:24 94 02/19/22 20:22 02/19/22 20:20 02/19/22 20:18 02/19/22 20:16 02/19/22 20:14 02/19/22 20:12 02/19/22 20:10 02/19/22 20:08 02/19/22 20:06 61 L 02/19/22 20:04 02/19/22 20:02 84 02/19/22 20:00 100 02/19/22 19:58 02/19/22 19:56 97 02/19/22 19:54 91 02/19/22 19:52 02/19/22 19:50 02/19/22 19:48 99 02/19/22 19:47 02/19/22 19:46 02/19/22 19:30 89 02/19/22 19:25 100 02/19/22 19:00 02/19/22 18:46 02/19/22 18:30 78 L 02/19/22 18:16 100 02/19/22 18:00 46 L 02/19/22 17:46 37 L 02/19/22 17:30 98 02/19/22 17:29 02/19/22 17:16 100 02/19/22 17:00 02/19/22 16:46 74 L 02/19/22 16:30 99 02/19/22 16:29 02/19/22 16:16 89 02/19/22 16:00 97 02/19/22 15:46 02/19/22 15:30 02/19/22 15:00 02/19/22 14:30 78 L - Physical Examination General: No Apparent Distress HEENT: Positive: PERRL Neck: Positive: neck supple Cardiac: Positive: irregularly irregular Lungs: Positive: Decreased Breath Sounds Neuro: Positive: Grossly Intact Abdomen: Positive: Soft Skin: Positive: Clear Extremities: Present: +2 Edema - Labs and Meds CBC 02/20/22 Range/Units 09:08 WBC 12.7 H (4.5-11.0) K/mm3 RBC 4.51 (3.65-5.03) M/mm3 Hgb 12.8 (11.8-15.2) gm/dl Hct 40.1 (35.5-45.6) % Plt Count 161 (140-440) K/mm3 Lymph # (Auto) 0.8 L (1.2-5.4) K/mm3 Bertie # (Auto) 1.2 H (0.0-0.8) K/mm3 Eos # (Auto) 0.0 (0.0-0.4) K/mm3 Baso # (Auto) 0.0 (0.0-0.1) K/mm3 Comprehensive Metabolic Panel 02/19/22 02/20/22 Range/Units 21:22 05:45 Sodium 131 L 134 L (137-145) mmol/L Potassium 6.5 H* D 4.8 D (3.6-5.0) mmol/L Chloride 94.1 L 96.4 L (98-107) mmol/L Carbon Dioxide 8 L* D 21 L D (22-30) mmol/L BUN 30 H 38 H (9-20) mg/dL Creatinine 1.5 H 2.0 H (0.8-1.3) mg/dL Glucose 44 L 217 H (75-100) mg/dL Calcium 9.6 8.3 L (8.4-10.2) mg/dL
--- NOTE | 2022-02-20 14:32 | Ultrasound Report ---
ULTRASOUND RENAL INDICATION / CLINICAL INFORMATION: Acute renal failure.. COMPARISON: None available. FINDINGS: RIGHT KIDNEY: Length = 11.3 cm. - Echogenicity: Normal. - Parenchymal Thickness: Mild thinning. - Hydronephrosis: None. - Cyst / Mass: None. - Stones: None seen. LEFT KIDNEY: Length = 11.3 cm. - Echogenicity: Normal. - Parenchymal Thickness: Mild thinning. - Hydronephrosis: None. - Cyst / Mass: None. - Stones: None seen. URINARY BLADDER: Collapsed with Pelayo catheter in place. FREE FLUID: None. ADDITIONAL FINDINGS: None. IMPRESSION: 1. No acute sonographic abnormality. 2. Bilateral parenchymal thinning is ultimately nonspecific but can be seen with medical renal diseas e. Scribed by: Brooke Ibanez RDMS, KEENAT, ASTRID Scribed: 02/20/2022 1:06 PM I have reviewed the images, agree with this report, and edited this report as needed. Signer Name: Jorge Pascual MD Signed: 02/20/2022 2:27 PM Workstation Name: [email or web address] ([email or web address])
[2022-02-20] MEDS: MILRINONE-D5W 20 MG/100 ML 20 MG/100 ML BAG IV SCH (16:00)
[2022-02-20 16:35] LABS: Bacteria,Urine 1+ /HPF (Negative); Hyaline Casts,Urine 46 /LPF; Mucus,Urine 1+ /HPF
[2022-02-20 16:37] LABS: Bilirubin,Urine Negative (Negative); Color,Urine Straw (Yellow)
[2022-02-20 16:38] LABS: Blood,Urine 1+ (Negative); Urobilinogen,Urine < 2.0 mg/dL (<2.0)
[2022-02-20 16:39] LABS: Creatinine,Urine 49.4 mg/dL (0.1-20.0)
[2022-02-20] MEDS: ALPRAZolam 0.5 MG TAB PO PRN (16:58)
[2022-02-20] MEDS: DIGOXIN 0.125 MG TAB PO SCH (16:59)
[2022-02-20] MEDS: AMIODARONE 900 MG in DEXTROSE 5% IN WATER 482 ML IV SCH (19:58)
[2022-02-21 05:17] LABS: Hematocrit 39.4 % (35.5-45.6); Hemoglobin 12.5 gm/dl (11.8-15.2); Mean Corpuscular HGB Conc 32 % (32-34); Mean Corpuscular Volume 88 fl (84-94); Platelet Count 170 K/mm3 (140-440); Red Blood Count 4.48 M/mm3 (3.65-5.03)
[2022-02-21 05:28] LABS: Red Cell Distribution Width 20.1 % (13.2-15.2)
[2022-02-21] MEDS: LEVOTHYROXINE 150 MCG TAB PO SCH (05:29)
[2022-02-21 05:33] LABS: Calcium 7.7 mg/dL (8.4-10.2)
[2022-02-21] MEDS: PANTOPRAZOLE 40 MG TAB PO SCH (07:45)
[2022-02-21] MEDS: ASPIRIN 81 MG TAB CHEW PO SCH (09:23)
[2022-02-21] MEDS: APIXABAN 5 MG TAB PO SCH ×2 (09:23→21:02)
[2022-02-21] MEDS: METOPROLOL SUCCINATE XL 50 MG TAB PO SCH (10:23)
--- NOTE | 2022-02-21 10:58 | Progress Note ---
Assessment and Plan - Patient Problems (1) Acute on chronic systolic heart failure Current Visit: Yes Status: Acute Plan to address problem: Patient presents with acute on chronic systolic heart failure, largely due to noncompliance with recommended medical therapy, noncompliant with recommended outpatient cardiology follow-ups, and noncompliance with recommended dietary salt restriction. We will resume optimal medical therapy including intravenous diuretics and a trial of intravenous milrinone. (2) Chronic atrial fibrillation Current Visit: No Status: Acute Plan to address problem: Continue rate control strategy of chronic atrial fibrillation management, and Eliquis for oral anticoagulation. Given worsening renal failure, will be judicious with digitalis therapy, patient is currently on 0.125 mg daily, recommended check of dig level in 48 hours. We will stop intravenous amiodarone, switch to oral, and use as needed low-dose IV metoprolol for elevated ventricular rates. Subjective Date of service: 02/21/22 Principal diagnosis: Acute on chronic systolic heart failure Interval history: Patient is comfortably no acute distress. No new cardiac events reported. Patient is on intravenous amiodarone for atrial fibrillation rate management. Objective Vital Signs Temp Pulse Pulse Resp BP Pulse Ox 02/21/22 06:01 117 H 23 93/74 98 02/21/22 05:03 97 F L 122 H 19 97/67 98 02/21/22 05:01 119 H 13 97/67 97 02/21/22 04:00 130 H 104 H 16 93/73 97 02/21/22 03:00 120 H 87/57 92 02/21/22 02:46 145 H 13 96/51 92 02/21/22 02:30 146 H 14 96/51 92 02/21/22 02:16 119 H 15 45/33 98 02/21/22 02:00 130 H 20 83/50 92 02/21/22 01:30 120 H 14 114/83 93 02/21/22 01:16 113 H 15 84/64 96 02/21/22 01:00 113 H 18 107/83 96 02/21/22 00:46 131 H 18 107/83 92 02/21/22 00:33 96.8 F L 02/21/22 00:30 125 H 17 90/66 96 02/21/22 00:16 117 H 14 111/73 94 02/21/22 00:00 100 H 129 H 14 111/73 94 02/20/22 23:45 127 H 13 111/73 94 02/20/22 23:30 126 H 19 108/66 94 02/20/22 23:16 125 H 15 77/40 94 02/20/22 23:00 140 H 22 112/86 96 02/20/22 22:46 137 H 19 123/49 95 02/20/22 22:30 128 H 15 104/65 92 02/20/22 22:16 131 H 16 88/60 92 02/20/22 22:00 132 H 15 126/101 95 02/20/22 21:46 122 H 15 126/101 95 02/20/22 21:43 96 02/20/22 21:30 124 H 21 106/40 95 02/20/22 21:16 128 H 15 106/40 96 02/20/22 21:00 135 H 13 103/46 92 02/20/22 20:46 129 H 15 103/46 90 02/20/22 20:30 116 H 15 102/55 92 02/20/22 20:15 99 H 16 102/55 95 02/20/22 20:00 97.2 F L 136 H 122 H 15 95/63 97 02/20/22 19:46 120 H 15 95/63 97 02/20/22 19:30 120 H 19 87/61 97 02/20/22 19:16 129 H 21 87/61 97 02/20/22 19:00 116 H 15 87/61 95 02/20/22 18:45 108 H 21 96/60 95 02/20/22 18:30 132 H 19 109/61 98 02/20/22 18:16 131 H 17 108/74 97 02/20/22 18:00 128 H 16 98/68 97 02/20/22 17:46 120 H 19 128/98 97 02/20/22 17:30 132 H 23 104/31 96 02/20/22 17:16 124 H 21 104/31 96 02/20/22 17:00 113 H 19 109/79 97 02/20/22 16:59 124 H 109/79 02/20/22 16:46 102 H 18 109/79 98 02/20/22 16:30 110 H 17 89/53 96 02/20/22 16:16 101 H 20 89/53 99 02/20/22 16:00 106 H 106 H 14 104/76 98 02/20/22 15:46 125 H 17 104/76 98 02/20/22 15:30 118 H 26 H 104/76 98 02/20/22 15:15 101 H 17 104/76 95 02/20/22 15:00 105 H 21 103/71 97 02/20/22 14:46 119 H 20 103/71 99 02/20/22 14:30 112 H 13 87/66 96 02/20/22 14:16 97 H 14 97/62 96 02/20/22 14:00 113 H 13 93/69 97 02/20/22 13:46 125 H 23 117/72 97 02/20/22 13:30 112 H 15 117/72 98 02/20/22 13:16 122 H 22 108/88 97 02/20/22 13:00 123 H 22 108/88 97 02/20/22 12:46 105 H 18 108/88 97 02/20/22 12:30 113 H 15 129/81 95 02/20/22 12:16 91 H 19 129/81 97 02/20/22 12:00 107 H 107 H 16 98/78 97 02/20/22 11:46 114 H 18 98/78 97 02/20/22 11:30 117 H 13 98/78 97 02/20/22 11:15 112 H 17 104/68 96 02/20/22 11:00 109 H 16 107/78 97 - Physical Examination General: No Apparent Distress HEENT: Positive: PERRL Neck: Positive: neck supple Cardiac: Positive: irregularly irregular Lungs: Positive: Decreased Breath Sounds Neuro: Positive: Grossly Intact Abdomen: Positive: Soft Skin: Positive: Clear Extremities: Present: +1 Edema - Labs and Meds CBC 02/21/22 Range/Units 04:52 WBC 18.7 H (4.5-11.0) K/mm3 RBC 4.48 (3.65-5.03) M/mm3 Hgb 12.5 (11.8-15.2) gm/dl Hct 39.4 (35.5-45.6) % Plt Count 170 (140-440) K/mm3 Comprehensive Metabolic Panel 02/21/22 Range/Units 04:52 Sodium 131 L (137-145) mmol/L Potassium 4.1 (3.6-5.0) mmol/L Chloride 96.5 L (98-107) mmol/L Carbon Dioxide 24 (22-30) mmol/L BUN 44 H (9-20) mg/dL Creatinine 1.7 H (0.8-1.3) mg/dL Glucose 194 H (75-100) mg/dL Calcium 7.7 L (8.4-10.2) mg/dL
--- NOTE | 2022-02-21 11:21 | Progress Note ---
Assessment and Plan 1. Acute kidney injury: Vasomotor ANA LAURA superimposed on CKD in the setting of decompensated CHF and hypotension. ATN. Renal US negative. Monitor renal function. Creatinine level is slightly better today. Avoid nephrotoxic agents. Meds dosage based on GFR. 2. FEN: Volume overload, diuretics as BP allows, monitor. Hyponatremia, monitor. Monitor lytes and volume status. 3. Decompensated HFrEF, POA: Beta blockers. Milrinone. Followed by Cards. Monitor. 4. A.fib with RVR: Amio, Digoxin and Eliquis. Continue to monitor. 5. Hypotension: Monitor. Subjective: Patient was seen and examined at the bedside. Doing ok. Examination: General appearance: well-developed, appears stated age, no distress HEENT: atraumatic, NARA Neck: trachea midline Respiratory: diminished breath sounds bilaterally Heart: S1S2, irregular, no murmur Abdomen: soft, bowel sounds heard, NT Integumentary: LE stasis changes noted Neurologic: AO, able to move extremities Ext: LE and dependent edema Subjective Date of service: 02/21/22 Principal diagnosis: Acute on chronic systolic heart failure Objective - Vital Signs Vital signs: Vital Signs - 12hr 02/20/22 02/20/22 02/21/22 23:30 23:45 00:00 Temperature Pulse Rate 126 H 127 H 100 H Pulse Rate [ 129 H From Monitor] Respiratory 19 13 14 Rate Blood Pressure 108/66 111/73 111/73 O2 Sat by Pulse 94 94 94 Oximetry 02/21/22 02/21/22 02/21/22 00:16 00:30 00:33 Temperature 96.8 F L Pulse Rate 117 H 125 H Pulse Rate [ From Monitor] Respiratory 14 17 Rate Blood Pressure 111/73 90/66 O2 Sat by Pulse 94 96 Oximetry 02/21/22 02/21/22 02/21/22 00:46 01:00 01:16 Temperature Pulse Rate 131 H 113 H 113 H Pulse Rate [ From Monitor] Respiratory 18 18 15 Rate Blood Pressure 107/83 107/83 84/64 O2 Sat by Pulse 92 96 96 Oximetry 02/21/22 02/21/22 02/21/22 01:30 02:00 02:16 Temperature Pulse Rate 120 H 130 H 119 H Pulse Rate [ From Monitor] Respiratory 14 20 15 Rate Blood Pressure 114/83 83/50 45/33 O2 Sat by Pulse 93 92 98 Oximetry 02/21/22 02/21/22 02/21/22 02:30 02:46 03:00 Temperature Pulse Rate 146 H 145 H 120 H Pulse Rate [ From Monitor] Respiratory 14 13 Rate Blood Pressure 96/51 96/51 87/57 O2 Sat by Pulse 92 92 92 Oximetry 02/21/22 02/21/22 02/21/22 04:00 05:01 05:03 Temperature 97 F L Pulse Rate 130 H 119 H 122 H Pulse Rate [ 104 H From Monitor] Respiratory 16 13 19 Rate Blood Pressure 93/73 97/67 97/67 O2 Sat by Pulse 97 97 98 Oximetry 02/21/22 06:01 Temperature Pulse Rate 117 H Pulse Rate [ From Monitor] Respiratory 23 Rate Blood Pressure 93/74 O2 Sat by Pulse 98 Oximetry - Lab 02/21/22 04:52 02/21/22 04:52 Most recent lab results ABG pH 7.261 pH Units (7.350-7.450) L 02/19/22 20:40 ABG pCO2 17.9 mm Hg 02/19/22 20:40 ABG pO2 139.1 mm Hg (80.0-90.0) H 02/19/22 20:40 ABG HCO3 7.9 mmol/L (20.0-26.0) L 02/19/22 20:40 ABG O2 Saturation 98.6 % (95.0-99.0) 02/19/22 20:40 Calcium 7.7 mg/dL (8.4-10.2) L 02/21/22 04:52 Urine Creatinine 49.4 mg/dL (0.1-20.0) H 02/20/22 Unknown Urine Sodium 75 mmol/L 02/20/22 Unknown Medications & Allergies - Medications Allergies/Adverse Reactions: Allergies cantaloupe Allergy (Severe, Verified 02/19/22 01:44) Anaphylaxis melon Allergy (Severe, Verified 02/19/22 01:44) Anaphylaxis ALLERGIC TO ALL MELON mushroom Allergy (Severe, Verified 02/19/22 01:44) Anaphylaxis watermelon Allergy (Severe, Verified 02/19/22 01:44) Anaphylaxis pollen extracts Allergy (Verified 02/19/22 01:44) Unknown Home Medications: Home Medications Medication Instructions Recorded Confirmed Last Taken Type Apixaban [Eliquis] 5 mg PO Q12HR 30 Days #60 tablet 12/18/21 12/26/21 12/23/21 Rx Pantoprazole [Protonix TAB] 40 mg PO QDAC 30 Days #30 tablet 12/18/21 12/26/21 12/23/21 Rx Spironolactone [Aldactone] 25 mg PO QDAY 30 Days #30 tablet 12/18/21 12/26/21 Unknown Rx Amiodarone [Cordarone 200 MG TAB] 200 mg PO BID 30 Days #60 tablet 12/28/21 Unknown Rx Aspirin [Aspirin BABY CHEW TAB] 81 mg PO QDAY 30 Days #30 tab.chew 12/28/21 Unknown Rx AtorvaSTATin [Lipitor] 20 mg PO QHS 30 Days #30 tab 12/28/21 Unknown Rx Digoxin [Lanoxin] 0.125 mg PO DAILY@1700 30 Days #30 12/28/21 Unknown Rx tablet Furosemide [Lasix] 40 mg PO QDAC 30 Days #30 tab 12/28/21 Unknown Rx Levothyroxine [Synthroid] 150 mcg PO DAILY@0600 30 Days #30 12/28/21 Unknown Rx tablet Sacubitril/Valsartan [Entresto 24 1 each PO QDAY 30 Days #30 tab 12/28/21 12/26/21 Unknown Rx - 26 mg] Active Medications: Generic Name Dose Route Start Last Admin Trade Name Freq PRN Reason Stop Dose Admin Acetaminophen 650 mg 02/19/22 04:45 Acetaminophen 325 Mg Tab PO Q6H PRN Pain, Mild (1-3) Alprazolam 0.5 mg 02/19/22 09:00 02/20/22 16:58 Alprazolam 0.5 Mg Tab PO 0.5 mg Q8H PRN Administration Anxiety Amiodarone HCl 200 mg 02/21/22 12:00 Amiodarone 200 Mg Tab PO BID JENNA Apixaban 5 mg 02/19/22 10:00 02/21/22 09:23 Apixaban 5 Mg Tab PO 5 mg Q12HR JENNA Administration Aspirin 81 mg 02/19/22 10:00 02/21/22 09:23 Aspirin 81 Mg Tab Chew PO 81 mg QDAY JENNA Administration Atorvastatin Calcium 40 mg 02/19/22 22:00 02/20/22 21:15 Atorvastatin 40 Mg Tab PO 40 mg QHS JENNA Administration Digoxin 0.125 mg 07/04/22 17:00 02/20/22 16:59 Digoxin 0.125 Mg Tab PO 0.125 mg DAILY@1700 JENNA Administration NORepinephrine/NS 8 MG-250 ML 8 mg in 250 mls @ 3.75 mls/hr 02/19/22 21:00 02/20/22 02:18 Norepinephrine/Ns 8 Mg-250 Ml (Double Conc) IV 0 mcg/min TITRATE JENNA 0 mls/hr Titration Protocol 2 MCG/MIN Milrinone Lactate/Dextrose 20 mg in 100 mls @ 3.487 mls/hr 02/20/22 15:00 02/20/22 16:00 Milrinone-D5w 20 Mg/100 Ml IV 0.125 mcg/kg/min DIRECT JENNA 3.487 mls/hr Administration Protocol 0.125 MCG/KG/MIN Levothyroxine Sodium 150 mcg 02/19/22 06:00 02/21/22 05:29 Levothyroxine 150 Mcg Tab PO 150 mcg DAILY@0600 [facility] Administration Metoprolol Tartrate 2.5 mg 02/21/22 10:55 Metoprolol Tartrate 5 Mg/5 Ml Inj IV Q2HR PRN HR>130 Metoprolol Tartrate 25 mg 02/21/22 12:00 Metoprolol Tartrate 25 Mg Tab PO Q6H [facility] Morphine Sulfate 2 mg 02/19/22 04:45 02/21/22 09:24 Morphine 4 Mg/1 Ml Inj IV 2 mg Q5MIN PRN Administration Chest Pain unrelieved by NTG Nitroglycerin 0.4 mg 02/19/22 04:45 Nitroglycerin 0.4 Mg Tab Subl SL Q5M PRN Chest Pain Pantoprazole Sodium 40 mg 02/19/22 07:30 02/21/22 07:45 Pantoprazole 40 Mg Tab PO 40 mg QDAC JENNA Administration Sodium Chloride 10 ml 02/19/22 04:45 02/21/22 09:23 Sodium Chloride 0.9% 10 Ml Flush Syringe IV 10 ml PRN PRN Administration LINE FLUSH Tramadol HCl 50 mg 02/19/22 04:45 02/19/22 16:29 Tramadol 50 Mg Tab PO 50 mg Q6H PRN Administration Pain, Moderate (4-6)
[2022-02-21] MEDS: METOPROLOL TARTRATE 25 MG TAB PO SCH ×3 (12:35→23:35)
--- NOTE | 2022-02-21 12:55 | Progress Note ---
<JIMI PANDEY - Last Filed: 02/21/22 20:49> Assessment and Plan Assessment and plan: This is a 62-year-old male with known past medical history of HFrEF, HTN, hypothyroidism, paroxysmal Afib on Eliquis at home, and noncompliant with medications admitted for atrial fibrillation with RVR and acute on chronic CHF exacerbation Hospital Course to Date: 02/20: Hypotension with metabolic acidosis overnight required pressor and now on Bcarb. Pressor is off this am, remains Afib on the monitor HR 90 to 100s. Amio gtt held due to hypotension. Per CCM, patient might be benefit from an inotrope gtt given severe acidosis and now with ANA LAURA, most likely due to hypoperfusion. Will discussed with cardiology. Will hold IV lasix for now, and nephrology is consulted. Continue BB and PO dig for now. Will hold antihypertensive agents for now due to low BP. 02/21: Back on Amiodarone gtt overnight due to Afib with RVR, HR in the 140s, BP remains borderline this am. Patient is off the bcarb gtt. Now on milrinone gtt this am per Cardio. Remains on BB and PO dig. Renal function with mild improvement, continue to hold diuretics for now, Nephrology is also following. Assessment and Plan #Acute on chronic systolic heart failure #Atrial fibrillation with RVR #Nonischemic Dilated Cardiomyopathy #HTN, HLD - Presented with SOB, dypnea - EKG reveal AFib with RVR - s/p Amiodarone gtt, held overnight due to hypotension - Remains in Afib on the monitor, HR 90 to 100s - off pressor this am, s/p Bicarb gtt - Now on milrinone gtt - Continue statin, BB, and PO dig for now - continue AC with eliquis 5mg q12h - Echocardiogram last admission revealed: EF 15-20% - Cardiology on consult, appreciate recommendations - Continue blood pressure monitor per protocol - Maintain MAP above 65 - Will hold antihypertensive agents for now due to low BP - Strict intake and output and daily weight #Acute Kidney Injury(ANA LAURA) most likely ATN #Metabolic Acidosis - most likely due to hypoperfusion/hypotension - s/p Bcarb gtt - IV Lasxi on hold - Nephrology on consult, appreciated recommendation - Strict intake and output - Avoid nephrotoxic medications - Monitor and replace electrolytes as needed #Elevated transaminases #Hyperbilirubinemia - likely secondary to hepatic congestion in the setting of CHF exacerbation/edema -monitor on serial hepatic panel #Hypothyroidism TSH 8.07, free T4 WNL on prior admit - continue synthroid 15 mcg daily - will require endocrinology follow up outpatient #Tobacco dependence #Tobacco/Smoking cessation counseling - Counseled patient about the importance of smoking cessation and the possible sequelae as a result of continued tobacco consumption. The patient expresses understanding. #GI/DVT Prophylaxis - PPI- Protonix - On Eliquis - SCDs to bilateral lower extremities while in bed #Advance Care Planning - Disease education data, care plan, diagnoses, and prognosis were discussed with patient at the bedside. Patient is full code. Patient acknowledged understanding and agreement with current care plan. The high probability of a clinically significant, sudden or life threatening deterioration of the [multiple] system(s) required my full and direct attention, intervention and personal management. The aggregate critical care time was [60] minutes. This time is in addition to time spent performing reported procedures but includes the following: [x] Data Review and interpretation [x] Patient assessment and monitoring of vital signs [x] Documentation [x] Medication orders and management Disposition Plan: ICU Total Time Spent with Patient (Minutes): 60 History Interval history: Patient seen and examined at the bedside. Fully AAO, on RA, denied any pain nor any discomfort this morning. Amiodarone gtt resumed overnight due to Afib with RVR, Hr in the 140s. Patient is also on milrinone gtt per cardio. Remains in Afib RVR this am, HR in the 120s. BP remains borderline Hospitalist Physical - Constitutional Vitals: Temp Pulse Resp BP Pulse Ox 97 F L 117 H 23 93/74 98 02/21/22 05:03 02/21/22 06:01 02/21/22 06:01 02/21/22 06:01 02/21/22 06:01 General appearance: Present: no acute distress, well-nourished, obese - EENT Eyes: Present: PERRL, EOM intact ENT: hearing intact - Neck Neck: Present: normal ROM - Respiratory Respiratory effort: normal Respiratory: bilateral: diminished - Cardiovascular Rhythm: irregularly irregular Heart Sounds: Present: S1 & S2 - Extremities Extremities: no ischemia, pulses intact, pulses symmetrical Peripheral Pulses: within normal limits - Abdominal General gastrointestinal: soft, non-distended, normal bowel sounds - Integumentary Integumentary: Present: warm, dry - Psychiatric Psychiatric: appropriate mood/affect, cooperative - Neurologic Neurologic: CNII-XII intact, moves all extremities - Allied Health Allied health notes reviewed: nursing, case management HEART Score - HEART Score Troponin: Troponin T < 0.010 ng/mL (0.00-0.029) 02/19/22 10:03 Results - Labs CBC & Chem 7: 02/21/22 04:52 02/21/22 04:52 Labs: Laboratory Last Values WBC 18.7 K/mm3 (4.5-11.0) H 02/21/22 04:52 RBC 4.48 M/mm3 (3.65-5.03) 02/21/22 04:52 Hgb 12.5 gm/dl (11.8-15.2) 02/21/22 04:52 Hct 39.4 % (35.5-45.6) 02/21/22 04:52 MCV 88 fl (84-94) 02/21/22 04:52 MCH 28 pg (28-32) 02/21/22 04:52 MCHC 32 % (32-34) 02/21/22 04:52 RDW 20.1 % (13.2-15.2) H 02/21/22 04:52 Plt Count 170 K/mm3 (140-440) 02/21/22 04:52 Lymph % (Auto) 6.5 % (13.4-35.0) L 02/20/22 09:08 [place] % (Auto) 9.7 % (0.0-7.3) H 02/20/22 09:08 Eos % (Auto) 0.0 % (0.0-4.3) 02/20/22 09:08 Baso % (Auto) 0.3 % (0.0-1.8) 02/20/22 09:08 Lymph # (Auto) 0.8 K/mm3 (1.2-5.4) L 02/20/22 09:08 [place] # (Auto) 1.2 K/mm3 (0.0-0.8) H 02/20/22 09:08 Eos # (Auto) 0.0 K/mm3 (0.0-0.4) 02/20/22 09:08 Baso # (Auto) 0.0 K/mm3 (0.0-0.1) 02/20/22 09:08 Seg Neutrophils % 83.5 % (40.0-70.0) H 02/20/22 09:08 Seg Neutrophils # 10.6 K/mm3 (1.8-7.7) H 02/20/22 09:08 ABG pH 7.261 pH Units (7.350-7.450) L 02/19/22 20:40 ABG pCO2 17.9 mm Hg 02/19/22 20:40 ABG pO2 139.1 mm Hg (80.0-90.0) H 02/19/22 20:40 ABG HCO3 7.9 mmol/L (20.0-26.0) L 02/19/22 20:40 ABG O2 Saturation 98.6 % (95.0-99.0) 02/19/22 20:40 ABG O2 Content 19.4 (0.0-44) 02/19/22 20:40 ABG Base Excess -16.7 mmol/L (-2.0-3.0) L 02/19/22 20:40 ABG Hemoglobin 14.1 gm/dl (14.0-18.0) 02/19/22 20:40 ABG Carboxyhemoglobin 1.9 % (0.0-5.0) 02/19/22 20:40 ABG Methemoglobin 0.4 % (0.0-1.5) 02/19/22 20:40 Oxyhemoglobin 96.2 % (95.0-99.0) 02/19/22 20:40 FiO2 28 % 02/19/22 20:40 Sodium 131 mmol/L (137-145) L 02/21/22 04:52 Potassium 4.1 mmol/L (3.6-5.0) 02/21/22 04:52 Chloride 96.5 mmol/L (98-107) L 02/21/22 04:52 Carbon Dioxide 24 mmol/L (22-30) 02/21/22 04:52 Anion Gap 15 mmol/L 02/21/22 04:52 BUN 44 mg/dL (9-20) H 02/21/22 04:52 Creatinine 1.7 mg/dL (0.8-1.3) H 02/21/22 04:52 Estimated GFR 50 ml/min 02/21/22 04:52 BUN/Creatinine Ratio 26 % 02/21/22 04:52 Glucose 194 mg/dL (75-100) H 02/21/22 04:52 Lactic Acid 2.80 mmol/L (0.7-2.0) H* 02/20/22 09:08 Calcium 7.7 mg/dL (8.4-10.2) L 02/21/22 04:52 Total Bilirubin 2.30 mg/dL (0.1-1.2) H 02/19/22 00:59 AST 105 units/L (5-40) H 02/19/22 00:59 ALT 86 units/L (7-56) H 02/19/22 00:59 Alkaline Phosphatase 298 units/L (35-129) H 02/19/22 00:59 Troponin T < 0.010 ng/mL (0.00-0.029) 02/19/22 10:03 NT-Pro-B Natriuret Pep 956.8 pg/mL (0-900) H 02/19/22 10:03 Total Protein 6.7 g/dL (6.3-8.2) 02/19/22 00:59 Albumin 3.4 g/dL (3.9-5) L 02/19/22 00:59 Albumin/Globulin Ratio 1.0 % 02/19/22 00:59 Urine Color Straw (Yellow) 02/20/22 Unknown Urine Turbidity Hazy (Clear) 02/20/22 Unknown Urine pH 5.0 (5.0-7.0) 02/20/22 Unknown Ur Specific [place] 1.015 (1.003-1.030) 02/20/22 Unknown Urine Protein 30 mg/dl mg/dL (Negative) 02/20/22 Unknown Urine Glucose (UA) Negative mg/dL (Negative) 02/20/22 Unknown Urine Ketones Trace mg/dL (Negative) 02/20/22 Unknown Urine Blood 1+ (Negative) 02/20/22 Unknown Urine Nitrite Negative (Negative) 02/20/22 Unknown Ur Reducing Substances Not Reportable 02/20/22 Unknown Urine Bilirubin Negative (Negative) 02/20/22 Unknown Urine Ictotest Not Reportable 02/20/22 Unknown Urine Urobilinogen < 2.0 mg/dL (<2.0) 02/20/22 Unknown Ur Leukocyte Esterase Large (Negative) 02/20/22 Unknown Urine WBC (Auto) 74.0 /HPF (0.0-6.0) H 02/20/22 Unknown Urine RBC (Auto) 8.0 /HPF (0.0-6.0) 02/20/22 Unknown U Epithel Cells (Auto) 2.0 /HPF (0-13.0) 02/20/22 Unknown Urine Bacteria (Auto) 1+ /HPF (Negative) 02/20/22 Unknown Urine WBC Clumps 2+ /HPF 02/20/22 Unknown Hyaline Casts 46 /LPF 02/20/22 Unknown Urine Mucus 1+ /HPF 02/20/22 Unknown Urine Creatinine 49.4 mg/dL (0.1-20.0) H 02/20/22 Unknown Urine Sodium 75 mmol/L 02/20/22 Unknown SARS-CoV-2 (PCR) Negative (Negative) 02/19/22 11:45 Pelayo/IV: Voiding Method Urinal Active Medications - Current Medications Current Medications: Generic Name Dose Route Start Last Admin Trade Name Freq PRN Reason Stop Dose Admin Acetaminophen 650 mg 02/19/22 04:45 Acetaminophen 325 Mg Tab PO Q6H PRN Pain, Mild (1-3) Alprazolam 0.5 mg 02/19/22 09:00 02/20/22 16:58 Alprazolam 0.5 Mg Tab PO 0.5 mg Q8H PRN Administration Anxiety Amiodarone HCl 200 mg 02/21/22 12:00 Amiodarone 200 Mg Tab PO BID JENNA Apixaban 5 mg 02/19/22 10:00 02/21/22 09:23 Apixaban 5 Mg Tab PO 5 mg Q12HR JENNA Administration Aspirin 81 mg 02/19/22 10:00 02/21/22 09:23 Aspirin 81 Mg Tab Chew PO 81 mg QDAY JENNA Administration Atorvastatin Calcium 40 mg 02/19/22 22:00 02/20/22 21:15 Atorvastatin 40 Mg Tab PO 40 mg QHS JENNA Administration Digoxin 0.125 mg 02/19/22 17:00 02/20/22 16:59 Digoxin 0.125 Mg Tab PO 0.125 mg DAILY@1700 JENNA Administration NORepinephrine/NS 8 MG-250 ML 8 mg in 250 mls @ 3.75 mls/hr 02/19/22 21:00 02/20/22 02:18 Norepinephrine/Ns 8 Mg-250 Ml (Double Conc) IV 0 mcg/min TITRATE JENNA 0 mls/hr Titration Protocol 2 MCG/MIN Milrinone Lactate/Dextrose 20 mg in 100 mls @ 3.487 mls/hr 02/20/22 15:00 02/20/22 16:00 Milrinone-D5w 20 Mg/100 Ml IV 0.125 mcg/kg/min DIRECT JENNA 3.487 mls/hr Administration Protocol 0.125 MCG/KG/MIN Levothyroxine Sodium 150 mcg 02/19/22 06:00 02/21/22 05:29 Levothyroxine 150 Mcg Tab PO 150 mcg DAILY@0600 JENNA Administration Metoprolol Tartrate 2.5 mg 02/21/22 10:55 Metoprolol Tartrate 5 Mg/5 Ml Inj IV Q2HR PRN HR>130 Metoprolol Tartrate 25 mg 02/21/22 12:00 Metoprolol Tartrate 25 Mg Tab PO Q6H JENNA Morphine Sulfate 2 mg 02/19/22 04:45 02/21/22 09:24 Morphine 4 Mg/1 Ml Inj IV 2 mg Q5MIN PRN Administration Chest Pain unrelieved by NTG Nitroglycerin 0.4 mg 02/19/22 04:45 Nitroglycerin 0.4 Mg Tab Subl SL Q5M PRN Chest Pain Pantoprazole Sodium 40 mg 02/19/22 07:30 02/21/22 07:45 Pantoprazole 40 Mg Tab PO 40 mg QDAC JENNA Administration Sodium Chloride 10 ml 02/19/22 04:45 02/21/22 09:23 Sodium Chloride 0.9% 10 Ml Flush Syringe IV 10 ml PRN PRN Administration LINE FLUSH Tramadol HCl 50 mg 02/19/22 04:45 02/19/22 16:29 Tramadol 50 Mg Tab PO 50 mg Q6H PRN Administration Pain, Moderate (4-6) <REZA MENJIVAR - Last Filed: 02/22/22 07:15> Assessment and Plan Assessment and plan: I saw and evaluated the patient. I agree with the findings and the plan of care as documented in the Nurse Practitioner's~note, with the following corrections and additions. Hospitalist Physical - Constitutional Vitals: Temp Pulse Resp BP Pulse Ox 97 F L 134 H 21 108/57 94 02/21/22 05:03 02/22/22 06:31 02/22/22 06:31 02/22/22 06:31 02/22/22 06:31 HEART Score - HEART Score Troponin: Troponin T < 0.010 ng/mL (0.00-0.029) 02/19/22 10:03 Results - Labs CBC & Chem 7: 02/22/22 03:42 02/22/22 03:42 Labs: Laboratory Last Values WBC 13.1 K/mm3 (4.5-11.0) H 02/22/22 03:42 RBC 4.46 M/mm3 (3.65-5.03) 02/22/22 03:42 Hgb 12.5 gm/dl (11.8-15.2) 02/22/22 03:42 Hct 39.1 % (35.5-45.6) 02/22/22 03:42 MCV 88 fl (84-94) 02/22/22 03:42 MCH 28 pg (28-32) 02/22/22 03:42 MCHC 32 % (32-34) 02/22/22 03:42 RDW 20.7 % (13.2-15.2) H 02/22/22 03:42 Plt Count 150 K/mm3 (140-440) 02/22/22 03:42 Lymph % (Auto) 6.5 % (13.4-35.0) L 02/20/22 09:08 [place] % (Auto) 9.7 % (0.0-7.3) H 02/20/22 09:08 Eos % (Auto) 0.0 % (0.0-4.3) 02/20/22 09:08 Baso % (Auto) 0.3 % (0.0-1.8) 02/20/22 09:08 Lymph # (Auto) 0.8 K/mm3 (1.2-5.4) L 02/20/22 09:08 [place] # (Auto) 1.2 K/mm3 (0.0-0.8) H 02/20/22 09:08 Eos # (Auto) 0.0 K/mm3 (0.0-0.4) 02/20/22 09:08 Baso # (Auto) 0.0 K/mm3 (0.0-0.1) 02/20/22 09:08 Seg Neutrophils % 83.5 % (40.0-70.0) H 02/20/22 09:08 Seg Neutrophils # 10.6 K/mm3 (1.8-7.7) H 02/20/22 09:08 ABG pH 7.261 pH Units (7.350-7.450) L 02/19/22 20:40 ABG pCO2 17.9 mm Hg 02/19/22 20:40 ABG pO2 139.1 mm Hg (80.0-90.0) H 02/19/22 20:40 ABG HCO3 7.9 mmol/L (20.0-26.0) L 02/19/22 20:40 ABG O2 Saturation 98.6 % (95.0-99.0) 02/19/22 20:40 ABG O2 Content 19.4 (0.0-44) 02/19/22 20:40 ABG Base Excess -16.7 mmol/L (-2.0-3.0) L 02/19/22 20:40 ABG Hemoglobin 14.1 gm/dl (14.0-18.0) 02/19/22 20:40 ABG Carboxyhemoglobin 1.9 % (0.0-5.0) 02/19/22 20:40 ABG Methemoglobin 0.4 % (0.0-1.5) 02/19/22 20:40 Oxyhemoglobin 96.2 % (95.0-99.0) 02/19/22 20:40 FiO2 28 % 02/19/22 20:40 Sodium 131 mmol/L (137-145) L 02/22/22 03:42 Potassium 4.0 mmol/L (3.6-5.0) 02/22/22 03:42 Chloride 98.1 mmol/L (98-107) 02/22/22 03:42 Carbon Dioxide 25 mmol/L (22-30) 02/22/22 03:42 Anion Gap 12 mmol/L 02/22/22 03:42 BUN 33 mg/dL (9-20) H 02/22/22 03:42 Creatinine 1.1 mg/dL (0.8-1.3) 02/22/22 03:42 Estimated GFR > 60 ml/min 02/22/22 03:42 BUN/Creatinine Ratio 30 % 02/22/22 03:42 Glucose 126 mg/dL (75-100) H 02/22/22 03:42 Lactic Acid 1.10 mmol/L (0.7-2.0) 02/22/22 03:42 Calcium 7.6 mg/dL (8.4-10.2) L 02/22/22 03:42 Phosphorus 2.30 mg/dL (2.5-4.5) L 02/22/22 03:42 Magnesium 1.70 mg/dL (1.7-2.3) 02/22/22 03:42 Total Bilirubin 2.30 mg/dL (0.1-1.2) H 02/19/22 00:59 AST 105 units/L (5-40) H 02/19/22 00:59 ALT 86 units/L (7-56) H 02/19/22 00:59 Alkaline Phosphatase 298 units/L (35-129) H 02/19/22 00:59 Troponin T < 0.010 ng/mL (0.00-0.029) 02/19/22 10:03 NT-Pro-B Natriuret Pep 956.8 pg/mL (0-900) H 02/19/22 10:03 Total Protein 6.7 g/dL (6.3-8.2) 02/19/22 00:59 Albumin 3.4 g/dL (3.9-5) L 02/19/22 00:59 Albumin/Globulin Ratio 1.0 % 02/19/22 00:59 Urine Color Straw (Yellow) 02/20/22 Unknown Urine Turbidity Hazy (Clear) 02/20/22 Unknown Urine pH 5.0 (5.0-7.0) 02/20/22 Unknown Ur Specific [place] 1.015 (1.003-1.030) 02/20/22 Unknown Urine Protein 30 mg/dl mg/dL (Negative) 02/20/22 Unknown Urine Glucose (UA) Negative mg/dL (Negative) 02/20/22 Unknown Urine Ketones Trace mg/dL (Negative) 02/20/22 Unknown Urine Blood 1+ (Negative) 02/20/22 Unknown Urine Nitrite Negative (Negative) 02/20/22 Unknown Ur Reducing Substances Not Reportable 02/20/22 Unknown Urine Bilirubin Negative (Negative) 02/20/22 Unknown Urine Ictotest Not Reportable 02/20/22 Unknown Urine Urobilinogen < 2.0 mg/dL (<2.0) 02/20/22 Unknown Ur Leukocyte Esterase Large (Negative) 02/20/22 Unknown Urine WBC (Auto) 74.0 /HPF (0.0-6.0) H 02/20/22 Unknown Urine RBC (Auto) 8.0 /HPF (0.0-6.0) 02/20/22 Unknown U Epithel Cells (Auto) 2.0 /HPF (0-13.0) 02/20/22 Unknown Urine Bacteria (Auto) 1+ /HPF (Negative) 02/20/22 Unknown Urine WBC Clumps 2+ /HPF 02/20/22 Unknown Hyaline Casts 46 /LPF 02/20/22 Unknown Urine Mucus 1+ /HPF 02/20/22 Unknown Urine Creatinine 49.4 mg/dL (0.1-20.0) H 02/20/22 Unknown Urine Sodium 75 mmol/L 02/20/22 Unknown Digoxin 0.5 ng/mL (0.9-2.0) L 02/22/22 03:42 SARS-CoV-2 (PCR) Negative (Negative) 02/19/22 11:45 Microbiology: Microbiology 02/20/22 Unknown Urine,Clean Catch Urine Culture - Preliminary NO GROWTH AFTER 24 HOURS Pelayo/IV: Voiding Method Indwelling Catheter Active Medications - Current Medications Current Medications: Generic Name Dose Route Start Last Admin Trade Name Freq PRN Reason Stop Dose Admin Acetaminophen 650 mg 02/19/22 04:45 Acetaminophen 325 Mg Tab PO Q6H PRN Pain, Mild (1-3) Alprazolam 0.5 mg 02/19/22 09:00 02/21/22 18:17 Alprazolam 0.5 Mg Tab PO 0.5 mg Q8H PRN Administration Anxiety Amiodarone HCl 200 mg 02/21/22 12:00 02/21/22 21:02 Amiodarone 200 Mg Tab PO 200 mg BID JENNA Administration Apixaban 5 mg 02/19/22 10:00 02/21/22 21:02 Apixaban 5 Mg Tab PO 5 mg Q12HR JENNA Administration Aspirin 81 mg 02/19/22 10:00 02/21/22 09:23 Aspirin 81 Mg Tab Chew PO 81 mg QDAY JENNA Administration Atorvastatin Calcium 40 mg 02/19/22 22:00 02/21/22 21:02 Atorvastatin 40 Mg Tab PO 40 mg QHS JENNA Administration Digoxin 0.125 mg 02/19/22 17:00 02/21/22 17:31 Digoxin 0.125 Mg Tab PO 0.125 mg DAILY@1700 JENNA Administration NORepinephrine/NS 8 MG-250 ML 8 mg in 250 mls @ 3.75 mls/hr 02/19/22 21:00 02/20/22 02:18 Norepinephrine/Ns 8 Mg-250 Ml (Double Conc) IV 0 mcg/min TITRATE JENNA 0 mls/hr Titration Protocol 2 MCG/MIN Milrinone Lactate/Dextrose 20 mg in 100 mls @ 3.487 mls/hr 02/20/22 15:00 02/07 20:00 Milrinone-D5w 20 Mg/100 Ml IV 0.125 mcg/kg/min DIRECT JENNA 3.487 mls/hr Administration Protocol 0.125 MCG/KG/MIN Levothyroxine Sodium 150 mcg 02/19/22 06:00 02/22/22 06:12 Levothyroxine 150 Mcg Tab PO 150 mcg DAILY@0600 JENNA Administration Metoprolol Tartrate 2.5 mg 02/21/22 10:55 02/21/22 22:10 Metoprolol Tartrate 5 Mg/5 Ml Inj IV 2.5 mg Q2HR PRN Administration HR>130 Metoprolol Tartrate 25 mg 02/21/22 12:00 02/22/22 06:00 Metoprolol Tartrate 25 Mg Tab PO Not Given Q6H JENNA Morphine Sulfate 2 mg 02/19/22 04:45 02/21/22 09:24 Morphine 4 Mg/1 Ml Inj IV 2 mg Q5MIN PRN Administration Chest Pain unrelieved by NTG Nitroglycerin 0.4 mg 02/19/22 04:45 Nitroglycerin 0.4 Mg Tab Subl SL Q5M PRN Chest Pain Pantoprazole Sodium 40 mg 02/19/22 07:30 02/21/22 07:45 Pantoprazole 40 Mg Tab PO 40 mg QDAC JENNA Administration Sodium Chloride 10 ml 02/19/22 04:45 02/21/22 09:23 Sodium Chloride 0.9% 10 Ml Flush Syringe IV 10 ml PRN PRN Administration LINE FLUSH Tramadol HCl 50 mg 02/19/22 04:45 02/21/22 21:05 Tramadol 50 Mg Tab PO 50 mg Q6H PRN Administration Pain, Moderate (4-6)
[2022-02-21] MEDS: AMIODARONE 200 MG TAB PO SCH ×2 (13:45→21:02)
--- NOTE | 2022-02-21 16:50 | Progress Note ---
Assessment and Plan 62 y/o male with afib with RVR and CHF exacerbation. 02/21/22: Agree with cards and starting inotropic therapy. Back on Amio drip. Continue to monitor HR and BP. patient continues to have these abnormal readings without changes in mental state. Would not start pressor therapy unless patient's mental state changes. Will continue to monitor in ICU. 02/20/22: Follow up cardiology recs. Wonder if patient would benefit from inotropic therapy. Feel that lactic acidosis is a perfusion issue. Along with worsening renal function being related to perfusion as well. COntinue anxiety control. Ok with patient eating. Continue ICU monitoring for now. Per patient is a vet, could consider transfer to [place] if cards feels warranted. 1. Volume removal 2. Rate control 3. COVID negative 4. anticoagulation 5. Anxiety Control Subjective Date of service: 02/21/22 Principal diagnosis: Acute on chronic systolic heart failure Interval history: No acute events. HR is still not controlled. Awake and alert and remains on room air. Objective - Constitutional Vitals: Vital Signs - 12hr 02/21/22 02/21/22 02/21/22 05:01 05:03 06:01 Temperature 97 F L Pulse Rate 119 H 122 H 117 H Respiratory 13 19 23 Rate Blood Pressure 97/67 97/67 93/74 O2 Sat by Pulse 97 98 98 Oximetry 02/21/22 10:00 Temperature Pulse Rate Respiratory Rate Blood Pressure O2 Sat by Pulse 98 Oximetry - Labs CBC & Chem 7: 02/21/22 04:52 02/21/22 04:52 Labs: Abnormal lab results 02/20/22 02/21/22 02/21/22 Range/Units Unknown 04:52 04:52 WBC 18.7 H (4.5-11.0) K/mm3 RDW 20.1 H (13.2-15.2) % Sodium 131 L (137-145) mmol/L Chloride 96.5 L (98-107) mmol/L BUN 44 H (9-20) mg/dL Creatinine 1.7 H (0.8-1.3) mg/dL Glucose 194 H (75-100) mg/dL Calcium 7.7 L (8.4-10.2) mg/dL Urine Creatinine 49.4 H (0.1-20.0) mg/dL Medications & Allergies - Medications Allergies/Adverse Reactions: Allergies cantaloupe Allergy (Severe, Verified 02/19/22 01:44) Anaphylaxis melon Allergy (Severe, Verified 02/19/22 01:44) Anaphylaxis ALLERGIC TO ALL MELON mushroom Allergy (Severe, Verified 02/19/22 01:44) Anaphylaxis watermelon Allergy (Severe, Verified 02/19/22 01:44) Anaphylaxis pollen extracts Allergy (Verified 02/19/22 01:44) Unknown Home Medications: Home Medications Medication Instructions Recorded Confirmed Last Taken Type Apixaban [Eliquis] 5 mg PO Q12HR 30 Days #60 tablet 12/18/21 12/26/21 12/23/21 Rx Pantoprazole [Protonix TAB] 40 mg PO QDAC 30 Days #30 tablet 12/18/21 12/26/21 12/23/21 Rx Spironolactone [Aldactone] 25 mg PO QDAY 30 Days #30 tablet 12/18/21 12/26/21 Unknown Rx Amiodarone [Cordarone 200 MG TAB] 200 mg PO BID 30 Days #60 tablet 12/28/21 Unknown Rx Aspirin [Aspirin BABY CHEW TAB] 81 mg PO QDAY 30 Days #30 tab.chew 12/28/21 Unknown Rx AtorvaSTATin [Lipitor] 20 mg PO QHS 30 Days #30 tab 12/28/21 Unknown Rx Digoxin [Lanoxin] 0.125 mg PO DAILY@1700 30 Days #30 12/28/21 Unknown Rx tablet Furosemide [Lasix] 40 mg PO QDAC 30 Days #30 tab 12/28/21 Unknown Rx Levothyroxine [Synthroid] 150 mcg PO DAILY@0600 30 Days #30 12/28/21 Unknown Rx tablet Sacubitril/Valsartan [Entresto 24 1 each PO QDAY 30 Days #30 tab 12/28/21 12/26/21 Unknown Rx - 26 mg] Active Medications: Generic Name Dose Route Start Last Admin Trade Name Freq PRN Reason Stop Dose Admin Acetaminophen 650 mg 02/19/22 04:45 Acetaminophen 325 Mg Tab PO Q6H PRN Pain, Mild (1-3) Alprazolam 0.5 mg 02/19/22 09:00 02/20/22 16:58 Alprazolam 0.5 Mg Tab PO 0.5 mg Q8H PRN Administration Anxiety Amiodarone HCl 200 mg 02/21/22 12:00 Amiodarone 200 Mg Tab PO BID JENNA Apixaban 5 mg 02/19/22 10:00 02/21/22 09:23 Apixaban 5 Mg Tab PO 5 mg Q12HR JENNA Administration Aspirin 81 mg 02/19/22 10:00 02/21/22 09:23 Aspirin 81 Mg Tab Chew PO 81 mg QDAY JENNA Administration Atorvastatin Calcium 40 mg 02/19/22 22:00 02/20/22 21:15 Atorvastatin 40 Mg Tab PO 40 mg QHS JENNA Administration Digoxin 0.125 mg 02/19/22 17:00 02/20/22 16:59 Digoxin 0.125 Mg Tab PO 0.125 mg DAILY@1700 JENNA Administration NORepinephrine/NS 8 MG-250 ML 8 mg in 250 mls @ 3.75 mls/hr 02/19/22 21:00 02/20/22 02:18 Norepinephrine/Ns 8 Mg-250 Ml (Double Conc) IV 0 mcg/min TITRATE JENNA 0 mls/hr Titration Protocol 2 MCG/MIN Milrinone Lactate/Dextrose 20 mg in 100 mls @ 3.487 mls/hr 02/20/22 15:00 02/20/22 16:00 Milrinone-D5w 20 Mg/100 Ml IV 0.125 mcg/kg/min DIRECT JENNA 3.487 mls/hr Administration Protocol 0.125 MCG/KG/MIN Levothyroxine Sodium 150 mcg 02/19/22 06:00 02/21/22 05:29 Levothyroxine 150 Mcg Tab PO 150 mcg DAILY@0600 JENNA Administration Metoprolol Tartrate 2.5 mg 02/21/22 10:55 Metoprolol Tartrate 5 Mg/5 Ml Inj IV Q2HR PRN HR>130 Metoprolol Tartrate 25 mg 02/21/22 12:00 Metoprolol Tartrate 25 Mg Tab PO Q6H [facility] Morphine Sulfate 2 mg 02/19/22 04:45 02/21/22 09:24 Morphine 4 Mg/1 Ml Inj IV 2 mg Q5MIN PRN Administration Chest Pain unrelieved by NTG Nitroglycerin 0.4 mg 02/19/22 04:45 Nitroglycerin 0.4 Mg Tab Subl SL Q5M PRN Chest Pain Pantoprazole Sodium 40 mg 02/19/22 07:30 02/21/22 07:45 Pantoprazole 40 Mg Tab PO 40 mg QDAC JENNA Administration Sodium Chloride 10 ml 02/19/22 04:45 02/21/22 09:23 Sodium Chloride 0.9% 10 Ml Flush Syringe IV 10 ml PRN PRN Administration LINE FLUSH Tramadol HCl 50 mg 02/19/22 04:45 02/19/22 16:29 Tramadol 50 Mg Tab PO 50 mg Q6H PRN Administration Pain, Moderate (4-6) HEART Score - HEART Score Troponin: Troponin T < 0.010 ng/mL (0.00-0.029) 02/19/22 10:03
--- NOTE | 2022-02-21 17:03 | Electrocardiograph Report ---
[facility] Test Date: 2022-02-19 Test Time: 00:41:23 Pat Name: GIO RODRIGUEZ Department: Room: A257 Gender: M [employer]: SHAYNE : 1960 Requested By: MICHEAL CHU Order Number: [id number] Reading MD: Pipe Ferrell Measurements Intervals [place] Rate: 159 P: [place]: QRS: 8 QRSD: 69 T: QT: 283 QTc: 465 Interpretive Statements Atrial fibrillation with rapid V-rate Ventricular premature complex Inferior infarct, old Anteroseptal infarct, old Compared to ECG 12/24/2021 21:40:30 AF rate is increased by 80 bpm Electronically Signed On 02-21-2022 17:02:58 EDT by Pipe Ferrell
[2022-02-21] MEDS: DIGOXIN 0.125 MG TAB PO SCH (17:31)
--- NOTE | 2022-02-21 17:33 | Electrocardiograph Report ---
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
--- NOTE | 2022-02-21 17:45 | Electrocardiograph Report ---
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
[2022-02-21] MEDS: ALPRAZolam 0.5 MG TAB PO PRN (18:17)
[2022-02-21] MEDS: MILRINONE-D5W 20 MG/100 ML 20 MG/100 ML BAG IV SCH (20:00)
[2022-02-21] MEDS: METOPROLOL TARTRATE 5 MG/5 ML INJ IV PRN ×2 (20:02→22:10)
[2022-02-21] MEDS: traMADol 50 MG TAB PO PRN (21:05)
[2022-02-22 04:00] LABS: Hematocrit 39.1 % (35.5-45.6); Hemoglobin 12.5 gm/dl (11.8-15.2); Mean Corpuscular HGB Conc 32 % (32-34); Mean Corpuscular Volume 88 fl (84-94); Platelet Count 150 K/mm3 (140-440); Red Blood Count 4.46 M/mm3 (3.65-5.03); Red Cell Distribution Width 20.7 % (13.2-15.2)
[2022-02-22 04:12] LABS: BUN/Creatinine Ratio 30; Blood Urea Nitrogen 33 mg/dL (9-20); Calcium 7.6 mg/dL (8.4-10.2); Hemolysis Index 0
[2022-02-22] MEDS: METOPROLOL TARTRATE 25 MG TAB PO SCH ×4 (06:00→23:06)
[2022-02-22] MEDS: LEVOTHYROXINE 150 MCG TAB PO SCH (06:12)
[2022-02-22] MEDS: PANTOPRAZOLE 40 MG TAB PO SCH (08:20)
[2022-02-22] MEDS ORDERED: SODIUM PHOSPHATE 15 MMOL in SODIUM CHLORIDE 0.9% 250ML 250 ML IV SCH (08:45)
[2022-02-22] MEDS ORDERED: MAGNESIUM SULFATE 4 GM/100 ML BAG IV SCH (08:45)
--- NOTE | 2022-02-22 09:50 | Progress Note ---
Assessment and Plan 1. Acute kidney injury: Vasomotor ANA LAURA superimposed on CKD in the setting of decompensated CHF and hypotension. ATN. Renal US negative. Monitor renal function. Creatinine level has improved. Avoid nephrotoxic agents. Meds dosage based on GFR. 2. FEN: Volume overload, diuretics as BP allows, monitor. Hyponatremia, monitor. Replete lytes as needed. Monitor lytes and volume status. 3. Decompensated HFrEF, POA: Beta blockers. Milrinone. Followed by Cards. Monitor. 4. A.fib with RVR: Amio, Digoxin, Metoprolol and Eliquis. Continue to monitor. 5. Hypotension: Monitor. Will sign off. Subjective: Patient was seen and examined at the bedside. Doing ok. Examination: General appearance: well-developed, appears stated age, no distress HEENT: atraumatic, NARA Neck: trachea midline Respiratory: diminished breath sounds bilaterally Heart: S1S2, irregular, no murmur Abdomen: soft, bowel sounds heard, NT Integumentary: LE stasis changes noted Neurologic: AO, able to move extremities Ext: LE and dependent edema Subjective Date of service: 02/22/22 Principal diagnosis: Acute on chronic systolic heart failure Objective - Vital Signs Vital signs: Vital Signs - 12hr 02/21/22 02/21/22 02/21/22 22:01 22:05 22:10 Pulse Rate 146 H 146 H Pulse Rate [ From Monitor] Respiratory 18 18 Rate Blood Pressure 93/69 93/69 O2 Sat by Pulse 92 Oximetry 02/21/22 02/21/22 02/21/22 22:31 23:00 23:31 Pulse Rate 157 H 162 H 139 H Pulse Rate [ From Monitor] Respiratory 17 18 18 Rate Blood Pressure 86/66 96/75 102/75 O2 Sat by Pulse 94 94 95 Oximetry 02/21/22 02/21/22 02/22/22 23:35 23:45 00:00 Pulse Rate 139 H 128 H 143 H Pulse Rate [ 143 H From Monitor] Respiratory 20 18 Rate Blood Pressure 102/75 115/94 O2 Sat by Pulse 95 94 Oximetry 02/22/22 02/22/22 02/22/22 00:01 00:30 01:01 Pulse Rate 143 H 134 H 130 H Pulse Rate [ From Monitor] Respiratory 18 18 20 Rate Blood Pressure 101/76 106/67 105/75 O2 Sat by Pulse 94 93 95 Oximetry 02/22/22 02/22/22 02/22/22 01:30 02:00 02:31 Pulse Rate 147 H 130 H 124 H Pulse Rate [ From Monitor] Respiratory 18 18 20 Rate Blood Pressure 102/66 96/68 125/70 O2 Sat by Pulse 94 95 97 Oximetry 02/22/22 02/22/22 02/22/22 03:01 03:31 04:00 Pulse Rate 142 H 141 H 130 H Pulse Rate [ 130 H From Monitor] Respiratory 16 15 19 Rate Blood Pressure 99/72 109/64 O2 Sat by Pulse 96 96 92 Oximetry 02/22/22 02/22/22 02/22/22 04:01 04:31 05:01 Pulse Rate 130 H 137 H 141 H Pulse Rate [ From Monitor] Respiratory 19 17 27 H Rate Blood Pressure 93/70 75/57 107/70 O2 Sat by Pulse 92 93 94 Oximetry 02/22/22 02/22/22 02/22/22 05:31 06:00 06:01 Pulse Rate 126 H 118 H Pulse Rate [ From Monitor] Respiratory 21 15 Rate Blood Pressure 70/45 92/63 92/63 O2 Sat by Pulse 96 95 Oximetry 02/22/22 02/22/22 06:31 08:16 Pulse Rate 134 H Pulse Rate [ From Monitor] Respiratory 21 Rate Blood Pressure 108/57 O2 Sat by Pulse 94 99 Oximetry - Lab 02/22/22 03:42 02/22/22 03:42 Most recent lab results ABG pH 7.261 pH Units (7.350-7.450) L 02/19/22 20:40 ABG pCO2 17.9 mm Hg 02/19/22 20:40 ABG pO2 139.1 mm Hg (80.0-90.0) H 02/19/22 20:40 ABG HCO3 7.9 mmol/L (20.0-26.0) L 02/19/22 20:40 ABG O2 Saturation 98.6 % (95.0-99.0) 02/19/22 20:40 Calcium 7.6 mg/dL (8.4-10.2) L 02/22/22 03:42 Phosphorus 2.30 mg/dL (2.5-4.5) L 02/22/22 03:42 Magnesium 1.70 mg/dL (1.7-2.3) 02/22/22 03:42 Urine Creatinine 49.4 mg/dL (0.1-20.0) H 02/20/22 Unknown Urine Sodium 75 mmol/L 02/20/22 Unknown Medications & Allergies - Medications Allergies/Adverse Reactions: Allergies cantaloupe Allergy (Severe, Verified 02/19/22 01:44) Anaphylaxis melon Allergy (Severe, Verified 02/19/22 01:44) Anaphylaxis ALLERGIC TO ALL MELON mushroom Allergy (Severe, Verified 02/19/22 01:44) Anaphylaxis watermelon Allergy (Severe, Verified 02/19/22 01:44) Anaphylaxis pollen extracts Allergy (Verified 02/19/22 01:44) Unknown Home Medications: Home Medications Medication Instructions Recorded Confirmed Last Taken Type Apixaban [Eliquis] 5 mg PO Q12HR 30 Days #60 tablet 12/18/21 12/26/21 12/23/21 Rx Pantoprazole [Protonix TAB] 40 mg PO QDAC 30 Days #30 tablet 12/18/21 12/26/21 12/23/21 Rx Spironolactone [Aldactone] 25 mg PO QDAY 30 Days #30 tablet 12/18/21 12/26/21 Unknown Rx Amiodarone [Cordarone 200 MG TAB] 200 mg PO BID 30 Days #60 tablet 12/28/21 Unknown Rx Aspirin [Aspirin BABY CHEW TAB] 81 mg PO QDAY 30 Days #30 tab.chew 12/28/21 Unknown Rx AtorvaSTATin [Lipitor] 20 mg PO QHS 30 Days #30 tab 12/28/21 Unknown Rx Digoxin [Lanoxin] 0.125 mg PO DAILY@1700 30 Days #30 12/28/21 Unknown Rx tablet Furosemide [Lasix] 40 mg PO QDAC 30 Days #30 tab 12/28/21 Unknown Rx Levothyroxine [Synthroid] 150 mcg PO DAILY@0600 30 Days #30 12/28/21 Unknown Rx tablet Sacubitril/Valsartan [Entresto 24 1 each PO QDAY 30 Days #30 tab 12/28/21 12/26/21 Unknown Rx - 26 mg] Active Medications: Generic Name Dose Route Start Last Admin Trade Name Freq PRN Reason Stop Dose Admin Acetaminophen 650 mg 02/19/22 04:45 Acetaminophen 325 Mg Tab PO Q6H PRN Pain, Mild (1-3) Alprazolam 0.5 mg 02/19/22 09:00 02/21/22 18:17 Alprazolam 0.5 Mg Tab PO 0.5 mg Q8H PRN Administration Anxiety Amiodarone HCl 200 mg 02/21/22 12:00 02/21/22 21:02 Amiodarone 200 Mg Tab PO 200 mg BID JENNA Administration Apixaban 5 mg 02/19/22 10:00 02/21/22 21:02 Apixaban 5 Mg Tab PO 5 mg Q12HR JENNA Administration Aspirin 81 mg 02/19/22 10:00 02/21/22 09:23 Aspirin 81 Mg Tab Chew PO 81 mg QDAY JENNA Administration Atorvastatin Calcium 40 mg 02/19/22 22:00 02/21/22 21:02 Atorvastatin 40 Mg Tab PO 40 mg QHS JENNA Administration Digoxin 0.125 mg 02/19/22 17:00 02/21/22 17:31 Digoxin 0.125 Mg Tab PO 0.125 mg DAILY@1700 JENNA Administration NORepinephrine/NS 8 MG-250 ML 8 mg in 250 mls @ 3.75 mls/hr 02/19/22 21:00 02/20/22 02:18 Norepinephrine/Ns 8 Mg-250 Ml (Double Conc) IV 0 mcg/min TITRATE JENNA 0 mls/hr Titration Protocol 2 MCG/MIN Milrinone Lactate/Dextrose 20 mg in 100 mls @ 3.487 mls/hr 02/20/22 15:00 02/21/22 20:00 Milrinone-D5w 20 Mg/100 Ml IV 0.125 mcg/kg/min DIRECT JENNA 3.487 mls/hr Administration Protocol 0.125 MCG/KG/MIN Magnesium Sulfate 4 gm in 100 mls @ 25 mls/hr 02/22/22 08:45 Magnesium Sulfate 4gm/100ml IV 02/22/22 12:45 ONCE@0845 JENNA Sodium Phosphate 15 mmol/ 255 mls @ 125 mls/hr 02/22/22 08:45 Sodium Chloride IV 02/22/22 12:45 ONCE@0845 JENNA Levothyroxine Sodium 150 mcg 02/19/22 06:00 02/22/22 06:12 Levothyroxine 150 Mcg Tab PO 150 mcg DAILY@0600 JENNA Administration Metoprolol Tartrate 2.5 mg 02/21/22 10:55 02/21/22 22:10 Metoprolol Tartrate 5 Mg/5 Ml Inj IV 2.5 mg Q2HR PRN Administration HR>130 Metoprolol Tartrate 25 mg 02/21/22 12:00 02/22/22 06:00 Metoprolol Tartrate 25 Mg Tab PO Not Given Q6H JENNA Morphine Sulfate 2 mg 02/19/22 04:45 02/21/22 09:24 Morphine 4 Mg/1 Ml Inj IV 2 mg Q5MIN PRN Administration Chest Pain unrelieved by NTG Nitroglycerin 0.4 mg 02/19/22 04:45 Nitroglycerin 0.4 Mg Tab Subl SL Q5M PRN Chest Pain Pantoprazole Sodium 40 mg 02/19/22 07:30 02/21/22 07:45 Pantoprazole 40 Mg Tab PO 40 mg QDAC JENNA Administration Sodium Chloride 10 ml 02/19/22 04:45 02/21/22 09:23 Sodium Chloride 0.9% 10 Ml Flush Syringe IV 10 ml PRN PRN Administration LINE FLUSH Tramadol HCl 50 mg 02/19/22 04:45 02/21/22 21:05 Tramadol 50 Mg Tab PO 50 mg Q6H PRN Administration Pain, Moderate (4-6)
[2022-02-22] MEDS: APIXABAN 5 MG TAB PO SCH ×2 (10:01→23:02)
[2022-02-22] MEDS: ASPIRIN 81 MG TAB CHEW PO SCH (10:01)
[2022-02-22] MEDS: AMIODARONE 200 MG TAB PO SCH ×2 (10:01→22:57)
--- NOTE | 2022-02-22 10:36 | Progress Note ---
<JIMI PANDEY - Last Filed: 02/22/22 17:10> Assessment and Plan Assessment and plan: This is a 62-year-old male with known past medical history of HFrEF, HTN, hypothyroidism, paroxysmal Afib on Eliquis at home, and noncompliant with medications admitted for atrial fibrillation with RVR and acute on chronic CHF exacerbation Hospital Course to Date: 02/20: Hypotension with metabolic acidosis overnight required pressor and now on Bcarb. Pressor is off this am, remains Afib on the monitor HR 90 to 100s. Amio gtt held due to hypotension. Per CCM, patient might be benefit from an inotrope gtt given severe acidosis and now with ANA LAURA, most likely due to hypoperfusion. Will discussed with cardiology. Will hold IV lasix for now, and nephrology is consulted. Continue BB and PO dig for now. Will hold antihypertensive agents for now due to low BP. 02/21: Back on Amiodarone gtt overnight due to Afib with RVR, HR in the 140s, BP remains borderline this am. Patient is off the bcarb gtt. Now on milrinone gtt this am per Cardio. Remains on BB and PO dig. Renal function with mild improvement, continue to hold diuretics for now, Nephrology is also following. 02/22: Remains in Afib, HR remains labile. Amiodarone transitioned to PO per Cardio, remains on milrinone gtt. Renal function back to baseline with good output this morning. D/W Cardio, plan to keep patient on milrinone gtt for now, continue BB and PO Dig. Patient is stable for transfer to Telemetry. Assessment and Plan #Acute on chronic systolic heart failure #Atrial fibrillation with RVR #Nonischemic Dilated Cardiomyopathy #HTN, HLD - Presented with SOB, dypnea - EKG reveal AFib with RVR - s/p Amiodarone gtt, held overnight due to hypotension - Remains in Afib on the monitor, HR 90 to 100s - off pressor this am, s/p Bicarb gtt - Now on milrinone gtt - Continue statin, BB, and PO dig for now - continue AC with eliquis 5mg q12h - Echocardiogram last admission revealed: EF 15-20% - Cardiology on consult, appreciate recommendations - Continue blood pressure monitor per protocol - Maintain MAP above 65 - Will hold antihypertensive agents for now due to low BP - Strict intake and output and daily weight #Acute Kidney Injury(ANA LAURA) most likely ATN-improved #Metabolic Acidosis - most likely due to hypoperfusion/hypotension - s/p Bcarb gtt - Renal function back to baseline this morning - IV Lasxi on hold - Nephrology on consult, appreciated recommendation - Strict intake and output - Avoid nephrotoxic medications - Monitor and replace electrolytes as needed #Elevated transaminases #Hyperbilirubinemia - likely secondary to hepatic congestion in the setting of CHF exacerbation/edema - monitor on serial hepatic panel #Hypothyroidism TSH 8.07, free T4 WNL on prior admit - continue synthroid 15 mcg daily - will require endocrinology follow up outpatient #Tobacco dependence #Tobacco/Smoking cessation counseling - Counseled patient about the importance of smoking cessation and the possible sequelae as a result of continued tobacco consumption. The patient expresses understanding. #GI/DVT Prophylaxis - PPI- Protonix - On Eliquis - SCDs to bilateral lower extremities while in bed #Advance Care Planning - Disease education data, care plan, diagnoses, and prognosis were discussed with patient at the bedside. Patient is full code. Patient acknowledged understanding and agreement with current care plan. The high probability of a clinically significant, sudden or life threatening deterioration of the [multiple] system(s) required my full and direct attention, intervention and personal management. The aggregate critical care time was [60] minutes. This time is in addition to time spent performing reported procedures but includes the following: [x] Data Review and interpretation [x] Patient assessment and monitoring of vital signs [x] Documentation [x] Medication orders and management Disposition Plan: Transfer to Telemetry Total Time Spent with Patient (Minutes): 60 History Interval history: Patient seen and examined at the bedside. Fully AAO, on RA, denied any pain nor any discomfort this morning. Patient voiced he is feeling a lot better this morning. Remains on milrinone gtt per cardio, still in Afib RVR this am, HR in the 120s. VSS Hospitalist Physical - Constitutional Vitals: Temp Pulse Resp BP Pulse Ox 97 F L 134 H 21 108/57 99 02/21/22 05:03 02/22/22 06:31 02/22/22 06:31 02/22/22 06:31 02/22/22 08:16 General appearance: Present: no acute distress, well-nourished, obese - EENT Eyes: Present: PERRL, EOM intact ENT: hearing intact - Neck Neck: Present: normal ROM - Respiratory Respiratory effort: normal Respiratory: bilateral: diminished - Cardiovascular Rhythm: regular Heart Sounds: Present: S1 & S2 - Extremities Extremities: no ischemia, pulses intact, pulses symmetrical Peripheral Pulses: within normal limits - Abdominal General gastrointestinal: soft, non-distended, normal bowel sounds - Integumentary Integumentary: Present: warm, dry - Psychiatric Psychiatric: appropriate mood/affect, cooperative - Neurologic Neurologic: CNII-XII intact, moves all extremities - Allied Health Allied health notes reviewed: nursing, case management HEART Score - HEART Score Troponin: Troponin T < 0.010 ng/mL (0.00-0.029) 02/19/22 10:03 Results - Labs CBC & Chem 7: 02/22/22 03:42 02/22/22 03:42 Labs: Laboratory Last Values WBC 13.1 K/mm3 (4.5-11.0) H 02/22/22 03:42 RBC 4.46 M/mm3 (3.65-5.03) 02/22/22 03:42 Hgb 12.5 gm/dl (11.8-15.2) 02/22/22 03:42 Hct 39.1 % (35.5-45.6) 02/22/22 03:42 MCV 88 fl (84-94) 02/22/22 03:42 MCH 28 pg (28-32) 02/22/22 03:42 MCHC 32 % (32-34) 02/22/22 03:42 RDW 20.7 % (13.2-15.2) H 02/22/22 03:42 Plt Count 150 K/mm3 (140-440) 02/22/22 03:42 Lymph % (Auto) 6.5 % (13.4-35.0) L 02/20/22 09:08 [place] % (Auto) 9.7 % (0.0-7.3) H 02/20/22 09:08 Eos % (Auto) 0.0 % (0.0-4.3) 02/20/22 09:08 Baso % (Auto) 0.3 % (0.0-1.8) 02/20/22 09:08 Lymph # (Auto) 0.8 K/mm3 (1.2-5.4) L 02/20/22 09:08 [place] # (Auto) 1.2 K/mm3 (0.0-0.8) H 02/20/22 09:08 Eos # (Auto) 0.0 K/mm3 (0.0-0.4) 02/20/22 09:08 Baso # (Auto) 0.0 K/mm3 (0.0-0.1) 02/20/22 09:08 Seg Neutrophils % 83.5 % (40.0-70.0) H 02/20/22 09:08 Seg Neutrophils # 10.6 K/mm3 (1.8-7.7) H 02/20/22 09:08 ABG pH 7.261 pH Units (7.350-7.450) L 02/19/22 20:40 ABG pCO2 17.9 mm Hg 02/19/22 20:40 ABG pO2 139.1 mm Hg (80.0-90.0) H 02/19/22 20:40 ABG HCO3 7.9 mmol/L (20.0-26.0) L 02/19/22 20:40 ABG O2 Saturation 98.6 % (95.0-99.0) 02/19/22 20:40 ABG O2 Content 19.4 (0.0-44) 02/19/22 20:40 ABG Base Excess -16.7 mmol/L (-2.0-3.0) L 02/19/22 20:40 ABG Hemoglobin 14.1 gm/dl (14.0-18.0) 02/19/22 20:40 ABG Carboxyhemoglobin 1.9 % (0.0-5.0) 02/19/22 20:40 ABG Methemoglobin 0.4 % (0.0-1.5) 02/19/22 20:40 Oxyhemoglobin 96.2 % (95.0-99.0) 02/19/22 20:40 FiO2 28 % 02/19/22 20:40 Sodium 131 mmol/L (137-145) L 02/22/22 03:42 Potassium 4.0 mmol/L (3.6-5.0) 02/22/22 03:42 Chloride 98.1 mmol/L (98-107) 02/22/22 03:42 Carbon Dioxide 25 mmol/L (22-30) 02/22/22 03:42 Anion Gap 12 mmol/L 02/22/22 03:42 BUN 33 mg/dL (9-20) H 02/22/22 03:42 Creatinine 1.1 mg/dL (0.8-1.3) 02/22/22 03:42 Estimated GFR > 60 ml/min 02/22/22 03:42 BUN/Creatinine Ratio 30 % 02/22/22 03:42 Glucose 126 mg/dL (75-100) H 02/22/22 03:42 Lactic Acid 1.10 mmol/L (0.7-2.0) 02/22/22 03:42 Calcium 7.6 mg/dL (8.4-10.2) L 02/22/22 03:42 Phosphorus 2.30 mg/dL (2.5-4.5) L 02/22/22 03:42 Magnesium 1.70 mg/dL (1.7-2.3) 02/22/22 03:42 Total Bilirubin 2.30 mg/dL (0.1-1.2) H 02/19/22 00:59 AST 105 units/L (5-40) H 02/19/22 00:59 ALT 86 units/L (7-56) H 02/19/22 00:59 Alkaline Phosphatase 298 units/L (35-129) H 02/19/22 00:59 Troponin T < 0.010 ng/mL (0.00-0.029) 02/19/22 10:03 NT-Pro-B Natriuret Pep 956.8 pg/mL (0-900) H 02/19/22 10:03 Total Protein 6.7 g/dL (6.3-8.2) 02/19/22 00:59 Albumin 3.4 g/dL (3.9-5) L 02/19/22 00:59 Albumin/Globulin Ratio 1.0 % 02/19/22 00:59 Urine Color Straw (Yellow) 02/20/22 Unknown Urine Turbidity Hazy (Clear) 02/20/22 Unknown Urine pH 5.0 (5.0-7.0) 02/20/22 Unknown Ur Specific [place] 1.015 (1.003-1.030) 02/20/22 Unknown Urine Protein 30 mg/dl mg/dL (Negative) 02/20/22 Unknown Urine Glucose (UA) Negative mg/dL (Negative) 02/20/22 Unknown Urine Ketones Trace mg/dL (Negative) 02/20/22 Unknown Urine Blood 1+ (Negative) 02/20/22 Unknown Urine Nitrite Negative (Negative) 02/20/22 Unknown Ur Reducing Substances Not Reportable 02/20/22 Unknown Urine Bilirubin Negative (Negative) 02/20/22 Unknown Urine Ictotest Not Reportable 02/20/22 Unknown Urine Urobilinogen < 2.0 mg/dL (<2.0) 02/20/22 Unknown Ur Leukocyte Esterase Large (Negative) 02/20/22 Unknown Urine WBC (Auto) 74.0 /HPF (0.0-6.0) H 02/20/22 Unknown Urine RBC (Auto) 8.0 /HPF (0.0-6.0) 02/20/22 Unknown U Epithel Cells (Auto) 2.0 /HPF (0-13.0) 02/20/22 Unknown Urine Bacteria (Auto) 1+ /HPF (Negative) 02/20/22 Unknown Urine WBC Clumps 2+ /HPF 02/20/22 Unknown Hyaline Casts 46 /LPF 02/20/22 Unknown Urine Mucus 1+ /HPF 02/20/22 Unknown Urine Creatinine 49.4 mg/dL (0.1-20.0) H 02/20/22 Unknown Urine Sodium 75 mmol/L 02/20/22 Unknown Digoxin 0.5 ng/mL (0.9-2.0) L 02/22/22 03:42 SARS-CoV-2 (PCR) Negative (Negative) 02/19/22 11:45 Microbiology: Microbiology 02/20/22 Unknown Urine,Clean Catch Urine Culture - Preliminary NO GROWTH AFTER 24 HOURS Pelayo/IV: Voiding Method Indwelling Catheter Active Medications - Current Medications Current Medications: Generic Name Dose Route Start Last Admin Trade Name Freq PRN Reason Stop Dose Admin Acetaminophen 650 mg 02/19/22 04:45 Acetaminophen 325 Mg Tab PO Q6H PRN Pain, Mild (1-3) Alprazolam 0.5 mg 02/19/22 09:00 02/21/22 18:17 Alprazolam 0.5 Mg Tab PO 0.5 mg Q8H PRN Administration Anxiety Amiodarone HCl 200 mg 02/21/22 12:00 02/22/22 10:01 Amiodarone 200 Mg Tab PO 200 mg BID JENNA Administration Apixaban 5 mg 02/19/22 10:00 02/22/22 10:01 Apixaban 5 Mg Tab PO 5 mg Q12HR JENNA Administration Aspirin 81 mg 02/19/22 10:00 02/22/22 10:01 Aspirin 81 Mg Tab Chew PO 81 mg QDAY JENNA Administration Atorvastatin Calcium 40 mg 02/19/22 22:00 02/21/22 21:02 Atorvastatin 40 Mg Tab PO 40 mg QHS JENNA Administration Digoxin 0.125 mg 02/19/22 17:00 02/21/22 17:31 Digoxin 0.125 Mg Tab PO 0.125 mg DAILY@1700 JENNA Administration NORepinephrine/NS 8 MG-250 ML 8 mg in 250 mls @ 3.75 mls/hr 02/19/22 21:00 02/20/22 02:18 Norepinephrine/Ns 8 Mg-250 Ml (Double Conc) IV 0 mcg/min TITRATE JENNA 0 mls/hr Titration Protocol 2 MCG/MIN Milrinone Lactate/Dextrose 20 mg in 100 mls @ 3.487 mls/hr 02/20/22 15:00 02/21/22 20:00 Milrinone-D5w 20 Mg/100 Ml IV 0.125 mcg/kg/min DIRECT JENNA 3.487 mls/hr Administration Protocol 0.125 MCG/KG/MIN Magnesium Sulfate 4 gm in 100 mls @ 25 mls/hr 02/22/22 08:45 02/22/22 10:01 Magnesium Sulfate 4gm/100ml IV 02/22/22 12:45 25 mls/hr ONCE@0845 JENNA Administration Sodium Phosphate 15 mmol/ 255 mls @ 125 mls/hr 02/22/22 08:45 02/22/22 09:10 Sodium Chloride IV 02/22/22 12:45 125 mls/hr ONCE@0845 JENNA Administration Levothyroxine Sodium 150 mcg 02/19/22 06:00 02/22/22 06:12 Levothyroxine 150 Mcg Tab PO 150 mcg DAILY@0600 JENNA Administration Metoprolol Tartrate 2.5 mg 02/21/22 10:55 02/21/22 22:10 Metoprolol Tartrate 5 Mg/5 Ml Inj IV 2.5 mg Q2HR PRN Administration HR>130 Metoprolol Tartrate 25 mg 02/21/22 12:00 02/22/22 06:00 Metoprolol Tartrate 25 Mg Tab PO Not Given Q6H JENNA Morphine Sulfate 2 mg 02/19/22 04:45 02/21/22 09:24 Morphine 4 Mg/1 Ml Inj IV 2 mg Q5MIN PRN Administration Chest Pain unrelieved by NTG Nitroglycerin 0.4 mg 02/19/22 04:45 Nitroglycerin 0.4 Mg Tab Subl SL Q5M PRN Chest Pain Pantoprazole Sodium 40 mg 02/19/22 07:30 02/22/22 08:20 Pantoprazole 40 Mg Tab PO 40 mg QDAC JENNA Administration Sodium Chloride 10 ml 02/19/22 04:45 02/22/22 10:00 Sodium Chloride 0.9% 10 Ml Flush Syringe IV 10 ml PRN PRN Administration LINE FLUSH Tramadol HCl 50 mg 02/19/22 04:45 02/21/22 21:05 Tramadol 50 Mg Tab PO 50 mg Q6H PRN Administration Pain, Moderate (4-6) <REZA MENJIVAR - Last Filed: 02/23/22 07:07> Assessment and Plan Assessment and plan: I saw and evaluated the patient. I agree with the findings and the plan of care as documented in the Nurse Practitioner's~note, with the following corrections and additions. Hospitalist Physical - Constitutional Vitals: Temp Pulse Resp BP Pulse Ox 97.6 F 53 L 18 105/79 96 02/23/22 03:30 02/23/22 05:24 02/23/22 03:30 02/23/22 05:24 02/23/22 03:30 HEART Score - HEART Score Troponin: Troponin T < 0.010 ng/mL (0.00-0.029) 02/19/22 10:03 Results - Labs CBC & Chem 7: 02/23/22 04:55 02/23/22 04:55 Labs: Laboratory Last Values WBC 9.8 K/mm3 (4.5-11.0) 02/23/22 04:55 RBC 4.50 M/mm3 (3.65-5.03) 02/23/22 04:55 Hgb 12.3 gm/dl (11.8-15.2) 02/23/22 04:55 Hct 40.0 % (35.5-45.6) 02/23/22 04:55 MCV 89 fl (84-94) 02/23/22 04:55 MCH 27 pg (28-32) L 02/23/22 04:55 MCHC 31 % (32-34) L 02/23/22 04:55 RDW 21.1 % (13.2-15.2) H 02/23/22 04:55 Plt Count 147 K/mm3 (140-440) 02/23/22 04:55 Lymph % (Auto) 6.5 % (13.4-35.0) L 02/20/22 09:08 [place] % (Auto) 9.7 % (0.0-7.3) H 02/20/22 09:08 Eos % (Auto) 0.0 % (0.0-4.3) 02/20/22 09:08 Baso % (Auto) 0.3 % (0.0-1.8) 02/20/22 09:08 Lymph # (Auto) 0.8 K/mm3 (1.2-5.4) L 02/20/22 09:08 [place] # (Auto) 1.2 K/mm3 (0.0-0.8) H 02/20/22 09:08 Eos # (Auto) 0.0 K/mm3 (0.0-0.4) 02/20/22 09:08 Baso # (Auto) 0.0 K/mm3 (0.0-0.1) 02/20/22 09:08 Seg Neutrophils % 83.5 % (40.0-70.0) H 02/20/22 09:08 Seg Neutrophils # 10.6 K/mm3 (1.8-7.7) H 02/20/22 09:08 ABG pH 7.261 pH Units (7.350-7.450) L 02/19/22 20:40 ABG pCO2 17.9 mm Hg 02/19/22 20:40 ABG pO2 139.1 mm Hg (80.0-90.0) H 02/19/22 20:40 ABG HCO3 7.9 mmol/L (20.0-26.0) L 02/19/22 20:40 ABG O2 Saturation 98.6 % (95.0-99.0) 02/19/22 20:40 ABG O2 Content 19.4 (0.0-44) 02/19/22 20:40 ABG Base Excess -16.7 mmol/L (-2.0-3.0) L 02/19/22 20:40 ABG Hemoglobin 14.1 gm/dl (14.0-18.0) 02/19/22 20:40 ABG Carboxyhemoglobin 1.9 % (0.0-5.0) 02/19/22 20:40 ABG Methemoglobin 0.4 % (0.0-1.5) 02/19/22 20:40 Oxyhemoglobin 96.2 % (95.0-99.0) 02/19/22 20:40 FiO2 28 % 02/19/22 20:40 Sodium 133 mmol/L (137-145) L 02/23/22 04:55 Potassium 4.5 mmol/L (3.6-5.0) 02/23/22 04:55 Chloride 100.1 mmol/L (98-107) 02/23/22 04:55 Carbon Dioxide 24 mmol/L (22-30) 02/23/22 04:55 Anion Gap 13 mmol/L 02/23/22 04:55 BUN 24 mg/dL (9-20) H 02/23/22 04:55 Creatinine 0.9 mg/dL (0.8-1.3) 02/23/22 04:55 Estimated GFR > 60 ml/min 02/23/22 04:55 BUN/Creatinine Ratio 27 % 02/23/22 04:55 Glucose 144 mg/dL (75-100) H 02/23/22 04:55 Lactic Acid 1.10 mmol/L (0.7-2.0) 02/22/22 03:42 Calcium 7.9 mg/dL (8.4-10.2) L 02/23/22 04:55 Phosphorus 2.40 mg/dL (2.5-4.5) L 02/23/22 04:55 Magnesium 2.30 mg/dL (1.7-2.3) 02/23/22 04:55 Total Bilirubin 2.30 mg/dL (0.1-1.2) H 02/19/22 00:59 AST 105 units/L (5-40) H 02/19/22 00:59 ALT 86 units/L (7-56) H 02/19/22 00:59 Alkaline Phosphatase 298 units/L (35-129) H 02/19/22 00:59 Troponin T < 0.010 ng/mL (0.00-0.029) 02/19/22 10:03 NT-Pro-B Natriuret Pep 956.8 pg/mL (0-900) H 02/19/22 10:03 Total Protein 6.7 g/dL (6.3-8.2) 02/19/22 00:59 Albumin 3.4 g/dL (3.9-5) L 02/19/22 00:59 Albumin/Globulin Ratio 1.0 % 02/19/22 00:59 TSH 1.820 mlU/mL (0.270-4.200) 02/23/22 04:55 Urine Color Straw (Yellow) 02/20/22 Unknown Urine Turbidity Hazy (Clear) 02/20/22 Unknown Urine pH 5.0 (5.0-7.0) 02/20/22 Unknown Ur Specific [place] 1.015 (1.003-1.030) 02/20/22 Unknown Urine Protein 30 mg/dl mg/dL (Negative) 02/20/22 Unknown Urine Glucose (UA) Negative mg/dL (Negative) 02/20/22 Unknown Urine Ketones Trace mg/dL (Negative) 02/20/22 Unknown Urine Blood 1+ (Negative) 02/20/22 Unknown Urine Nitrite Negative (Negative) 02/20/22 Unknown Ur Reducing Substances Not Reportable 02/20/22 Unknown Urine Bilirubin Negative (Negative) 02/20/22 Unknown Urine Ictotest Not Reportable 02/20/22 Unknown Urine Urobilinogen < 2.0 mg/dL (<2.0) 02/20/22 Unknown Ur Leukocyte Esterase Large (Negative) 02/20/22 Unknown Urine WBC (Auto) 74.0 /HPF (0.0-6.0) H 02/20/22 Unknown Urine RBC (Auto) 8.0 /HPF (0.0-6.0) 02/20/22 Unknown U Epithel Cells (Auto) 2.0 /HPF (0-13.0) 02/20/22 Unknown Urine Bacteria (Auto) 1+ /HPF (Negative) 02/20/22 Unknown Urine WBC Clumps 2+ /HPF 02/20/22 Unknown Hyaline Casts 46 /LPF 02/20/22 Unknown Urine Mucus 1+ /HPF 02/20/22 Unknown Urine Creatinine 49.4 mg/dL (0.1-20.0) H 02/20/22 Unknown Urine Sodium 75 mmol/L 02/20/22 Unknown Digoxin 0.5 ng/mL (0.9-2.0) L 02/22/22 03:42 SARS-CoV-2 (PCR) Negative (Negative) 02/19/22 11:45 Microbiology: Microbiology 02/20/22 Unknown Urine,Clean Catch Urine Culture - Final NO GROWTH AFTER 48 HOURS Pelayo/IV: Voiding Method Indwelling Catheter Active Medications - Current Medications Current Medications: Generic Name Dose Route Start Last Admin Trade Name Freq PRN Reason Stop Dose Admin Acetaminophen 650 mg 02/19/22 04:45 02/22/22 23:03 Acetaminophen 325 Mg Tab PO 650 mg Q6H PRN Administration Pain, Mild (1-3) Alprazolam 0.5 mg 02/19/22 09:00 02/21/22 18:17 Alprazolam 0.5 Mg Tab PO 0.5 mg Q8H PRN Administration Anxiety Amiodarone HCl 200 mg 02/21/22 12:00 02/22/22 22:57 Amiodarone 200 Mg Tab PO 200 mg BID JENNA Administration Apixaban 5 mg 02/19/22 10:00 02/22/22 23:02 Apixaban 5 Mg Tab PO 5 mg Q12HR JENNA Administration Aspirin 81 mg 02/19/22 10:00 02/22/22 10:01 Aspirin 81 Mg Tab Chew PO 81 mg QDAY JENNA Administration Atorvastatin Calcium 40 mg 02/19/22 22:00 02/22/22 22:56 Atorvastatin 40 Mg Tab PO 40 mg QHS JENNA Administration Digoxin 0.125 mg 02/19/22 17:00 02/22/22 18:00 Digoxin 0.125 Mg Tab PO 0.125 mg DAILY@1700 JENNA Administration Milrinone Lactate/Dextrose 20 mg in 100 mls @ 3.487 mls/hr 02/20/22 15:00 02/23/22 06:46 Milrinone-D5w 20 Mg/100 Ml IV 0.125 mcg/kg/min DIRECT JENNA 3.487 mls/hr Administration Protocol 0.125 MCG/KG/MIN Levothyroxine Sodium 150 mcg 02/19/22 06:00 02/23/22 05:24 Levothyroxine 150 Mcg Tab PO 150 mcg DAILY@0600 [facility] Administration Metoprolol Tartrate 2.5 mg 02/21/22 10:55 02/21/22 22:10 Metoprolol Tartrate 5 Mg/5 Ml Inj IV 2.5 mg Q2HR PRN Administration HR>130 Metoprolol Tartrate 25 mg 02/21/22 12:00 02/23/22 05:24 Metoprolol Tartrate 25 Mg Tab PO Not Given Q6H [facility] Morphine Sulfate 2 mg 02/19/22 04:45 02/21/22 09:24 Morphine 4 Mg/1 Ml Inj IV 2 mg Q5MIN PRN Administration Chest Pain unrelieved by NTG Nitroglycerin 0.4 mg 02/19/22 04:45 Nitroglycerin 0.4 Mg Tab Subl SL Q5M PRN Chest Pain Pantoprazole Sodium 40 mg 02/19/22 07:30 02/22/22 08:20 Pantoprazole 40 Mg Tab PO 40 mg QDAC JENNA Administration Sodium Chloride 10 ml 02/19/22 04:45 02/22/22 10:00 Sodium Chloride 0.9% 10 Ml Flush Syringe IV 10 ml PRN PRN Administration LINE FLUSH Tramadol HCl 50 mg 02/19/22 04:45 02/23/22 05:31 Tramadol 50 Mg Tab PO 50 mg Q6H PRN Administration Pain, Moderate (4-6)
--- NOTE | 2022-02-22 13:23 | Progress Note ---
Assessment and Plan - Patient Problems (1) Acute on chronic systolic heart failure Current Visit: Yes Status: Acute Plan to address problem: Patient presents with acute on chronic systolic heart failure, largely due to noncompliance with recommended medical therapy, noncompliant with recommended outpatient cardiology follow-ups, and noncompliance with recommended dietary salt restriction. We will resume optimal medical therapy including intravenous diuretics and a trial of intravenous milrinone. (2) Chronic atrial fibrillation Current Visit: No Status: Acute Plan to address problem: Continue rate control strategy of chronic atrial fibrillation management, and Eliquis for oral anticoagulation. Given worsening renal failure, will be judicious with digitalis therapy, patient is currently on 0.125 mg daily, recommended check of dig level in 48 hours. Patient is stable for transfer to telemetry floor on current medical regimen. Subjective Date of service: 02/22/22 Principal diagnosis: Acute on chronic systolic heart failure Interval history: Patient looks and feels better, no new cardiac complaints. Atrial fibrillation persists, ventricular rate control is improved. Objective Vital Signs Pulse Pulse Resp BP Pulse Ox 02/22/22 13:01 144 H 15 110/83 99 02/22/22 12:31 116 H 20 105/84 100 02/22/22 12:00 136 H 136 H 20 105/84 97 02/22/22 11:31 146 H 16 112/89 96 02/22/22 11:01 110 H 19 112/89 98 02/22/22 10:31 143 H 23 100/71 92 02/22/22 10:01 121 H 18 91/64 94 02/22/22 09:31 116 H 16 104/60 95 02/22/22 09:01 143 H 13 99/73 95 02/22/22 08:31 121 H 14 106/82 96 02/22/22 08:16 99 02/22/22 08:01 126 H 20 116/91 98 02/22/22 08:00 126 H 20 98 02/22/22 07:31 154 H 18 116/91 97 02/22/22 07:01 131 H 16 84/66 92 02/22/22 06:31 134 H 21 108/57 94 02/22/22 06:01 15 92/63 95 02/22/22 06:00 118 H 92/63 02/22/22 05:31 126 H 21 70/45 96 02/22/22 05:01 141 H 27 H 107/70 94 02/22/22 04:31 137 H 17 75/57 93 02/22/22 04:01 130 H 19 93/70 92 02/22/22 04:00 130 H 130 H 19 92 02/22/22 03:31 141 H 15 109/64 96 02/22/22 03:01 142 H 16 99/72 96 02/22/22 02:31 124 H 20 125/70 97 02/22/22 02:00 130 H 18 96/68 95 02/22/22 01:30 147 H 18 102/66 94 02/22/22 01:01 130 H 20 105/75 95 02/22/22 00:30 134 H 18 106/67 93 02/22/22 00:01 143 H 18 101/76 94 02/22/22 00:00 143 H 143 H 18 94 02/21/22 23:45 128 H 20 115/94 95 02/21/22 23:35 139 H 102/75 02/21/22 23:31 139 H 18 102/75 95 02/21/22 23:00 162 H 18 96/75 94 02/21/22 22:31 157 H 17 86/66 94 02/21/22 22:10 146 H 93/69 02/21/22 22:05 18 02/21/22 22:01 146 H 18 93/69 92 02/21/22 21:30 151 H 34 H 103/83 96 02/21/22 21:05 20 02/21/22 21:01 147 H 18 126/82 98 02/21/22 20:31 146 H 19 134/104 99 02/21/22 20:15 148 H 23 125/102 97 02/21/22 20:02 144 H 115/97 02/21/22 20:01 141 H 19 115/97 97 02/21/22 20:00 144 H 144 H 19 97 02/21/22 19:49 97 02/21/22 19:45 159 H 15 120/102 95 02/21/22 19:31 131 H 24 53/38 97 02/21/22 19:15 165 H 25 H 106/78 96 02/21/22 19:01 131 H 21 121/98 95 02/21/22 18:45 138 H 19 115/84 97 02/21/22 18:31 152 H 13 94/52 97 02/21/22 18:01 125 H 18 106/73 94 02/21/22 17:31 73 102/85 02/21/22 17:01 123 H 16 126/105 99 02/21/22 16:01 120 H 16 102/80 93 02/21/22 16:00 120 H 120 H 16 93 02/21/22 15:01 139 H 16 101/85 94 02/21/22 14:00 141 H 19 86/62 96 - Physical Examination General: No Apparent Distress HEENT: Positive: PERRL Neck: Positive: neck supple Cardiac: Positive: irregularly irregular Lungs: Positive: Decreased Breath Sounds Neuro: Positive: Grossly Intact Abdomen: Positive: Soft Skin: Positive: Clear Extremities: Present: +1 Edema - Labs and Meds CBC 02/22/22 Range/Units 03:42 WBC 13.1 H (4.5-11.0) K/mm3 RBC 4.46 (3.65-5.03) M/mm3 Hgb 12.5 (11.8-15.2) gm/dl Hct 39.1 (35.5-45.6) % Plt Count 150 (140-440) K/mm3 Comprehensive Metabolic Panel 02/22/22 Range/Units 03:42 Sodium 131 L (137-145) mmol/L Potassium 4.0 (3.6-5.0) mmol/L Chloride 98.1 (98-107) mmol/L Carbon Dioxide 25 (22-30) mmol/L BUN 33 H (9-20) mg/dL Creatinine 1.1 (0.8-1.3) mg/dL Glucose 126 H (75-100) mg/dL Calcium 7.6 L (8.4-10.2) mg/dL
[2022-02-22] MEDS: DIGOXIN 0.125 MG TAB PO SCH (18:00)
--- NOTE | 2022-02-22 20:35 | Progress Note ---
Assessment and Plan 62 y/o male with afib with RVR and CHF exacerbation. 02/22/22: Spoke with ICU KNIFE CUTTER who discussed with cards. OK for transfer to [facility]. Once out of unit, will sign off. 02/21/22: Agree with cards and starting inotropic therapy. Back on Amio drip. Continue to monitor HR and BP. patient continues to have these abnormal readings without changes in mental state. Would not start pressor therapy unless patient's mental state changes. Will continue to monitor in ICU. 02/20/22: Follow up cardiology recs. Wonder if patient would benefit from inotropic therapy. Feel that lactic acidosis is a perfusion issue. Along with worsening renal function being related to perfusion as well. COntinue anxiety control. Ok with patient eating. Continue ICU monitoring for now. Per patient is a vet, could consider transfer to [place] if cards feels warranted. 1. Volume removal 2. Rate control 3. COVID negative 4. anticoagulation 5. Anxiety Control Subjective Date of service: 02/22/22 Principal diagnosis: Acute on chronic systolic heart failure Interval history: No acute events. HR still not controlled. BP stable. Remains on room air. Objective - Constitutional Vitals: Vital Signs - 12hr 02/22/22 02/22/22 02/22/22 09:01 09:31 10:01 Temperature Pulse Rate 143 H 116 H 121 H Pulse Rate [ From Monitor] Respiratory 13 16 18 Rate Blood Pressure 99/73 104/60 91/64 O2 Sat by Pulse 95 95 94 Oximetry 02/22/22 02/22/22 02/22/22 10:31 11:01 11:31 Temperature Pulse Rate 143 H 110 H 146 H Pulse Rate [ From Monitor] Respiratory 23 19 16 Rate Blood Pressure 100/71 112/89 112/89 O2 Sat by Pulse 92 98 96 Oximetry 02/22/22 02/22/22 02/22/22 12:00 12:31 13:01 Temperature Pulse Rate 106 H 116 H 144 H Pulse Rate [ 136 H From Monitor] Respiratory 20 20 15 Rate Blood Pressure 105/84 105/84 110/83 O2 Sat by Pulse 97 100 99 Oximetry 02/22/22 02/22/22 02/22/22 13:31 14:01 14:31 Temperature Pulse Rate 121 H 138 H 119 H Pulse Rate [ From Monitor] Respiratory 16 19 15 Rate Blood Pressure 111/89 112/82 118/76 O2 Sat by Pulse 93 96 97 Oximetry 02/22/22 02/22/22 02/22/22 15:01 15:31 16:00 Temperature Pulse Rate 132 H 149 H 107 H Pulse Rate [ 119 H From Monitor] Respiratory 17 19 20 Rate Blood Pressure 122/95 120/88 O2 Sat by Pulse 96 99 95 Oximetry 02/22/22 02/22/22 02/22/22 16:01 16:31 17:01 Temperature Pulse Rate 116 H 130 H 105 H Pulse Rate [ From Monitor] Respiratory 18 18 12 Rate Blood Pressure 109/89 116/82 116/82 O2 Sat by Pulse 93 97 99 Oximetry 02/22/22 02/22/22 02/22/22 17:31 18:00 18:01 Temperature Pulse Rate 96 H 110 H 99 H Pulse Rate [ From Monitor] Respiratory 18 17 Rate Blood Pressure 97/57 93/59 105/80 O2 Sat by Pulse 99 96 Oximetry 02/22/22 02/22/22 02/22/22 18:30 19:00 19:04 Temperature Pulse Rate 112 H 106 H 115 H Pulse Rate [ From Monitor] Respiratory 18 18 Rate Blood Pressure 93/72 96/75 96/75 O2 Sat by Pulse 96 94 Oximetry 02/22/22 02/22/22 02/22/22 19:30 20:00 20:28 Temperature 99.7 F H Pulse Rate 105 H 111 H Pulse Rate [ 111 H From Monitor] Respiratory 19 19 Rate Blood Pressure 91/67 96/68 O2 Sat by Pulse 96 93 98 Oximetry - Labs CBC & Chem 7: 02/22/22 03:42 02/22/22 03:42 Labs: Abnormal lab results 02/22/22 02/22/22 02/22/22 Range/Units 03:42 03:42 03:42 WBC 13.1 H (4.5-11.0) K/mm3 RDW 20.7 H (13.2-15.2) % Sodium 131 L (137-145) mmol/L BUN 33 H (9-20) mg/dL Glucose 126 H (75-100) mg/dL Calcium 7.6 L (8.4-10.2) mg/dL Phosphorus 2.30 L (2.5-4.5) mg/dL Digoxin 0.5 L (0.9-2.0) ng/mL Medications & Allergies - Medications Allergies/Adverse Reactions: Allergies cantaloupe Allergy (Severe, Verified 02/19/22 01:44) Anaphylaxis melon Allergy (Severe, Verified 02/19/22 01:44) Anaphylaxis ALLERGIC TO ALL MELON mushroom Allergy (Severe, Verified 02/19/22 01:44) Anaphylaxis watermelon Allergy (Severe, Verified 02/19/22 01:44) Anaphylaxis pollen extracts Allergy (Verified 02/19/22 01:44) Unknown Home Medications: Home Medications Medication Instructions Recorded Confirmed Last Taken Type Apixaban [Eliquis] 5 mg PO Q12HR 30 Days #60 tablet 12/18/21 12/26/21 12/23/21 Rx Pantoprazole [Protonix TAB] 40 mg PO QDAC 30 Days #30 tablet 12/18/21 12/26/21 12/23/21 Rx Spironolactone [Aldactone] 25 mg PO QDAY 30 Days #30 tablet 12/18/21 12/26/21 Unknown Rx Amiodarone [Cordarone 200 MG TAB] 200 mg PO BID 30 Days #60 tablet 12/28/21 Unknown Rx Aspirin [Aspirin BABY CHEW TAB] 81 mg PO QDAY 30 Days #30 tab.chew 12/28/21 Unknown Rx AtorvaSTATin [Lipitor] 20 mg PO QHS 30 Days #30 tab 12/28/21 Unknown Rx Digoxin [Lanoxin] 0.125 mg PO DAILY@1700 30 Days #30 12/28/21 Unknown Rx tablet Furosemide [Lasix] 40 mg PO QDAC 30 Days #30 tab 12/28/21 Unknown Rx Levothyroxine [Synthroid] 150 mcg PO DAILY@0600 30 Days #30 12/28/21 Unknown Rx tablet Sacubitril/Valsartan [Entresto 24 1 each PO QDAY 30 Days #30 tab 12/28/21 12/26/21 Unknown Rx - 26 mg] Active Medications: Generic Name Dose Route Start Last Admin Trade Name Freq PRN Reason Stop Dose Admin Acetaminophen 650 mg 02/19/22 04:45 Acetaminophen 325 Mg Tab PO Q6H PRN Pain, Mild (1-3) Alprazolam 0.5 mg 02/19/22 09:00 02/21/22 18:17 Alprazolam 0.5 Mg Tab PO 0.5 mg Q8H PRN Administration Anxiety Amiodarone HCl 200 mg 02/21/22 12:00 02/22/22 10:01 Amiodarone 200 Mg Tab PO 200 mg BID JENNA Administration Apixaban 5 mg 02/19/22 10:00 02/22/22 10:01 Apixaban 5 Mg Tab PO 5 mg Q12HR JENNA Administration Aspirin 81 mg 02/19/22 10:00 02/22/22 10:01 Aspirin 81 Mg Tab Chew PO 81 mg QDAY JENNA Administration Atorvastatin Calcium 40 mg 02/19/22 22:00 02/21/22 21:02 Atorvastatin 40 Mg Tab PO 40 mg QHS JENNA Administration Digoxin 0.125 mg 02/19/22 17:00 02/22/22 18:00 Digoxin 0.125 Mg Tab PO 0.125 mg DAILY@1700 JENNA Administration NORepinephrine/NS 8 MG-250 ML 8 mg in 250 mls @ 3.75 mls/hr 02/19/22 21:00 02/20/22 02:18 Norepinephrine/Ns 8 Mg-250 Ml (Double Conc) IV 0 mcg/min TITRATE JENNA 0 mls/hr Titration Protocol 2 MCG/MIN Milrinone Lactate/Dextrose 20 mg in 100 mls @ 3.487 mls/hr 02/20/22 15:00 02/21/22 20:00 Milrinone-D5w 20 Mg/100 Ml IV 0.125 mcg/kg/min DIRECT JENNA 3.487 mls/hr Administration Protocol 0.125 MCG/KG/MIN Levothyroxine Sodium 150 mcg 02/19/22 06:00 02/22/22 06:12 Levothyroxine 150 Mcg Tab PO 150 mcg DAILY@0600 JENNA Administration Metoprolol Tartrate 2.5 mg 02/21/22 10:55 02/21/22 22:10 Metoprolol Tartrate 5 Mg/5 Ml Inj IV 2.5 mg Q2HR PRN Administration HR>130 Metoprolol Tartrate 25 mg 02/21/22 12:00 02/22/22 19:04 Metoprolol Tartrate 25 Mg Tab PO 25 mg Q6H JENNA Administration Morphine Sulfate 2 mg 02/19/22 04:45 02/21/22 09:24 Morphine 4 Mg/1 Ml Inj IV 2 mg Q5MIN PRN Administration Chest Pain unrelieved by NTG Nitroglycerin 0.4 mg 02/19/22 04:45 Nitroglycerin 0.4 Mg Tab Subl SL Q5M PRN Chest Pain Pantoprazole Sodium 40 mg 02/19/22 07:30 02/22/22 08:20 Pantoprazole 40 Mg Tab PO 40 mg QDAC JENNA Administration Sodium Chloride 10 ml 02/19/22 04:45 02/22/22 10:00 Sodium Chloride 0.9% 10 Ml Flush Syringe IV 10 ml PRN PRN Administration LINE FLUSH Tramadol HCl 50 mg 02/19/22 04:45 02/21/22 21:05 Tramadol 50 Mg Tab PO 50 mg Q6H PRN Administration Pain, Moderate (4-6) HEART Score - HEART Score Troponin: Troponin T < 0.010 ng/mL (0.00-0.029) 02/19/22 10:03
[2022-02-23] MEDS: METOPROLOL TARTRATE 25 MG TAB PO SCH ×3 (05:24→18:15)
[2022-02-23] MEDS: LEVOTHYROXINE 150 MCG TAB PO SCH (05:24)
[2022-02-23] MEDS: traMADol 50 MG TAB PO PRN ×2 (05:31→22:44)
[2022-02-23 05:51] LABS: Hemoglobin 12.3 gm/dl (11.8-15.2); Mean Corpuscular HGB Conc 31 % (32-34); Mean Corpuscular Volume 89 fl (84-94); Platelet Count 147 K/mm3 (140-440)
[2022-02-23 05:52] LABS: Red Cell Distribution Width 21.1 % (13.2-15.2)
[2022-02-23 06:11] LABS: BUN/Creatinine Ratio 27; Blood Urea Nitrogen 24 mg/dL (9-20); Calcium 7.9 mg/dL (8.4-10.2); Hemolysis Index 2
[2022-02-23] MEDS: MILRINONE-D5W 20 MG/100 ML 20 MG/100 ML BAG IV SCH (06:46)
--- NOTE | 2022-02-23 08:55 | Progress Note ---
Assessment and Plan 62 y/o male with afib with RVR and CHF exacerbation. 02/23/22: stable pulm status. At this time will sign off. Call if questions. 02/22/22: Spoke with ICU PLUG PASTER who discussed with cards. OK for transfer to [facility]. Once out of unit, will sign off. 02/21/22: Agree with cards and starting inotropic therapy. Back on Amio drip. Continue to monitor HR and BP. patient continues to have these abnormal readings without changes in mental state. Would not start pressor therapy unless patient's mental state changes. Will continue to monitor in ICU. 02/20/22: Follow up cardiology recs. Wonder if patient would benefit from inotropic therapy. Feel that lactic acidosis is a perfusion issue. Along with worsening renal function being related to perfusion as well. COntinue anxiety control. Ok with patient eating. Continue ICU monitoring for now. Per patient is a vet, could consider transfer to [place] if cards feels warranted. 1. Volume removal 2. Rate control 3. COVID negative 4. anticoagulation 5. Anxiety Control Subjective Date of service: 02/23/22 Principal diagnosis: Acute on chronic systolic heart failure Interval history: sUCCESSFULL transfer to floor. Remains on room air. Objective - Constitutional Vitals: Vital Signs - 12hr 02/22/22 02/22/22 02/23/22 22:50 23:06 00:00 Temperature 100 F H Pulse Rate 83 83 112 H Respiratory 18 Rate Blood Pressure 112/84 Blood Pressure 112/84 [Right] O2 Sat by Pulse 99 Oximetry 02/23/22 02/23/22 02/23/22 00:53 03:30 04:00 Temperature 97.6 F Pulse Rate 54 L 90 Respiratory 18 Rate Blood Pressure 112/68 Blood Pressure [Right] O2 Sat by Pulse 99 96 Oximetry 02/23/22 02/23/22 05:24 08:25 Temperature 97.9 F Pulse Rate 53 L 78 Respiratory 16 Rate Blood Pressure 105/79 Blood Pressure 108/84 [Right] O2 Sat by Pulse Oximetry - Labs CBC & Chem 7: 02/23/22 04:55 02/23/22 04:55 Labs: Abnormal lab results 02/23/22 02/23/22 Range/Units 04:55 04:55 MCH 27 L (28-32) pg MCHC 31 L (32-34) % RDW 21.1 H (13.2-15.2) % Sodium 133 L (137-145) mmol/L BUN 24 H (9-20) mg/dL Glucose 144 H (75-100) mg/dL Calcium 7.9 L (8.4-10.2) mg/dL Phosphorus 2.40 L (2.5-4.5) mg/dL Medications & Allergies - Medications Allergies/Adverse Reactions: Allergies cantaloupe Allergy (Severe, Verified 02/19/22 01:44) Anaphylaxis melon Allergy (Severe, Verified 02/19/22 01:44) Anaphylaxis ALLERGIC TO ALL MELON mushroom Allergy (Severe, Verified 02/19/22 01:44) Anaphylaxis watermelon Allergy (Severe, Verified 02/19/22 01:44) Anaphylaxis pollen extracts Allergy (Verified 02/19/22 01:44) Unknown Home Medications: Home Medications Medication Instructions Recorded Confirmed Last Taken Type Apixaban [Eliquis] 5 mg PO Q12HR 30 Days #60 tablet 12/18/21 12/26/21 12/23/21 Rx Pantoprazole [Protonix TAB] 40 mg PO QDAC 30 Days #30 tablet 12/18/21 12/26/21 12/23/21 Rx Spironolactone [Aldactone] 25 mg PO QDAY 30 Days #30 tablet 12/18/21 12/26/21 Unknown Rx Amiodarone [Cordarone 200 MG TAB] 200 mg PO BID 30 Days #60 tablet 12/28/21 Unknown Rx AtorvaSTATin [Lipitor] 20 mg PO QHS 30 Days #30 tab 12/28/21 Unknown Rx Digoxin [Lanoxin] 0.125 mg PO DAILY@1700 30 Days #30 12/28/21 Unknown Rx tablet Furosemide [Lasix] 40 mg PO QDAC 30 Days #30 tab 12/28/21 Unknown Rx Levothyroxine [Synthroid] 150 mcg PO DAILY@0600 30 Days #30 12/28/21 Unknown Rx tablet Sacubitril/Valsartan [Entresto 24 1 each PO QDAY 30 Days #30 tab 12/28/21 12/26/21 Unknown Rx - 26 mg] Active Medications: Generic Name Dose Route Start Last Admin Trade Name Freq PRN Reason Stop Dose Admin Acetaminophen 650 mg 02/19/22 04:45 02/22/22 23:03 Acetaminophen 325 Mg Tab PO 650 mg Q6H PRN Administration Pain, Mild (1-3) Alprazolam 0.5 mg 02/19/22 09:00 02/21/22 18:17 Alprazolam 0.5 Mg Tab PO 0.5 mg Q8H PRN Administration Anxiety Amiodarone HCl 200 mg 02/21/22 12:00 02/22/22 22:57 Amiodarone 200 Mg Tab PO 200 mg BID JENNA Administration Apixaban 5 mg 02/19/22 10:00 02/22/22 23:02 Apixaban 5 Mg Tab PO 5 mg Q12HR JENNA Administration Aspirin 81 mg 02/19/22 10:00 02/22/22 10:01 Aspirin 81 Mg Tab Chew PO 81 mg QDAY JENNA Administration Atorvastatin Calcium 40 mg 02/19/22 22:00 02/22/22 22:56 Atorvastatin 40 Mg Tab PO 40 mg QHS JENNA Administration Digoxin 0.125 mg 02/19/22 17:00 02/22/22 18:00 Digoxin 0.125 Mg Tab PO 0.125 mg DAILY@1700 JENNA Administration Milrinone Lactate/Dextrose 20 mg in 100 mls @ 3.487 mls/hr 02/20/22 15:00 02/23/22 06:46 Milrinone-D5w 20 Mg/100 Ml IV 0.125 mcg/kg/min DIRECT JENNA 3.487 mls/hr Administration Protocol 0.125 MCG/KG/MIN Levothyroxine Sodium 150 mcg 02/19/22 06:00 02/23/22 05:24 Levothyroxine 150 Mcg Tab PO 150 mcg DAILY@0600 JENNA Administration Metoprolol Tartrate 2.5 mg 02/21/22 10:55 02/21/22 22:10 Metoprolol Tartrate 5 Mg/5 Ml Inj IV 2.5 mg Q2HR PRN Administration HR>130 Metoprolol Tartrate 25 mg 02/21/22 12:00 02/23/22 05:24 Metoprolol Tartrate 25 Mg Tab PO Not Given Q6H [facility] Morphine Sulfate 2 mg 02/19/22 04:45 02/21/22 09:24 Morphine 4 Mg/1 Ml Inj IV 2 mg Q5MIN PRN Administration Chest Pain unrelieved by NTG Nitroglycerin 0.4 mg 02/19/22 04:45 Nitroglycerin 0.4 Mg Tab Subl SL Q5M PRN Chest Pain Pantoprazole Sodium 40 mg 02/19/22 07:30 02/22/22 08:20 Pantoprazole 40 Mg Tab PO 40 mg QDAC JENNA Administration Sodium Chloride 10 ml 02/19/22 04:45 02/22/22 10:00 Sodium Chloride 0.9% 10 Ml Flush Syringe IV 10 ml PRN PRN Administration LINE FLUSH Tramadol HCl 50 mg 02/19/22 04:45 02/23/22 05:31 Tramadol 50 Mg Tab PO 50 mg Q6H PRN Administration Pain, Moderate (4-6) HEART Score - HEART Score Troponin: Troponin T < 0.010 ng/mL (0.00-0.029) 02/19/22 10:03
[2022-02-23] MEDS: PANTOPRAZOLE 40 MG TAB PO SCH (09:10)
[2022-02-23] MEDS: ASPIRIN 81 MG TAB CHEW PO SCH (09:10)
[2022-02-23] MEDS: AMIODARONE 200 MG TAB PO SCH ×2 (09:10→21:18)
--- NOTE | 2022-02-23 11:10 | Progress Note ---
Assessment and Plan Assessment and plan: 02/20: Hypotension with metabolic acidosis overnight required pressor and now on Bcarb. Pressor is off this am, remains Afib on the monitor HR 90 to 100s. Amio gtt held due to hypotension. Per CCM, patient might be benefit from an inotrope gtt given severe acidosis and now with ANA LAURA, most likely due to hypoperfusion. Will discussed with cardiology. Will hold IV lasix for now, and nephrology is consulted. Continue BB and PO dig for now. Will hold antihypertensive agents for now due to low BP. 02/21: Back on Amiodarone gtt overnight due to Afib with RVR, HR in the 140s, BP remains borderline this am. Patient is off the bcarb gtt. Now on milrinone gtt this am per Cardio. Remains on BB and PO dig. Renal function with mild improvement, continue to hold diuretics for now, Nephrology is also following. 02/22: Remains in Afib, HR remains labile. Amiodarone transitioned to PO per Cardio, remains on milrinone gtt. Renal function back to baseline with good output this morning. D/W Cardio, plan to keep patient on milrinone gtt for now, continue BB and PO Dig. Patient is stable for transfer to Telemetry. 02/23: Rate controlled. Patient is bradycardic without symptoms. He currently denies chest pain. Will continue milrinone for 48 hours total. Plan to discharge after milrinone gtt is finished. Assessment and Plan #Acute on chronic systolic heart failure #Atrial fibrillation with RVR- rate controlled #Nonischemic Dilated Cardiomyopathy #HTN, HLD - s/p Amiodarone gtt - continue milrinone gtt - Continue statin, BB, and digoxin - continue AC with eliquis 5mg BID for AC - Echocardiogram last admission revealed: EF 15-20% - Strict intake and output and daily weight - Cardiology following, appreciate recommendations #Acute Kidney Injury(ANA LAURA) most likely ATN-resolved #Metabolic Acidosis - most likely due to hypoperfusion/hypotension - s/p Bcarb gtt - Avoid nephrotoxic medications and renally dose medications - Nephrology following, appreciated recommendation #Elevated transaminases #Hyperbilirubinemia - likely secondary to hepatic congestion in the setting of CHF exacerbation/edema #Hypothyroidism TSH 8.07, free T4 WNL on prior admit - continue synthroid 15 mcg daily - will require Endocrinology follow up outpatient #Hypophosphatemia -will replete and monitor #Tobacco dependence #Smoking cessation counseling - Smoking cessation counseling, supportive care, behavior change counseling, +15 minutes. #Advance Care Planning - Disease education data, care plan, diagnoses, and prognosis were discussed with patient at the bedside. Patient is full code. Patient acknowledged understanding and agreement with current care plan. +30 minutes History Interval history: No acute vents overnight. Patient reports feeling better than he did on admission. We discussed current care plan and need for milrinone infusion for 1 more day. Hospitalist Physical - Physical exam Narrative exam: GENERAL: Well-developed well-nourished. In no acute distress. HEENT: Normocephalic. Atraumatic. NECK: Supple. CHEST/LUNGS: CTAB on room air HEART/CARDIOVASCULAR: RRR. No murmur, rubs or gallops appreciated. ABDOMEN: +BS. NT/ND. SKIN: No rashes noted. NEURO: No focal motor deficit. Follows all commands. MUSCULOSKELETAL: No joint effusion EXTREMITIES: No cyanosis, clubbing or edema. PSYCH: Cooperative. - Constitutional Vitals: Temp Pulse Resp BP Pulse Ox 97.9 F 78 16 108/84 97 02/23/22 08:25 02/23/22 08:25 02/23/22 08:25 02/23/22 08:25 02/23/22 10:00 General appearance: Present: no acute distress, well-nourished, obese HEART Score - HEART Score Troponin: Troponin T < 0.010 ng/mL (0.00-0.029) 02/19/22 10:03 Results - Labs CBC & Chem 7: 02/23/22 04:55 02/23/22 04:55 Labs: Laboratory Last Values WBC 9.8 K/mm3 (4.5-11.0) 02/23/22 04:55 RBC 4.50 M/mm3 (3.65-5.03) 02/23/22 04:55 Hgb 12.3 gm/dl (11.8-15.2) 02/23/22 04:55 Hct 40.0 % (35.5-45.6) 02/23/22 04:55 MCV 89 fl (84-94) 02/23/22 04:55 MCH 27 pg (28-32) L 02/23/22 04:55 MCHC 31 % (32-34) L 02/23/22 04:55 RDW 21.1 % (13.2-15.2) H 02/23/22 04:55 Plt Count 147 K/mm3 (140-440) 02/23/22 04:55 Lymph % (Auto) 6.5 % (13.4-35.0) L 02/20/22 09:08 [place] % (Auto) 9.7 % (0.0-7.3) H 02/20/22 09:08 Eos % (Auto) 0.0 % (0.0-4.3) 02/20/22 09:08 Baso % (Auto) 0.3 % (0.0-1.8) 02/20/22 09:08 Lymph # (Auto) 0.8 K/mm3 (1.2-5.4) L 02/20/22 09:08 [place] # (Auto) 1.2 K/mm3 (0.0-0.8) H 02/20/22 09:08 Eos # (Auto) 0.0 K/mm3 (0.0-0.4) 02/20/22 09:08 Baso # (Auto) 0.0 K/mm3 (0.0-0.1) 02/20/22 09:08 Seg Neutrophils % 83.5 % (40.0-70.0) H 02/20/22 09:08 Seg Neutrophils # 10.6 K/mm3 (1.8-7.7) H 02/20/22 09:08 ABG pH 7.261 pH Units (7.350-7.450) L 02/19/22 20:40 ABG pCO2 17.9 mm Hg 02/19/22 20:40 ABG pO2 139.1 mm Hg (80.0-90.0) H 02/19/22 20:40 ABG HCO3 7.9 mmol/L (20.0-26.0) L 02/19/22 20:40 ABG O2 Saturation 98.6 % (95.0-99.0) 02/19/22 20:40 ABG O2 Content 19.4 (0.0-44) 02/19/22 20:40 ABG Base Excess -16.7 mmol/L (-2.0-3.0) L 02/19/22 20:40 ABG Hemoglobin 14.1 gm/dl (14.0-18.0) 02/19/22 20:40 ABG Carboxyhemoglobin 1.9 % (0.0-5.0) 02/19/22 20:40 ABG Methemoglobin 0.4 % (0.0-1.5) 02/19/22 20:40 Oxyhemoglobin 96.2 % (95.0-99.0) 02/19/22 20:40 FiO2 28 % 02/19/22 20:40 Sodium 133 mmol/L (137-145) L 02/23/22 04:55 Potassium 4.5 mmol/L (3.6-5.0) 02/23/22 04:55 Chloride 100.1 mmol/L (98-107) 02/23/22 04:55 Carbon Dioxide 24 mmol/L (22-30) 02/23/22 04:55 Anion Gap 13 mmol/L 02/23/22 04:55 BUN 24 mg/dL (9-20) H 02/23/22 04:55 Creatinine 0.9 mg/dL (0.8-1.3) 02/23/22 04:55 Estimated GFR > 60 ml/min 02/23/22 04:55 BUN/Creatinine Ratio 27 % 02/23/22 04:55 Glucose 144 mg/dL (75-100) H 02/23/22 04:55 Lactic Acid 1.10 mmol/L (0.7-2.0) 02/22/22 03:42 Calcium 7.9 mg/dL (8.4-10.2) L 02/23/22 04:55 Phosphorus 2.40 mg/dL (2.5-4.5) L 02/23/22 04:55 Magnesium 2.30 mg/dL (1.7-2.3) 02/23/22 04:55 Total Bilirubin 2.30 mg/dL (0.1-1.2) H 02/19/22 00:59 AST 105 units/L (5-40) H 02/19/22 00:59 ALT 86 units/L (7-56) H 02/19/22 00:59 Alkaline Phosphatase 298 units/L (35-129) H 02/19/22 00:59 Troponin T < 0.010 ng/mL (0.00-0.029) 02/19/22 10:03 NT-Pro-B Natriuret Pep 956.8 pg/mL (0-900) H 02/19/22 10:03 Total Protein 6.7 g/dL (6.3-8.2) 02/19/22 00:59 Albumin 3.4 g/dL (3.9-5) L 02/19/22 00:59 Albumin/Globulin Ratio 1.0 % 02/19/22 00:59 TSH 1.820 mlU/mL (0.270-4.200) 02/23/22 04:55 Urine Color Straw (Yellow) 02/20/22 Unknown Urine Turbidity Hazy (Clear) 02/20/22 Unknown Urine pH 5.0 (5.0-7.0) 02/20/22 Unknown Ur Specific Branch 1.015 (1.003-1.030) 02/20/22 Unknown Urine Protein 30 mg/dl mg/dL (Negative) 02/20/22 Unknown Urine Glucose (UA) Negative mg/dL (Negative) 02/20/22 Unknown Urine Ketones Trace mg/dL (Negative) 02/20/22 Unknown Urine Blood 1+ (Negative) 02/20/22 Unknown Urine Nitrite Negative (Negative) 02/20/22 Unknown Ur Reducing Substances Not Reportable 02/20/22 Unknown Urine Bilirubin Negative (Negative) 02/20/22 Unknown Urine Ictotest Not Reportable 02/20/22 Unknown Urine Urobilinogen < 2.0 mg/dL (<2.0) 02/20/22 Unknown Ur Leukocyte Esterase Large (Negative) 02/20/22 Unknown Urine WBC (Auto) 74.0 /HPF (0.0-6.0) H 02/20/22 Unknown Urine RBC (Auto) 8.0 /HPF (0.0-6.0) 02/20/22 Unknown U Epithel Cells (Auto) 2.0 /HPF (0-13.0) 02/20/22 Unknown Urine Bacteria (Auto) 1+ /HPF (Negative) 02/20/22 Unknown Urine WBC Clumps 2+ /HPF 02/20/22 Unknown Hyaline Casts 46 /LPF 02/20/22 Unknown Urine Mucus 1+ /HPF 02/20/22 Unknown Urine Creatinine 49.4 mg/dL (0.1-20.0) H 02/20/22 Unknown Urine Sodium 75 mmol/L 02/20/22 Unknown Digoxin 0.5 ng/mL (0.9-2.0) L 02/22/22 03:42 SARS-CoV-2 (PCR) Negative (Negative) 02/19/22 11:45 Microbiology: Microbiology 02/20/22 Unknown Urine,Clean Catch Urine Culture - Final NO GROWTH AFTER 48 HOURS Pelayo/IV: Voiding Method Indwelling Catheter Active Medications - Current Medications Current Medications: Generic Name Dose Route Start Last Admin Trade Name Freq PRN Reason Stop Dose Admin Acetaminophen 650 mg 02/19/22 04:45 02/22/22 23:03 Acetaminophen 325 Mg Tab PO 650 mg Q6H PRN Administration Pain, Mild (1-3) Alprazolam 0.5 mg 02/19/22 09:00 02/21/22 18:17 Alprazolam 0.5 Mg Tab PO 0.5 mg Q8H PRN Administration Anxiety Amiodarone HCl 200 mg 02/21/22 12:00 02/23/22 09:10 Amiodarone 200 Mg Tab PO 200 mg BID JENNA Administration Apixaban 5 mg 02/19/22 10:00 02/22/22 23:02 Apixaban 5 Mg Tab PO 5 mg Q12HR JENNA Administration Aspirin 81 mg 02/19/22 10:00 02/23/22 09:10 Aspirin 81 Mg Tab Chew PO 81 mg QDAY JENNA Administration Atorvastatin Calcium 40 mg 02/19/22 22:00 02/22/22 22:56 Atorvastatin 40 Mg Tab PO 40 mg QHS JENNA Administration Digoxin 0.125 mg 02/19/22 17:00 02/22/22 18:00 Digoxin 0.125 Mg Tab PO 0.125 mg DAILY@1700 JENNA Administration Milrinone Lactate/Dextrose 20 mg in 100 mls @ 3.487 mls/hr 02/20/22 15:00 02/23/22 06:46 Milrinone-D5w 20 Mg/100 Ml IV 0.125 mcg/kg/min DIRECT JENNA 3.487 mls/hr Administration Protocol 0.125 MCG/KG/MIN Levothyroxine Sodium 150 mcg 02/19/22 06:00 02/23/22 05:24 Levothyroxine 150 Mcg Tab PO 150 mcg DAILY@0600 JENNA Administration Metoprolol Tartrate 2.5 mg 02/21/22 10:55 02/21/22 22:10 Metoprolol Tartrate 5 Mg/5 Ml Inj IV 2.5 mg Q2HR PRN Administration HR>130 Metoprolol Tartrate 25 mg 02/21/22 12:00 02/23/22 05:24 Metoprolol Tartrate 25 Mg Tab PO Not Given Q6H JENNA Morphine Sulfate 2 mg 02/19/22 04:45 02/21/22 09:24 Morphine 4 Mg/1 Ml Inj IV 2 mg Q5MIN PRN Administration Chest Pain unrelieved by NTG Nitroglycerin 0.4 mg 02/19/22 04:45 Nitroglycerin 0.4 Mg Tab Subl SL Q5M PRN Chest Pain Pantoprazole Sodium 40 mg 02/19/22 07:30 02/23/22 09:10 Pantoprazole 40 Mg Tab PO 40 mg QDAC JENNA Administration Sodium Chloride 10 ml 02/19/22 04:45 02/22/22 10:00 Sodium Chloride 0.9% 10 Ml Flush Syringe IV 10 ml PRN PRN Administration LINE FLUSH Tramadol HCl 50 mg 02/19/22 04:45 02/23/22 05:31 Tramadol 50 Mg Tab PO 50 mg Q6H PRN Administration Pain, Moderate (4-6)
[2022-02-23] MEDS: APIXABAN 5 MG TAB PO SCH ×2 (11:43→21:18)
--- NOTE | 2022-02-23 13:38 | Progress Note ---
Assessment and Plan - Patient Problems (1) Acute on chronic systolic heart failure Current Visit: Yes Status: Acute Plan to address problem: Patient presents with acute on chronic systolic heart failure, largely due to noncompliance with recommended medical therapy, noncompliant with recommended outpatient cardiology follow-ups, and noncompliance with recommended dietary salt restriction. We will resume optimal medical therapy including intravenous diuretics and a trial of intravenous milrinone. (2) Chronic atrial fibrillation Current Visit: No Status: Acute Plan to address problem: Continue rate control strategy of chronic atrial fibrillation management, and Eliquis for oral anticoagulation. Dig level is 0.5. Patient is stable for cardiac discharge over the weekend after completed milrinone therapy. Subjective Date of service: 02/23/22 Principal diagnosis: Acute on chronic systolic heart failure Interval history: Patient is comfortable, no acute distress. No new cardiac events reported. On quality assurance monitor he has atrial fibrillation with much better ventricular rate control in the 110s. Objective Vital Signs Temp Pulse Pulse Resp BP BP Pulse Ox 02/23/22 12:00 99 02/23/22 11:18 98.4 F 48 L 19 128/91 100 02/23/22 10:00 97 02/23/22 08:25 97.9 F 78 16 108/84 02/23/22 08:00 99 02/23/22 05:24 53 L 105/79 02/23/22 04:00 90 02/23/22 03:30 97.6 F 54 L 18 112/68 96 02/23/22 00:53 99 02/23/22 00:00 112 H 02/22/22 23:06 83 112/84 02/22/22 22:50 100 F H 83 18 112/84 99 02/22/22 20:30 121 H 13 91/65 98 02/22/22 20:28 98 02/22/22 20:21 124 H 22 91/65 98 02/22/22 20:11 133 H 22 96/68 94 02/22/22 20:00 99.7 F H 111 H 111 H 19 96/68 93 02/22/22 19:30 105 H 19 91/67 96 02/22/22 19:04 115 H 96/75 02/22/22 19:00 106 H 18 96/75 94 02/22/22 18:30 112 H 18 93/72 96 02/22/22 18:01 99 H 17 105/80 96 02/22/22 18:00 110 H 93/59 02/22/22 17:31 96 H 18 97/57 99 02/22/22 17:01 105 H 12 116/82 99 02/22/22 16:31 130 H 18 116/82 97 02/22/22 16:01 116 H 18 109/89 93 02/22/22 16:00 107 H 119 H 20 95 02/22/22 15:31 149 H 19 120/88 99 02/22/22 15:01 132 H 17 122/95 96 02/22/22 14:31 119 H 15 118/76 97 02/22/22 14:01 138 H 19 112/82 96 - Physical Examination General: No Apparent Distress HEENT: Positive: PERRL Neck: Positive: neck supple Cardiac: Positive: irregularly irregular Lungs: Positive: Decreased Breath Sounds Neuro: Positive: Grossly Intact Abdomen: Positive: Soft Skin: Positive: Clear Extremities: Present: +1 Edema - Labs and Meds CBC 02/23/22 Range/Units 04:55 WBC 9.8 (4.5-11.0) K/mm3 RBC 4.50 (3.65-5.03) M/mm3 Hgb 12.3 (11.8-15.2) gm/dl Hct 40.0 (35.5-45.6) % Plt Count 147 (140-440) K/mm3 Comprehensive Metabolic Panel 02/23/22 Range/Units 04:55 Sodium 133 L (137-145) mmol/L Potassium 4.5 (3.6-5.0) mmol/L Chloride 100.1 (98-107) mmol/L Carbon Dioxide 24 (22-30) mmol/L BUN 24 H (9-20) mg/dL Creatinine 0.9 (0.8-1.3) mg/dL Glucose 144 H (75-100) mg/dL Calcium 7.9 L (8.4-10.2) mg/dL
[2022-02-23] MEDS: DIGOXIN 0.125 MG TAB PO SCH (18:15)
[2022-02-23] MEDS ORDERED: SODIUM PHOSPHATE 30 MMOL in SODIUM CHLORIDE 0.9% 500 ML 500 ML IV ONE (20:45)
[2022-02-23] MEDS: ALPRAZolam 0.5 MG TAB PO PRN (22:44)
[2022-02-24] MEDS: METOPROLOL TARTRATE 25 MG TAB PO SCH ×3 (00:14→11:43)
[2022-02-24] MEDS: LEVOTHYROXINE 150 MCG TAB PO SCH (05:47)
[2022-02-24 06:23] LABS: BUN/Creatinine Ratio 20; Blood Urea Nitrogen 18 mg/dL (9-20); Calcium 8.3 mg/dL (8.4-10.2); Hemolysis Index 0
[2022-02-24 09:14] VITALS: BP 132/98
[2022-02-24] MEDS: AMIODARONE 200 MG TAB PO SCH (10:28)
[2022-02-24] MEDS: PANTOPRAZOLE 40 MG TAB PO SCH (10:28)
[2022-02-24] MEDS: ASPIRIN 81 MG TAB CHEW PO SCH (10:28)
[2022-02-24] MEDS: APIXABAN 5 MG TAB PO SCH (10:29)
--- NOTE | 2022-02-24 11:11 | Progress Note ---
History Interval history: No acute vents overnight. Patient reports feeling better than he did on admission. We discussed current care plan and need for milrinone infusion for 1 more day. Hospitalist Physical - Constitutional Vitals: Temp Pulse Resp BP Pulse Ox 97.3 F L 53 L 18 132/98 99 02/24/22 08:25 02/24/22 08:25 02/24/22 08:25 02/24/22 08:25 02/24/22 08:25 General appearance: Present: no acute distress, well-nourished, obese HEART Score - HEART Score Troponin: Troponin T < 0.010 ng/mL (0.00-0.029) 02/19/22 10:03 Results - Labs CBC & Chem 7: 02/23/22 04:55 02/24/22 05:32 Labs: Laboratory Last Values WBC 9.8 K/mm3 (4.5-11.0) 02/23/22 04:55 RBC 4.50 M/mm3 (3.65-5.03) 02/23/22 04:55 Hgb 12.3 gm/dl (11.8-15.2) 02/23/22 04:55 Hct 40.0 % (35.5-45.6) 02/23/22 04:55 MCV 89 fl (84-94) 02/23/22 04:55 MCH 27 pg (28-32) L 02/23/22 04:55 MCHC 31 % (32-34) L 02/23/22 04:55 RDW 21.1 % (13.2-15.2) H 02/23/22 04:55 Plt Count 147 K/mm3 (140-440) 02/23/22 04:55 Lymph % (Auto) 6.5 % (13.4-35.0) L 02/20/22 09:08 [place] % (Auto) 9.7 % (0.0-7.3) H 02/20/22 09:08 Eos % (Auto) 0.0 % (0.0-4.3) 02/20/22 09:08 Baso % (Auto) 0.3 % (0.0-1.8) 02/20/22 09:08 Lymph # (Auto) 0.8 K/mm3 (1.2-5.4) L 02/20/22 09:08 [place] # (Auto) 1.2 K/mm3 (0.0-0.8) H 02/20/22 09:08 Eos # (Auto) 0.0 K/mm3 (0.0-0.4) 02/20/22 09:08 Baso # (Auto) 0.0 K/mm3 (0.0-0.1) 02/20/22 09:08 Seg Neutrophils % 83.5 % (40.0-70.0) H 02/20/22 09:08 Seg Neutrophils # 10.6 K/mm3 (1.8-7.7) H 02/20/22 09:08 ABG pH 7.261 pH Units (7.350-7.450) L 02/19/22 20:40 ABG pCO2 17.9 mm Hg 02/19/22 20:40 ABG pO2 139.1 mm Hg (80.0-90.0) H 02/19/22 20:40 ABG HCO3 7.9 mmol/L (20.0-26.0) L 02/19/22 20:40 ABG O2 Saturation 98.6 % (95.0-99.0) 02/19/22 20:40 ABG O2 Content 19.4 (0.0-44) 02/19/22 20:40 ABG Base Excess -16.7 mmol/L (-2.0-3.0) L 02/19/22 20:40 ABG Hemoglobin 14.1 gm/dl (14.0-18.0) 02/19/22 20:40 ABG Carboxyhemoglobin 1.9 % (0.0-5.0) 02/19/22 20:40 ABG Methemoglobin 0.4 % (0.0-1.5) 02/19/22 20:40 Oxyhemoglobin 96.2 % (95.0-99.0) 02/19/22 20:40 FiO2 28 % 02/19/22 20:40 Sodium 134 mmol/L (137-145) L 02/24/22 05:32 Potassium 4.5 mmol/L (3.6-5.0) 02/24/22 05:32 Chloride 100.6 mmol/L (98-107) 02/24/22 05:32 Carbon Dioxide 26 mmol/L (22-30) 02/24/22 05:32 Anion Gap 12 mmol/L 02/24/22 05:32 BUN 18 mg/dL (9-20) 02/24/22 05:32 Creatinine 0.9 mg/dL (0.8-1.3) 02/24/22 05:32 Estimated GFR > 60 ml/min 02/24/22 05:32 BUN/Creatinine Ratio 20 % 02/24/22 05:32 Glucose 111 mg/dL (75-100) H 02/24/22 05:32 Lactic Acid 1.10 mmol/L (0.7-2.0) 02/22/22 03:42 Calcium 8.3 mg/dL (8.4-10.2) L 02/24/22 05:32 Phosphorus 2.40 mg/dL (2.5-4.5) L 02/23/22 04:55 Magnesium 2.30 mg/dL (1.7-2.3) 02/23/22 04:55 Total Bilirubin 2.30 mg/dL (0.1-1.2) H 02/19/22 00:59 AST 105 units/L (5-40) H 02/19/22 00:59 ALT 86 units/L (7-56) H 02/19/22 00:59 Alkaline Phosphatase 298 units/L (35-129) H 02/19/22 00:59 Troponin T < 0.010 ng/mL (0.00-0.029) 02/19/22 10:03 NT-Pro-B Natriuret Pep 956.8 pg/mL (0-900) H 02/19/22 10:03 Total Protein 6.7 g/dL (6.3-8.2) 02/19/22 00:59 Albumin 3.4 g/dL (3.9-5) L 02/19/22 00:59 Albumin/Globulin Ratio 1.0 % 02/19/22 00:59 TSH 1.820 mlU/mL (0.270-4.200) 02/23/22 04:55 Urine Color Straw (Yellow) 02/20/22 Unknown Urine Turbidity Hazy (Clear) 02/20/22 Unknown Urine pH 5.0 (5.0-7.0) 02/20/22 Unknown Ur Specific [place] 1.015 (1.003-1.030) 02/20/22 Unknown Urine Protein 30 mg/dl mg/dL (Negative) 02/20/22 Unknown Urine Glucose (UA) Negative mg/dL (Negative) 02/20/22 Unknown Urine Ketones Trace mg/dL (Negative) 02/20/22 Unknown Urine Blood 1+ (Negative) 02/20/22 Unknown Urine Nitrite Negative (Negative) 02/20/22 Unknown Ur Reducing Substances Not Reportable 02/20/22 Unknown Urine Bilirubin Negative (Negative) 02/20/22 Unknown Urine Ictotest Not Reportable 02/20/22 Unknown Urine Urobilinogen < 2.0 mg/dL (<2.0) 02/20/22 Unknown Ur Leukocyte Esterase Large (Negative) 02/20/22 Unknown Urine WBC (Auto) 74.0 /HPF (0.0-6.0) H 02/20/22 Unknown Urine RBC (Auto) 8.0 /HPF (0.0-6.0) 02/20/22 Unknown U Epithel Cells (Auto) 2.0 /HPF (0-13.0) 02/20/22 Unknown Urine Bacteria (Auto) 1+ /HPF (Negative) 02/20/22 Unknown Urine WBC Clumps 2+ /HPF 02/20/22 Unknown Hyaline Casts 46 /LPF 02/20/22 Unknown Urine Mucus 1+ /HPF 02/20/22 Unknown Urine Creatinine 49.4 mg/dL (0.1-20.0) H 02/20/22 Unknown Urine Sodium 75 mmol/L 02/20/22 Unknown Digoxin 0.7 ng/mL (0.9-2.0) L 02/24/22 05:32 SARS-CoV-2 (PCR) Negative (Negative) 02/19/22 11:45 Pelayo/IV: Voiding Method Indwelling Catheter Active Medications - Current Medications Current Medications: Generic Name Dose Route Start Last Admin Trade Name Freq PRN Reason Stop Dose Admin Acetaminophen 650 mg 02/19/22 04:45 02/22/22 23:03 Acetaminophen 325 Mg Tab PO 650 mg Q6H PRN Administration Pain, Mild (1-3) Alprazolam 0.5 mg 02/19/22 09:00 02/23/22 22:44 Alprazolam 0.5 Mg Tab PO 0.5 mg Q8H PRN Administration Anxiety Amiodarone HCl 200 mg 02/21/22 12:00 02/24/22 10:28 Amiodarone 200 Mg Tab PO 200 mg BID JENNA Administration Apixaban 5 mg 02/19/22 10:00 02/24/22 10:29 Apixaban 5 Mg Tab PO 5 mg Q12HR JENNA Administration Aspirin 81 mg 02/19/22 10:00 02/24/22 10:28 Aspirin 81 Mg Tab Chew PO 81 mg QDAY JENNA Administration Atorvastatin Calcium 40 mg 02/19/22 22:00 02/23/22 21:19 Atorvastatin 40 Mg Tab PO 40 mg QHS JENNA Administration Digoxin 0.125 mg 02/19/22 17:00 02/23/22 18:15 Digoxin 0.125 Mg Tab PO 0.125 mg DAILY@1700 [facility] Administration Milrinone Lactate/Dextrose 20 mg in 100 mls @ 3.487 mls/hr 02/20/22 15:00 02/23/22 06:46 Milrinone-D5w 20 Mg/100 Ml IV 0.125 mcg/kg/min DIRECT JENNA 3.487 mls/hr Administration Protocol 0.125 MCG/KG/MIN Levothyroxine Sodium 150 mcg 02/19/22 06:00 02/24/22 05:47 Levothyroxine 150 Mcg Tab PO 150 mcg DAILY@0600 [facility] Administration Metoprolol Tartrate 2.5 mg 02/21/22 10:55 02/21/22 22:10 Metoprolol Tartrate 5 Mg/5 Ml Inj IV 2.5 mg Q2HR PRN Administration HR>130 Metoprolol Tartrate 25 mg 02/21/22 12:00 02/24/22 05:37 Metoprolol Tartrate 25 Mg Tab PO Not Given Q6H [facility] Morphine Sulfate 2 mg 02/19/22 04:45 02/21/22 09:24 Morphine 4 Mg/1 Ml Inj IV 2 mg Q5MIN PRN Administration Chest Pain unrelieved by NTG Nitroglycerin 0.4 mg 02/19/22 04:45 Nitroglycerin 0.4 Mg Tab Subl SL Q5M PRN Chest Pain Pantoprazole Sodium 40 mg 02/19/22 07:30 02/24/22 10:28 Pantoprazole 40 Mg Tab PO 40 mg QDAC JENNA Administration Sodium Chloride 10 ml 02/19/22 04:45 02/24/22 10:28 Sodium Chloride 0.9% 10 Ml Flush Syringe IV 10 ml PRN PRN Administration LINE FLUSH Tramadol HCl 50 mg 02/19/22 04:45 02/23/22 22:44 Tramadol 50 Mg Tab PO 50 mg Q6H PRN Administration Pain, Moderate (4-6)
--- NOTE | 2022-02-24 12:52 | Discharge Summary ---
Providers - Providers Date of Admission: 02/19/22 04:46 Date of discharge: 02/24/22 Attending physician: JENNIFER JAMES MD 02/19/22 Consult to Cardiac Rehabilitation [CONS] Routine Reason For Exam: Phase I 02/19/22 03:05 Consult to Physician [CONS] Stat Comment: Dr. Silva spoke with Dr. Thomas @ 0300 Consulting Provider: JHONATAN THOMAS Physician Instructions: Reason For Exam: A. fib with RVR, CHF exacerbation 02/19/22 04:46 Consult to Cardiology [CONS] Routine Consulting Provider: MINNIE ADAMS Reason For Exam: A. fib 02/20/22 07:41 Consult to Physician [CONS] Routine Comment: called office/ evan Consulting Provider: HENRY DANIELSON Physician Instructions: Reason For Exam: ANA LAURA Primary care physician: MOHIT DONALDSON Hospitalization Reason for admission: Afib w/ RVR and CHF exacerbation Condition: Stable Hospital course: 62-year-old male history of hypertension and CHF who presented with shortness of breath. Admitted for acute CHF exacerbation and atrial fibrillation with RVR. He was admitted to ICU for further care. Patient was worked up for ANA LAURA. Renal ultrasound showed no acute abnormality. Rate was controlled with amiodarone drip which was discontinued due to hypotension. He was started on milrinone and his creatinine improved. Once clinically improved, patient was discharged home. Disposition: 01 HOME / SELF CARE / HOMELESS Final Discharge Diagnosis (Prints w/discharge instructions): Acute on chronic systolic heart failure. Atrial fibrillation with RVR. Nonischemic dilated cardiomyopathy. Hypertension. Hyperlipidemia. Acute kidney injury secondary to ATN. Metabolic acidosis. Hyperbilirubinemia. Hypothyroidism. Hypophosphatemia. Tobacco dependence Time spent for discharge: 35 minutes Core Measure Documentation - Palliative Care Palliative Care/ Comfort Measures: Not Applicable - Core Measures Any of the following diagnoses?: heart failure - Heart Failure Discharge Requirements VLADISLAV/ARB for LVSD if EF <40%: Yes Beta dallin at discharge: Yes Exam - Physical Exam Narrative exam: GENERAL: Well-developed well-nourished. In no acute distress. HEENT: Normocephalic. Atraumatic. CHEST/LUNGS: CTAB on room air HEART/CARDIOVASCULAR: RRR. No murmur, rubs or gallops appreciated. ABDOMEN: +BS. NT/ND. NEURO: No focal motor deficit. Follows all commands. MUSCULOSKELETAL: No joint effusion EXTREMITIES: No cyanosis, clubbing or edema. PSYCH: Cooperative. - Constitutional Vitals: Temp Pulse Resp BP Pulse Ox 97.3 F L 53 L 18 132/98 98 02/24/22 08:25 02/24/22 08:25 02/24/22 08:02/24/22 08:02/24/22 10:00 Plan Care Plan Goals: Please follow-up with cardiology within 1 to 2 weeks. Please make sure to take all your medications as prescribed. Try to consume a low-sodium diet and limit your fluid intake to less than 1.5 L daily. Follow up with: MOHIT DONALDSON MD [Primary Care Provider] - 3-5 Days Prescriptions: AtorvaSTATin [Lipitor] 40 mg PO QHS 30 Days #30 tablet Aspirin [Aspirin BABY CHEW TAB] 81 mg PO QDAY 30 Days #30 tab.chew Amiodarone [Cordarone 200 MG TAB] 200 mg PO BID 30 Days #60 tablet Apixaban [Eliquis] 5 mg PO Q12HR 30 Days #60 tablet Digoxin [Lanoxin] 0.125 mg PO DAILY@1700 30 Days #30 tablet Furosemide [Lasix] 40 mg PO QDAC 30 Days #30 tab Metoprolol [Lopressor TAB] 25 mg PO Q6H 30 Days #120 tablet
--- NOTE | 2022-02-24 15:24 | Progress Note ---
Assessment and Plan #NICM with severe biventricular dysfunction #Mod-sev MR #Persistent AF #Non-compliance Patient appears euvolemic. Will stop IV milrinone. Start lasix 40mg daily. Start lisinopril. Switch to metoprolol XL at discharge. Continue digoxin and eliquis. Will stop amiodarone. Subjective Date of service: 02/24/22 Principal diagnosis: Acute on chronic systolic heart failure Interval history: No complaints. Breathing better. Not on tele. Objective Vital Signs Temp Pulse Resp BP BP BP Pulse Ox 02/24/22 10:00 98 02/24/22 08:25 97.3 F L 53 L 18 132/98 99 02/24/22 04:31 98.0 F 73 16 115/47 98 02/24/22 04:00 99 H 02/24/22 00:14 95 H 126/67 02/24/22 00:05 98.9 F 95 H 18 126/67 98 02/24/22 00:00 93 H 99 02/23/22 20:25 98.7 F 102 H 18 139/88 99 02/23/22 16:00 99 - Physical Examination General: No Apparent Distress HEENT: Positive: PERRL Neck: Positive: neck supple Cardiac: Positive: irregularly irregular Lungs: Positive: clear to auscultation Neuro: Positive: Grossly Intact Abdomen: Positive: Soft Skin: Positive: Clear Extremities: Present: +1 Edema - Labs and Meds Comprehensive Metabolic Panel 02/24/22 Range/Units 05:32 Sodium 134 L (137-145) mmol/L Potassium 4.5 (3.6-5.0) mmol/L Chloride 100.6 (98-107) mmol/L Carbon Dioxide 26 (22-30) mmol/L BUN 18 (9-20) mg/dL Creatinine 0.9 (0.8-1.3) mg/dL Glucose 111 H (75-100) mg/dL Calcium 8.3 L (8.4-10.2) mg/dL
[2022-02-25] MEDS ORDERED: FUROSEMIDE 40 MG TAB PO SCH (10:00)
[2022-02-25] MEDS ORDERED: LISINOPRIL 5 MG TAB PO SCH (10:00)
== END 2022-02-24 14:00 | disposition home or self-care (01) | DRG 291 ==
LOC: ED 00:09 → CC1 04:46 → 4A 02-22 21:28
PROVIDERS: ADMIT Hospitalist; ATTEND Student in an Organized Health Care Education/Training Program
PROC: 4A033R1 Measurement of Arterial Saturation, Peripheral, Percutaneous Approach (ICD-10-PCS; principal; 2022-02-19)
DX: I11.0 Hypertensive heart disease with heart failure (principal); I50.23 Acute on chronic systolic (congestive) heart failure; N17.0 Acute kidney failure with tubular necrosis; E87.2 Acidosis; I48.20 Chronic atrial fibrillation, unspecified; Z20.822 Contact with and (suspected) exposure to COVID-19; I42.0 Dilated cardiomyopathy; E03.9 Hypothyroidism, unspecified; F17.200 Nicotine dependence, unspecified, uncomplicated; E78.5 Hyperlipidemia, unspecified; I95.9 Hypotension, unspecified; Z88.8 Allergy status to other drugs, medicaments and biological substances
CPT/HCPCS: 36415; 36600; 71045; 76770; 80048; 80053; 80162; 81001; 82140; 82570; 82803; 83735; 83880; 84100; 84300; 84443; 84484; 85025; 85027; 87086; 93005; 94760; 99406; G0378; J2354; J3490; J7060; J0282; J1940; J2260; J2270; J3475; J7040; J7050; J7070; U0003

== ENCOUNTER 2022-03-02 00:35 | Inpatient (IN) | payer BC, OTHER ==
[2022-03-02] MEDS ORDERED: dilTIAZem 25 MG/5 ML INJ IV ONE ×2 (01:37→01:58)
--- NOTE | 2022-03-02 01:43 | Emergency Department Report ---
HPI - General Chief Complaint: Dyspnea/Respdistress Time Seen by Provider: 03/02/22 01:24 - HPI HPI: Room 20 The patient is a 62-year-old male present with chief complaint of palpitations. Patient has a history of atrial fibrillation and is on Eliquis however this patient states he has not had any of his medications for 1 month secondary to problems with his insurance. This morning the patient noted shortness of breath and swelling in bilateral lower extremities. The patient states his [employer] fired twice this morning and so he eventually took it off. The patient states he stayed in bed until this evening when he continued to have palpitations and blurred vision prompting family to call EMS. EMS arrived to find the patient in A. fib with RVR the patient was transported to the ED. The patient states yesterday had a syncopal episode in the bathroom after urinating. Patient states he stood up from the commode to urinate and after he finished he turned around and passed out. Patient states he awakened on the floor and has had right elbow pain since. Patient states he did not go to the hospital after the syncopal episode ED Past Medical Hx - Past Medical History Previous Medical History?: Yes Hx Hypertension: Yes Hx Heart Attack/AMI: Yes Hx Congestive Heart Failure: Yes Additional medical history: afib - Surgical History Past Surgical History?: No - Family History Family history: no significant - Social History Smoking Status: Current Some Day Smoker Substance Use Type: None (Denies illicit drug use) - Medications Home Medications: Home Medications Medication Instructions Recorded Confirmed Last Taken Type Pantoprazole [Protonix TAB] 40 mg PO QDAC 30 Days #30 tablet 12/18/21 02/23/22 12/23/21 Rx Levothyroxine [Synthroid] 150 mcg PO DAILY@0600 30 Days #30 12/28/21 02/23/22 12/17/21 Rx tablet Amiodarone [Cordarone 200 MG TAB] 200 mg PO BID 30 Days #60 tablet 02/24/22 Unknown Rx Apixaban [Eliquis] 5 mg PO Q12HR 30 Days #60 tablet 02/24/22 Unknown Rx Aspirin [Aspirin BABY CHEW TAB] 81 mg PO QDAY 30 Days #30 tab.chew 02/24/22 Unknown Rx AtorvaSTATin [Lipitor] 40 mg PO QHS 30 Days #30 tablet 02/24/22 Unknown Rx Digoxin [Lanoxin] 0.125 mg PO DAILY@1700 30 Days #30 02/24/22 Unknown Rx tablet Furosemide [Lasix] 40 mg PO QDAC 30 Days #30 tab 02/24/22 Unknown Rx Metoprolol [Lopressor TAB] 25 mg PO Q6H 30 Days #120 tablet 02/24/22 Unknown Rx ED Review of Systems ROS: Stated complaint: BOB Other details as noted in HPI Constitutional: no symptoms reported Eyes: denies: eye pain ENT: denies: throat pain Respiratory: shortness of breath Cardiovascular: chest pain, palpitations Endocrine: no symptoms reported Gastrointestinal: denies: abdominal pain Genitourinary: denies: dysuria Musculoskeletal: arthralgia Neurological: denies: headache Physical Exam - Physical Exam Vital Signs: Vital Signs 03/02/22 01:12 Temperature 98.4 F Pulse Rate 113 H Respiratory 20 Rate Blood Pressure 166/101 O2 Sat by Pulse 94 Oximetry Physical Exam: GENERAL: The patient is well-developed well-nourished male lying on stretcher not appearing to be in acute distress. [] HEENT: Normocephalic. Atraumatic. Extraocular motions are intact. Patient has moist mucous membranes. NECK: Supple. Trachea midline CHEST/LUNGS: Clear to auscultation. There is no respiratory distress noted. HEART/CARDIOVASCULAR: Irregularly irregular. There is tachycardia. There is no gallop rub or murmur. ABDOMEN: Abdomen is soft, nontender. Patient has normal bowel sounds. There is no abdominal distention. SKIN: There is no rash. There is 1-2+ bilateral lower extremity pitting edema. There is no diaphoresis. NEURO: The patient is awake, alert, and oriented. The patient is cooperative. The patient has no focal neurologic deficits. The patient has normal speech. GCS 15 MUSCULOSKELETAL: There is no evidence of acute injury. ED Course Vital Signs 03/02/22 01:12 Temperature 98.4 F Pulse Rate 113 H Respiratory 20 Rate Blood Pressure 166/101 O2 Sat by Pulse 94 Oximetry ED Medical Decision Making - Lab Data Result diagrams: 03/02/22 01:39 03/02/22 01:44 Laboratory Tests 03/02/22 03/02/22 03/02/22 01:39 01:39 01:44 WBC 11.3 H RBC 4.20 Hgb 11.7 L Hct 36.7 MCV 87 MCH 28 MCHC 32 RDW 20.9 H Plt Count 226 Lymph % (Auto) 12.4 L [place] % (Auto) 10.0 H Eos % (Auto) 0.9 Baso % (Auto) 0.7 Lymph # (Auto) 1.4 [place] # (Auto) 1.1 H Eos # (Auto) 0.1 Baso # (Auto) 0.1 Seg Neutrophils % 76.0 H Seg Neutrophils # 8.6 H PT 16.0 H INR 1.15 H APTT 32.5 Sodium 140 Potassium 4.5 Chloride 102.2 Carbon Dioxide 25 Anion Gap 17 BUN 15 Creatinine 0.8 Estimated GFR > 60 BUN/Creatinine Ratio 19 Glucose 124 H Calcium 9.0 Magnesium Total Creatine Kinase 48 L CK-MB (CK-2) 1.2 CK-MB (CK-2) Rel Index 2.5 Troponin T 0.014 NT-Pro-B Natriuret Pep 2716 H TSH Free T4 03/02/22 03/02/22 01:44 01:44 WBC RBC Hgb Hct MCV MCH MCHC RDW Plt Count Lymph % (Auto) [place] % (Auto) Eos % (Auto) Baso % (Auto) Lymph # (Auto) [place] # (Auto) Eos # (Auto) Baso # (Auto) Seg Neutrophils % Seg Neutrophils # PT INR APTT Sodium Potassium Chloride Carbon Dioxide Anion Gap BUN Creatinine Estimated GFR BUN/Creatinine Ratio Glucose Calcium Magnesium 1.50 L Total Creatine Kinase CK-MB (CK-2) CK-MB (CK-2) Rel Index Troponin T NT-Pro-B Natriuret Pep TSH 5.000 H Free T4 1.14 - EKG Data -: EKG Interpreted by Me Rate: tachycardia (122) - EKG Data When compared to previous EKG there are: previous EKG unavailable Interpretation: other (Atrial fibrillation with rapid ventricular response) - Radiology Data Radiology results: report reviewed (Chest x-ray, right elbow x-ray), image reviewed (Chest x-ray, right elbow x-ray) interpreted by me: Chest x-ray-no definite focal infiltrates, no pneumothorax. [facility] [address] [place] [address] XRay Report Signed Patient: GIO RODRIGUEZ MR#: [id number] : 1960 Acct:[id number] Age/Sex: 62 / M ADM Date: 03/02/22 Loc: ED Attending Dr: Ordering Physician: BENNETT NGO MD Date of Service: 03/02/22 Procedure(s): XR chest 1V ap Accession Number(s): [id number] cc: BENNETT NGO MD Fluoro Time In Minutes: CHEST 1 VIEW 03/02/2022 1:01 AM INDICATION / CLINICAL INFORMATION: Shortness of breath, palpitations. COMPARISON: 02/19/2022. FINDINGS: SUPPORT DEVICES: None. HEART / MEDIASTINUM: Stable cardiomegaly. LUNGS / PLEURA: Mild interstitial opacity. No pneumothorax. ADDITIONAL FINDINGS: No significant additional findings. IMPRESSION: Mild edema. Signer Name: Jean Abel MD Signed: 03/02/2022 2:08 AM Workstation Name: [id number] Transcribed By: ES Dictated By: Jean Abel MD Electronically Authenticated By: Jean Abel MD Signed Date/Time: 03/02/22207 DD/ 6 TD/TT: [facility] [address] [place] [address] XRay Report Signed Patient: GIO RODRIGUEZ MR#: [id number] : 1960 Acct:[id number] Age/Sex: 62 / M ADM Date: 03/02/22 Loc: ED Attending Dr: Ordering Physician: BENNETT NGO MD Date of Service: 03/02/22 Procedure(s): XR elbow 3+V RT Accession Number(s): [id number] cc: BENNETT NGO MD Fluoro Time In Minutes: RIGHT ELBOW 3 VIEWS INDICATION / CLINICAL INFORMATION: Pain after fall. COMPARISON: None available. FINDINGS: BONES / JOINT(S): Mild irregularity of the radial head anteriorly compatible with fracture. Mild underlying DJD. SOFT TISSUES: Moderate joint effusion. ADDITIONAL FINDINGS: None. Signer Name: Jean Abel MD Signed: 03/02/2022 2:10 AM Workstation Name: [id number] Transcribed By: ES Dictated By: Jean Abel MD Electronically Authenticated By: Jean Abel MD Signed Date/Time: 07209 DD/ 7 TD/TT: - Differential Diagnosis A. fib with RVR Critical care attestation.: If time is entered above; I have spent that time in minutes in the direct care of this critically ill patient, excluding procedure time. ED Disposition Clinical Impression: Atrial fibrillation with RVR, Right radial head fracture Disposition: ADMITTED INPATIENT Is pt being admited?: Yes Does the pt Need Aspirin: Yes Condition: Fair Time of Disposition: 03:39 (Care transferred to hospitalist (Dr. De Luna)) Heart Score - HEART Score History: Slightly suspicious EKG: Non-specific Age: 45-65 Risk factors: 1-2 risk factors Troponin: < normal limit HEART Score: 3 - EKG Read Time Time EKG Completed: 01:46 EKG Read Time: 01:49
[2022-03-02] MEDS ORDERED: dilTIAZem/D5W 100 MG/100 ML BAG IV SCH (02:00)
--- NOTE | 2022-03-02 02:12 | XRay Report ---
CHEST 1 VIEW 03/02/2022 1:01 AM INDICATION / CLINICAL INFORMATION: Shortness of breath, palpitations. COMPARISON: 02/19/2022. FINDINGS: SUPPORT DEVICES: None. HEART / MEDIASTINUM: Stable cardiomegaly. LUNGS / PLEURA: Mild interstitial opacity. No pneumothorax. ADDITIONAL FINDINGS: No significant additional findings. IMPRESSION: Mild edema. Signer Name: Jean Abel MD Signed: 03/02/2022 2:08 AM Workstation Name: [id number]
--- NOTE | 2022-03-02 02:14 | XRay Report ---
RIGHT ELBOW 3 VIEWS INDICATION / CLINICAL INFORMATION: Pain after fall. COMPARISON: None available. FINDINGS: BONES / JOINT(S): Mild irregularity of the radial head anteriorly compatible with fracture. Mild unde rlying DJD. SOFT TISSUES: Moderate joint effusion. ADDITIONAL FINDINGS: None. Signer Name: Jean Abel MD Signed: 03/02/2022 2:10 AM Workstation Name: [id number]
[2022-03-02 02:25] LABS: Basophils # (Auto) 0.1 K/mm3 (0.0-0.1); Basophils % (Auto) 0.7 % (0.0-1.8); Eosinophils # (Auto) 0.1 K/mm3 (0.0-0.4); Eosinophils % (Auto) 0.9 % (0.0-4.3); Hematocrit 36.7 % (35.5-45.6); Hemoglobin 11.7 gm/dl (11.8-15.2); Lymphocytes # (Auto) 1.4 K/mm3 (1.2-5.4); Lymphocytes % (Auto) 12.4 % (13.4-35.0); Mean Corpuscular HGB Conc 32 % (32-34); Mean Corpuscular Volume 87 fl (84-94); Monocytes # (Auto) 1.1 K/mm3 (0.0-0.8); Platelet Count 226 K/mm3 (140-440)
[2022-03-02] MEDS ORDERED: MAGNESIUM SULFATE 2 GM/50 ML BAG IV ONE (02:28)
[2022-03-02 02:30] LABS: BUN/Creatinine Ratio 19; Blood Urea Nitrogen 15 mg/dL (9-20); Creatine Kinase MB 1.2 ng/mL (0.0-4.0); Hemolysis Index 21
[2022-03-02 02:34] LABS: INR 1.15 (0.87-1.13); Partial Thromboplastin Time 32.5 Sec. (24.2-36.6)
[2022-03-02 02:36] LABS: Free T4 (Free Thyroxine) 1.14 ng/dL (0.76-1.46)
[2022-03-02] MEDS ORDERED: FUROSEMIDE 40 MG/4 ML INJ IV ONE (02:46)
[2022-03-02 02:59] LABS: Red Cell Distribution Width 20.9 % (13.2-15.2)
[2022-03-02] MEDS ORDERED: ACETAMINOPHEN 325 MG TAB PO PRN (04:39)
[2022-03-02] MEDS ORDERED: MORPHINE 4 MG/1 ML INJ IV PRN (04:39)
[2022-03-02] MEDS ORDERED: traMADol 50 MG TAB PO PRN (04:39)
[2022-03-02] MEDS ORDERED: NITROGLYCERIN 0.4 MG TAB SUBL SL PRN (04:39)
--- NOTE | 2022-03-02 04:48 | History and Physical Report ---
History of Present Illness Date of examination: 03/02/22 Date of admission: 03/02/22 Chief complaint: Palpitation Dyspnea Respiratory distress History of present illness: 62-year-old male with history of A. fib on Eliquis was brought to the emergency room because of palpitations. patient states he has not had any of his medications for 1 month secondary to problems with his insurance. This morning the patient noted shortness of breath and swelling in bilateral lower extremities. The patient states his LifeVest fired twice this morning and so he eventually took it off. The patient states he stayed in bed until this evening when he continued to have palpitations and blurred vision prompting family to call EMS. EMS arrived to find the patient in A. fib with RVR the patient was transported to the ED. The patient states yesterday had a syncopal episode in the bathroom after urinating. Patient states he stood up from the commode to urinate and after he finished he turned around and passed out. Patient states he awakened on the floor and has had right elbow pain since. Patient states he did not go to the hospital after the syncopal episode In the emergency room patient is found to have A. fib with RVR also heart failure. We are going to admit the patient will consult cardiology, critical care for evaluation. Past History Past Medical History: acute AR, atrial fib, heart failure, hypertension Past Surgical History: No surgical history Social history: smoking Family history: hypertension Medications and Allergies Allergies Allergy/AdvReac Type Severity Reaction Status Date / Time cantaloupe Allergy Severe Anaphylaxis Verified 02/19/22 01:44 melon Allergy Severe Anaphylaxis Verified 02/19/22 01:44 mushroom Allergy Severe Anaphylaxis Verified 02/19/22 01:44 watermelon Allergy Severe Anaphylaxis Verified 02/19/22 01:44 pollen extracts Allergy Unknown Verified 02/19/22 01:44 Home Medications Medication Instructions Recorded Confirmed Last Taken Type Pantoprazole [Protonix TAB] 40 mg PO QDAC 30 Days #30 tablet 12/18/21 02/23/22 12/23/21 Rx Levothyroxine [Synthroid] 150 mcg PO DAILY@0600 30 Days #30 12/28/21 02/23/22 12/17/21 Rx tablet Amiodarone [Cordarone 200 MG TAB] 200 mg PO BID 30 Days #60 tablet 02/24/22 Unknown Rx Apixaban [Eliquis] 5 mg PO Q12HR 30 Days #60 tablet 02/24/22 Unknown Rx Aspirin [Aspirin BABY CHEW TAB] 81 mg PO QDAY 30 Days #30 tab.chew 02/24/22 Unknown Rx AtorvaSTATin [Lipitor] 40 mg PO QHS 30 Days #30 tablet 02/24/22 Unknown Rx Digoxin [Lanoxin] 0.125 mg PO DAILY@1700 30 Days #30 02/24/22 Unknown Rx tablet Furosemide [Lasix] 40 mg PO QDAC 30 Days #30 tab 02/24/22 Unknown Rx Metoprolol [Lopressor TAB] 25 mg PO Q6H 30 Days #120 tablet 02/24/22 Unknown Rx Active Meds: Active Medications Diltiazem HCl (Cardizem/D5w 100mg/100ml) 100 mg in 100 mls @ 5 mls/hr IV TITR JENNA; Protocol Last Titration: 03/02/22 03:50 Dose: 10 mg/hr, 10 mls/hr Review of Systems All systems: negative Cardiovascular: orthopnea, palpitations, rapid/irregular heart beat, edema, sy ncope, shortness of breath, dyspnea on exertion Exam - Constitutional Vitals: Temp Pulse Resp BP Pulse Ox 98.4 F 114 H 20 137/94 99 03/02/22 01:12 03/02/22 03:30 03/02/22 03:30 03/02/22 03:30 03/02/22 03:30 General appearance: Present: no acute distress, well-nourished - EENT Eyes: Present: PERRL ENT: hearing intact, clear oral mucosa - Neck Neck: Present: supple, normal ROM - Respiratory Respiratory effort: normal Respiratory: bilateral: rales - Cardiovascular Rhythm: irregularly irregular Heart Sounds: Present: S1 & S2. Absent: rub, click - Extremities Extremities: pulses symmetrical, No edema Peripheral Pulses: within normal limits - Abdominal General gastrointestinal: Present: soft, non-tender, non-distended, normal bowel sounds Male genitourinary: Present: normal - Integumentary Integumentary: Present: clear, warm, dry - Musculoskeletal Musculoskeletal: gait normal, strength equal bilaterally - Psychiatric Psychiatric: appropriate mood/affect, intact judgment & insight - Neurologic Neurologic: CNII-XII intact, moves all extremities HEART Score - HEART Score EKG: Non-specific Age: 45-65 Risk factors: 1-2 risk factors Troponin: Troponin T 0.014 ng/mL (0.00-0.029) 03/02/22 01:44 Troponin: < normal limit Results - Labs CBC & Chem 7: 03/02/22 01:39 03/02/22 01:44 Labs: Laboratory Last Values WBC 11.3 K/mm3 (4.5-11.0) H 03/02/22 01:39 RBC 4.20 M/mm3 (3.65-5.03) 03/02/22 01:39 Hgb 11.7 gm/dl (11.8-15.2) L 03/02/22 01:39 Hct 36.7 % (35.5-45.6) 03/02/22 01:39 MCV 87 fl (84-94) 03/02/22 01:39 MCH 28 pg (28-32) 03/02/22 01:39 MCHC 32 % (32-34) 03/02/22 01:39 RDW 20.9 % (13.2-15.2) H 03/02/22 01:39 Plt Count 226 K/mm3 (140-440) 03/02/22 01:39 Lymph % (Auto) 12.4 % (13.4-35.0) L 03/02/22 01:39 [place] % (Auto) 10.0 % (0.0-7.3) H 03/02/22 01:39 Eos % (Auto) 0.9 % (0.0-4.3) 03/02/22 01:39 Baso % (Auto) 0.7 % (0.0-1.8) 03/02/22 01:39 Lymph # (Auto) 1.4 K/mm3 (1.2-5.4) 03/02/22 01:39 [place] # (Auto) 1.1 K/mm3 (0.0-0.8) H 03/02/22 01:39 Eos # (Auto) 0.1 K/mm3 (0.0-0.4) 03/02/22 01:39 Baso # (Auto) 0.1 K/mm3 (0.0-0.1) 03/02/22 01:39 Seg Neutrophils % 76.0 % (40.0-70.0) H 03/02/22 01:39 Seg Neutrophils # 8.6 K/mm3 (1.8-7.7) H 03/02/22 01:39 PT 16.0 Sec. (12.2-14.9) H 03/02/22 01:39 INR 1.15 (0.87-1.13) H 03/02/22 01:39 APTT 32.5 Sec. (24.2-36.6) 03/02/22 01:39 Sodium 140 mmol/L (137-145) 03/02/22 01:44 Potassium 4.5 mmol/L (3.6-5.0) 03/02/22 01:44 Chloride 102.2 mmol/L (98-107) 03/02/22 01:44 Carbon Dioxide 25 mmol/L (22-30) 03/02/22 01:44 Anion Gap 17 mmol/L 03/02/22 01:44 BUN 15 mg/dL (9-20) 03/02/22 01:44 Creatinine 0.8 mg/dL (0.8-1.3) 03/02/22 01:44 Estimated GFR > 60 ml/min 03/02/22 01:44 BUN/Creatinine Ratio 19 % 03/02/22 01:44 Glucose 124 mg/dL (75-100) H 03/02/22 01:44 Calcium 9.0 mg/dL (8.4-10.2) 03/02/22 01:44 Magnesium 1.50 mg/dL (1.7-2.3) L 03/02/22 01:44 Total Creatine Kinase 48 units/L (55-170) L 03/02/22 01:44 CK-MB (CK-2) 1.2 ng/mL (0.0-4.0) 03/02/22 01:44 CK-MB (CK-2) Rel Index 2.5 (0-4) 03/02/22 01:44 Troponin T 0.014 ng/mL (0.00-0.029) 03/02/22 01:44 NT-Pro-B Natriuret Pep 2716 pg/mL (0-900) H 03/02/22 01:44 TSH 5.000 mlU/mL (0.270-4.200) H 03/02/22 01:44 Free T4 1.14 ng/dL (0.76-1.46) 03/02/22 01:44 - Imaging and Cardiology Chest x-ray: report reviewed Assessment and Plan VTE prophylaxis?: Chemical Plan of care discussed with patient/family: Yes - Patient Problems (1) Atrial fibrillation with RVR Current Visit: Yes Status: Acute Plan to address problem: Admit the patient to the medical ICU. Aspirin 325 mg p.o. daily. Lipitor 40 mg p.o. daily. Cardizem drip as per protocol. Echocardiogram. Will consult cardiology for evaluation (2) Acute HFrEF (heart failure with reduced ejection fraction) Current Visit: No Status: Acute Plan to address problem: Cardiac diet. Fluid restriction. Daily weight. Maintain input output. Lasix 40 mg IV daily. Echocardiogram. Cardiology evaluation (3) Right radial head fracture Current Visit: Yes Status: Acute Plan to address problem: We put the patient in sling. Will consult orthopedic surgeon for evaluation (4) Syncope Current Visit: No Status: Acute Plan to address problem: Aspirin 325 mg p.o. daily. Lipitor 40 mg p.o. daily. Echocardiogram. Will consult cardiology for evaluation (5) HTN (hypertension) Current Visit: No Status: Chronic Plan to address problem: Hydralazine 10 mg IV every 6 hours as needed. Patient is on Cardizem drip. We will monitor the blood pressure closely (6) Hyperlipidemia Current Visit: No Status: Chronic Qualifiers: Plan to address problem: Lipitor 40 mg p.o. daily. We will recheck the lipid panel (7) Tobacco use Current Visit: No Status: Chronic Plan to address problem: We counseled the patient regarding quitting smoking. We put the patient on nicotine patch (8) DVT prophylaxis Current Visit: No Status: Acute Plan to address problem: Heparin 5000 units subcu every 12 hours for DVT prophylaxis. Pepcid 20 mg p.o. twice daily for GI prophylaxis. Patient is a full code
[2022-03-02] MEDS ORDERED: hydrALAZINE 20 MG/1 ML INJ IV PRN (04:54)
[2022-03-02] MEDS ORDERED: NICOTINE 14 MG/24 HR PATCH TD ONE (04:55)
[2022-03-02 06:13] LABS: Basophils # (Auto) 0.1 K/mm3 (0.0-0.1); Basophils % (Auto) 0.7 % (0.0-1.8); Eosinophils # (Auto) 0.1 K/mm3 (0.0-0.4); Eosinophils % (Auto) 0.6 % (0.0-4.3); Hematocrit 36.7 % (35.5-45.6); Hemoglobin 11.6 gm/dl (11.8-15.2); Lymphocytes # (Auto) 1.3 K/mm3 (1.2-5.4); Lymphocytes % (Auto) 11.6 % (13.4-35.0); Mean Corpuscular HGB Conc 32 % (32-34); Mean Corpuscular Volume 87 fl (84-94); Monocytes # (Auto) 1.4 K/mm3 (0.0-0.8); Monocytes % (Auto) 12.2 % (0.0-7.3); Platelet Count 239 K/mm3 (140-440); Red Blood Count 4.23 M/mm3 (3.65-5.03)
[2022-03-02 06:14] LABS: Red Cell Distribution Width 21.2 % (13.2-15.2)
[2022-03-02 06:19] LABS: BUN/Creatinine Ratio 16; Blood Urea Nitrogen 14 mg/dL (9-20); Calcium 9.2 mg/dL (8.4-10.2); Hemolysis Index 0
[2022-03-02] MEDS ORDERED: PANTOPRAZOLE 40 MG TAB PO SCH (10:00)
[2022-03-02] MEDS ORDERED: FUROSEMIDE 40 MG/4 ML INJ IV SCH ×2 (10:00→22:00)
[2022-03-02] MEDS ORDERED: HEPARIN 5,000 UNIT/1 ML VIAL SUB-Q SCH (10:00)
--- NOTE | 2022-03-02 12:58 | Progress Note ---
Assessment and Plan Assessment and plan: History of present illness: 62-year-old male with history of A. fib on Eliquis was brought to the emergency room because of palpitations. patient states he has not had any of his medications for 1 month secondary to problems with his insurance. This morning the patient noted shortness of breath and swelling in bilateral lower extremities. The patient states his LifeVest fired twice this morning and so he eventually took it off. The patient states he stayed in bed until this evening when he continued to have palpitations and blurred vision prompting family to call EMS. EMS arrived to find the patient in A. fib with RVR the patient was transported to the ED. The patient states yesterday had a syncopal episode in the bathroom after urinating. Patient states he stood up from the commode to urinate and after he finished he turned around and passed out. Patient states he awakened on the floor and has had right elbow pain since. Patient states he did not go to the hospital after the syncopal episode In the emergency room patient is found to have A. fib with RVR also heart failure. We are going to admit the patient will consult cardiology, critical care for evaluation. Hospital Course to date: 03/02: Resumed home medication. Continue Cardizem gtt, awaiting cardiology eval. Diuresis with lasix 40 mg IV bid. Patient is noncompliant due to issues with affordability of medications. Assessment and Plan: (1) Atrial fibrillation with RVR Current Visit: Yes Status: Acute Plan to address problem: Admit the patient to the medical ICU. Aspirin 325 mg p.o. daily. Lipitor 40 mg p.o. daily. Cardizem drip as per protocol. Echocardiogram. Will consult cardiology for evaluation (2) Acute HFrEF (heart failure with reduced ejection fraction) Current Visit: No Status: Acute Plan to address problem: Cardiac diet. Fluid restriction. Daily weight. Maintain input output. Lasix 40 mg IV daily. Echocardiogram. Cardiology evaluation (3) Right radial head fracture Current Visit: Yes Status: Acute Plan to address problem: We put the patient in sling. Will consult orthopedic surgeon for evaluation (4) Syncope Current Visit: No Status: Acute Plan to address problem: Aspirin 325 mg p.o. daily. Lipitor 40 mg p.o. daily. Echocardiogram. Will consult cardiology for evaluation (5) HTN (hypertension) Current Visit: No Status: Chronic Plan to address problem: Hydralazine 10 mg IV every 6 hours as needed. Patient is on Cardizem drip. We will monitor the blood pressure closely (6) Hyperlipidemia Current Visit: No Status: Chronic Qualifiers: Plan to address problem: Lipitor 40 mg p.o. daily. We will recheck the lipid panel (7) Tobacco use Current Visit: No Status: Chronic Plan to address problem: We counseled the patient regarding quitting smoking. We put the patient on nicotine patch (8) DVT prophylaxis Current Visit: No Status: Acute Plan to address problem: Heparin 5000 units subcu every 12 hours for DVT prophylaxis. Pepcid 20 mg p.o. twice daily for GI prophylaxis. Patient is a full code History Interval history: Agitated on encounter but not in any distress. Upset about ER bed. Bedside monitor shows irregularly irregular rhythm. tachycardia. Hospitalist Physical - Physical exam Narrative exam: Physical Exam: VITAL SIGNS: Reviewed. GENERAL: The patient appears normally developed, Vital signs as documented. HEAD: No signs of head trauma. EYES: Pupils are equal. Extraocular motions intact. EARS: Hearing grossly intact. MOUTH: Oropharynx is normal. NECK: No adenopathy, no JVD. CHEST: Chest with clear breath sounds bilaterally. No wheezes, rales, or rhonchi. CARDIAC: tachycardic, irregular rhythm. S1 and S2, without murmurs, gallops, or rubs. VASCULAR: BL LE edema noted. Peripheral pulses normal and equal in all extremities. ABDOMEN: Soft, non tender and non distended. No rebound or guarding, and no masses palpated. Bowel Sounds normal. MUSCULOSKELETAL: Good range of motion of all major joints. Extremities without clubbing, cyanosis or edema. NEUROLOGIC EXAM: Alert and oriented x 4. no focal sensory or strength deficits. PSYCHIATRIC: Mood normal. SKIN: detail exam as documented in skin assessment - Constitutional Vitals: Temp Pulse Resp BP Pulse Ox 98.4 F 126 H 24 123/84 99 03/02/22 01:12 03/02/22 12:00 03/02/22 12:00 03/02/22 12:03/02/22 09:57 General appearance: Present: no acute distress, well-nourished HEART Score - HEART Score EKG: Non-specific Age: 45-65 Risk factors: 1-2 risk factors Troponin: Troponin T < 0.010 ng/mL (0.00-0.029) 03/02/22 08:55 Troponin: < normal limit Results - Labs CBC & Chem 7: 03/02/22 05:47 03/02/22 05:47 Labs: Laboratory Last Values WBC 11.3 K/mm3 (4.5-11.0) H 03/02/22 05:47 RBC 4.23 M/mm3 (3.65-5.03) 03/02/22 05:47 Hgb 11.6 gm/dl (11.8-15.2) L 03/02/22 05:47 Hct 36.7 % (35.5-45.6) 03/02/22 05:47 MCV 87 fl (84-94) 03/02/22 05:47 MCH 28 pg (28-32) 03/02/22 05:47 MCHC 32 % (32-34) 03/02/22 05:47 RDW 21.2 % (13.2-15.2) H 03/02/22 05:47 Plt Count 239 K/mm3 (140-440) 03/02/22 05:47 Lymph % (Auto) 11.6 % (13.4-35.0) L 03/02/22 05:47 [place] % (Auto) 12.2 % (0.0-7.3) H 03/02/22 05:47 Eos % (Auto) 0.6 % (0.0-4.3) 03/02/22 05:47 Baso % (Auto) 0.7 % (0.0-1.8) 03/02/22 05:47 Lymph # (Auto) 1.3 K/mm3 (1.2-5.4) 03/02/22 05:47 [place] # (Auto) 1.4 K/mm3 (0.0-0.8) H 03/02/22 05:47 Eos # (Auto) 0.1 K/mm3 (0.0-0.4) 03/02/22 05:47 Baso # (Auto) 0.1 K/mm3 (0.0-0.1) 03/02/22 05:47 Seg Neutrophils % 74.9 % (40.0-70.0) H 03/02/22 05:47 Seg Neutrophils # 8.5 K/mm3 (1.8-7.7) H 03/02/22 05:47 PT 16.0 Sec. (12.2-14.9) H 03/02/22 01:39 INR 1.15 (0.87-1.13) H 03/02/22 01:39 APTT 32.5 Sec. (24.2-36.6) 03/02/22 01:39 Sodium 138 mmol/L (137-145) 03/02/22 05:47 Potassium 3.9 mmol/L (3.6-5.0) 03/02/22 05:47 Chloride 100.7 mmol/L (98-107) 03/02/22 05:47 Carbon Dioxide 25 mmol/L (22-30) 03/02/22 05:47 Anion Gap 16 mmol/L 03/02/22 05:47 BUN 14 mg/dL (9-20) 03/02/22 05:47 Creatinine 0.9 mg/dL (0.8-1.3) 03/02/22 05:47 Estimated GFR > 60 ml/min 03/02/22 05:47 BUN/Creatinine Ratio 16 % 03/02/22 05:47 Glucose 131 mg/dL (75-100) H 03/02/22 05:47 Calcium 9.2 mg/dL (8.4-10.2) 03/02/22 05:47 Magnesium 1.50 mg/dL (1.7-2.3) L 03/02/22 01:44 Total Creatine Kinase 48 units/L (55-170) L 03/02/22 01:44 CK-MB (CK-2) 1.2 ng/mL (0.0-4.0) 03/02/22 01:44 CK-MB (CK-2) Rel Index 2.5 (0-4) 03/02/22 01:44 Troponin T < 0.010 ng/mL (0.00-0.029) 03/02/22 08:55 NT-Pro-B Natriuret Pep 2716 pg/mL (0-900) H 03/02/22 01:44 TSH 5.000 mlU/mL (0.270-4.200) H 03/02/22 01:44 Free T4 1.14 ng/dL (0.76-1.46) 03/02/22 01:44 Active Medications - Current Medications Current Medications: Generic Name Dose Route Start Last Admin Trade Name Freq PRN Reason Stop Dose Admin Acetaminophen 650 mg 03/02/22 04:39 Acetaminophen 325 Mg Tab PO Q6H PRN Pain, Mild (1-3) Aspirin 325 mg 03/03/22 10:00 Aspirin Ec 325 Mg Tab PO QDAY JENNA Atorvastatin Calcium 40 mg 03/02/22 22:00 Atorvastatin 40 Mg Tab PO QHS JENNA Furosemide 40 mg 03/02/22 10:00 03/02/22 10:07 Furosemide 40 Mg/4 Ml Inj IV 40 mg QDAY JENNA Administration Heparin Sodium (Porcine) 5,000 unit 03/02/22 10:00 03/02/22 10:07 Heparin 5,000 Unit/1 Ml Vial SUB-Q 5,000 unit Q12HR JENNA Administration Hydralazine HCl 10 mg 03/02/22 04:54 Hydralazine 20 Mg/1 Ml Inj IV Q6H PRN SBP >/=160; DBP >/=100 Diltiazem HCl 100 mg in 100 mls @ 5 mls/hr 03/02/22 02:00 03/02/22 05:55 Cardizem/D5w 100mg/100ml IV 15 mg/hr TITR JENNA 15 mls/hr Titration Protocol 5 MG/HR Morphine Sulfate 2 mg 03/02/22 04:39 Morphine 4 Mg/1 Ml Inj IV Q5MIN PRN Chest Pain unrelieved by NTG Nitroglycerin 0.4 mg 03/02/22 04:39 Nitroglycerin 0.4 Mg Tab Subl SL Q5M PRN Chest Pain Pantoprazole Sodium 40 mg 03/02/22 10:00 03/02/22 10:07 Pantoprazole 40 Mg Tab PO 40 mg QDAY JENNA Administration Sodium Chloride 10 ml 03/02/22 04:39 Sodium Chloride 0.9% 10 Ml Flush Syringe IV PRN PRN LINE FLUSH Tramadol HCl 50 mg 03/02/22 04:39 Tramadol 50 Mg Tab PO Q6H PRN Pain, Moderate (4-6)
[2022-03-02] MEDS ORDERED: MILRINONE-D5W 20 MG/100 ML 20 MG/100 ML BAG IV SCH (14:00)
[2022-03-02] MEDS ORDERED: METOPROLOL TARTRATE 5 MG/5 ML INJ IV PRN (14:02)
--- NOTE | 2022-03-02 14:08 | Consultation ---
History of Present Illness Consult date: 03/02/22 Consult reason: atrial fibrillation, congestive heart failure History of present illness: The patient is a 62-year-old man with a history of dilated nonischemic cardiomyopathy, chronic systolic heart failure and chronic atrial fibrillation. A cardiac catheterization a year and a half ago reported the absence of significant coronary artery disease. His historical left ventricular systolic ejection fraction has been 15 to 20%. Most recent echocardiogram done 2 months ago was unchanged with regards to his baseline ejection fraction. He states that his outpatient cardiac follow-up is at [facility] and the [facility]. He has a LifeVest monitor ordered by us on the previous admission, as a bridge to eventual ICD implant. There have been several admissions to this hospital in recent months for exacerbation of systolic heart failure. These events have been largely due to the patient's noncompliance with medical therapy. He was discharged from this hospital after 1 of these admissions just 10 days ago. He states that in that time, he has not taking his prescribed medications. The reasons for his noncompliance is myriad. At various times he states unaffordable medications versus his difficulty in getting to the pharmacy to picker the medicines versus his difficulty in going to the [place] to get his medications. Past History Past Medical History: atrial fib, heart failure, hypertension Past Surgical History: No surgical history Social history: smoking Family history: hypertension Medications and Allergies Allergies Allergy/AdvReac Type Severity Reaction Status Date / Time cantaloupe Allergy Severe Anaphylaxis Verified 02/19/22 01:44 melon Allergy Severe Anaphylaxis Verified 02/19/22 01:44 mushroom Allergy Severe Anaphylaxis Verified 02/19/22 01:44 watermelon Allergy Severe Anaphylaxis Verified 02/19/22 01:44 pollen extracts Allergy Unknown Verified 02/19/22 01:44 Home Medications Medication Instructions Recorded Confirmed Last Taken Type Pantoprazole [Protonix TAB] 40 mg PO QDAC 30 Days #30 tablet 12/18/21 02/23/22 12/23/21 Rx Levothyroxine [Synthroid] 150 mcg PO DAILY@0600 30 Days #30 12/28/21 02/23/22 12/17/21 Rx tablet Amiodarone [Cordarone 200 MG TAB] 200 mg PO BID 30 Days #60 tablet 02/24/22 Unknown Rx Apixaban [Eliquis] 5 mg PO Q12HR 30 Days #60 tablet 02/24/22 Unknown Rx Aspirin [Aspirin BABY CHEW TAB] 81 mg PO QDAY 30 Days #30 tab.chew 02/24/22 Unknown Rx AtorvaSTATin [Lipitor] 40 mg PO QHS 30 Days #30 tablet 02/24/22 Unknown Rx Digoxin [Lanoxin] 0.125 mg PO DAILY@1700 30 Days #30 02/24/22 Unknown Rx tablet Furosemide [Lasix] 40 mg PO QDAC 30 Days #30 tab 02/24/22 Unknown Rx Metoprolol [Lopressor TAB] 25 mg PO Q6H 30 Days #120 tablet 02/24/22 Unknown Rx Active Meds: Active Medications Acetaminophen (Acetaminophen 325 Mg Tab) 650 mg PO Q6H PRN PRN Reason: Pain, Mild (1-3) Amiodarone HCl (Amiodarone 200 Mg Tab) 200 mg PO BID JENNA Aspirin (Aspirin Ec 325 Mg Tab) 325 mg PO QDAY JENNA Atorvastatin Calcium (Atorvastatin 40 Mg Tab) 40 mg PO QHS JENNA Furosemide (Furosemide 40 Mg/4 Ml Inj) 40 mg IV BID JENNA Heparin Sodium (Porcine) (Heparin 5,000 Unit/1 Ml Vial) 5,000 unit SUB-Q Q12HR JENNA Last Admin: 03/02/22 10:07 Dose: 5,000 unit Hydralazine HCl (Hydralazine 20 Mg/1 Ml Inj) 10 mg IV Q6H PRN PRN Reason: SBP >/=160; DBP >/=100 Milrinone Lactate/Dextrose (Milrinone-D5w 20 Mg/100 Ml) 20 mg in 100 mls @ 11.482 mls/hr IV DIRECT JENNA; Protocol Stop: 03/05/22 13:59 Lisinopril (Lisinopril 5 Mg Tab) 2.5 mg PO QDAY JENNA Metoprolol Tartrate (Metoprolol Tartrate 5 Mg/5 Ml Inj) 2.5 mg IV Q4HR PRN PRN Reason: HR>130 Metoprolol Tartrate (Metoprolol Tartrate 50 Mg Tab) 50 mg PO Q8H JENNA Morphine Sulfate (Morphine 4 Mg/1 Ml Inj) 2 mg IV Q5MIN PRN PRN Reason: Chest Pain unrelieved by NTG Nitroglycerin (Nitroglycerin 0.4 Mg Tab Subl) 0.4 mg SL Q5M PRN PRN Reason: Chest Pain Pantoprazole Sodium (Pantoprazole 40 Mg Tab) 40 mg PO QDAY [facility] Last Admin: 03/02/22 10:07 Dose: 40 mg Sodium Chloride (Sodium Chloride 0.9% 10 Ml Flush Syringe) 10 ml IV PRN PRN PRN Reason: LINE FLUSH Spironolactone (Spironolactone 25 Mg Tab) 25 mg PO QDAY [facility] Tramadol HCl (Tramadol 50 Mg Tab) 50 mg PO Q6H PRN PRN Reason: Pain, Moderate (4-6) Review of Systems Cardiovascular: orthopnea, palpitations, rapid/irregular heart beat, edema, shortness of breath, no chest pain, no syncope, no lightheadedness Physical Examination Vital Signs Temp Pulse Resp BP Pulse Ox 98.4 F 113 H 20 166/101 94 03/02/22 01:12 03/02/22 01:12 03/02/22 01:12 03/02/22 01:12 03/02/22 01:12 General appearance: mild distress HEENT: Positive: PERRL Neck: Positive: neck supple Cardiac: Positive: irregularly irregular Lungs: Positive: Decreased Breath Sounds Neuro: Positive: Grossly Intact Abdomen: Positive: Soft Male genitourinary: Positive: deferred Skin: Positive: Clear Extremities: Present: +2 Edema Results 03/02/22 05:47 03/02/22 05:47 Cardiac Enzymes 03/02/22 Range/Units 01:44 CK-MB (CK-2) 1.2 (0.0-4.0) ng/mL Coagulation 03/02/22 Range/Units 01:39 PT 16.0 H (12.2-14.9) Sec. INR 1.15 H (0.87-1.13) APTT 32.5 (24.2-36.6) Sec. CBC 03/02/22 03/02/22 Range/Units 01:39 05:47 WBC 11.3 H 11.3 H (4.5-11.0) K/mm3 RBC 4.20 4.23 (3.65-5.03) M/mm3 Hgb 11.7 L 11.6 L (11.8-15.2) gm/dl Hct 36.7 36.7 (35.5-45.6) % Plt Count 226 239 (140-440) K/mm3 Lymph # (Auto) 1.4 1.3 (1.2-5.4) K/mm3 [place] # (Auto) 1.1 H 1.4 H (0.0-0.8) K/mm3 Eos # (Auto) 0.1 0.1 (0.0-0.4) K/mm3 Baso # (Auto) 0.1 0.1 (0.0-0.1) K/mm3 Comprehensive Metabolic Panel 03/02/22 03/02/22 Range/Units 01:44 05:47 Sodium 140 138 (137-145) mmol/L Potassium 4.5 3.9 (3.6-5.0) mmol/L Chloride 102.2 100.7 (98-107) mmol/L Carbon Dioxide 25 25 (22-30) mmol/L BUN 15 14 (9-20) mg/dL Creatinine 0.8 0.9 (0.8-1.3) mg/dL Glucose 124 H 131 H (75-100) mg/dL Calcium 9.0 9.2 (8.4-10.2) mg/dL EKG interpretations - Telemetry EKG Rhythm: Atrial Fibrillation Assessment and Plan - Patient Problems (1) Acute on chronic systolic heart failure Current Visit: No Status: Acute Plan to address problem: 62-year-old man with longstanding, severe nonischemic cardiomyopathy, chronic atrial fibrillation, presents with acute on chronic systolic heart failure exacerbation is largely due to his noncompliance with prescribed outpatient medical therapy. In addition to intravenous diuretics, and oral guideline directed medical therapy, we will add a course of intravenous milrinone. I would strongly recommend that he gets a bilingual social worker consultation, with expressed goal of assisting this patient with strategies to procure and maintain compliance with outpatient prescribed medical therapy.
--- NOTE | 2022-03-02 14:30 | Consultation ---
History of Present Illness - [facility] Consult date: 03/02/22 Consult reason: joint pain History of present illness: 62 y/o male with c/o right elbow pain after passing out prior to visit to ED, plain xrays taken and reviewed by me show no obvious acute fx at radial head/nec k but there are chronic changes about elbow c/w DJD..... Past History Past Medical History: atrial fib, heart failure, hypertension Past Surgical History: No surgical history Social history: smoking Family history: hypertension Medications and Allergies Allergies Allergy/AdvReac Type Severity Reaction Status Date / Time cantaloupe Allergy Severe Anaphylaxis Verified 02/19/22 01:44 melon Allergy Severe Anaphylaxis Verified 02/19/22 01:44 mushroom Allergy Severe Anaphylaxis Verified 02/19/22 01:44 watermelon Allergy Severe Anaphylaxis Verified 02/19/22 01:44 pollen extracts Allergy Unknown Verified 02/19/22 01:44 Home Medications Medication Instructions Recorded Confirmed Last Taken Type Pantoprazole [Protonix TAB] 40 mg PO QDAC 30 Days #30 tablet 12/18/21 02/23/22 12/23/21 Rx Levothyroxine [Synthroid] 150 mcg PO DAILY@0600 30 Days #30 12/28/21 02/23/22 12/17/21 Rx tablet Amiodarone [Cordarone 200 MG TAB] 200 mg PO BID 30 Days #60 tablet 02/24/22 Unknown Rx Apixaban [Eliquis] 5 mg PO Q12HR 30 Days #60 tablet 02/24/22 Unknown Rx Aspirin [Aspirin BABY CHEW TAB] 81 mg PO QDAY 30 Days #30 tab.chew 02/24/22 Unknown Rx AtorvaSTATin [Lipitor] 40 mg PO QHS 30 Days #30 tablet 02/24/22 Unknown Rx Digoxin [Lanoxin] 0.125 mg PO DAILY@1700 30 Days #30 02/24/22 Unknown Rx tablet Furosemide [Lasix] 40 mg PO QDAC 30 Days #30 tab 02/24/22 Unknown Rx Metoprolol [Lopressor TAB] 25 mg PO Q6H 30 Days #120 tablet 02/24/22 Unknown Rx Active Meds: Active Medications Acetaminophen (Acetaminophen 325 Mg Tab) 650 mg PO Q6H PRN PRN Reason: Pain, Mild (1-3) Amiodarone HCl (Amiodarone 200 Mg Tab) 200 mg PO BID JENNA Apixaban (Apixaban 5 Mg Tab) 5 mg PO Q12HR JENNA; Protocol Atorvastatin Calcium (Atorvastatin 40 Mg Tab) 40 mg PO QHS JENNA Furosemide (Furosemide 40 Mg/4 Ml Inj) 40 mg IV BID JENNA Hydralazine HCl (Hydralazine 20 Mg/1 Ml Inj) 10 mg IV Q6H PRN PRN Reason: SBP >/=160; DBP >/=100 Milrinone Lactate/Dextrose (Milrinone-D5w 20 Mg/100 Ml) 20 mg in 100 mls @ 11.482 mls/hr IV DIRECT JENNA; Protocol Stop: 03/05/22 13:59 Lisinopril (Lisinopril 5 Mg Tab) 2.5 mg PO QDAY JENNA Metoprolol Tartrate (Metoprolol Tartrate 5 Mg/5 Ml Inj) 2.5 mg IV Q4HR PRN PRN Reason: HR>130 Metoprolol Tartrate (Metoprolol Tartrate 50 Mg Tab) 50 mg PO Q8H JENNA Morphine Sulfate (Morphine 4 Mg/1 Ml Inj) 2 mg IV Q5MIN PRN PRN Reason: Chest Pain unrelieved by NTG Nitroglycerin (Nitroglycerin 0.4 Mg Tab Subl) 0.4 mg SL Q5M PRN PRN Reason: Chest Pain Pantoprazole Sodium (Pantoprazole 40 Mg Tab) 40 mg PO QDAY [facility] Last Admin: 03/02/22 10:07 Dose: 40 mg Sodium Chloride (Sodium Chloride 0.9% 10 Ml Flush Syringe) 10 ml IV PRN PRN PRN Reason: LINE FLUSH Spironolactone (Spironolactone 25 Mg Tab) 25 mg PO QDAY JENNA Tramadol HCl (Tramadol 50 Mg Tab) 50 mg PO Q6H PRN PRN Reason: Pain, Moderate (4-6) Physical Examination - Physical exam Narrative exam: at the right elbow, mild swelling, no point tender at radial head, good passive ROM supination/pronation, decreased active at elbow Eyes: PERRL ENT: Positive: clear oral mucosa Respiratory effort: normal Respiratory: bilateral: CTA Rhythm: regular Heart Sounds: Positive: S1 & S2 General gastrointestinal: Positive: soft, non-tender, non-distended, normal bowel sounds Integumentary: clear, warm, dry Neurologic: Positive: CNII-XII intact, moves all extremities, gait normal. Negative: focal deficits Assessment and Plan right elbow pain, sprain vs fx.... recommend conservative mgmt either way, arm sling, followed by early range of motion exercises.....
[2022-03-02] MEDS ORDERED: AMIODARONE 200 MG TAB PO SCH (15:00)
[2022-03-02] MEDS ORDERED: SPIRONOLACTONE 25 MG TAB PO SCH (15:00)
[2022-03-02] MEDS ORDERED: APIXABAN 5 MG TAB PO SCH (15:00)
[2022-03-02] MEDS ORDERED: METOPROLOL TARTRATE 50 MG TAB PO SCH (15:00)
[2022-03-02 15:49] VITALS: BP 142/96
[2022-03-03] MEDS ORDERED: LISINOPRIL 5 MG TAB PO SCH (10:00)
[2022-03-03] MEDS ORDERED: ASPIRIN EC 325 MG TAB PO SCH (10:00)
--- NOTE | 2022-03-03 13:43 | Discharge Summary ---
Providers - Providers Date of Admission: 03/02/22 04:56 Attending physician: CLARISSA GALLEGOS MD 03/02/22 Consult to Cardiac Rehabilitation [CONS] Routine Reason For Exam: Phase I 03/02/22 02:18 Consult to Physician [CONS] Urgent Comment: Consulting Provider: PAULETTE VITALE Physician Instructions: Reason For Exam: Right radial head fracture 03/02/22 03:42 Consult to Physician [CONS] Urgent Comment: Consulting Provider: JHONATAN HUANG Physician Instructions: Reason For Exam: ICU admit 03/02/22 04:40 Consult to Cardiology [CONS] Routine Consulting Provider: MINNIE ADAMS Reason For Exam: a.fib Primary care physician: MOHIT DONALDSON Hospitalization Reason for admission: Chest pain Condition: Fair Hospital course: Patient wanted to sign out AMA. Despite explaining to the patient the risks of doing so, the patient was adamant that he did not want a wait in the hospital for a bed upstairs. Patient signed out AMA per RN. Disposition: LEFT AGAINST MEDICAL ADVICE Final Discharge Diagnosis (Prints w/discharge instructions): Atrial fibrillation with rapid ventricular response Time spent for discharge: 35 Core Measure Documentation - Palliative Care Palliative Care/ Comfort Measures: Not Applicable - Core Measures Any of the following diagnoses?: none Exam - Physical Exam Narrative exam: Physical Exam: VITAL SIGNS: Reviewed. GENERAL: The patient appears normally developed, Vital signs as documented. HEAD: No signs of head trauma. EYES: Pupils are equal. Extraocular motions intact. EARS: Hearing grossly intact. MOUTH: Oropharynx is normal. NECK: No adenopathy, no JVD. CHEST: Chest with clear breath sounds bilaterally. No wheezes, rales, or rhonchi. CARDIAC: tachycardic, irregular rhythm. S1 and S2, without murmurs, gallops, or rubs. VASCULAR: BL LE edema noted. Peripheral pulses normal and equal in all extremities. ABDOMEN: Soft, non tender and non distended. No rebound or guarding, and no masses palpated. Bowel Sounds normal. MUSCULOSKELETAL: Good range of motion of all major joints. Extremities without clubbing, cyanosis or edema. NEUROLOGIC EXAM: Alert and oriented x 4. no focal sensory or strength deficits. PSYCHIATRIC: Mood normal. SKIN: detail exam as documented in skin assessment - Constitutional Vitals: Temp Pulse Resp BP Pulse Ox 98.4 F 133 H 18 142/96 98 03/02/22 15:47 03/02/22 15:47 03/02/22 15:47 03/02/22 15:47 03/02/22 15:47 Plan Follow up with: MOHIT DONALDSON MD [Primary Care Provider] - 3-5 Days
--- NOTE | 2022-03-04 15:10 | Electrocardiograph Report ---
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
== END 2022-03-02 15:44 | disposition left against medical advice (07) | DRG 291 ==
LOC: ED 00:35 → CC1 04:56
PROVIDERS: ADMIT Hospitalist; ATTEND Internal Medicine
DX: I11.0 Hypertensive heart disease with heart failure (principal); I50.23 Acute on chronic systolic (congestive) heart failure; S52.91XA Unspecified fracture of right forearm, initial encounter for closed fracture; I48.91 Unspecified atrial fibrillation; S53.402A Unspecified sprain of left elbow, initial encounter; Y93.89 Activity, other specified; Y92.89 Other specified places as the place of occurrence of the external cause; Y99.8 Other external cause status; E78.5 Hyperlipidemia, unspecified; Z82.49 Family history of ischemic heart disease and other diseases of the circulatory system; Z88.8 Allergy status to other drugs, medicaments and biological substances
CPT/HCPCS: 36415; 71045; 80048; 82550; 82553; 83735; 83880; 84439; 84443; 84484; 85025; 85610; 85730; 93005; 93306; G0378; J3490; C8929; J1644; J1940; J3475

== ENCOUNTER 2022-05-08 12:59 | Inpatient (IN) | payer BC, OTHER ==
[2022-05-08] MEDS ORDERED: dilTIAZem 50 MG/10 ML INJ IV ONE (14:06)
--- NOTE | 2022-05-08 14:09 | Emergency Department Report ---
ED General Adult HPI - General Chief complaint: Dyspnea/Respdistress Stated complaint: BOB Time Seen by Provider: 05/08/22 13:51 Source: patient, EMS Mode of arrival: Stretcher Limitations: No Limitations - History of Present Illness Initial comments: The patient presents to the emergency department with a chief complaint of palpitations and shortness of breath. Patient states he has a history of A. fib and congestive heart failure for the last couple days has had difficulty breathing. Patient denies any isaura chest pain or abdominal pain. Patient endorses taking his diuretic and atrial fibrillation medications at home -: Sudden Severity scale (0 -10): 0 Improves with: none Worsens with: movement Associated Symptoms: denies other symptoms Treatments Prior to Arrival: none - Related Data Previous Rx's Medication Instructions Recorded Last Taken Type Pantoprazole [Protonix TAB] 40 mg PO QDAC 30 Days #30 tablet 12/18/21 12/23/21 Rx Levothyroxine [Synthroid] 150 mcg PO DAILY@0600 30 Days #30 22 12/17/21 Rx tablet Amiodarone [Cordarone 200 MG TAB] 200 mg PO BID 30 Days #60 tablet 02/24/22 Unknown Rx Apixaban [Eliquis] 5 mg PO Q12HR 30 Days #60 tablet 02/24/22 Unknown Rx Aspirin [Aspirin BABY CHEW TAB] 81 mg PO QDAY 30 Days #30 tab.chew 02/24/22 Unknown Rx AtorvaSTATin [Lipitor] 40 mg PO QHS 30 Days #30 tablet 02/24/22 Unknown Rx Digoxin [Lanoxin] 0.125 mg PO DAILY@1700 30 Days #30 02/24/22 Unknown Rx tablet Furosemide [Lasix] 40 mg PO QDAC 30 Days #30 tab 02/24/22 Unknown Rx Metoprolol [Lopressor TAB] 25 mg PO Q6H 30 Days #120 tablet 02/24/22 Unknown Rx Allergies Allergy/AdvReac Type Severity Reaction Status Date / Time cantaloupe Allergy Severe Anaphylaxis Verified 02/19/22 01:44 melon Allergy Severe Anaphylaxis Verified 02/19/22 01:44 mushroom Allergy Severe Anaphylaxis Verified 02/19/22 01:44 watermelon Allergy Severe Anaphylaxis Verified 02/19/22 01:44 pollen extracts Allergy Unknown Verified 02/19/22 01:44 ED Review of Systems ROS: Stated complaint: BOB Other details as noted in HPI Comment: All other systems reviewed and negative Constitutional: denies: chills, fever Eyes: denies: eye pain, eye discharge, vision change ENT: denies: ear pain, throat pain Respiratory: shortness of breath. denies: cough, wheezing Cardiovascular: palpitations. denies: chest pain Endocrine: no symptoms reported Gastrointestinal: denies: abdominal pain, nausea, diarrhea Genitourinary: denies: urgency, dysuria Musculoskeletal: denies: back pain, joint swelling, arthralgia Skin: denies: rash, lesions Neurological: denies: headache, weakness, paresthesias Psychiatric: denies: anxiety, depression Hematological/Lymphatic: denies: easy bleeding, easy bruising ED Past Medical Hx - Past Medical History Previous Medical History?: Yes Hx Hypertension: Yes Hx Heart Attack/AMI: Yes Hx Congestive Heart Failure: Yes Additional medical history: afib - Social History Smoking Status: Current Every Day Smoker Substance Use Type: None - Medications Home Medications: Home Medications Medication Instructions Recorded Confirmed Last Taken Type Pantoprazole [Protonix TAB] 40 mg PO QDAC 30 Days #30 tablet 12/18/21 02/23/22 12/23/21 Rx Levothyroxine [Synthroid] 150 mcg PO DAILY@0600 30 Days #30 12/28/21 02/23/22 12/17/21 Rx tablet Amiodarone [Cordarone 200 MG TAB] 200 mg PO BID 30 Days #60 tablet 02/24/22 Unknown Rx Apixaban [Eliquis] 5 mg PO Q12HR 30 Days #60 tablet 02/24/22 Unknown Rx Aspirin [Aspirin BABY CHEW TAB] 81 mg PO QDAY 30 Days #30 tab.chew 02/24/22 Unknown Rx AtorvaSTATin [Lipitor] 40 mg PO QHS 30 Days #30 tablet 02/24/22 Unknown Rx Digoxin [Lanoxin] 0.125 mg PO DAILY@1700 30 Days #30 02/24/22 Unknown Rx tablet Furosemide [Lasix] 40 mg PO QDAC 30 Days #30 tab 02/24/22 Unknown Rx Metoprolol [Lopressor TAB] 25 mg PO Q6H 30 Days #120 tablet 02/24/22 Unknown Rx ED Physical Exam - General Limitations: No Limitations General appearance: alert, in no apparent distress - Head Head exam: Present: atraumatic, normocephalic - Eye Eye exam: Present: normal appearance - ENT ENT exam: Present: mucous membranes moist - Neck Neck exam: Present: normal inspection - Respiratory Respiratory exam: Present: rales. Absent: respiratory distress - Cardiovascular Cardiovascular Exam: Present: normal rhythm, tachycardia, irregular rhythm, other (Irregularly irregular). Absent: systolic murmur, diastolic murmur, rubs, gallop - GI/Abdominal GI/Abdominal exam: Present: soft, normal bowel sounds - Rectal Rectal exam: Present: deferred - Extremities Exam Extremities exam: Present: other (Bilateral pitting edema of the lower extremities) - Back Exam Back exam: Present: normal inspection - Neurological Exam Neurological exam: Present: alert, oriented X3, CN II-XII intact. Absent: motor sensory deficit - Psychiatric Psychiatric exam: Present: normal affect, normal mood - Skin Skin exam: Present: warm, dry, intact, normal color. Absent: rash ED Course Vital Signs 05/08/22 05/08/22 05/08/22 13:03 13:43 13:45 Temperature Pulse Rate 150 H 132 H 157 H Respiratory 18 16 Rate Blood Pressure Blood Pressure 140/100 [Left] O2 Sat by Pulse 98 70 L Oximetry 05/08/22 05/08/22 05/08/22 13:53 14:01 14:15 Temperature 98.8 F Pulse Rate 159 H 173 H 144 H Respiratory 23 22 25 H Rate Blood Pressure 122/95 131/105 Blood Pressure 122/95 [Left] O2 Sat by Pulse 100 94 99 Oximetry 05/08/22 05/08/22 05/08/22 14:31 14:45 15:01 Temperature Pulse Rate 151 H 149 H 159 H Respiratory 27 H 27 H 38 H Rate Blood Pressure 131/105 131/105 131/105 Blood Pressure [Left] O2 Sat by Pulse 100 100 100 Oximetry 05/08/22 05/08/22 05/08/22 15:15 15:23 15:30 Temperature Pulse Rate 151 H 156 H 106 H Respiratory 26 H Rate Blood Pressure 137/100 137/100 137/100 Blood Pressure [Left] O2 Sat by Pulse 98 Oximetry 05/08/22 05/08/22 05/08/22 15:45 16:01 16:15 Temperature Pulse Rate 125 H 143 H Respiratory Rate Blood Pressure 137/100 137/115 139/103 Blood Pressure [Left] O2 Sat by Pulse 95 96 Oximetry 05/08/22 05/08/22 05/08/22 16:27 16:31 16:45 Temperature Pulse Rate 146 H 143 H 124 H Respiratory Rate Blood Pressure 139/103 139/103 120/90 Blood Pressure [Left] O2 Sat by Pulse 93 100 Oximetry 05/08/22 05/08/22 05/08/22 17:01 17:15 17:31 Temperature Pulse Rate 123 H 135 H 142 H Respiratory Rate Blood Pressure 120/90 120/90 120/90 Blood Pressure [Left] O2 Sat by Pulse 100 93 95 Oximetry 05/08/22 17:45 Temperature Pulse Rate 152 H Respiratory Rate Blood Pressure 120/90 Blood Pressure [Left] O2 Sat by Pulse Oximetry ED Medical Decision Making - Lab Data Result diagrams: 05/08/22 13:50 05/08/22 13:50 Lab Results 05/08/22 05/08/22 05/08/22 Range/Units 13:50 13:50 13:50 WBC 7.4 (4.5-11.0) K/mm3 RBC 4.54 (3.65-5.03) M/mm3 Hgb 12.3 (11.8-15.2) gm/dl Hct 39.0 (35.5-45.6) % MCV 86 (84-94) fl MCH 27 L (28-32) pg MCHC 32 (32-34) % RDW 19.3 H (13.2-15.2) % Plt Count 217 (140-440) K/mm3 Lymph % (Auto) 7.4 L (13.4-35.0) % Coleman % (Auto) 12.7 H (0.0-7.3) % Eos % (Auto) 0.2 (0.0-4.3) % Baso % (Auto) 1.0 (0.0-1.8) % Lymph # (Auto) 0.6 L (1.2-5.4) K/mm3 Coleman # (Auto) 0.9 H (0.0-0.8) K/mm3 Eos # (Auto) 0.0 (0.0-0.4) K/mm3 Baso # (Auto) 0.1 (0.0-0.1) K/mm3 Seg Neutrophils % 78.7 H (40.0-70.0) % Seg Neutrophils # 5.8 (1.8-7.7) K/mm3 Sodium 135 L (137-145) mmol/L Potassium 4.8 (3.6-5.0) mmol/L Chloride 97.2 L (98-107) mmol/L Carbon Dioxide 23 (22-30) mmol/L Anion Gap 20 mmol/L BUN 19 (9-20) mg/dL Creatinine 1.1 (0.8-1.3) mg/dL Estimated GFR > 60 ml/min BUN/Creatinine Ratio 17 % Glucose 89 (75-100) mg/dL Calcium 8.6 (8.4-10.2) mg/dL Total Bilirubin 2.30 H (0.1-1.2) mg/dL AST 24 (5-40) units/L ALT 13 (7-56) units/L Alkaline Phosphatase 225 H (35-129) units/L Troponin T < 0.010 (0.00-0.029) ng/mL NT-Pro-B Natriuret Pep (0-900) pg/mL Total Protein 6.6 (6.3-8.2) g/dL Albumin 3.6 L (3.9-5) g/dL Albumin/Globulin Ratio 1.2 % Urine Color (Yellow) Urine Turbidity (Clear) Specific Ignacio (Man) (1.003-1.030) Ur Protein (Man) (Negative) mg/dL Ur Ketones (Man) (Negative) Ur Nitrite (Man) (Negative) Urine Bilirubin (Man) (Negative) Urine Ictotest Leukocyte Esterase (Man) (Negative) Urine WBC (Auto) (0.0-6.0) /HPF Urine RBC (Auto) (0.0-6.0) /HPF Urine RBC (Manual) (Negative) 05/08/22 05/08/22 Range/Units 13:57 14:16 WBC (4.5-11.0) K/mm3 RBC (3.65-5.03) M/mm3 Hgb (11.8-15.2) gm/dl Hct (35.5-45.6) % MCV (84-94) fl MCH (28-32) pg MCHC (32-34) % RDW (13.2-15.2) % Plt Count (140-440) K/mm3 Lymph % (Auto) (13.4-35.0) % Coleman % (Auto) (0.0-7.3) % Eos % (Auto) (0.0-4.3) % Baso % (Auto) (0.0-1.8) % Lymph # (Auto) (1.2-5.4) K/mm3 Coleman # (Auto) (0.0-0.8) K/mm3 Eos # (Auto) (0.0-0.4) K/mm3 Baso # (Auto) (0.0-0.1) K/mm3 Seg Neutrophils % (40.0-70.0) % Seg Neutrophils # (1.8-7.7) K/mm3 Sodium (137-145) mmol/L Potassium (3.6-5.0) mmol/L Chloride (98-107) mmol/L Carbon Dioxide (22-30) mmol/L Anion Gap mmol/L BUN (9-20) mg/dL Creatinine (0.8-1.3) mg/dL Estimated GFR ml/min BUN/Creatinine Ratio % Glucose (75-100) mg/dL Calcium (8.4-10.2) mg/dL Total Bilirubin (0.1-1.2) mg/dL AST (5-40) units/L ALT (7-56) units/L Alkaline Phosphatase (35-129) units/L Troponin T (0.00-0.029) ng/mL NT-Pro-B Natriuret Pep 2217 H (0-900) pg/mL Total Protein (6.3-8.2) g/dL Albumin (3.9-5) g/dL Albumin/Globulin Ratio % Urine Color Yellow (Yellow) Urine Turbidity Clear (Clear) Specific Ignacio (Man) 1.005 (1.003-1.030) Ur Protein (Man) Negative (Negative) mg/dL Ur Ketones (Man) Negative (Negative) Ur Nitrite (Man) Negative (Negative) Urine Bilirubin (Man) Negative (Negative) Urine Ictotest Not Reportable Leukocyte Esterase (Man) Negative (Negative) Urine WBC (Auto) 0.0 (0.0-6.0) /HPF Urine RBC (Auto) 0.0 (0.0-6.0) /HPF Urine RBC (Manual) Negative (Negative) - EKG Data -: EKG Interpreted by Ky Rate: tachycardia - EKG Data Interpretation: other (Irregularly irregular) - Radiology Data Radiology results: report reviewed - Medical Decision Making Patient received IV Lasix The patient received 2 boluses of 15 mg of Cardizem to no avail thus patient was placed on Cardizem drip Critical Care Time: Yes Critical care time in (mins) excluding proc time.: 35 Critical care attestation.: If time is entered above; I have spent that time in minutes in the direct care of this critically ill patient, excluding procedure time. ED Disposition Clinical Impression: Afib, CHF (congestive heart failure) Disposition: 09 ADMITTED INPATIENT Is pt being admited?: Yes Does the pt Need Aspirin: No Condition: Fair
[2022-05-08 14:15] LABS: Basophils # (Auto) 0.1 K/mm3 (0.0-0.1); Eosinophils % (Auto) 0.2 % (0.0-4.3); Hemoglobin 12.3 gm/dl (11.8-15.2); Lymphocytes # (Auto) 0.6 K/mm3 (1.2-5.4); Lymphocytes % (Auto) 7.4 % (13.4-35.0); Mean Corpuscular HGB Conc 32 % (32-34); Mean Corpuscular Volume 86 fl (84-94); Monocytes # (Auto) 0.9 K/mm3 (0.0-0.8); Monocytes % (Auto) 12.7 % (0.0-7.3); Platelet Count 217 K/mm3 (140-440); Red Blood Count 4.54 M/mm3 (3.65-5.03); Red Cell Distribution Width 19.3 % (13.2-15.2)
--- NOTE | 2022-05-08 14:27 | XRay Report ---
CHEST 1 VIEW 05/08/2022 2:12 PM INDICATION / CLINICAL INFORMATION: tachycardia. COMPARISON: 03/02/2020 FINDINGS: SUPPORT DEVICES: None. HEART / MEDIASTINUM: No significant abnormality. LUNGS / PLEURA: No significant pulmonary or pleural abnormality. No pneumothorax. ADDITIONAL FINDINGS: No significant additional findings. IMPRESSION: 1. No acute findings. Signer Name: Gopal Pugh Jr, MD Signed: 05/08/2022 2:23 PM Workstation Name: [id number]
[2022-05-08 14:37] LABS: Alanine Aminotransferase 13 units/L (7-56); Albumin 3.6 g/dL (3.9-5); BUN/Creatinine Ratio 17; Blood Urea Nitrogen 19 mg/dL (9-20); Calcium 8.6 mg/dL (8.4-10.2); Hemolysis Index 8
[2022-05-08 15:27] LABS: Color,Urine Yellow (Yellow)
[2022-05-08] MEDS ORDERED: FUROSEMIDE 20 MG/2 ML INJ IV ONE (15:45)
[2022-05-08] MEDS ORDERED: dilTIAZem 50 MG/10 ML INJ IV NR (16:14)
[2022-05-08] MEDS ORDERED: oxyCODONE /ACETAMINOPHEN 5-325MG TAB PO PRN (17:39)
[2022-05-08] MEDS ORDERED: ALBUTEROL 2.5 MG/3 ML NEBU IH PRN (17:39)
[2022-05-08] MEDS ORDERED: ACETAMINOPHEN 325 MG TAB PO PRN (17:39)
[2022-05-08] MEDS ORDERED: MORPHINE 4 MG/1 ML INJ IV PRN (17:39)
--- NOTE | 2022-05-08 17:40 | History and Physical Report ---
Medications and Allergies Allergies Allergy/AdvReac Type Severity Reaction Status Date / Time cantaloupe Allergy Severe Anaphylaxis Verified 02/19/22 01:44 melon Allergy Severe Anaphylaxis Verified 02/19/22 01:44 mushroom Allergy Severe Anaphylaxis Verified 02/19/22 01:44 watermelon Allergy Severe Anaphylaxis Verified 02/19/22 01:44 pollen extracts Allergy Unknown Verified 02/19/22 01:44 Home Medications Medication Instructions Recorded Confirmed Last Taken Type Pantoprazole [Protonix TAB] 40 mg PO QDAC 30 Days #30 tablet 12/18/21 02/23/22 12/23/21 Rx Levothyroxine [Synthroid] 150 mcg PO DAILY@0600 30 Days #30 12/28/21 02/23/22 12/17/21 Rx tablet Amiodarone [Cordarone 200 MG TAB] 200 mg PO BID 30 Days #60 tablet 02/24/22 Unknown Rx Apixaban [Eliquis] 5 mg PO Q12HR 30 Days #60 tablet 02/24/22 Unknown Rx Aspirin [Aspirin BABY CHEW TAB] 81 mg PO QDAY 30 Days #30 tab.chew 02/24/22 Unknown Rx AtorvaSTATin [Lipitor] 40 mg PO QHS 30 Days #30 tablet 02/24/22 Unknown Rx Digoxin [Lanoxin] 0.125 mg PO DAILY@1700 30 Days #30 02/24/22 Unknown Rx tablet Furosemide [Lasix] 40 mg PO QDAC 30 Days #30 tab 02/24/22 Unknown Rx Metoprolol [Lopressor TAB] 25 mg PO Q6H 30 Days #120 tablet 02/24/22 Unknown Rx Active Meds: Active Medications dilTIAZem/NaCl (Diltiazem/Nacl 125mg/125ml) 125 mg in 125 mls @ 5 mls/hr IV TITRATE JENNA; Protocol Exam - Constitutional Vitals: Temp Pulse Resp BP Pulse Ox 98.8 F 146 H 26 H 139/103 96 05/08/22 13:53 05/08/22 16:27 05/08/22 15:15 05/08/22 16:27 05/08/22 16:15 HEART Score - HEART Score Troponin: Troponin T < 0.010 ng/mL (0.00-0.029) 05/08/22 13:50 Results - Labs CBC & Chem 7: 05/08/22 13:50 05/08/22 13:50 Labs: Abnormal lab results 05/08/22 05/08/22 05/08/22 Range/Units 13:50 13:50 14:16 MCH 27 L (28-32) pg RDW 19.3 H (13.2-15.2) % Lymph % (Auto) 7.4 L (13.4-35.0) % Benton % (Auto) 12.7 H (0.0-7.3) % Lymph # (Auto) 0.6 L (1.2-5.4) K/mm3 Benton # (Auto) 0.9 H (0.0-0.8) K/mm3 Seg Neutrophils % 78.7 H (40.0-70.0) % Sodium 135 L (137-145) mmol/L Chloride 97.2 L (98-107) mmol/L Total Bilirubin 2.30 H (0.1-1.2) mg/dL Alkaline Phosphatase 225 H (35-129) units/L NT-Pro-B Natriuret Pep 2217 H (0-900) pg/mL Albumin 3.6 L (3.9-5) g/dL
[2022-05-08] MEDS ORDERED: FUROSEMIDE 40 MG/4 ML INJ IV SCH (18:00)
[2022-05-08] MEDS ORDERED: METOPROLOL TARTRATE 25 MG TAB PO SCH (18:00)
[2022-05-08] MEDS ORDERED: dilTIAZem/NaCl 125 MG/125 ML BAG IV SCH (18:00)
[2022-05-08 18:17] VITALS: BP 127/86
[2022-05-08] MEDS ORDERED: NON-FORMULARY EACH (Apixaban 5 MG Tablet) PO SCH (22:00)
[2022-05-08] MEDS ORDERED: APIXABAN 5 MG TAB PO SCH (22:00)
[2022-05-09] MEDS ORDERED: LEVOTHYROXINE 150 MCG TAB PO SCH (06:00)
[2022-05-09] MEDS ORDERED: PANTOPRAZOLE 40 MG TAB PO SCH (07:30)
--- NOTE | 2022-05-09 09:31 | Electrocardiograph Report ---
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
[2022-05-09] MEDS ORDERED: ASPIRIN 81 MG TAB CHEW PO SCH (10:00)
[2022-05-09] MEDS ORDERED: DIGOXIN 0.125 MG TAB PO SCH (17:00)
== END 2022-05-08 20:26 | disposition left against medical advice (07) | DRG 310 ==
LOC: ED 12:59 → IMCU 17:45
PROVIDERS: ADMIT Internal Medicine; ATTEND Internal Medicine
DX: I48.91 Unspecified atrial fibrillation (principal); I50.9 Heart failure, unspecified; Z53.29 Procedure and treatment not carried out because of patient's decision for other reasons; I25.2 Old myocardial infarction; F17.200 Nicotine dependence, unspecified, uncomplicated; Z79.82 Long term (current) use of aspirin; Z91.048 Other nonmedicinal substance allergy status; Z91.018 Allergy to other foods
CPT/HCPCS: 36415; 71045; 80053; 81001; 83880; 84484; 85025; 93005; 96374; 96375; 96376; 99291; G0378; J3490; J1940